=== PATIENT | male | born 1935 | race Caucasian/White ===

== ENCOUNTER 2017-06-13 12:09 | Inpatient (IN) | payer OTHER, SELFPAY ==
[2017-06-13] VITALS (10 sets, daily range): BP systolic 106–111; BP diastolic 50–66; PULSE 56–107; RESP 14–22; TEMP 36.8–37.1; O2SAT 91–95; BMI 22.0; BMI 21.6
--- NOTE | 2017-06-13 13:27 | EKG12_ITS ---
Test Reason : AFIB Blood Pressure : / mmHG Vent. Rate : 108 BPM Atrial Rate : 110 BPM P-R Int : 000 ms QRS Dur : 108 ms QT Int : 350 ms P-R-T Axes : 000 -03 012 degrees QTc Int : 469 ms Atrial fibrillation with premature ventricular or aberrantly conducted complexes Nonspecific ST and T wave abnormality Abnormal ECG Confirmed by TRISTAN SANDOVAL, KATHIA ([id number]), news editor ANAHY CHRISTIE ([id number]) on 06/18/2017 3:24:20 PM Referred By: CLEVELAND/PAUL Confirmed By:KATHIA HUDSNO MD
--- NOTE | 2017-06-13 13:27 | RAD_ITS ---
STUDY: X-RAY CHEST REASON FOR EXAM: Male, 81 years old. Intermittent nausea and dizziness. Sternal discomfort. TECHNIQUE: Single AP portable view of the chest. COMPARISON: Comparison is made with prior study dated March 31, 2015. FINDINGS: EKG electrodes are seen. Hyperinflation. Scattered calcified granulomas. Increased markings with areas of confluence in the left lower lobe suggestive of left lower lobe infiltrate. There is no demonstrated pleural abnormality. Sternal cerclage wires and vascular clips are present from a prior sternotomy and coronary artery bypass graft procedure (CABG). Normal mediastinum and junior. Normal visualized pulmonary arteries. There is atherosclerotic calcification of the aortic arch with tortuosity. There are diffuse degenerative changes of the visualized thoracic spine. Normal visualized ribs, clavicles, and shoulders. There is no demonstrated abnormality of the visualized soft tissue structures of the upper abdomen. RAD/Chest 1 View (Portable) IMPRESSION: Left lower lobe infiltrate. Hyperinflation. Electronically Signed: Mehul Calderon MD at 13:51 EST Tel [phone], Service support ,
[2017-06-13 13:57] LABS: Absolute Lymphocyte Count 1.47 X10^3/ul (0.83-4.51); Absolute Neutrophil Count 16.9 X10^3/uL (2.0-7.7); Basophil# 0.02 X10^3/uL; Basophil% 0.1 % (0-1); Eosinophil# 0.02 X10^3/uL; Eosinophils% 0.1 % (0-5); Hematocrit 42.3 % (40-54); Hemoglobin 14.4 g/dl (13.0-16.5); Lymphocyte # 1.47 X10^3/ul (4.0); Lymphocyte % 7.6 % (19-41); Mean Corpuscular Hgb 33.9 pg (27.0-32.0); Mean Corpuscular Volume 99.5 fL (80-94); Mean Platelet Vol. 12.1 fl (6.2-12.0); Monocyte# 0.96 X10^3/uL; Monocyte% 4.9 % (0-10); Neutrophil # 16.94 X10^3/uL (2.7-7.7); POSITIVE COUNT NO; POSITIVE DIFFERENTIAL NO; POSITIVE MORPHOLOGY NO; Platelet Count 167 K/mm3 (150-450); RBC Distribution Width CV 14.3 % (11.6-14.6); RBC Distribution Width SD 51.8 fl (35.1-43.9); Red Blood Count 4.25 M/mm3 (4.6-6.2); White Blood Count 19.5 K/mm3 (4.4-11.0)
[2017-06-13 14:03] LABS: International Normalized Ratio 1.4; Prothrombin Time (Protime)PT. 16.2 SECONDS (11.7-14.9)
[2017-06-13 14:04] LABS: Partial Thromboplast Time 31.7 Seconds (24.1-36.2)
[2017-06-13] MEDS: Metoprolol Tartrate 5 MG/5 ML Vial IV (14:06)
[2017-06-13 14:17] LABS: ALB/GLOB Ratio 0.8 RATIO (0.9-2.4); AST(SGOT) 16 U/L (15-37); Alanine Aminotransfer ALT/SGPT 25 U/L (12-78); Alkaline Phosphatase 83 U/L (45-117); Anion Gap 7 (5-15); BUN 22 mg/dL (7-18); BUN/Creat Ratio 17.7 RATIO (10-20); Calcium,Total 8.4 mg/dL (8.5-10.1); Chloride 100 mmol/L (98-107); Creatinine, Serum 1.24 mg/dL (0.70-1.30); EST Glomerular Filtration Rate 60 mL/min (>60); Est Glom Filt Rate - Afr Amer 72 mL/min (>60); Estimated Creatinine Clearance 47.55 ml/min; Globulin 3.7 g/dL (2.2-4.2); Glucose 122 mg/dL (70-110); Magnesium 2.3 mg/dL (1.8-2.4); Potassium 4.6 mmol/L (3.5-5.1); Protein, Total 6.7 g/dL (6.4-8.2); Sodium Level 134 mmol/L (136-145)
[2017-06-13 14:26] LABS: Lactic Acid 1.6 mmol/L (0.4-2.0)
--- NOTE | 2017-06-13 15:27 | ED.VISSUMM ---
- ER Visit Summary Date of Service: 06/13/17 Chief Complaint: Atrial fibrillation History of Present Illness: The patient is a 81 M who states that for the past 6 weeks she has had a cough. He states he did a round of antibiotics towards the beginning of May but it did not help him. Today he went to the urgent care where he had a chest x-ray that was concerning for pneumonia and an EKG that showed atrial fibrillation with A. fib with RVR. 11 years ago the patient had a four-vessel CABG at [facility]. He does states that he does not currently follow with any varitype operator. He does not recall a remote time since the open heart surgery where he was fishing in [facility] [place] and went to the hospital was told that he had A. fib. When he followed up he did not have A. fib. He states that he does not know if he is in A. fib now or not as he does not feel any different. He states that really he only wants to be evaluated for his cough. Physical Examination: Afebrile patient's heart rate noted to be 120-140 range. Normotensive. Gen: Well-nourished well-developed Head: Normocephalic atraumatic Eyes: Perrl EOMI ENT: TMs clear no rhinorrhea moist mucous membranes Neck: Supple no lymphadenopathy no JVD nontender CVS: Irregularly irregular tachycardic rhythm no murmurs normal S1-S2 Respiratory: No distress clear to auscultation bilaterally chest nontender Abdomen: Soft nontender nondistended normal bowel sounds no masses Back: Nontender Extremity: Nontender no edema Skin: Normal color no rash Neuro: alert orientated ?3 CN II-XII intact normal strength sensation reflexes gait cerebellar Psych: Normal affect normal mood Test Results: X-ray shows a lingular infiltrate. White count is 19,000. TSH magnesium potassium normal. Troponin normal. Lactic acid normal. Emergency Department Course and Treatment: Cultures were obtained. The patient received Rocephin and azithromycin. Patient also received a dose of metoprolol which helped to improve his rate. The patient also received a dose of aspirin and Lovenox. He is still in A. fib. Our plan is admission to the hospital. Impression: 1. Pneumonia 2. Atrial fibrillation with rapid ventricular response 3. Sepsis This note was generated with NeuroPaceation software. It may contain incorrect words, spelling, and punctuation that were not noted in review of the chart prior to signing ED Disposition - Plan for ED Patient: Chief Complaint: Chest Other Referrals: Moise Babcock [Primary Care Provider] -
--- NOTE | 2017-06-13 15:37 | PCM.HP.STD ---
Problem List (1) Atrial fibrillation Status: Acute (2) Sepsis Status: Acute (3) Community acquired pneumonia Status: Acute (4) Hyperlipidemia Status: Chronic (5) Status post coronary artery bypass graft Status: Chronic (6) Coronary artery disease Status: Chronic History of Present Illness Date of Admission: 06/13/17 Chief Complaint: Cough. The patient is a 81 year old M past medical history as mentioned above presented to the emergency room because of 5 weeks history of cough. His illness started around 5 weeks ago with cough, mostly dry cough, with occasional sputum production, white to yellow in color, small amount, persistent cough without improvement and reported associated mild shortness of breath with activity. He denied any aggravating or relieving factors. He denied fever or chills. Denied sore throat, nasal or sinus congestion. Using cough medicine at home without improvement. Denied chest pain, palpitation, dizziness or lightheadedness. Denies syncope or presyncope. He had a history of CAD status post CABG long time ago and he has been only taking simvastatin at home. He has a history of hyperlipidemia and he has been on statins only. He is not seeing any jeep driver. In the emergency room, he was afebrile, found to be in A. fib with RVR, heart rate was around 110, blood pressure stable and pulse ox was 91% on room air. He was given 1 dose of IV metoprolol and his heart rate came down to 80s-90s. Routine blood work is remarkable for leukocytosis, blood sugar of 122. Troponin was negative. Lactic acid was normal. EKG revealed A. fib with RVR, no acute ischemic changes. His pro time was 16.2 and INR was 1.4. Chest x-ray revealed left lingula infiltrate. He is being admitted for left lower lobe community-acquired pneumonia with sepsis as well as newly diagnosed A. fib with RVR. Past Medical History Past Medical History (Chronic Problems): Chronic Problems Hyperlipidemia (Chronic) Status post coronary artery bypass graft (Chronic) Coronary artery disease (Chronic) Allergies No Known Allergies Allergy (Verified 06/13/17 12:11) Home Medications: Ambulatory Orders Medication Instructions Recorded Multivitamin [Multiple Vitamins] 1 each PO DAILY 06/13/17 Simvastatin [Zocor] 40 mg PO QHS 06/13/17 Surgical History: coronary bypass surgery Psychiatric History: No pertinent psych hx Lives: Spouse/ Significant Other Smoking Status: Former smoker Alcohol: None Drugs: None - *Family History Maternal History Items: No pertinent history Paternal History Items: No pertinent history Review of Systems Constitutional: Denies: Anorexia, Chills, Fever, Weakness Eyes: Denies: Blurred vision, Double vision, Drainage, Redness HEENT: Denies: Difficulty Hearing, Ear Pain, Eye Pain, Nasal Congestion, Sore Throat Cardiovascular: Denies: Chest Pain, Chest Pressure, Edema, Light Headedness, Orthopnea, Paroxysmal Noc. Dyspnea, Syncope Respiratory: Reports: Cough, Shortness of Breath. Denies: Hemoptysis, Pleuritic Pain, Wheezing Gastrointestinal: Denies: Abdominal Pain, Constipation, Diarrhea, Nausea, Vomiting Genitourinary: Denies: Dysuria, Frequency, Hematuria Musculoskeletal: Denies: Arm Pain, Back Pain, Foot Pain Skin: Denies: Dryness, Rash Neurological: Denies: Balance problems, Double vision, Change in Speech, Slurred speech, Confusion, Headaches, Incoordination, Numbness Psychiatric: Denies: Anxiety, Depression Endocrine: Denies: Change in Body Habitus, Polydipsia VTE Information - Inpt Only VTE Present on Admission: No VTE Mechan Device Prophylaxis: None VTE Pharm Prophylaxis ordered?: No Patient Problems: Active and Suspected Problems Atrial fibrillation (Acute) Sepsis (Acute) Community acquired pneumonia (Acute) - Physical Exam General: Alert, Oriented x3, Cooperative, No apparent distress HEENT: Atraumatic, PERRLA, EOMI Oral: Moist Mucosa, No Gingival or Mucosal Lesions/ Ulcerations Neck: Supple, No JVD, Negative Carotid Bruits, Trachea Midline, Thyroid Normal Size and Texture Lungs: No wheeze, Diminished, Rales, Rhonchi, - - Decreased breath sounds bilateral, bilateral rhonchi, coarse crackles at the left base. Cardiovascular: Normal S1, Normal S2, No murmurs, PMI Normal, Irregular Rate Abdomen: Bowel Sounds Present, Soft, Non Tender, Non-Distended, No Hepato-splenomegaly Extremities: No clubbing, No cyanosis, No edema Skin: No rashes, No breakdown Lymphatic: No Cervical, Supraclavicular, or Inguinal Adenopathy Neurological: Cranial nerves II-XII grossly intact, Motor Exam 5/5 strength throughout Psych/Mental Status: Normal Affect, Appropriate, Alert and oriented to time, place, person, mood and affect Vital Signs Temp Pulse Resp BP Pulse Ox 98.6 F 107 H 14 111/65 92 06/13/17 12:10 06/13/17 14:10 06/13/17 12:10 06/13/17 12:10 06/13/17 14:10 Oxygen Flow Rate 2 Oxygen Delivery Method Nasal Cannula Weight: 153 lb 7.068 oz Body Mass Index (BMI) 22.0 Laboratory Tests Past 24 Hrs 06/13/17 06/13/17 06/13/17 13:44 13:44 13:44 WBC 19.5 H RBC 4.25 L Hgb 14.4 Hct 42.3 MCV 99.5 H MCH 33.9 H MCHC 34.0 RDW 14.3 RDW Differential 51.8 H Plt Count 167 MPV 12.1 H Immature Gran % (Auto) 0.300 Neut % (Auto) 87.0 H Lymph % (Auto) 7.6 L Rutherford % (Auto) 4.9 Eos % (Auto) 0.1 Baso % (Auto) 0.1 Absolute Neuts (auto) 16.9 H Absolute Lymphs (auto) 1.47 Total Counted Not Reportable PT 16.2 H INR 1.4 APTT 31.7 Sodium 134 L Potassium 4.6 Chloride 100 Carbon Dioxide 27.0 Anion Gap 7 BUN 22 H Creatinine 1.24 Estim Creat Clear Calc 47.55 Est GFR (MDRD) Af Amer 72 Est GFR (MDRD) Non-Af 60 BUN/Creatinine Ratio 17.7 Glucose 122 H Lactic Acid Calcium 8.4 L Magnesium 2.3 Total Bilirubin 1.50 H AST 16 ALT 25 Alkaline Phosphatase 83 Troponin I < 0.02 Total Protein 6.7 Albumin 3.0 L Globulin 3.7 Albumin/Globulin Ratio 0.8 L TSH 3.10 06/13/17 13:44 WBC RBC Hgb Hct MCV MCH MCHC RDW RDW Differential Plt Count MPV Immature Gran % (Auto) Neut % (Auto) Lymph % (Auto) Rutherford % (Auto) Eos % (Auto) Baso % (Auto) Absolute Neuts (auto) Absolute Lymphs (auto) Total Counted PT INR APTT Sodium Potassium Chloride Carbon Dioxide Anion Gap BUN Creatinine Estim Creat Clear Calc Est GFR (MDRD) Af Amer Est GFR (MDRD) Non-Af BUN/Creatinine Ratio Glucose Lactic Acid 1.6 Calcium Magnesium Total Bilirubin AST ALT Alkaline Phosphatase Troponin I Total Protein Albumin Globulin Albumin/Globulin Ratio TSH Clinical Impression(s) from Imaging Studies Chest X-Ray 06/13/17 13:27 IMPRESSION: Left lower lobe infiltrate. Hyperinflation. Electronically Signed: Mehul Calderon MD at 13:51 EST Tel [phone], Service support , Assessment/Plan Active and Suspected Problems Atrial fibrillation (Acute) Sepsis (Acute) Community acquired pneumonia (Acute) This is a 81 years old presented to the emergency room because of fall for history of dry/intermittently productive cough and he was found to have infiltrate on the left lingula consistent with community-acquired pneumonia, also found to have newly diagnosed atrial fibrillation. #1 left lower lobe community-acquired pneumonia/sepsis: X-ray reviewed, revealed left lingular infiltrate. Initially, heart rate has been more than 100, has leukocytosis consistent with sepsis. Lactic acid is normal. Plan: Admit to PCU, cardiac monitoring, blood culture, urine culture, sputum culture, IV Rocephin and Zithromax, pneumococcal and Legionella antigen, nasal swab for influenza a and B, DuoNeb every 6 hours, incentive spirometer, PT OT evaluation and treatment. #2 newly diagnosed atrial fibrillation with RVR: Initially, he was in A. fib with RVR, rate has been around 110. Received 1 dose of IV metoprolol, rate came down to 80s-90s, blood pressure stable. EKG revealed A. fib, no acute ischemic changes. Troponin is negative. His CHA2 DS2-VASc core S3, he is at moderate to high risk for stroke, he is a candidate for anticoagulation. Plan: Cardiac monitoring, serial cardiac enzymes, repeat EKG tomorrow morning, 2D echocardiogram, check TSH and serum magnesium, start oral Coreg for rate control, therapeutic Lovenox twice daily for anticoagulation, cardiology consult. #3 CAD status post CABG: Patient denies any chest pain or shortness of breath. EKG reviewed, no acute ST elevation. Patient only takes simvastatin at home. He is not on beta-blockers or PASHA inhibitors. He does not see a jeep driver. Plan as above, start Coreg, baby aspirin, fasting lipid profile, 2D echocardiogram. #4 hyperlipidemia: Continue statins, fasting lipid profile. #5 DVT prophylaxis: He will be on therapeutic Lovenox twice daily for anticoagulation. This note was generated with Flexiroam dictation software. It may contain incorrect words, spelling, and punctuation that were not noted in checking the note before signing. Code Visit Inpatient E&M: 78048 Init Hosp L3
--- NOTE | 2017-06-13 15:48 | HP.PCM_ITS ---
Problem List (1) Atrial fibrillation Status: Acute (2) Sepsis Status: Acute (3) Community acquired pneumonia Status: Acute (4) Hyperlipidemia Status: Chronic (5) Status post coronary artery bypass graft Status: Chronic (6) Coronary artery disease Status: Chronic History of Present Illness Date of Admission: 06/13/17 Chief Complaint: Cough. The patient is a 81 year old M past medical history as mentioned above presented to the emergency room because of 5 weeks history of cough. His illness started around 5 weeks ago with cough, mostly dry cough, with occasional sputum production, white to yellow in color, small amount, persistent cough without improvement and reported associated mild shortness of breath with activity. He denied any aggravating or relieving factors. He denied fever or chills. Denied sore throat, nasal or sinus congestion. Using cough medicine at home without improvement. Denied chest pain, palpitation, dizziness or lightheadedness. Denies syncope or presyncope. He had a history of CAD status post CABG long time ago and he has been only taking simvastatin at home. He has a history of hyperlipidemia and he has been on statins only. He is not seeing any bread packer. In the emergency room, he was afebrile, found to be in A. fib with RVR, heart rate was around 110, blood pressure stable and pulse ox was 91% on room air. He was given 1 dose of IV metoprolol and his heart rate came down to 80s-90s. Routine blood work is remarkable for leukocytosis, blood sugar of 122. Troponin was negative. Lactic acid was normal. EKG revealed A. fib with RVR, no acute ischemic changes. His pro time was 16.2 and INR was 1.4. Chest x-ray revealed left lingula infiltrate. He is being admitted for left lower lobe community-acquired pneumonia with sepsis as well as newly diagnosed A. fib with RVR. Past Medical History Past Medical History (Chronic Problems): Chronic Problems Hyperlipidemia (Chronic) Status post coronary artery bypass graft (Chronic) Coronary artery disease (Chronic) Allergies No Known Allergies Allergy (Verified 06/13/17 12:11) Home Medications: Ambulatory Orders Medication Instructions Recorded Multivitamin [Multiple Vitamins] 1 each PO DAILY 06/13/17 Simvastatin [Zocor] 40 mg PO QHS 06/13/17 Surgical History: coronary bypass surgery Psychiatric History: No pertinent psych hx Lives: Spouse/ Significant Other Smoking Status: Former smoker Alcohol: None Drugs: None - *Family History Maternal History Items: No pertinent history Paternal History Items: No pertinent history Review of Systems Constitutional: Denies: Anorexia, Chills, Fever, Weakness Eyes: Denies: Blurred vision, Double vision, Drainage, Redness HEENT: Denies: Difficulty Hearing, Ear Pain, Eye Pain, Nasal Congestion, Sore Throat Cardiovascular: Denies: Chest Pain, Chest Pressure, Edema, Light Headedness, Orthopnea, Paroxysmal Noc. Dyspnea, Syncope Respiratory: Reports: Cough, Shortness of Breath. Denies: Hemoptysis, Pleuritic Pain, Wheezing Gastrointestinal: Denies: Abdominal Pain, Constipation, Diarrhea, Nausea, Vomiting Genitourinary: Denies: Dysuria, Frequency, Hematuria Musculoskeletal: Denies: Arm Pain, Back Pain, Foot Pain Skin: Denies: Dryness, Rash Neurological: Denies: Balance problems, Double vision, Change in Speech, Slurred speech, Confusion, Headaches, Incoordination, Numbness Psychiatric: Denies: Anxiety, Depression Endocrine: Denies: Change in Body Habitus, Polydipsia VTE Information - Inpt Only VTE Present on Admission: No VTE Mechan Device Prophylaxis: None VTE Pharm Prophylaxis ordered?: No Patient Problems: Active and Suspected Problems Atrial fibrillation (Acute) Sepsis (Acute) Community acquired pneumonia (Acute) - Physical Exam General: Alert, Oriented x3, Cooperative, No apparent distress HEENT: Atraumatic, PERRLA, EOMI Oral: Moist Mucosa, No Gingival or Mucosal Lesions/ Ulcerations Neck: Supple, No JVD, Negative Carotid Bruits, Trachea Midline, Thyroid Normal Size and Texture Lungs: No wheeze, Diminished, Rales, Rhonchi, - - Decreased breath sounds bilateral, bilateral rhonchi, coarse crackles at the left base. Cardiovascular: Normal S1, Normal S2, No murmurs, PMI Normal, Irregular Rate Abdomen: Bowel Sounds Present, Soft, Non Tender, Non-Distended, No Hepato- splenomegaly Extremities: No clubbing, No cyanosis, No edema Skin: No rashes, No breakdown Lymphatic: No Cervical, Supraclavicular, or Inguinal Adenopathy Neurological: Cranial nerves II-XII grossly intact, Motor Exam 5/5 strength throughout Psych/Mental Status: Normal Affect, Appropriate, Alert and oriented to time, place, person, mood and affect Vital Signs Temp Pulse Resp BP Pulse Ox 98.6 F 107 H 14 111/65 92 06/13/17 12:10 06/13/17 14:10 06/13/17 12:10 06/13/17 12:10 06/13/17 14:10 Oxygen Flow Rate 2 Oxygen Delivery Method Nasal Cannula Weight: 153 lb 7.068 oz Body Mass Index (BMI) 22.0 Laboratory Tests Past 24 Hrs 06/13/17 06/13/17 06/13/17 13:44 13:44 13:44 WBC 19.5 H RBC 4.25 L Hgb 14.4 Hct 42.3 MCV 99.5 H MCH 33.9 H MCHC 34.0 RDW 14.3 RDW Differential 51.8 H Plt Count 167 MPV 12.1 H Immature Gran % (Auto) 0.300 Neut % (Auto) 87.0 H Lymph % (Auto) 7.6 L [place] % (Auto) 4.9 Eos % (Auto) 0.1 Baso % (Auto) 0.1 Absolute Neuts (auto) 16.9 H Absolute Lymphs (auto) 1.47 Total Counted Not Reportable PT 16.2 H INR 1.4 APTT 31.7 Sodium 134 L Potassium 4.6 Chloride 100 Carbon Dioxide 27.0 Anion Gap 7 BUN 22 H Creatinine 1.24 Estim Creat Clear Calc 47.55 Est GFR (MDRD) Af Amer 72 Est GFR (MDRD) Non-Af 60 BUN/Creatinine Ratio 17.7 Glucose 122 H Lactic Acid Calcium 8.4 L Magnesium 2.3 Total Bilirubin 1.50 H AST 16 ALT 25 Alkaline Phosphatase 83 Troponin I < 0.02 Total Protein 6.7 Albumin 3.0 L Globulin 3.7 Albumin/Globulin Ratio 0.8 L TSH 3.10 06/13/17 13:44 WBC RBC Hgb Hct MCV MCH MCHC RDW RDW Differential Plt Count MPV Immature Gran % (Auto) Neut % (Auto) Lymph % (Auto) [place]wey % (Auto) Eos % (Auto) Baso % (Auto) Absolute Neuts (auto) Absolute Lymphs (auto) Total Counted PT INR APTT Sodium Potassium Chloride Carbon Dioxide Anion Gap BUN Creatinine Estim Creat Clear Calc Est GFR (MDRD) Af Amer Est GFR (MDRD) Non-Af BUN/Creatinine Ratio Glucose Lactic Acid 1.6 Calcium Magnesium Total Bilirubin AST ALT Alkaline Phosphatase Troponin I Total Protein Albumin Globulin Albumin/Globulin Ratio TSH Clinical Impression(s) from Imaging Studies Chest X-Ray 06/13/17 13:27 IMPRESSION: Left lower lobe infiltrate. Hyperinflation. Electronically Signed: Mehul Calderon MD at 13:51 EST Tel [phone], Service support , Assessment/Plan Active and Suspected Problems Atrial fibrillation (Acute) Sepsis (Acute) Community acquired pneumonia (Acute) This is a 81 years old presented to the emergency room because of fall for history of dry/intermittently productive cough and he was found to have infiltrate on the left lingula consistent with community-acquired pneumonia, also found to have newly diagnosed atrial fibrillation. #1 left lower lobe community-acquired pneumonia/sepsis: X-ray reviewed, revealed left lingular infiltrate. Initially, heart rate has been more than 100 , has leukocytosis consistent with sepsis. Lactic acid is normal. Plan: Admit to PCU, cardiac monitoring, blood culture, urine culture, sputum culture, IV Rocephin and Zithromax, pneumococcal and Legionella antigen, nasal swab for influenza a and B, DuoNeb every 6 hours, incentive spirometer, PT OT evaluation and treatment. #2 newly diagnosed atrial fibrillation with RVR: Initially, he was in A. fib with RVR, rate has been around 110. Received 1 dose of IV metoprolol, rate came down to 80s-90s, blood pressure stable. EKG revealed A. fib, no acute ischemic changes. Troponin is negative. His CHA2 DS2-VASc core S3, he is at moderate to high risk for stroke, he is a candidate for anticoagulation. Plan: Cardiac monitoring, serial cardiac enzymes, repeat EKG tomorrow morning, 2D echocardiogram, check TSH and serum magnesium, start oral Coreg for rate control , therapeutic Lovenox twice daily for anticoagulation, cardiology consult. #3 CAD status post CABG: Patient denies any chest pain or shortness of breath. EKG reviewed, no acute ST elevation. Patient only takes simvastatin at home. He is not on beta-blockers or PASHA inhibitors. He does not see a bread packer. Plan as above, start Coreg, baby aspirin, fasting lipid profile, 2D echocardiogram. #4 hyperlipidemia: Continue statins, fasting lipid profile. #5 DVT prophylaxis: He will be on therapeutic Lovenox twice daily for anticoagulation. This note was generated with [employer] dictation software. It may contain incorrect words, spelling, and punctuation that were not noted in checking the note before signing. Code Visit Inpatient E&M: 22684 Init Hosp L3
--- NOTE | 2017-06-13 15:56 | ED.DCSUM_ITS ---
- ER Visit Summary Date of Service: 06/13/17 Chief Complaint: Atrial fibrillation History of Present Illness: The patient is a 81 M who states that for the past 6 weeks she has had a cough. He states he did a round of antibiotics towards the beginning of May but it did not help him. Today he went to the urgent care where he had a chest x-ray that was concerning for pneumonia and an EKG that showed atrial fibrillation with A. fib with RVR. 11 years ago the patient had a four-vessel CABG at [facility]. He does states that he does not currently follow with any saturation diver. He does not recall a remote time since the open heart surgery where he was fishing in [facility] [place] and went to the hospital was told that he had A. fib. When he followed up he did not have A. fib. He states that he does not know if he is in A. fib now or not as he does not feel any different. He states that really he only wants to be evaluated for his cough. Physical Examination: Afebrile patient's heart rate noted to be 120-140 range. Normotensive. Gen: Well-nourished well-developed Head: Normocephalic atraumatic Eyes: Perrl EOMI ENT: TMs clear no rhinorrhea moist mucous membranes Neck: Supple no lymphadenopathy no JVD nontender CVS: Irregularly irregular tachycardic rhythm no murmurs normal S1-S2 Respiratory: No distress clear to auscultation bilaterally chest nontender Abdomen: Soft nontender nondistended normal bowel sounds no masses Back: Nontender Extremity: Nontender no edema Skin: Normal color no rash Neuro: alert orientated ?3 CN II-XII intact normal strength sensation reflexes gait cerebellar Psych: Normal affect normal mood Test Results: X-ray shows a lingular infiltrate. White count is 19,000. TSH magnesium potassium normal. Troponin normal. Lactic acid normal. Emergency Department Course and Treatment: Cultures were obtained. The patient received Rocephin and azithromycin. Patient also received a dose of metoprolol which helped to improve his rate. The patient also received a dose of aspirin and Lovenox. He is still in A. fib. Our plan is admission to the hospital. Impression: 1. Pneumonia 2. Atrial fibrillation with rapid ventricular response 3. Sepsis This note was generated with [email or web address] software. It may contain incorrect words, spelling, and punctuation that were not noted in review of the chart prior to signing ED Disposition - Plan for ED Patient: Chief Complaint: Chest Other Referrals: Moise Babcock [Primary Care Provider] -
[2017-06-13] MEDS: Aspirin 81 MG TAB.CHEW 324 MG PO (16:09)
[2017-06-13] MEDS: Enoxaparin 100 MG/ML Syringe 70 MG SC (16:10)
--- NOTE | 2017-06-13 16:50 | ECHOD_ITS ---
Reason For Study: Afib, Aflutter Procedure This was a 2D Doppler, Color Flow transthoracic echocardiogram. Exam performed portable in patient room. Left Ventricle Normal LV size. Moderate global left ventricular systolic dysfunction. Mild segmental systolic dysfunction (see wall motion). The estimated ejection fraction is 40 %. Posterior-Basal: Akinetic. Mid-Posterior: Akinetic. There is mild global hypokinesis of the left ventricle. Right Ventricle Normal RV size. Normal systolic function. Atria Normal left atrium. Normal right atrium. Patent foramen ovale. Mitral Valve There is mild mitral annular calcification. Mild (1+) eccentric mitral valve insufficiency. Tricuspid Valve Normal tricuspid valve. Mild (1+) tricuspid valve insufficiency. Pulmonary artery systolic pressure is 33 mmHg. Aortic Valve Trisinus/trileaflet aortic valve. Mild focal aortic valve calcification. Pulmonic Valve Normal pulmonic valve. Great Vessels Normal aortic root. The pulmonary artery is normal size. Normal inferior vena cava. Pericardium/Pleural No pericardial effusion. Medication Performed a rapid injection of agitated mix of 9 cc saline and 1cc air to assess for atrial septal defect. MMode/2D Measurements & Calculations LVIDd: 5.4 cm IVSd: 0.98 cm Ao root diam: 3.4 cm LVIDs: 4.5 cm LVPWd: 0.54 cm LA dimension: 3.0 cm RVDd: 3.6 cm FS: 16.8 % LAV(MOD-bp): 40.2 ml LA A4 area: 14.0 cm2 RA A4 area: 16.8 cm2 LAV(MOD-bp) Indexed: 21.8 ml/m2 LAV(MOD-sp2): 46.9 ml LAV(MOD-sp4): 29.4 ml Doppler Measurements & Calculations MV E max abdoulaye: 72.9 cm/sec Lat Peak E' Abdoulaye: 10.7 cm/sec Med Peak E' Abdoulaye: 8.5 cm/sec MV A max abdoulaye: 41.9 cm/sec E/E' lat: 6.8 E/E' med: 8.6 MV E/A: 1.7 Ao V2 max: 130.4 cm/sec LV V1 max: 80.4 cm/sec PA V2 max: 70.3 cm/sec Ao max P.9 mmHg LV V1 max P.6 mmHg Ao V2 mean: 96.1 cm/sec Ao mean P.1 mmHg Ao V2 VTI: 21.3 cm TR max abdoulaye: 265.8 cm/sec TR max P.3 mmHg Interpretation Summary Normal LV size. Mild segmental systolic dysfunction (see wall motion). The estimated ejection fraction is 40 %. There is mild mitral annular calcification. Mild (1+) eccentric mitral valve insufficiency. Patent foramen ovale. Ordering Physician: Ernesto Lopez Referring Physician: Moise Babcock Performed By: Shonda Donohue RDCS, RVT
--- NOTE | 2017-06-13 17:08 | PCM.CONS.C ---
Reason for Consult Date of Consultation: 06/13/17 Reason for Consultation: Cough History of Present Illness: The patient is a 81 year old M past medical history for four-vessel coronary bypass surgery over 10 years ago presented to the emergency room because of 5 weeks history of cough. His illness started around 5 weeks ago with cough, mostly dry cough, with occasional sputum production, white to yellow in color, small amount, persistent cough without improvement and reported associated mild shortness of breath with activity. He denied any aggravating or relieving factors. He denied fever or chills. Denied sore throat, nasal or sinus congestion. Using cough medicine at home without improvement. Denied chest pain, palpitation, dizziness or lightheadedness. Denies syncope or presyncope. He is not seeing any plisse machine operator. In the emergency room, he was afebrile, found to be in A. fib with RVR, heart rate was around 110, blood pressure stable and pulse ox was 91% on room air. He was given 1 dose of IV metoprolol and his heart rate came down to 80s-90s. Routine blood work is remarkable for leukocytosis, blood sugar of 122. Troponin was negative. Lactic acid was normal. EKG revealed A. fib with RVR, no acute ischemic changes. His pro time was 16.2 and INR was 1.4. Chest x-ray revealed left lingula infiltrate. He is being admitted for left lower lobe community-acquired pneumonia with sepsis as well as newly diagnosed A. fib with RVR. He says that he is feeling better now but he still has a cough and he wants this worked up quickly so he can go for his family gathering on Saturday. ] Past Medical History Allergies/Adverse Reactions: Allergies No Known Allergies Allergy (Verified 06/13/17 12:11) Home Medications: Ambulatory Orders Medication Instructions Recorded Multivitamin [Multiple Vitamins] 1 each PO DAILY 06/13/17 Simvastatin [Zocor] 40 mg PO QHS 06/13/17 Past Medical History (Chronic Problems): Chronic Problems Hyperlipidemia (Chronic) Status post coronary artery bypass graft (Chronic) Coronary artery disease (Chronic) Surgical History: coronary bypass surgery Psychiatric History: No pertinent psych hx - *Family History Maternal History Items: No pertinent history Paternal History Items: No pertinent history Lives: Spouse/ Significant Other Smoking Status: Former smoker Alcohol: None Drugs: None Review of Systems - Review of Systems General: Denies: Fever, Night Sweats, Fatigue Cardiovascular: Reports: Orthopnea. Denies: Chest Discomfort, Shortness of Breath, PND, Peripheral Edema, Palpitations, Lightheadedness, Dizziness, Near Syncope, Syncope Respiratory: Reports: Cough, Non Productive Cough, Shortness of Breath. Denies: Sputum Production, Hemoptysis Gastrointestinal: Denies: Hematemesis, Hematochezia, Melena Genitourinary: Denies: Dysuria, Hematuria Skin: Denies: Rash Subjectve: Pleasant gentleman in no apparent distress sitting on the side of his bed. Objective: Vital Signs Temp Pulse Resp BP Pulse Ox 98.2 F 93 19 H 108/66 92 06/13/17 16:32 06/13/17 16:32 06/13/17 16:32 06/13/17 16:32 06/13/17 16:32 Oxygen Delivery Method Room Air Weight: 150 lb 9.211 oz Body Mass Index (BMI) 21.6 General: Awake, Alert, Oriented x 3 HEENT: PERRL, EOMI, Sclera Non Icteric Neck: Supple, Good ROM, No Lymph Node Enlargement Lungs: Diminished Lucian Bases Cardiovascular: Regular Rhythm, Normal S1, Normal S2, No Murmurs, No Rubs, No Gallops Vascular: No Carotid Bruits, Normal Femoral Pulses, Normal Radial Pulses, Normal Dorsalis Pedal Pulse, Normal Posterior Tibial Pulses Abdomen: Bowel Sounds Present, Soft, Non Tender, No HSM, No Organomegaly Extremities: No Cyanosis, No Clubbing, No edema Skin: No Rashes Lymphatic: No Lymph Node Enlargement Neurological: No Focal Motor or Sensory Deficit Rhythm: EKG: Atrial fibrillation with a ventricular response rate of 108 bpm with no acute changes Assessment/Plan 1. Atrial fibrillation She presents with atrial fibrillation the duration of which is unknown. This is associated with a chronic cough. I suspect that he is in mild congestive heart failure secondary to the above. It appears that the chest x-ray was consistent with a possible pneumonia but it may be helpful to obtain a natruretic peptide level as well as an echocardiogram. Depending on the results of this further recommendations will be made. In the meantime he can be started on a calcium channel doe or beta-doe for rate control. The duration of his atrial fibrillation is not clear to me at this time and anticoagulation would probably be warranted. 2. Coronary artery disease Status post coronary bypass surgery remotely. He has not had any cardiac follow-up. I suspect that with his bypass grafts over 10 years old he probably has some level of graft attrition. This can be evaluated further as an outpatient. Should nonetheless be started on aspirin and continued with his statin. 3. Probable mild congestive heart failure We will obtain an echocardiogram to assess his left ventricular function as well as a natriuretic peptide level. I will suggest a dose of intravenous Lasix tonight to see how he reacts to the above. The above has been discussed with the patient and his daughter. Thank you for allowing me to participate in his care.
[2017-06-13] MEDS: Furosemide 40 MG/4 ML Vial IV (17:38)
[2017-06-13] MEDS: 0.9% NaCl Peripheral Flush Adult/Peds IV (17:39)
[2017-06-13 18:36] LABS: BNP,B-Type NATRIURETIC PEPTIDE 243.5 pg/mL (0-100)
[2017-06-13] MEDS: Ipratropium/Albuterol Sulfate 3 ML AMPUL.NEB INHALATION (18:39)
[2017-06-13 19:04] LABS: Color, Urine Yellow (Yellow); Glucose, Dipstick Normal (Normal); Ketone-Dipstick Negative (Negative); Leukocyte Esterase-Dipstick Negative /ul (Negative); Nitrite-Dipstick Negative (Negative); Occult Blood-Urine Negative /ul (Negative); Protein-Dipstick Negative (Negative); Urine Bilirubin Dipstick Negative (Negative); Urine Clarity Sl. Cloudy (Clear); Urine Urobilinogen Normal (Normal)
[2017-06-13] MEDS: Carvedilol 6.25 MG Tablet PO (21:27)
[2017-06-13] MEDS: Atorvastatin Calcium 20 MG Tablet PO (21:27)
[2017-06-13] MEDS: guaiFENesin 600 MG Tablet 1200 MG PO (21:27)
[2017-06-14] VITALS (13 sets, daily range): BP systolic 91–108; BP diastolic 49–66; PULSE 64–110; RESP 16–20; TEMP 36.5–37.2; O2SAT 92–95
[2017-06-14] MEDS: Ipratropium/Albuterol Sulfate 3 ML AMPUL.NEB INHALATION ×3 (01:01→18:48)
[2017-06-14 04:22] LABS: Absolute Lymphocyte Count 1.47 X10^3/ul (0.83-4.51); Absolute Neutrophil Count 11.2 X10^3/uL (2.0-7.7); Basophil# 0.03 X10^3/uL; Basophil% 0.2 % (0-1); Eosinophil# 0.09 X10^3/uL; Eosinophils% 0.6 % (0-5); Hematocrit 40.9 % (40-54); Hemoglobin 14.2 g/dl (13.0-16.5); Lymphocyte # 1.47 X10^3/ul (4.0); Lymphocyte % 10.6 % (19-41); Mean Corp Hgb Conc 34.7 g/gl (32-36); Mean Corpuscular Hgb 33.7 pg (27.0-32.0); Mean Corpuscular Volume 97.1 fL (80-94); Mean Platelet Vol. 12.5 fl (6.2-12.0); Monocyte# 1.08 X10^3/uL; Monocyte% 7.8 % (0-10); Neutrophil % 80.7 % (47-70); Platelet Count 155 K/mm3 (150-450); RBC Distribution Width CV 14.4 % (11.6-14.6); RBC Distribution Width SD 49.8 fl (35.1-43.9); Red Blood Count 4.21 M/mm3 (4.6-6.2); White Blood Count 13.9 K/mm3 (4.4-11.0)
[2017-06-14 04:28] LABS: International Normalized Ratio 1.3; Prothrombin Time (Protime)PT. 15.9 SECONDS (11.7-14.9)
[2017-06-14 04:33] LABS: POSITIVE COUNT NO; POSITIVE DIFFERENTIAL NO; POSITIVE MORPHOLOGY NO
[2017-06-14 04:52] LABS: Anion Gap 6 (5-15); BUN 19 mg/dL (7-18); BUN/Creat Ratio 19.3 RATIO (10-20); Chloride 102 mmol/L (98-107); Cholesterol 152 mg/dL (200); Creatinine, Serum 0.98 mg/dL (0.70-1.30); EST Glomerular Filtration Rate 78 mL/min (>60); Est Glom Filt Rate - Afr Amer 94 mL/min (>60); Estimated Creatinine Clearance 59.05 ml/min; Glucose 95 mg/dL (70-110); High Density Lipoprotein 46 mg/dL; Sodium Level 134 mmol/L (136-145); Triglycerides 52 mg/dL; Very Low Density Lipoprotein 10 mg/dL (5-40)
[2017-06-14] MEDS: Enoxaparin 80 MG/0.8 ML Syringe 70 MG SC ×2 (05:26→17:22)
--- NOTE | 2017-06-14 05:55 | EKG12_ITS ---
Test Reason : AM EKG Blood Pressure : / mmHG Vent. Rate : 093 BPM Atrial Rate : 375 BPM P-R Int : 000 ms QRS Dur : 108 ms QT Int : 382 ms P-R-T Axes : 000 -14 -25 degrees QTc Int : 474 ms Atrial fibrillation with premature ventricular or aberrantly conducted complexes Nonspecific ST and T wave abnormality , probably digitalis effect Confirmed by TRISTAN SANDOVAL, KATHIA ([id number]), newspaper photo editor ANAHY CHRISTIE ([id number]) on 06/26/2017 4:29:44 PM Referred By: FÉLIX Confirmed By:KATHIA HUDSON MD
[2017-06-14] MEDS: Ceftriaxone 1 GM/50 ML BAG IV (09:08)
[2017-06-14] MEDS: Carvedilol 6.25 MG Tablet PO (09:44)
[2017-06-14] MEDS: Aspirin 81 MG TAB.CHEW PO (09:44)
[2017-06-14] MEDS: guaiFENesin 600 MG Tablet 1200 MG PO ×2 (09:44→22:34)
--- NOTE | 2017-06-14 15:38 | CASEMGMT ---
Face to Face with patient for initial transition planning/care coordination assessment. VIVIENNE WALL introduced self and role at [facility], pt voices understanding and consents to assessment at this time. Pt sitting up in chair in no distress at this time. Pt A/Ox4 at this time and answers all questions appropriately at this time. Care providers, pharmacy, and demographics verified. See attached link. Pt voices no further concerns/needs at this time. Advised pt to ask for CM if any further questions/concerns/needs arise, voices understanding. PLAN: [place] VIVIENNE WALL
--- NOTE | 2017-06-14 19:31 | PCM.PROGNOTE ---
Patient Problems: Active and Suspected Problems Atrial fibrillation (Acute) Sepsis (Acute) Community acquired pneumonia (Acute) Subjective: Patient is a 81-year-old male with a past medical history of urinary artery disease, CABG and hyperlipidemia who presented to the emergency room at [facility] complaining of a cough that he had for 5 weeks. He described the cough as mostly dry with occasional white to yellow sputum. Complained of mild shortness of breath with activity. Had no fever or chills and denied sore throat and nasal congestion. In the emergency room an EKG showed atrial fibrillation with rapid ventricular response at approximately 110 bpm. He denied any prior history of atrial fibrillation and was not on anticoagulation. He is 91% saturated on room air and the blood pressure was within normal limits. He was treated with 1 dose of IV metoprolol with good control of his heart rate. Lab work was remarkable for white blood cell count of 19.5 with a left shift. Hemoglobin and platelets were within normal limits. Sodium was low at 134 and the BUN was 22 with a creatinine of 1.24. Random blood sugar was 122 and the lactic acid was normal at 1.6. Total bilirubin was elevated at 1.5 but the remainder of the liver profile was within normal limits. A BNP was 243. Chest x-ray showed hyperinflation with possible infiltrate versus atelectasis left base. He was admitted to the progressive care unit with a diagnosis of atrial fibrillation and possible community-acquired pneumonia. He was started on IV Rocephin and azithromycin. He was started on Coreg for rate control. Cardiology was consulted. He has been afebrile since admission. Blood pressures have ranged from 91 over 66-111/65. Lab today shows a white blood cell count of 13.9, down from 19.5 at admission. He has a persistent left shift. BUN has come down to 19 and his creatinine is now 0.98, down from 1.24 to admission. Serial cardiac enzymes were negative. Lipid panel shows an LDL of 96 with an HDL of 46 and triglycerides of 52. TSH was normal at 3.1. Echocardiogram today showed an ejection fraction of 40% with mild segmental systolic dysfunction. There was a patent foramen ovale and no significant valvular heart disease. Both atria were of normal size. There was +1 tricuspid insufficiency and the pulmonary artery systolic pressure was estimated at 33. The duration of the atrial fibrillation could not be determined from the patient's history. Drove for a recommended anticoagulation and control of his heart rate with either a beta-doe or a calcium channel doe. He recommended burning and aspirin daily and continuing his statin. The goal of LDL is less than 70 and so the dose will need to be increased. He can be followed up as an outpatient. Since his bypass surgery was greater than 10 years ago it is likely that he has some graft attrition. Heart rate today has ranged from 90-110 on the vital signs but review of the telemetry shows HR's as high as 144 today. There are PVC's with a rare couplet. - Physical Exam General: Alert, Oriented x3, Cooperative, No apparent distress, Well developed HEENT: Atraumatic, PERRLA, EOMI, Normocephalic Oral: Moist Mucosa Neck: No Nodes, Trachea Midline Lungs: No wheeze, No rales, Rhonchi - in the L base...this cleared with a cough. Cardiovascular: Normal S1, Normal S2, No murmurs, Irregular Rate, No rub noted, No Gallop Abdomen: Bowel Sounds Present, Soft, Non Tender, Non-Distended Extremities: No edema Skin: No rashes, No breakdown Musculoskeletal: No Muscle Wasting Neurological: Cranial nerves II-XII grossly intact, Neuro grossly intact Psych/Mental Status: Normal Affect, Appropriate Vital Signs Temp Pulse Resp BP Pulse Ox 99.0 F 64 16 91/66 94 06/14/17 15:20 06/14/17 15:20 06/14/17 15:20 06/14/17 15:20 06/14/17 15:20 Oxygen Delivery Method Room Air Weight: 150 lb 9.211 oz Body Mass Index (BMI) 21.6 Intake and Output for Last 24 Hours 06/12/17 06/13/17 06/14/17 23:59 23:59 23:59 Intake Total 396 / 396 907 / 907 Balance 396 / 396 907 / 907 Microbiology Past 72 Hours 06/13/17 18:42 Influenza Types A,B Direct FA (SHIRLEY) - Final Mucosa - Nose 06/13/17 18:57 Streptococcus pneumoniae Antigen (M - Final Urine, Clean Catch 06/13/17 18:57 Legionella Antigen - Final Urine, Clean Catch Laboratory Tests Past 24 Hrs 06/13/17 06/14/17 06/14/17 22:26 03:55 03:55 WBC 13.9 H RBC 4.21 L Hgb 14.2 Hct 40.9 MCV 97.1 H MCH 33.7 H MCHC 34.7 RDW 14.4 RDW Differential 49.8 H Plt Count 155 MPV 12.5 H Immature Gran % (Auto) 0.100 Neut % (Auto) 80.7 H Lymph % (Auto) 10.6 L [place] % (Auto) 7.8 Eos % (Auto) 0.6 Baso % (Auto) 0.2 Absolute Neuts (auto) 11.2 H Absolute Lymphs (auto) 1.47 Total Counted Not Reportable PT 15.9 H INR 1.3 Sodium Potassium Chloride Carbon Dioxide Anion Gap BUN Creatinine Estim Creat Clear Calc Est GFR (MDRD) Af Amer Est GFR (MDRD) Non-Af BUN/Creatinine Ratio Glucose Calcium Troponin I < 0.02 Triglycerides Cholesterol LDL Cholesterol VLDL Cholesterol HDL Cholesterol 06/14/17 03:55 WBC RBC Hgb Hct MCV MCH MCHC RDW RDW Differential Plt Count MPV Immature Gran % (Auto) Neut % (Auto) Lymph % (Auto) [place] % (Auto) Eos % (Auto) Baso % (Auto) Absolute Neuts (auto) Absolute Lymphs (auto) Total Counted PT INR Sodium 134 L Potassium 4.0 Chloride 102 Carbon Dioxide 26.0 Anion Gap 6 BUN 19 H Creatinine 0.98 Estim Creat Clear Calc 59.05 Est GFR (MDRD) Af Amer 94 Est GFR (MDRD) Non-Af 78 BUN/Creatinine Ratio 19.3 Glucose 95 Calcium 8.0 L Troponin I < 0.02 Triglycerides 52 Cholesterol 152 LDL Cholesterol 96 VLDL Cholesterol 10 HDL Cholesterol 46 Assessment/Plan Active and Suspected Problems Atrial fibrillation (Acute) Sepsis (Acute) Community acquired pneumonia (Acute) Impressions 1. AF with RVR - can not determine the duration 2. non-productive cough X 5 weeks in a pt who was a smoker for a long time and has hyperinflation. This may be due to AF with some transient failure due to uncontrolled rates BUT, the left hemidiaphragm is elevated and there is ? infiltrate in the left base....with no fever and a basically non-productive cough. there seems to be a loss of volume in the left base and I am concerned there may be a mass in the left LL. 3. CAD 4. hx of CABG > 10 years ago. Does not have a debrander. will need some evaluation for CAD going forward.....Stress vs Cath 5. CM with a 40% EF - due to CAD? or does he have a tachycardia induced CM? 6. HLD not adequately controlled....LDL is 96...will increase the statin 7. hyperinflation and diminished BS's - possible COPD.....has never had PFT's 8. patent foramen ovale. At high risk for CVA due to patent foramen ovale and AF. He is on Lovenox 1 mg/kg subcu every 12 hours. Aspirin 81 mg daily has been added to his drug regimen. CT chest in the a.m. I do not feel that he has pneumonia and suspect there is something different going on at the left base......he may have a post-obstructive pneumonia Start Lopressor 25 mg p.o. twice daily....... BP is on the low side and he did have some lightheadedness today. Will check orthostatic blood pressures in the a.m. may benefit from addition of Dig to his drug regimen since the blood pressure is on the low side and I do not feel he is going to tolerate a lot of beta-doe or a 2 drug regimen with a calcium channel doe and a beta-doe. Recheck a BMP in the AM and a CBC with diff. Code Visit Inpatient E&M: 56839 Subs Hosp L3
--- NOTE | 2017-06-14 19:51 | PN_ITS ---
Patient Problems: Active and Suspected Problems Atrial fibrillation (Acute) Sepsis (Acute) Community acquired pneumonia (Acute) Subjective: Patient is a 81-year-old male with a past medical history of urinary artery disease, CABG and hyperlipidemia who presented to the emergency room at [facility] complaining of a cough that he had for 5 weeks. He described the cough as mostly dry with occasional white to yellow sputum. Complained of mild shortness of breath with activity. Had no fever or chills and denied sore throat and nasal congestion. In the emergency room an EKG showed atrial fibrillation with rapid ventricular response at approximately 110 bpm. He denied any prior history of atrial fibrillation and was not on anticoagulation. He is 91% saturated on room air and the blood pressure was within normal limits. He was treated with 1 dose of IV metoprolol with good control of his heart rate. Lab work was remarkable for white blood cell count of 19.5 with a left shift. Hemoglobin and platelets were within normal limits. Sodium was low at 134 and the BUN was 22 with a creatinine of 1.24. Random blood sugar was 122 and the lactic acid was normal at 1.6. Total bilirubin was elevated at 1.5 but the remainder of the liver profile was within normal limits. A BNP was 243. Chest x-ray showed hyperinflation with possible infiltrate versus atelectasis left base. He was admitted to the progressive care unit with a diagnosis of atrial fibrillation and possible community- acquired pneumonia. He was started on IV Rocephin and azithromycin. He was started on Coreg for rate control. Cardiology was consulted. He has been afebrile since admission. Blood pressures have ranged from 91 over 66-111/65. Lab today shows a white blood cell count of 13.9, down from 19.5 at admission. He has a persistent left shift. BUN has come down to 19 and his creatinine is now 0.98, down from 1.24 to admission. Serial cardiac enzymes were negative. Lipid panel shows an LDL of 96 with an HDL of 46 and triglycerides of 52. TSH was normal at 3.1. Echocardiogram today showed an ejection fraction of 40% with mild segmental systolic dysfunction. There was a patent foramen ovale and no significant valvular heart disease. Both atria were of normal size. There was +1 tricuspid insufficiency and the pulmonary artery systolic pressure was estimated at 33. The duration of the atrial fibrillation could not be determined from the patient 's history. Drove for a recommended anticoagulation and control of his heart rate with either a beta-doe or a calcium channel doe. He recommended burning and aspirin daily and continuing his statin. The goal of LDL is less than 70 and so the dose will need to be increased. He can be followed up as an outpatient. Since his bypass surgery was greater than 10 years ago it is likely that he has some graft attrition. Heart rate today has ranged from 90-110 on the vital signs but review of the telemetry shows HR's as high as 144 today. There are PVC's with a rare couplet. - Physical Exam General: Alert, Oriented x3, Cooperative, No apparent distress, Well developed HEENT: Atraumatic, PERRLA, EOMI, Normocephalic Oral: Moist Mucosa Neck: No Nodes, Trachea Midline Lungs: No wheeze, No rales, Rhonchi - in the L base...this cleared with a cough. Cardiovascular: Normal S1, Normal S2, No murmurs, Irregular Rate, No rub noted, No Gallop Abdomen: Bowel Sounds Present, Soft, Non Tender, Non-Distended Extremities: No edema Skin: No rashes, No breakdown Musculoskeletal: No Muscle Wasting Neurological: Cranial nerves II-XII grossly intact, Neuro grossly intact Psych/Mental Status: Normal Affect, Appropriate Vital Signs Temp Pulse Resp BP Pulse Ox 99.0 F 64 16 91/66 94 06/14/17 15:20 06/14/17 15:20 06/14/17 15:20 06/14/17 15:20 06/14/17 15:20 Oxygen Delivery Method Room Air Weight: 150 lb 9.211 oz Body Mass Index (BMI) 21.6 Intake and Output for Last 24 Hours 06/12/17 06/13/17 06/14/17 23:59 23:59 23:59 Intake Total 396 / 396 907 / 907 Balance 396 / 396 907 / 907 Microbiology Past 72 Hours 06/13/17 18:42 Influenza Types A,B Direct FA (SHIRLEY) - Final Mucosa - Nose 06/13/17 18:57 Streptococcus pneumoniae Antigen (M - Final Urine, Clean Catch 06/13/17 18:57 Legionella Antigen - Final Urine, Clean Catch Laboratory Tests Past 24 Hrs 06/13/17 06/14/17 06/14/17 22:26 03:55 03:55 WBC 13.9 H RBC 4.21 L Hgb 14.2 Hct 40.9 MCV 97.1 H MCH 33.7 H MCHC 34.7 RDW 14.4 RDW Differential 49.8 H Plt Count 155 MPV 12.5 H Immature Gran % (Auto) 0.100 Neut % (Auto) 80.7 H Lymph % (Auto) 10.6 L [place] % (Auto) 7.8 Eos % (Auto) 0.6 Baso % (Auto) 0.2 Absolute Neuts (auto) 11.2 H Absolute Lymphs (auto) 1.47 Total Counted Not Reportable PT 15.9 H INR 1.3 Sodium Potassium Chloride Carbon Dioxide Anion Gap BUN Creatinine Estim Creat Clear Calc Est GFR (MDRD) Af Amer Est GFR (MDRD) Non-Af BUN/Creatinine Ratio Glucose Calcium Troponin I < 0.02 Triglycerides Cholesterol LDL Cholesterol VLDL Cholesterol HDL Cholesterol 06/14/17 03:55 WBC RBC Hgb Hct MCV MCH MCHC RDW RDW Differential Plt Count MPV Immature Gran % (Auto) Neut % (Auto) Lymph % (Auto) [place] % (Auto) Eos % (Auto) Baso % (Auto) Absolute Neuts (auto) Absolute Lymphs (auto) Total Counted PT INR Sodium 134 L Potassium 4.0 Chloride 102 Carbon Dioxide 26.0 Anion Gap 6 BUN 19 H Creatinine 0.98 Estim Creat Clear Calc 59.05 Est GFR (MDRD) Af Amer 94 Est GFR (MDRD) Non-Af 78 BUN/Creatinine Ratio 19.3 Glucose 95 Calcium 8.0 L Troponin I < 0.02 Triglycerides 52 Cholesterol 152 LDL Cholesterol 96 VLDL Cholesterol 10 HDL Cholesterol 46 Assessment/Plan Active and Suspected Problems Atrial fibrillation (Acute) Sepsis (Acute) Community acquired pneumonia (Acute) Impressions 1. AF with RVR - can not determine the duration 2. non-productive cough X 5 weeks in a pt who was a smoker for a long time and has hyperinflation. This may be due to AF with some transient failure due to uncontrolled rates BUT, the left hemidiaphragm is elevated and there is ? infiltrate in the left base....with no fever and a basically non-productive cough. there seems to be a loss of volume in the left base and I am concerned there may be a mass in the left LL. 3. CAD 4. hx of CABG > 10 years ago. 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 will need some evaluation for CAD going forward.....Stress vs Cath 5. CM with a 40% EF - due to CAD? or does he have a tachycardia induced CM? 6. HLD not adequately controlled....LDL is 96...will increase the statin 7. hyperinflation and diminished BS's - possible COPD.....has never had PFT's 8. patent foramen ovale. At high risk for CVA due to patent foramen ovale and AF. He is on Lovenox 1 mg/ kg subcu every 12 hours. Aspirin 81 mg daily has been added to his drug regimen. CT chest in the a.m. I do not feel that he has pneumonia and suspect there is something different going on at the left base......he may have a post- obstructive pneumonia Start Lopressor 25 mg p.o. twice daily....... BP is on the low side and he did have some lightheadedness today. Will check orthostatic blood pressures in the a.m. may benefit from addition of Dig to his drug regimen since the blood pressure is on the low side and I do not feel he is going to tolerate a lot of beta-doe or a 2 drug regimen with a calcium channel doe and a beta- doe. Recheck a BMP in the AM and a CBC with diff. Code Visit Inpatient E&M: 57309 Subs Hosp L3
[2017-06-14] MEDS: Digoxin 250 MCG/ML Ampul IV (22:34)
[2017-06-14] MEDS: Atorvastatin Calcium 40 MG Tablet PO (22:34)
[2017-06-14] MEDS: Metoprolol Tartrate 25 MG Tablet PO (22:34)
[2017-06-15] VITALS (22 sets, daily range): BP systolic 86–120; BP diastolic 58–69; PULSE 61–102; RESP 16–19; TEMP 36.5–36.9; O2SAT 88–92
[2017-06-15] MEDS: Ipratropium/Albuterol Sulfate 3 ML AMPUL.NEB INHALATION ×2 (01:24→07:07)
[2017-06-15] MEDS: Enoxaparin 80 MG/0.8 ML Syringe 70 MG SC ×2 (04:52→18:19)
--- NOTE | 2017-06-15 05:03 | NURSING ---
Per md orders, hr before ambulation was 85 after ambulating to bathroom and back to bed was 95. Pts o2 sat was only 88% on ra after ambulation, pt placed on 2l nc.
--- NOTE | 2017-06-15 05:55 | RAD_ITS ---
STUDY: X-RAY CHEST REASON FOR EXAM: Male, 81 years old. Cough TECHNIQUE: PA and lateral views of the chest. COMPARISON: June 13, 2017 chest x-ray FINDINGS: There is a patchy focus of opacity in the record and left lower lobes. There is streaky right middle lobe density.. There is trace blunting of the right costophrenic angle. This is seen on the lateral view. Sternal cerclage wires are present from a prior sternotomy. Normal mediastinum and junior. Normal visualized pulmonary arteries. There is atherosclerotic calcification of the aortic arch with tortuosity. There are diffuse degenerative changes of the visualized thoracic spine. Normal visualized ribs, clavicles, and shoulders. There is no demonstrated abnormality of the visualized soft tissue structures of the upper abdomen. RAD/Chest PA and Lateral IMPRESSION: Focal opacities lower lobes consider pneumonia cannot exclude trace fluid. Right middle lobe atelectasis and/or fibrotic change. Electronically Signed: Cristina Navarrete MD at 10:31 EST Tel , Service support ,
--- NOTE | 2017-06-15 05:55 | CT_ITS ---
STUDY: CT CHEST WITH CONTRAST REASON FOR EXAM: Male, 81 years old. Cough. Elevated left hemidiaphragm. RADIATION DOSAGE (If Supplied By Facility): CTDIvol = ( 15.97 ) mGy, DLP = ( 321.51 ) mGycm TECHNIQUE: Transaxial imaging was performed following intravenous administration of 100 ml of Isovue 300 contrast material. Multiplanar coronal and sagittal images were reformatted. Individualized dose optimization techniques were used for this CT. COMPARISON: Chest x-ray: 06/15/2017. FINDINGS: There is hyperinflation of the lungs consistent with chronic obstructive lung disease (COPD). Consolidative infiltrates are seen posteriorly in both lower lobes, left side more than the right. Platelike fibrotic atelectatic changes are seen in the right middle lobe, along the lung fissure. Chronic interstitial thickening is seen bilaterally more at the perihilar regions. Calcified lung nodules/granulomas are seen in the right lower lobe. A small bilateral pleural effusion is present. Sternal cerclage wires and vascular clips are present from a prior sternotomy and coronary artery bypass graft procedure (CABG). There is a mild cardiomegaly. Multiple large calcified subcarinal mediastinal and bilateral hilar lymph nodes are seen from old granulomatous process. Noncalcified right hilar lymphadenopathy is also noted. Left hilar lymph hyperplasia. Normal enhanced pulmonary arteries. There is atherosclerotic calcification of the aortic arch with tortuosity and elongation of the aortic arch and descending thoracic aorta. There is demineralization of the thoracic spine. Mid thoracic vertebral wedging. Mid thoracic moderate degenerative disc spondylosis. Multilevel degenerative lower thoracic endplate spondylosis. Increased thoracic kyphosis. Elevated left hemidiaphragm with superior extension of the stomach and spleen into the left-side chest cavity. Hypertrophy of adenoid glands. Fatty infiltration of the liver. CT/Chest WITH Contrast IMPRESSION: 1. Pulmonary emphysema. Increased pulmonary interstitial markings bilaterally. Platelike fibrotic atelectasis of the right midlung. 2. Consolidative infiltrates are seen in both lower lobes posteriorly, left side more than the right, with small parapneumonic pleural effusions. 3. Nonspecific probably reactive right hilar lymphadenopathy. Consider follow-up with short-term CT exam in 3-6 months. 4. Calcified lung nodules, and calcified mediastinal/hilar lymphadenopathy is consistent with old granulomatous disease. 5. Osteopenia. Mid thoracic vertebral wedging. Moderate degenerative spondylosis. Electronically Signed: Lindsey Nguyen MD at 10:14 EST Tel , Service support ,
[2017-06-15 07:02] LABS: Absolute Lymphocyte Count 1.65 X10^3/ul (0.83-4.51); Absolute Neutrophil Count 6.4 X10^3/uL (2.0-7.7); Basophil# 0.03 X10^3/uL; Basophil% 0.3 % (0-1); Eosinophil# 0.14 X10^3/uL; Eosinophils% 1.5 % (0-5); Hematocrit 40.5 % (40-54); Hemoglobin 13.9 g/dl (13.0-16.5); Lymphocyte # 1.65 X10^3/ul (4.0); Lymphocyte % 17.9 % (19-41); Mean Corp Hgb Conc 34.3 g/gl (32-36); Mean Corpuscular Hgb 33.5 pg (27.0-32.0); Mean Corpuscular Volume 97.6 fL (80-94); Mean Platelet Vol. 12.7 fl (6.2-12.0); Monocyte# 0.97 X10^3/uL; Monocyte% 10.5 % (0-10); Neutrophil # 6.41 X10^3/uL (2.7-7.7); Neutrophil % 69.7 % (47-70); Platelet Count 166 K/mm3 (150-450); RBC Distribution Width CV 14.2 % (11.6-14.6); RBC Distribution Width SD 49.1 fl (35.1-43.9); Red Blood Count 4.15 M/mm3 (4.6-6.2); White Blood Count 9.2 K/mm3 (4.4-11.0)
[2017-06-15 07:05] LABS: POSITIVE COUNT NO; POSITIVE DIFFERENTIAL NO; POSITIVE MORPHOLOGY NO
[2017-06-15 07:21] LABS: Anion Gap 7 (5-15); BUN 19 mg/dL (7-18); BUN/Creat Ratio 21.3 RATIO (10-20); Chloride 103 mmol/L (98-107); Creatinine, Serum 0.89 mg/dL (0.70-1.30); EST Glomerular Filtration Rate 87 mL/min (>60); Est Glom Filt Rate - Afr Amer 106 mL/min (>60); Estimated Creatinine Clearance 65.02 ml/min; Glucose 82 mg/dL (70-110); Magnesium 2.2 mg/dL (1.8-2.4); Potassium 4.2 mmol/L (3.5-5.1); Sodium Level 136 mmol/L (136-145)
--- NOTE | 2017-06-15 08:58 | PCM.PN.CARD ---
Subjectve: Patient was seen and evaluated and appears to be doing well. He still has a cough. By his shortness of breath is improved. Objective: Vital Signs Temp Pulse Resp BP Pulse Ox 97.7 F L 102 H 19 H 95/59 L 91 06/15/17 04:20 06/15/17 07:07 06/15/17 07:07 06/15/17 04:42 06/15/17 07:07 Oxygen Flow Rate 2 Oxygen Delivery Method Nasal Cannula Weight: 150 lb 9.211 oz Body Mass Index (BMI) 21.6 Orthostatic Vital Signs Start: 06/15/17 04:42 Freq: q24h Status: Active Protocol: Activity Type Activity Date Activity User E-Sign Co-Sign Detail Recorded Client Recorded Date Recorded By Document 06/15/17 04:42 [facility] [id number] 06/15/17 04:48 [facility] 06/15/17 04:42 Orthostatic Vitals Standing -Blood Pressure (90/60-120/80 mm Hg) 86/61 L -Extremity Use Right Arm -Pulse Rate (60-100 beats/min) 95 Sitting -Blood Pressure (90/60-120/80 mm Hg) 102/59 L -Extremity Use Right Arm -Pulse Rate (60-100 beats/min) 92 Lying -Blood Pressure (90/60-120/80 mm Hg) 95/59 L -Extremity Use Right Arm -Pulse Rate (60-100 beats/min) 85 Intake and Output for Last 24 Hours 06/13/17 06/14/17 06/15/17 23:59 23:59 23:59 Intake Total 396 / 396 1147 / 1147 120 / 120 Balance 396 / 396 1147 / 1147 120 / 120 General: Awake, Alert, Oriented x 3 HEENT: PERRL, EOMI, Sclera Non Icteric Neck: Supple, Good ROM, No Lymph Node Enlargement Lungs: Clear to auscultation Cardiovascular: Irregular Rhythm, Normal S1, Normal S2, No Murmurs, No Rubs, No Gallops Vascular: No Carotid Bruits, Normal Femoral Pulses, Normal Radial Pulses, Normal Dorsalis Pedal Pulse, Normal Posterior Tibial Pulses Abdomen: Bowel Sounds Present, Soft, Non Tender, No HSM, No Organomegaly Extremities: No Cyanosis, No Clubbing, No edema Neurological: No Focal Motor or Sensory Deficit 06/15/17 06:26: WBC 9.2, RBC 4.15 L, Hgb 13.9, Hct 40.5, MCV 97.6 H, MCH 33.5 H, MCHC 34.3, RDW 14.2, RDW Differential 49.1 H, Plt Count 166, MPV 12.7 H, Immature Gran % (Auto) 0.100, Neut % (Auto) 69.7, Lymph % (Auto) 17.9 L, [place] % (Auto) 10.5 H, Eos % (Auto) 1.5, Baso % (Auto) 0.3, Absolute Neuts (auto) 6.4, Total Counted Not Reportable 06/15/17 06:26: Sodium 136, Potassium 4.2, Chloride 103, Carbon Dioxide 26.0, Anion Gap 7, BUN 19 H, Creatinine 0.89, Est GFR (MDRD) Af Amer 106, Est GFR (MDRD) Non-Af 87, BUN/Creatinine Ratio 21.3 H, Glucose 82, Calcium 8.0 L, Magnesium 2.2 Rhythm: Atrial fibrillation with a controlled ventricular response rate EKG: ECHO: Global reduction in left ventricular ejection fraction estimated at 40% Assessment/Plan 1. Atrial fibrillation He presents with atrial fibrillation the duration of which is unknown. This is associated with a chronic cough. I suspect that he is in mild congestive heart failure secondary to the above. It appears that the chest x-ray was consistent with a possible pneumonia but it is natruretic peptide was noted to be elevated consistent with mild congestive heart failure. At this time I would recommend rate control with the beta-doe and anticoagulation with Lovenox until things are further clarified following the CT scan of his chest. 2. Coronary artery disease Status post coronary bypass surgery remotely. He has not had any cardiac follow-up. I suspect that with his bypass grafts over 10 years old he probably has some level of graft attrition. This can be evaluated further as an outpatient. Should nonetheless be started on aspirin and continued with his statin. 3. 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 He has been started on a beta-doe and he may need low-dose Lasix after the situation with the CAT scan is further clarified. The above has been discussed with the patient . Thank you for allowing me to participate in his care.
[2017-06-15] MEDS: Aspirin 81 MG TAB.CHEW PO (09:00)
--- NOTE | 2017-06-15 09:02 | PN.CARD_ITS ---
Subjectve: Patient was seen and evaluated and appears to be doing well. He still has a cough. By his shortness of breath is improved. Objective: Vital Signs Temp Pulse Resp BP Pulse Ox 97.7 F L 102 H 19 H 95/59 L 91 06/15/17 04:20 06/15/17 07:07 06/15/17 07:07 06/15/17 04:42 06/15/17 07:07 Oxygen Flow Rate 2 Oxygen Delivery Method Nasal Cannula Weight: 150 lb 9.211 oz Body Mass Index (BMI) 21.6 Orthostatic Vital Signs Start: 06/15/17 04:42 Freq: q24h Status: Active Protocol: Activity Type Activity Date Activity User E-Sign Co-Sign Detail Recorded Client Recorded Date Recorded By Document 06/15/17 04:42 [facility] [id number] 06/15/17 04:48 [facility] 06/15/17 04:42 Orthostatic Vitals Standing -Blood Pressure (90/60-120/80 mm Hg) 86/61 L -Extremity Use Right Arm -Pulse Rate (60-100 beats/min) 95 Sitting -Blood Pressure (90/60-120/80 mm Hg) 102/59 L -Extremity Use Right Arm -Pulse Rate (60-100 beats/min) 92 Lying -Blood Pressure (90/60-120/80 mm Hg) 95/59 L -Extremity Use Right Arm -Pulse Rate (60-100 beats/min) 85 Intake and Output for Last 24 Hours 06/13/17 06/14/17 06/15/17 23:59 23:59 23:59 Intake Total 396 / 396 1147 / 1147 120 / 120 Balance 396 / 396 1147 / 1147 120 / 120 General: Awake, Alert, Oriented x 3 HEENT: PERRL, EOMI, Sclera Non Icteric Neck: Supple, Good ROM, No Lymph Node Enlargement Lungs: Clear to auscultation Cardiovascular: Irregular Rhythm, Normal S1, Normal S2, No Murmurs, No Rubs, No Gallops Vascular: No Carotid Bruits, Normal Femoral Pulses, Normal Radial Pulses, Normal Dorsalis Pedal Pulse, Normal Posterior Tibial Pulses Abdomen: Bowel Sounds Present, Soft, Non Tender, No HSM, No Organomegaly Extremities: No Cyanosis, No Clubbing, No edema Neurological: No Focal Motor or Sensory Deficit 06/15/17 06:26: WBC 9.2, RBC 4.15 L, Hgb 13.9, Hct 40.5, MCV 97.6 H, MCH 33.5 H , MCHC 34.3, RDW 14.2, RDW Differential 49.1 H, Plt Count 166, MPV 12.7 H, Immature Gran % (Auto) 0.100, Neut % (Auto) 69.7, Lymph % (Auto) 17.9 L, [place] % (Auto) 10.5 H, Eos % (Auto) 1.5, Baso % (Auto) 0.3, Absolute Neuts (auto) 6.4, Total Counted Not Reportable 06/15/17 06:26: Sodium 136, Potassium 4.2, Chloride 103, Carbon Dioxide 26.0, Anion Gap 7, BUN 19 H, Creatinine 0.89, Est GFR (MDRD) Af Amer 106, Est GFR ( MDRD) Non-Af 87, BUN/Creatinine Ratio 21.3 H, Glucose 82, Calcium 8.0 L, Magnesium 2.2 Rhythm: Atrial fibrillation with a controlled ventricular response rate EKG: ECHO: Global reduction in left ventricular ejection fraction estimated at 40% Assessment/Plan 1. Atrial fibrillation He presents with atrial fibrillation the duration of which is unknown. This is associated with a chronic cough. I suspect that he is in mild congestive heart failure secondary to the above. It appears that the chest x-ray was consistent with a possible pneumonia but it is natruretic peptide was noted to be elevated consistent with mild congestive heart failure. At this time I would recommend rate control with the beta-doe and anticoagulation with Lovenox until things are further clarified following the CT scan of his chest. 2. Coronary artery disease Status post coronary bypass surgery remotely. He has not had any cardiac follow -up. I suspect that with his bypass grafts over 10 years old he probably has some level of graft attrition. This can be evaluated further as an outpatient. Should nonetheless be started on aspirin and continued with his statin. 3. 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 He has been started on a beta-doe and he may need low-dose Lasix after the situation with the CAT scan is further clarified. The above has been discussed with the patient . Thank you for allowing me to participate in his care.
[2017-06-15] MEDS: guaiFENesin 600 MG Tablet 1200 MG PO ×2 (09:11→21:52)
[2017-06-15] MEDS: Metoprolol Tartrate 25 MG Tablet PO ×2 (09:12→21:53)
[2017-06-15] MEDS: Digoxin 125 MCG Tablet PO (09:13)
[2017-06-15] MEDS: Ceftriaxone 1 GM/50 ML BAG IV (09:17)
--- NOTE | 2017-06-15 09:36 | PN_ITS ---
Patient Problems: Active and Suspected Problems Atrial fibrillation (Acute) Sepsis (Acute) Community acquired pneumonia (Acute) Subjective: All events of the past 24 hours of been reviewed. She is admitted for atrial fibrillation with rapid ventricular response. He was given a dose of IV digoxin last night, 0.25 mg, and started on p.o. digoxin 0.125 mg p.o. daily. HR overnight was controlled. BP is stable. There was a slight drop in the BP today when standing. He was 88% on RA today at rest. White blood cell count today is 9.2 with an unremarkable differential. Hemoglobin is stable at 13.9 and platelets are within normal limits. Potassium is 4.2. BUN is 19 with a creatinine of 0.89. Mag is 2.2 today. He continues to have a cough....mostly non-productive Denies any CP Discussed the CT with pulmonary........will treat for CAP and have him follow up with Dr. Okeefe for COPD/abnormal CT chest - Physical Exam General: Alert, Oriented x3, Cooperative, No apparent distress HEENT: Atraumatic, PERRLA, EOMI Oral: Dry Mucosa Neck: Supple, No JVD, Trachea Midline Lungs: No rales, Diminished, Wheezes - rare wheeze Cardiovascular: Normal S1, Normal S2, Irregular Rate, No rub noted, No Gallop, - - had an 11 beat run of a wide complex tachycardia last night. Abdomen: Bowel Sounds Present, Soft, Non Tender, Non-Distended Extremities: No cyanosis, No edema Skin: No rashes, No breakdown Neurological: Cranial nerves II-XII grossly intact, Neuro grossly intact Psych/Mental Status: Normal Affect, Appropriate Vital Signs Temp Pulse Resp BP Pulse Ox 98.5 F 94 16 107/58 L 92 06/15/17 09:10 06/15/17 09:10 06/15/17 09:10 06/15/17 09:10 06/15/17 09:10 Oxygen Flow Rate 2 Oxygen Delivery Method Room Air Weight: 150 lb 9.211 oz Body Mass Index (BMI) 21.6 Orthostatic Vital Signs Start: 06/15/17 04:42 Freq: q24h Status: Active Protocol: Activity Type Activity Date Activity User E-Sign Co-Sign Detail Recorded Client Recorded Date Recorded By Document 06/15/17 04:42 [facility] [id number] 06/15/17 04:48 ULYSSES 06/15/17 04:42 Orthostatic Vitals Standing -Blood Pressure (90/60-120/80 mm Hg) 86/61 L -Extremity Use Right Arm -Pulse Rate (60-100 beats/min) 95 Sitting -Blood Pressure (90/60-120/80 mm Hg) 102/59 L -Extremity Use Right Arm -Pulse Rate (60-100 beats/min) 92 Lying -Blood Pressure (90/60-120/80 mm Hg) 95/59 L -Extremity Use Right Arm -Pulse Rate (60-100 beats/min) 85 Intake and Output for Last 24 Hours 06/13/17 06/14/17 06/15/17 23:59 23:59 23:59 Intake Total 396 / 396 1147 / 1147 120 / 120 Balance 396 / 396 1147 / 1147 120 / 120 Microbiology Past 72 Hours 06/13/17 18:57 Urine Culture - Final Urine, Clean Catch Culture exhibits no growth. 06/13/17 18:42 Influenza Types A,B Direct FA (SHIRLEY) - Final Mucosa - Nose 06/13/17 18:57 Streptococcus pneumoniae Antigen (M - Final Urine, Clean Catch 06/13/17 18:57 Legionella Antigen - Final Urine, Clean Catch Laboratory Tests Past 24 Hrs 06/15/17 06/15/17 06:26 06:26 WBC 9.2 RBC 4.15 L Hgb 13.9 Hct 40.5 MCV 97.6 H MCH 33.5 H MCHC 34.3 RDW 14.2 RDW Differential 49.1 H Plt Count 166 MPV 12.7 H Immature Gran % (Auto) 0.100 Neut % (Auto) 69.7 Lymph % (Auto) 17.9 L [place] % (Auto) 10.5 H Eos % (Auto) 1.5 Baso % (Auto) 0.3 Absolute Neuts (auto) 6.4 Absolute Lymphs (auto) 1.65 Total Counted Not Reportable Sodium 136 Potassium 4.2 Chloride 103 Carbon Dioxide 26.0 Anion Gap 7 BUN 19 H Creatinine 0.89 Estim Creat Clear Calc 65.02 Est GFR (MDRD) Af Amer 106 Est GFR (MDRD) Non-Af 87 BUN/Creatinine Ratio 21.3 H Glucose 82 Calcium 8.0 L Magnesium 2.2 Assessment/Plan Active and Suspected Problems Atrial fibrillation (Acute) Sepsis (Acute) Community acquired pneumonia (Acute) Impressions 1. AF with RVR - can not determine the duration of this....on Lovenox 2. non-productive cough X 5 weeks in a pt who was a smoker for a long time and has hyperinflation. This may be due to AF with some transient failure due to uncontrolled rates BUT, the left hemidiaphragm is elevated and there is infiltrate in the left base....with no fever and a basically non-productive cough. There seems to be a loss of volume in the left base and I am concerned there may be a mass in the left LL. CT shows PNA in the left base with consolidation. WBC has improved with antibiotics 3. CAD 4. hx of CABG > 10 years ago. Does not have a buffing wheel raker. will need some evaluation for CAD going forward.....Stress vs Cath 5. CM with a 40% EF - due to CAD? or does he have a tachycardia induced CM? 6. HLD not adequately controlled....LDL is 96...will increase the statin 7. hyperinflation and diminished BS's - possible COPD.....has never had PFT's 8. patent foramen ovale. 9. Wide-complex tachycardia 10. suspected COPD 11. LLL PNA - community acquired Will discuss the tachycardia with Dr. Howell.......may be AF with aberrancy....it is somewhat irregular Continue the metoprolol.......BP decreased with standing but he is asymptomatic Continue the Rocephin Ambulatory pulse ox and HR on RA Will likely transition to Eliquis if OK with Dr. Howell Possible DC later today if the HR is controlled Code Visit Inpatient E&M: [id number] Subs Hosp L2
--- NOTE | 2017-06-15 11:00 | CASEMGMT ---
Introduced self and role of CM to patient. Cost of Eliquis verified with pharmacy. Informed patient of cost. Patient states understanding and plans to fill prescription. Patient states understanding that if he should desire to change to a different medication, in the future, that he will need to speak with his crust sorter. No further questions/needs at this time. - Matt MARTINSN, RN CM
[2017-06-15] MEDS: Furosemide 20 MG/2 ML VIAL IV (11:15)
[2017-06-15] MEDS: Benzonatate 100 MG Capsule PO (15:45)
[2017-06-15] MEDS: Atorvastatin Calcium 40 MG Tablet PO (21:53)
[2017-06-16] VITALS (8 sets, daily range): BP systolic 111–132; BP diastolic 62–71; PULSE 52–82; RESP 16–18; TEMP 36.8; O2SAT 81–96
[2017-06-16] MEDS: Aspirin 81 MG TAB.CHEW PO (08:55)
--- NOTE | 2017-06-16 09:38 | PN.CARD_ITS ---
Subjectve: Patient seen and evaluated and appears to be better back in sinus rhythm Objective: Vital Signs Temp Pulse Resp BP Pulse Ox 98.2 F 52 L 16 111/62 93 06/16/17 02:10 06/16/17 03:35 06/16/17 02:10 06/16/17 02:10 06/16/17 08:59 Oxygen Flow Rate [AMBULATING 3 on Room Air] Oxygen Flow Rate [At REST on 0 Room Air] Oxygen Flow Rate 2 Oxygen Delivery Method Room Air Weight: 150 lb 9.211 oz Body Mass Index (BMI) 21.6 Orthostatic Vital Signs Start: 06/15/17 04:42 Freq: 0600 Status: Active Protocol: Activity Type Activity Date Activity User E-Sign Co-Sign Detail Recorded Client Recorded Date Recorded By Document 06/15/17 04:42 [facility] [id number] 06/15/17 04:48 [facility] 06/15/17 04:42 Orthostatic Vitals Standing -Blood Pressure (90/60-120/80) 86/61 L -Extremity Use Right Arm -Pulse Rate (60-100) 95 Sitting -Blood Pressure (90/60-120/80) 102/59 L -Extremity Use Right Arm -Pulse Rate (60-100) 92 Lying -Blood Pressure (90/60-120/80) 95/59 L -Extremity Use Right Arm -Pulse Rate (60-100) 85 Intake and Output for Last 24 Hours 06/14/17 06/15/17 06/16/17 23:59 23:59 23:59 Intake Total 1147 / 1147 1130 / 1130 Output Total 450 / 450 Balance 1147 / 1147 680 / 680 General: Awake, Alert, Oriented x 3 HEENT: PERRL, EOMI, Sclera Non Icteric Neck: Supple, Good ROM, No Lymph Node Enlargement Lungs: Diminished Lucian Bases Cardiovascular: Regular Rhythm Vascular: No Carotid Bruits, Normal Femoral Pulses, Normal Radial Pulses, Normal Dorsalis Pedal Pulse, Normal Posterior Tibial Pulses Abdomen: Bowel Sounds Present, Soft, Non Tender, No HSM, No Organomegaly Extremities: No Cyanosis, No Clubbing, No edema Neurological: No Focal Motor or Sensory Deficit Rhythm:NSR Assessment/Plan 1. Atrial fibrillation He presented with atrial fibrillation the duration of which was unknown. He is back in sinus rhythm now This is associated with a chronic cough. I suspect that he is in mild congestive heart failure secondary to the above. It appears that the chest x-ray was consistent with a possible pneumonia but it is natruretic peptide was noted to be elevated consistent with mild congestive heart failure. At this time I would recommend rate control with the beta- doe and anticoagulation with Eliquis for 1 month. 2. Coronary artery disease Status post coronary bypass surgery remotely. He has not had any cardiac follow -up. I suspect that with his bypass grafts over 10 years old he probably has some level of graft attrition. This can be evaluated further as an outpatient. Should nonetheless be started on aspirin and continued with his statin. 3. 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 He has been started on a beta-doe and he may need low-dose Lasix The above has been discussed with the patient ad hospitalist . Thank you for allowing me to participate in his care.
--- NOTE | 2017-06-16 10:14 | RAD_ITS ---
STUDY: X-RAY CHEST REASON FOR EXAM: Male, 81 years old. Hypoxia shortness of breath TECHNIQUE: PA and lateral views of the chest. COMPARISON: June 15, 2017 chest x-ray FINDINGS: The lungs are hyperinflated the hemidiaphragms are flattened in appearance. There is fibrotic change in the left lung base. Sternal cerclage wires are present from a prior sternotomy. There is fairly located broken cerclage wires similar to prior study. Normal mediastinum and junior. Normal visualized pulmonary arteries. Normal visualized aortic arch and descending thoracic aorta. There are diffuse degenerative changes of the visualized thoracic spine. Normal visualized ribs, clavicles, and shoulders. There is no demonstrated abnormality of the visualized soft tissue structures of the upper abdomen. RAD/Chest PA and Lateral IMPRESSION: Chronic obstructive pulmonary disease and emphysema. Status post CABG. Electronically Signed: Cristina Navarrete MD at 12:30 EST Tel , Service support ,
[2017-06-16 10:44] LABS: Anion Gap 8 (5-15); BUN 23 mg/dL (7-18); BUN/Creat Ratio 25.6 RATIO (10-20); Calcium,Total 8.4 mg/dL (8.5-10.1); Chloride 102 mmol/L (98-107); EST Glomerular Filtration Rate 87 mL/min (>60); Est Glom Filt Rate - Afr Amer 105 mL/min (>60); Estimated Creatinine Clearance 64.29 ml/min; Glucose 75 mg/dL (70-110); Magnesium 2.1 mg/dL (1.8-2.4); Potassium 4.3 mmol/L (3.5-5.1); Sodium Level 137 mmol/L (136-145)
[2017-06-16] MEDS: guaiFENesin 600 MG Tablet 1200 MG PO (10:53)
[2017-06-16] MEDS: APIXABAN 5 MG TABLET PO (10:54)
[2017-06-16] MEDS: Metoprolol Tartrate 25 MG Tablet PO (10:55)
[2017-06-16] MEDS: Ceftriaxone 1 GM/50 ML BAG IV (10:55)
[2017-06-16] MEDS: Ipratropium/Albuterol Sulfate 3 ML AMPUL.NEB INHALATION (11:04)
--- NOTE | 2017-06-16 11:16 | PCM.DC ---
- Discharge Diagnoses Current Active Problems: Current Active and Chronic Problems Atrial fibrillation (Acute) Sepsis (Acute) Community acquired pneumonia (Acute) Hyperlipidemia (Chronic) Status post coronary artery bypass graft (Chronic) Coronary artery disease (Chronic) You will use the following diet at home:: Cardiac - low salt, low fat Your food should be the consistency of: Regular Your liquids should be the consistency of: Regular/Thin Discharge Activity: - - You must wear the oxygen for ANY activity, including walking. Call your doctor if you observe: Fever of 101 or Higher, Shortness of breath, Dizziness, Fainting spells, Swelling in the ankles, Chest pain, - - Severe diarrhea, rash, sores in your mouth or painful swallowing Instructions: What Is Atrial Flutter/Atrial Fibrillation?, What is COPD?, Pulmonary Function Tests, Caring for Your Inhaler, Using Oxygen Safely Additional Instructions: I recommend that you get a pulse oximeter at [facility]. This is a device that you put on your finger to measure the oxygen in the blood. They are inexpensive and you can use this to keep tarack of the oxygen saturation. It needs to be 90% or greater. If it is less than 88 you need to put the oxygen on OR increase the liters per minute. Always wear the oxygen when exerting yourself and also wear it at night at 2 liters per minute. Wear it whenever the pulse ox is <88%. You heart converted back to a normal regular rhythm. I suspect the low oxygen is what triggered the atrial fibrillation. You may not need oxygen once the pneumonia has resolved but your chest Xray showed pretty severe COPD and you may need oxygen for the rest of your life. You will need to follow up with Dr. Okeefe , who is a lung specialist, in 2 weeks and they will arrange pulmonary function tests to better evaluate what your lung function is and determine how we can make it better. The cough can last for 3-4 weeks after the pneumonia has been treated. We are sending you home with 6 more days of antibiotic. The antibiotic is called Cefdinir and you will take it twice a day. I think the reason that the cough worsens at night when you are laying down is you have post nasal drip. I gave you a prescription for a nasal spray called Atrovent to dry up your nose and decrease the post nasal drainage. You will use 2 sprays in each nostril twice a day. You will need to take a blood thinner for the next 4 weeks to prevent strokes related to the atrial fibrillation. The blood thinner is Eliquis and you will take it every 12 hours. I have given you a coupon to get the next month free. Dr. Howell, the career resource technician, will decide at your next appt whether you need to continue with the Eliquis. He is also going to talk to you about a stress stest or a cardiac catheterization. Pending Tests on Discharge: none Allergies/Adverse Reactions: Allergies No Known Allergies Allergy (Verified 06/13/17 12:11) Medications to take at Discharge Multivitamin [Multiple Vitamins] 1 each PO DAILY 06/13/17 Simvastatin [Zocor] 40 mg PO QHS 06/13/17 Apixaban [Eliquis] 5 mg PO BID #60 tab 06/15/17 Apixaban [Eliquis] 5 mg PO BID #60 tab 06/16/17 Aspirin [Aspirin, Baby] 81 mg PO DAILY@0800 tab.chew 06/16/17 Budesonide/Formoterol Fumarate [Symbicort 160-4.5 Mcg Inhaler] 10.2 gm IH BID #1 hfa.aer.ad 06/16/17 Cefdinir [Omnicef [equiv]] 300 mg PO Q12H #12 cap 06/16/17 Guaifenesin [Mucinex] 1,200 mg PO BID #20 tab 06/16/17 Ipratropium [place] 0.06% [ATROVENT NASAL SPRAY (g)] 2 spray NASAL BID #1 unit 06/16/17 Metoprolol Tartrate [Lopressor (beta doe)] 25 mg PO BID #60 tab 06/16/17 Oxygen, Home [Home Oxygen] 2 - 4 lpm NASAL CONT #1 unit 06/16/17 The following prescriptions were given: Cefdinir [Omnicef [equiv]] 300 mg PO Q12H #12 cap Oxygen, Home [Home Oxygen] 2 - 4 lpm NASAL CONT #1 unit Apixaban [Eliquis] 5 mg PO BID #60 tab Apixaban [Eliquis] 5 mg PO BID #60 tab Budesonide/Formoterol Fumarate [Symbicort 160-4.5 Mcg Inhaler] 10.2 gm IH BID #1 hfa.aer.ad Guaifenesin [Mucinex] 1,200 mg PO BID #20 tab Ipratropium [place] 0.06% [ATROVENT NASAL SPRAY (g)] 2 spray NASAL BID #1 unit Metoprolol Tartrate [Lopressor (beta doe)] 25 mg PO BID #60 tab Primary Care Physician: Moise Babcock [Primary Care Provider] - Please follow up with your Primary Care Physician in: 5-7 days Please Follow Up With: Margarito Okeefe DO - lung doctor When: 2 weeks Please Follow Up With: Reymundo Howell MD - heart doctor When: within 2 -3 weeks Proposed Discharge Date: 06/16/17
--- NOTE | 2017-06-16 11:45 | DCINST_ITS ---
- Discharge Diagnoses Current Active Problems: Current Active and Chronic Problems Atrial fibrillation (Acute) Sepsis (Acute) Community acquired pneumonia (Acute) Hyperlipidemia (Chronic) Status post coronary artery bypass graft (Chronic) Coronary artery disease (Chronic) You will use the following diet at home:: Cardiac - low salt, low fat Your food should be the consistency of: Regular Your liquids should be the consistency of: Regular/Thin Discharge Activity: - - You must wear the oxygen for ANY activity, including walking. Call your doctor if you observe: Fever of 101 or Higher, Shortness of breath, Dizziness, Fainting spells, Swelling in the ankles, Chest pain, - - Severe diarrhea, rash, sores in your mouth or painful swallowing Instructions: What Is Atrial Flutter/Atrial Fibrillation?, What is COPD?, Pulmonary Function Tests, Caring for Your Inhaler, Using Oxygen Safely Additional Instructions: I recommend that you get a pulse oximeter at [facility]. This is a device that you put on your finger to measure the oxygen in the blood. They are inexpensive and you can use this to keep tarack of the oxygen saturation. It needs to be 90% or greater. If it is less than 88 you need to put the oxygen on OR increase the liters per minute. Always wear the oxygen when exerting yourself and also wear it at night at 2 liters per minute. Wear it whenever the pulse ox is <88%. You heart converted back to a normal regular rhythm. I suspect the low oxygen is what triggered the atrial fibrillation. You may not need oxygen once the pneumonia has resolved but your chest Xray showed pretty severe COPD and you may need oxygen for the rest of your life. You will need to follow up with Dr. Okeefe , who is a lung specialist, in 2 weeks and they will arrange pulmonary function tests to better evaluate what your lung function is and determine how we can make it better. The cough can last for 3-4 weeks after the pneumonia has been treated. We are sending you home with 6 more days of antibiotic. The antibiotic is called Cefdinir and you will take it twice a day. I think the reason that the cough worsens at night when you are laying down is you have post nasal drip. I gave you a prescription for a nasal spray called Atrovent to dry up your nose and decrease the post nasal drainage. You will use 2 sprays in each nostril twice a day. You will need to take a blood thinner for the next 4 weeks to prevent strokes related to the atrial fibrillation. The blood thinner is Eliquis and you will take it every 12 hours. I have given you a coupon to get the next month free. Dr. Howell, the electrical and radio mock up mechanic, will decide at your next appt whether you need to continue with the Eliquis. He is also going to talk to you about a stress stest or a cardiac catheterization. Pending Tests on Discharge: none Allergies/Adverse Reactions: Allergies No Known Allergies Allergy (Verified 06/13/17 12:11) Medications to take at Discharge Multivitamin [Multiple Vitamins] 1 each PO DAILY 06/13/17 Simvastatin [Zocor] 40 mg PO QHS 06/13/17 Apixaban [Eliquis] 5 mg PO BID #60 tab 06/15/17 Apixaban [Eliquis] 5 mg PO BID #60 tab 06/16/17 Aspirin [Aspirin, Baby] 81 mg PO DAILY@0800 tab.chew 06/16/17 Budesonide/Formoterol Fumarate [Symbicort 160-4.5 Mcg Inhaler] 10.2 gm IH BID # 1 hfa.aer.ad 06/16/17 Cefdinir [Omnicef [equiv]] 300 mg PO Q12H #12 cap 06/16/17 Guaifenesin [Mucinex] 1,200 mg PO BID #20 tab 06/16/17 Ipratropium [place] 0.06% [ATROVENT NASAL SPRAY (g)] 2 spray NASAL BID #1 unit 06/16/17 Metoprolol Tartrate [Lopressor (beta doe)] 25 mg PO BID #60 tab 06/16/17 Oxygen, Home [Home Oxygen] 2 - 4 lpm NASAL CONT #1 unit 06/16/17 The following prescriptions were given: Cefdinir [Omnicef [equiv]] 300 mg PO Q12H #12 cap Oxygen, Home [Home Oxygen] 2 - 4 lpm NASAL CONT #1 unit Apixaban [Eliquis] 5 mg PO BID #60 tab Apixaban [Eliquis] 5 mg PO BID #60 tab Budesonide/Formoterol Fumarate [Symbicort 160-4.5 Mcg Inhaler] 10.2 gm IH BID # 1 hfa.aer.ad Guaifenesin [Mucinex] 1,200 mg PO BID #20 tab Ipratropium [place] 0.06% [ATROVENT NASAL SPRAY (g)] 2 spray NASAL BID #1 unit Metoprolol Tartrate [Lopressor (beta doe)] 25 mg PO BID #60 tab Primary Care Physician: Moise Babcock [Primary Care Provider] - Please follow up with your Primary Care Physician in: 5-7 days Please Follow Up With: Margarito Okeefe DO - lung doctor When: 2 weeks Please Follow Up With: Reymundo Howell MD - heart doctor When: within 2 -3 weeks Proposed Discharge Date: 06/16/17
--- NOTE | 2017-06-16 11:53 | PCM.DC.SUM ---
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 - suspect tachycardia induced acute respiratory insufficiency with hypoxemia suspected severe COPD - Secondary Discharge Diagnosis Chronic Problems Hyperlipidemia (Chronic) Status post coronary artery bypass graft (Chronic) Coronary artery disease (Chronic) Patent foramen ovale Hospital Course and Treatment Imaging Results: 06/16/17 10:14 Chest PA and Lateral [RAD] Urgent Reymundo Delacruz - [facility] Operations: None Procedures: 2-D Echocardiogram - Size left ventricle, normal size atria, mild segmental systolic dysfunction, EF 40%, +1 MR, patent foramen ovale Summary of Care Provided: Patient is a 81-year-old male with a past medical history of coronary artery disease, CABG and hyperlipidemia who presented to the emergency room at [facility] complaining of a cough that he had for 5 weeks. He described the cough as mostly dry with occasional white to yellow sputum. The cough gets worse when he lies down and he has post nasal drainage. He Complained of mild shortness of breath with activity. He Had no fever or chills and denied sore throat and nasal congestion. In the emergency room an EKG showed atrial fibrillation with rapid ventricular response at approximately 110 bpm. He denied any prior history of atrial fibrillation and was not on anticoagulation. He was 91% saturated on room air and the blood pressure was within normal limits. He was treated with 1 dose of IV metoprolol with good control of his heart rate. Lab work was remarkable for white blood cell count of 19.5 with a left shift. Hemoglobin and platelets were within normal limits. Sodium was low at 134 and the BUN was 22 with a creatinine of 1.24. Random blood sugar was 122 and the lactic acid was normal at 1.6. Total bilirubin was elevated at 1.5 but the remainder of the liver profile was within normal limits. A BNP was 243. Chest x-ray showed hyperinflation with possible infiltrate in the left base. He was admitted to the progressive care unit with a diagnosis of new onset atrial fibrillation with RVR and community-acquired pneumonia. He was started on IV Rocephin and azithromycin. He was started on Coreg for rate control. Cardiology was consulted. A CT scan of the chest showed hyperinflation with bibasilar infiltrates, left greater than right. Respiratory panel was negative. Urine for Legionella and streptococcal antigens was negative. His cough was mostly dry the first few days but then it became productive on the last day and the sputum was sent but he had been on antibiotics for 4 days prior to that. He has been afebrile for the duration of his hospital stay. White blood cell count on 06/15 was 9.2 with an unremarkable differential. Blood cultures had no growth. Troponins were negative. Lipid panel showed an LDL of 96 with an HDL of 46. His blood pressure was low on Coreg and he was transitioned to Lopressor 25 mg p.o. twice daily and digoxin 0.125 mg daily. As his lung function improved he converted to normal sinus rhythm. Digoxin was discontinued. He was initially treated with Lovenox 1 mg/kg subcu every 12 hours and transitioned to Eliquis 5 mg twice daily on 06/16. He had an echocardiogram done in the hospital that showed a 40% ejection fraction with mild segmental wall motion abnormalities. There was 1+ MR and he had a patent foramen ovale. On 06/16 and ambulatory pulse ox was done and he was 81% on room air and 93% on a 3 L nasal cannula. Auscultation of his lungs revealed better air exchange although it is still diminished. There was no wheezing and there were minimal coarse crackles in the left base. He was discharged home with a prescription for Ceftin ear 300 mg twice daily ?6 days to complete 10 days of treatment. He was given a prescription for a Symbicort inhaler and an incentive spirometer and Acapella to take home with him. He was given a coupon to get 1 free month of Eliquis 5 mg twice daily. He is going to follow-up with Dr. Howell in the office in the next 2-3 weeks and will likely need some type of evaluation for coronary disease, either a stress test or cardiac catheterization. He will also follow-up with Dr. Margarito Okeefe in the office in 2 weeks to arrange outpatient pulmonary function tests. He will need a repeat CT scan of the chest in 3-6 months to verify clearing of the infiltrates in this 81-year-old male who was a previous smoker and has severe COPD. Home O2 was arranged for him and he will wear 3 L/min when exerting himself and 2 L at bedtime. I suggested he purchase a pulse oximeter at [facility] to monitor his oxygen saturation and if it is less than 88% he either needs to put the oxygen on or increase the liters per minute. This note was generated with [employer] dictation software. It may contain incorrect words, spelling, and punctuation that were not noted in checking the note before signing. Discharge Activity: - - You must wear the oxygen for ANY activity, including walking. Call your doctor if you observe: Fever of 101 or Higher, Shortness of breath, Dizziness, Fainting spells, Swelling in the ankles, Chest pain, - - Severe diarrhea, rash, sores in your mouth or painful swallowing Home Medications: Medications to take at Discharge Multivitamin [Multiple Vitamins] 1 each PO DAILY 06/13/17 Simvastatin [Zocor] 40 mg PO QHS 06/13/17 Apixaban [Eliquis] 5 mg PO BID #60 tab 06/15/17 Apixaban [Eliquis] 5 mg PO BID #60 tab 06/16/17 Aspirin [Aspirin, Baby] 81 mg PO DAILY@0800 tab.chew 06/16/17 Budesonide/Formoterol Fumarate [Symbicort 160-4.5 Mcg Inhaler] 10.2 gm IH BID #1 hfa.aer.ad 06/16/17 Cefdinir [Omnicef [equiv]] 300 mg PO Q12H #12 cap 06/16/17 Guaifenesin [Mucinex] 1,200 mg PO BID #20 tab 06/16/17 Ipratropium [place] 0.06% [ATROVENT NASAL SPRAY (g)] 2 spray NASAL BID #1 unit 06/16/17 Metoprolol Tartrate [Lopressor (beta doe)] 25 mg PO BID #60 tab 06/16/17 Oxygen, Home [Home Oxygen] 2 - 4 lpm NASAL CONT #1 unit 06/16/17 Following Prescrptions Were Given to Patient: Cefdinir [Omnicef [equiv]] 300 mg PO Q12H #12 cap Oxygen, Home [Home Oxygen] 2 - 4 lpm NASAL CONT #1 unit Apixaban [Eliquis] 5 mg PO BID #60 tab Apixaban [Eliquis] 5 mg PO BID #60 tab Budesonide/Formoterol Fumarate [Symbicort 160-4.5 Mcg Inhaler] 10.2 gm IH BID #1 hfa.aer.ad Guaifenesin [Mucinex] 1,200 mg PO BID #20 tab Ipratropium [place] 0.06% [ATROVENT NASAL SPRAY (g)] 2 spray NASAL BID #1 unit Metoprolol Tartrate [Lopressor (beta doe)] 25 mg PO BID #60 tab Primary Care Physician: Moise Babocck [Primary Care Provider] - Please follow up with your Primary Care Physician in: 5-7 days Please Follow Up With: Margarito Okeefe DO - lung doctor When: 2 weeks Please Follow Up With: Reymundo Howell MD - heart doctor When: within 2 -3 weeks Patient Instructions: What Is Atrial Flutter/Atrial Fibrillation?, What is COPD?, Pulmonary Function Tests, Caring for Your Inhaler, Using Oxygen Safely Disposition: Home Minutes spent on discharge:: 43 Patient Condition:: Stable Meaningful Use Info Meaningful Use Diagnoses (Choose all that apply): None applicable Code Visit Inpatient E&M: 13588 Disch Hosp
--- NOTE | 2017-06-16 12:13 | DS.PCM_ITS ---
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 - suspect tachycardia induced acute respiratory insufficiency with hypoxemia suspected severe COPD - Secondary Discharge Diagnosis Chronic Problems Hyperlipidemia (Chronic) Status post coronary artery bypass graft (Chronic) Coronary artery disease (Chronic) Patent foramen ovale Hospital Course and Treatment Imaging Results: 06/16/17 10:14 Chest PA and Lateral [RAD] Urgent Reymundo Delacruz - [facility] Operations: None Procedures: 2-D Echocardiogram - Size left ventricle, normal size atria, mild segmental systolic dysfunction, EF 40%, +1 MR, patent foramen ovale Summary of Care Provided: Patient is a 81-year-old male with a past medical history of coronary artery disease, CABG and hyperlipidemia who presented to the emergency room at [facility] complaining of a cough that he had for 5 weeks. He described the cough as mostly dry with occasional white to yellow sputum. The cough gets worse when he lies down and he has post nasal drainage. He Complained of mild shortness of breath with activity. He Had no fever or chills and denied sore throat and nasal congestion. In the emergency room an EKG showed atrial fibrillation with rapid ventricular response at approximately 110 bpm. He denied any prior history of atrial fibrillation and was not on anticoagulation. He was 91% saturated on room air and the blood pressure was within normal limits. He was treated with 1 dose of IV metoprolol with good control of his heart rate. Lab work was remarkable for white blood cell count of 19.5 with a left shift. Hemoglobin and platelets were within normal limits. Sodium was low at 134 and the BUN was 22 with a creatinine of 1.24. Random blood sugar was 122 and the lactic acid was normal at 1.6. Total bilirubin was elevated at 1.5 but the remainder of the liver profile was within normal limits. A BNP was 243. Chest x-ray showed hyperinflation with possible infiltrate in the left base. He was admitted to the progressive care unit with a diagnosis of new onset atrial fibrillation with RVR and community- acquired pneumonia. He was started on IV Rocephin and azithromycin. He was started on Coreg for rate control. Cardiology was consulted. A CT scan of the chest showed hyperinflation with bibasilar infiltrates, left greater than right. Respiratory panel was negative. Urine for Legionella and streptococcal antigens was negative. His cough was mostly dry the first few days but then it became productive on the last day and the sputum was sent but he had been on antibiotics for 4 days prior to that. He has been afebrile for the duration of his hospital stay. White blood cell count on 06/15 was 9.2 with an unremarkable differential. Blood cultures had no growth. Troponins were negative. Lipid panel showed an LDL of 96 with an HDL of 46. His blood pressure was low on Coreg and he was transitioned to Lopressor 25 mg p.o. twice daily and digoxin 0.125 mg daily. As his lung function improved he converted to normal sinus rhythm. Digoxin was discontinued. He was initially treated with Lovenox 1 mg/kg subcu every 12 hours and transitioned to Eliquis 5 mg twice daily on 06/16. He had an echocardiogram done in the hospital that showed a 40% ejection fraction with mild segmental wall motion abnormalities. There was 1+ MR and he had a patent foramen ovale. On 06/16 and ambulatory pulse ox was done and he was 81% on room air and 93 % on a 3 L nasal cannula. Auscultation of his lungs revealed better air exchange although it is still diminished. There was no wheezing and there were minimal coarse crackles in the left base. He was discharged home with a prescription for Ceftin ear 300 mg twice daily ?6 days to complete 10 days of treatment. He was given a prescription for a Symbicort inhaler and an incentive spirometer and Acapella to take home with him. He was given a coupon to get 1 free month of Eliquis 5 mg twice daily. He is going to follow-up with Dr. Howell in the office in the next 2-3 weeks and will likely need some type of evaluation for coronary disease, either a stress test or cardiac catheterization. He will also follow-up with Dr. Margarito Okeefe in the office in 2 weeks to arrange outpatient pulmonary function tests. He will need a repeat CT scan of the chest in 3-6 months to verify clearing of the infiltrates in this 81-year-old male who was a previous smoker and has severe COPD. Home O2 was arranged for him and he will wear 3 L/min when exerting himself and 2 L at bedtime. I suggested he purchase a pulse oximeter at [facility] to monitor his oxygen saturation and if it is less than 88% he either needs to put the oxygen on or increase the liters per minute. This note was generated with [employer] dictation software. It may contain incorrect words, spelling, and punctuation that were not noted in checking the note before signing. Discharge Activity: - - You must wear the oxygen for ANY activity, including walking. Call your doctor if you observe: Fever of 101 or Higher, Shortness of breath, Dizziness, Fainting spells, Swelling in the ankles, Chest pain, - - Severe diarrhea, rash, sores in your mouth or painful swallowing Home Medications: Medications to take at Discharge Multivitamin [Multiple Vitamins] 1 each PO DAILY 06/13/17 Simvastatin [Zocor] 40 mg PO QHS 06/13/17 Apixaban [Eliquis] 5 mg PO BID #60 tab 06/15/17 Apixaban [Eliquis] 5 mg PO BID #60 tab 06/16/17 Aspirin [Aspirin, Baby] 81 mg PO DAILY@0800 tab.chew 06/16/17 Budesonide/Formoterol Fumarate [Symbicort 160-4.5 Mcg Inhaler] 10.2 gm IH BID # 1 hfa.aer.ad 06/16/17 Cefdinir [Omnicef [equiv]] 300 mg PO Q12H #12 cap 06/16/17 Guaifenesin [Mucinex] 1,200 mg PO BID #20 tab 06/16/17 Ipratropium [place] 0.06% [ATROVENT NASAL SPRAY (g)] 2 spray NASAL BID #1 unit 06/16/17 Metoprolol Tartrate [Lopressor (beta doe)] 25 mg PO BID #60 tab 06/16/17 Oxygen, Home [Home Oxygen] 2 - 4 lpm NASAL CONT #1 unit 06/16/17 Following Prescrptions Were Given to Patient: Cefdinir [Omnicef [equiv]] 300 mg PO Q12H #12 cap Oxygen, Home [Home Oxygen] 2 - 4 lpm NASAL CONT #1 unit Apixaban [Eliquis] 5 mg PO BID #60 tab Apixaban [Eliquis] 5 mg PO BID #60 tab Budesonide/Formoterol Fumarate [Symbicort 160-4.5 Mcg Inhaler] 10.2 gm IH BID # 1 hfa.aer.ad Guaifenesin [Mucinex] 1,200 mg PO BID #20 tab Ipratropium [place] 0.06% [ATROVENT NASAL SPRAY (g)] 2 spray NASAL BID #1 unit Metoprolol Tartrate [Lopressor (beta doe)] 25 mg PO BID #60 tab Primary Care Physician: Moise Babcock [Primary Care Provider] - Please follow up with your Primary Care Physician in: 5-7 days Please Follow Up With: Margarito Okeefe DO - lung doctor When: 2 weeks Please Follow Up With: Reymundo Howell MD - heart doctor When: within 2 -3 weeks Patient Instructions: What Is Atrial Flutter/Atrial Fibrillation?, What is COPD ?, Pulmonary Function Tests, Caring for Your Inhaler, Using Oxygen Safely Disposition: Home Minutes spent on discharge:: 43 Patient Condition:: Stable Meaningful Use Info Meaningful Use Diagnoses (Choose all that apply): None applicable Code Visit Inpatient E&M: 71674 Disch Hosp
== END 2017-06-16 14:15 | disposition home or self-care (01) | DRG 871 ==
LOC: ED 13:56 → PCU 16:02
PROVIDERS: Internal Medicine Cardiovascular Disease; Admitting Provider Hospitalist; Emergency Provider Emergency Medicine; Family Provider Nurse Practitioner Family; PCP Nurse Practitioner Family; Visit Provider Internal Medicine
DX: A41.9 Sepsis, unspecified organism (principal); J18.9 Pneumonia, unspecified organism; R06.89 Other abnormalities of breathing; I48.91 Unspecified atrial fibrillation; J44.9 Chronic obstructive pulmonary disease, unspecified; I42.9 Cardiomyopathy, unspecified; Q21.1 Atrial septal defect; R65.20 Severe sepsis without septic shock; I25.10 Atherosclerotic heart disease of native coronary artery without angina pectoris; E78.5 Hyperlipidemia, unspecified; R09.02 Hypoxemia; Z87.891 Personal history of nicotine dependence; Z95.1 Presence of aortocoronary bypass graft
CPT/HCPCS: 36415; 71010; 71020; 71260; 80048; 80053; 80061; 81002; 83605; 83735; 83880; 84443; 84484; 85025; 85610; 85730; 87040; 87070; 87086; 87205; 87449; 87804; 93005; 93306; 94640; 94667; 97116; 97161; 97165; 97802; 99285; J7050; Q9967; 90686; A4216; J0696; J1940

== ENCOUNTER → 2017-09-05 09:32 | Outpatient (CLI) | payer SELFPAY, OTHER ==
--- NOTE | 2017-09-05 09:37 | RAD_ITS ---
STUDY: X-RAY CHEST REASON FOR EXAM: Male, 82 years old. COPD. TECHNIQUE: PA and lateral views of the chest. COMPARISON: Comparison is made with prior study dated June 16, 2017. FINDINGS: Hyperinflation. Scattered calcified granulomas. Decreased bronchovascular markings suggestive of emphysematous changes. This is unchanged. There is no demonstrated pleural abnormality. Sternal cerclage wires and vascular clips are present from a prior sternotomy and coronary artery bypass graft procedure (CABG). Normal mediastinum and junior. Normal visualized pulmonary arteries. There is atherosclerotic calcification of the aortic arch with tortuosity. There are diffuse degenerative changes of the visualized thoracic spine. Normal visualized ribs, clavicles, and shoulders. There is no demonstrated abnormality of the visualized soft tissue structures of the upper abdomen. RAD/Chest PA and Lateral IMPRESSION: Hyperinflation. No acute abnormality is seen. Electronically Signed: Mehul Calderon MD at 12:28 EDT Tel [phone], Service support ,
== END ==
PROVIDERS: Family Provider Nurse Practitioner Family; PCP Nurse Practitioner Family; Visit Provider Internal Medicine Pulmonary Disease
DX: J44.9 Chronic obstructive pulmonary disease, unspecified (principal)
CPT/HCPCS: 71046

== ENCOUNTER 2018-05-06 09:04 | Inpatient (IN) | payer OTHER, SELFPAY ==
[2018-05-06] VITALS (13 sets, daily range): BP systolic 124–150; BP diastolic 73–81; PULSE 98–142; RESP 16–20; TEMP 36.8–37.6; O2SAT 92–95; BMI 24.3; BMI 24.8
--- NOTE | 2018-05-06 09:19 | EKG12_ITS ---
Test Reason : Blood Pressure : / mmHG Vent. Rate : 111 BPM Atrial Rate : 060 BPM P-R Int : 000 ms QRS Dur : 110 ms QT Int : 338 ms P-R-T Axes : 000 -01 -28 degrees QTc Int : 459 ms Atrial fibrillation with rapid ventricular response ST depression, consider subendocardial injury Nonspecific T wave abnormality Abnormal ECG Confirmed by TRISTAN SANDOVAL, KATHIA ([id number]), newspaper copy editor ANAHY CHRISTIE ([id number]) on 05/09/2018 2:40:18 PM Referred By: ENRRIQUE Confirmed By:KATHIA HUDSON MD
--- NOTE | 2018-05-06 09:19 | RAD_ITS ---
STUDY: X-RAY CHEST REASON FOR EXAM: Male, 82 years old. Pneumonia. Short of breath. TECHNIQUE: Frontal and lateral views of the chest. COMPARISON: 09/05/2017. FINDINGS: Marked hyperexpansion and fibrotic changes. More focal increased density in the lower right lung, new since previous exam and most consistent with right lower lobe infiltrate. Possible trace right pleural effusion. Sternal cerclage wires and vascular clips are present from a prior sternotomy and coronary artery bypass graft procedure (CABG). Normal mediastinum and junior. Normal visualized pulmonary arteries. Normal visualized aortic arch and descending thoracic aorta. There are diffuse degenerative changes of the visualized thoracic spine. Mild dextroconvex scoliosis. Normal visualized ribs, clavicles, and shoulders. There is no demonstrated abnormality of the visualized soft tissue structures of the upper abdomen. RAD/Chest PA and Lateral IMPRESSION: Severe COPD. Probable new infiltrate in the right lower lobe. Electronically Signed: Philip Archuleta MD at 10:57 EST , Service support ,
--- NOTE | 2018-05-06 09:21 | ED.VISSUMM ---
- ER Visit Summary Date of Service: 05/06/18 Chief Complaint: Cough History of Present Illness: The patient is a 82 M who sees Raudel Drew and Dr. Howell. He reports he has a cough began 1 week ago. Is productive of very little sputum. He does report that he has severe shortness of breath. He states that he has not been wheezing. He denies fever or chills. Reports he has sore throat is 5-10 severity. He also complains of generalized weakness. Patient denies any chest pain, abdominal pain, nausea, vomiting, diarrhea, dysuria, frequency, or other complaints. Physical Examination: Vitals: 99.6, 120/73, 108, 16, 92% on room air which is not hypoxic. General: Well-nourished and well-developed. Head: Normocephalic atraumatic. Neck: Supple, no lymphadenopathy. No JVD. Nontender. Cardiovascular: Tachycardic irregular rhythm with a 2 out of 6 systolic murmur. Respiratory: No respiratory distress. Mild wheezing bilaterally with good air movement. Abdominal: Soft, nontender, nondistended, normal bowel sounds. No guarding, rebound, or peritoneal signs. Back: Nontender. Extremities: Nontender, no edema. Skin: Normal color, no rash. Neurologic: Alert and oriented ?3. Cranial nerves II through XII are intact. Normal strength and sensation. Psych: Normal affect. Test Results: Chest x-ray shows an infiltrate on the right. EKG is A. fib [address] depression in leads I/aVL and V4 to V6. This is a change from February of this year. However, at that time he was in sinus rhythm at a rate of 75. Troponin is negative. Chem-7 is more for calcium 8.4 and glucose 161. CBC is marked for hematocrit 39.8, segmented neutrophils 79, lymphocytes 14. Lactic acid is 1.8. Emergency Department Course and Treatment: Patient was given albuterol and Atrovent aerosols. He had an IV placed and given Solu-Medrol IV. He is resting comfortably. Chest x-ray returned he is given Levaquin IV. Treatment Plan: Patient will be discussed with the hospitalist and admitted for further evaluation and treatment. Disposition: Admitted in improved condition. Impression: 1. Pneumonia, community acquired. 2. Atrial fibrillation with RVR. 3. Coagulopathy on Eliquis. This note was generated with [employer] dictation software. It may contain incorrect words, spelling, and punctuation that were not noted in review of the chart prior to signing ED Disposition - Plan for ED Patient: Chief Complaint: Cough
[2018-05-06] MEDS: MethylPREDNISolone 125 MG/2 ML Vial IV (09:37)
[2018-05-06] MEDS: 0.9% Normal Saline 1,000 ML 999 ML IV (09:37)
[2018-05-06] MEDS: Ipratropium/Albuterol Sulfate 3 ML AMPUL.NEB INHALATION ×2 (09:40→19:40)
[2018-05-06 09:53] LABS: Absolute Lymphocyte Count 1.48 X10^3/ul (0.83-4.51); Absolute Neutrophil Count 8.3 X10^3/uL (2.0-7.7); Basophil# 0.02 X10^3/uL; Basophil% 0.2 % (0-1); Eosinophil# 0.07 X10^3/uL; Eosinophils% 0.7 % (0-5); Hematocrit 39.8 % (40-54); Hemoglobin 13.1 g/dl (13.0-16.5); Lymphocyte # 1.48 X10^3/ul (4.0); Mean Corp Hgb Conc 32.9 g/gl (32-36); Mean Corpuscular Hgb 33.5 pg (27.0-32.0); Mean Corpuscular Volume 101.8 fL (80-94); Mean Platelet Vol. 11.8 fl (6.2-12.0); Monocyte# 0.64 X10^3/uL; Monocyte% 6.1 % (0-10); Neutrophil # 8.34 X10^3/uL (2.7-7.7); Neutrophil % 78.9 % (47-70); Platelet Count 212 K/mm3 (150-450); RBC Distribution Width CV 13.8 % (11.6-14.6); RBC Distribution Width SD 51.3 fl (35.1-43.9); Red Blood Count 3.91 M/mm3 (4.6-6.2); White Blood Count 10.6 K/mm3 (4.4-11.0)
[2018-05-06 10:00] LABS: POSITIVE COUNT NO; POSITIVE DIFFERENTIAL NO; POSITIVE MORPHOLOGY NO
[2018-05-06 10:05] LABS: Anion Gap 7 (5-15); BUN 16 mg/dL (7-18); BUN/Creat Ratio 16.3 RATIO (10-20); Calcium,Total 8.4 mg/dL (8.5-10.1); Chloride 103 mmol/L (98-107); Creatinine, Serum 0.98 mg/dL (0.70-1.30); EST Glomerular Filtration Rate 78 mL/min (>60); Est Glom Filt Rate - Afr Amer 94 mL/min (>60); Estimated Creatinine Clearance 62.07 ml/min; Glucose 161 mg/dL (74-106); Potassium 3.9 mmol/L (3.5-5.1); Sodium Level 136 mmol/L (136-145)
[2018-05-06 10:14] LABS: Lactic Acid 1.8 mmol/L (0.4-2.0)
--- NOTE | 2018-05-06 10:42 | NURSING ---
DR HEARD FOR DR OSUNA
--- NOTE | 2018-05-06 10:44 | NURSING ---
PCU PNEUMONIA ASHELFAH
--- NOTE | 2018-05-06 10:55 | NURSING ---
DR HEARD IN ROOM
--- NOTE | 2018-05-06 11:08 | PCM.HP.STD ---
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 The patient is a 82 year old M with past medical history as mentioned above presented to the emergency room because of cough and shortness of breath. His illness started around 1 week ago after he returned from a trip to [place] with productive cough with minimal sputum, associated with exertional shortness of breath as well as generalized weakness and fatigue. His cough started around 1 week ago and initially, it was mild and has been progressively worsening over the course of the last week. He complained of exertional shortness of breath, gets short of breath upon moderate to minimal activity, aggravated by walking and relieved by rest, associated with cough and malaise. He mentioned that his temperature at home was 99.6 Fahrenheit maximum. He denied chest pain, palpitation, dizziness or lightheadedness. In the emergency room, he was afebrile, heart rate has been around 110 and he has been in A. fib with RVR, blood pressure stable, pulse ox is 92% on room air. Routine blood work was unremarkable. His troponin is negative. His EKG revealed A. fib with RVR, heart rate was 111 without evidence of acute ischemic changes. Chest x-ray revealed probable tear of the right base infiltrate. He is being admitted for community-acquired pneumonia and A. fib with RVR. Past Medical History Past Medical History (Chronic Problems): Chronic Problems (Last Updated 05/06/18 @ 11:08 by Ernesto Lopez MD) Cardiomyopathy (Chronic) Atherosclerosis of coronary artery of [place] heart without angina pectoris (Chronic) H/O coronary artery bypass surgery (Chronic ~04/2006) CABG x 4 at [place] Patent foramen ovale (Chronic) Hyperlipidemia (Chronic) Medical History: Medical History (Last Updated 05/06/18 @ 11:08 by Ernesto Lopez MD) Cardiomyopathy (Chronic) I42.9 Atherosclerosis of coronary artery of [place] heart without angina pectoris (Chronic) I25.10 Patent foramen ovale (Chronic) Q21.1 Hyperlipidemia (Chronic) E78.5 COPD (chronic obstructive pulmonary disease) J44.9 Allergies No Known Allergies Allergy (Verified 05/06/18 09:04) Home Medications: Ambulatory Orders Medication Instructions Recorded Apixaban [Eliquis] 5 mg PO BID #60 tab 06/16/17 Oxygen, Home [Home Oxygen] 2 - 4 lpm NASAL CONT #1 unit 06/16/17 albuterol sulfate HFA 90 2 puff INHALATION Q6H 07/31/17 mcg/actuation aerosol inhaler capsicum (cayenne) 447 mg capsule 447 mg PO DAILY 07/31/17 garlic 1,500 mg capsule 1,500 mg PO QPC 07/31/17 mometasone-formoterol HFA 200 2 puff INHALATION Q12H 07/31/17 mcg-5 mcg/actuation aerosol inhaler multivitamin tablet 1 tab PO QDAY 07/31/17 omega-3 fatty acids 1,000 mg 1,000 mg PO QDAY 07/31/17 capsule furosemide 40 mg tablet 40 mg PO QDAY #30 tab 12/09/17 simvastatin 20 mg tablet 40 mg PO QPM tab 12/09/17 metoprolol succinate ER 25 mg 25 mg PO BID #120 tab 03/14/18 tablet,extended release 24 hr Surgical History: Surgical History (Last Reviewed 03/14/18 @ 09:47 by Reymundo Howell MD) H/O coronary artery bypass surgery (Chronic) Onset Date: ~04/2006 Z95.1 CABG x 4 at [place] Surgical History: coronary bypass surgery Psychiatric History: No pertinent psych hx Lives: Spouse/ Significant Other Smoking Status: Former smoker Alcohol: None Drugs: None - *Family History Maternal Family History: Family History (Last Reviewed 03/14/18 @ 09:47 by Reymundo Howell MD) Brother CAD (coronary artery disease) Sister CAD (coronary artery disease) Father CAD (coronary artery disease) Paternal Family History: Family History (Last Reviewed 03/14/18 @ 09:47 by Reymundo Howell MD) Brother CAD (coronary artery disease) Sister CAD (coronary artery disease) Father CAD (coronary artery disease) Review of Systems Constitutional: Reports: Malaise, Weakness. Denies: Anorexia, Chills, Fever Eyes: Denies: Blurred vision, Double vision, Drainage, Redness HEENT: Denies: Difficulty Hearing, Dysphasia, Ear Pain, Nasal Congestion, Sore Throat Cardiovascular: Denies: Chest Pain, Chest Pressure, Chest Tightness, Heaviness, Light Headedness, Palpitations, Paroxysmal Noc. Dyspnea, Syncope Respiratory: Reports: Cough, Shortness of breath upon exertion, Sputum production, Wheezing. Denies: Pleuritic Pain Gastrointestinal: Denies: Abdominal Pain, Constipation, Diarrhea, Nausea, Vomiting Genitourinary: Denies: Dysuria, Frequency, Hematuria Musculoskeletal: Denies: Arm Pain, Back Pain, Foot Pain Skin: Denies: Dryness, Rash Neurological: Denies: Balance problems, Double vision, Change in Speech, Slurred speech, Confusion, Incoordination, Numbness, Tingling Psychiatric: Denies: Anxiety, Depression Endocrine: Denies: Change in Body Habitus, Polydipsia VTE Information - Inpt Only VTE Present on Admission: No VTE Mechan Device Prophylaxis: None VTE Pharm Prophylaxis ordered?: No - Physical Exam General: Alert, Oriented x3, Cooperative, No apparent distress HEENT: PERRLA, EOMI, Normocephalic Oral: Moist Mucosa, No Gingival or Mucosal Lesions/ Ulcerations Neck: Supple, No JVD, Negative Carotid Bruits, Trachea Midline, Thyroid Normal Size and Texture Lungs: No rhonchi, Diminished, Rales, Wheezes, - - Decreased breath sounds bilateral, faint crackles in the right base, occasional wheezes. Cardiovascular: Normal S1, Normal S2, No murmurs, PMI Normal, Irregular Rate, Tachycardic Abdomen: Bowel Sounds Present, Soft, Non Tender, Non-Distended, No Hepato-splenomegaly Extremities: No clubbing, No cyanosis, No edema Skin: No rashes, No breakdown Lymphatic: No Cervical, Supraclavicular, or Inguinal Adenopathy Neurological: Cranial nerves II-XII grossly intact, Motor Exam 5/5 strength throughout Psych/Mental Status: Normal Affect, Appropriate, Alert and oriented to time, place, person, mood and affect Vital Signs Temp Pulse Resp BP Pulse Ox 99.6 F H 98 20 H 128/73 H 92 05/06/18 09:05 05/06/18 09:40 05/06/18 09:40 05/06/18 09:05 05/06/18 09:05 Oxygen Delivery Method Room Air Weight: 170 lb Body Mass Index (BMI) 24.3 Microbiology Past 72 Hours 05/06/18 09:40 Influenza Types A,B Direct FA (SHIRLEY) - Final Mucosa - Nose Laboratory Tests Past 24 Hrs 05/06/18 05/06/18 05/06/18 09:45 09:45 09:45 WBC 10.6 RBC 3.91 L Hgb 13.1 Hct 39.8 L MCV 101.8 H MCH 33.5 H MCHC 32.9 RDW 13.8 RDW Differential 51.3 H Plt Count 212 MPV 11.8 Immature Gran % (Auto) 0.100 Neut % (Auto) 78.9 H Lymph % (Auto) 14.0 L [place] % (Auto) 6.1 Eos % (Auto) 0.7 Baso % (Auto) 0.2 Absolute Neuts (auto) 8.3 H Absolute Lymphs (auto) 1.48 Total Counted Not Reportable Sodium 136 Potassium 3.9 Chloride 103 Carbon Dioxide 26.0 Anion Gap 7 BUN 16 Creatinine 0.98 Estim Creat Clear Calc 62.07 Est GFR (MDRD) Af Amer 94 Est GFR (MDRD) Non-Af 78 BUN/Creatinine Ratio 16.3 Glucose 161 H Lactic Acid 1.8 Calcium 8.4 L Troponin I < 0.015 Clinical Impression(s) from Imaging Studies Chest X-Ray 05/06/18 09:19 IMPRESSION: Severe COPD. Probable new infiltrate in the right lower lobe. Electronically Signed: Philip Archuleta MD at 10:57 EST , Service support , Assessment/Plan All Active Problems (Last Updated 05/06/18 @ 11:08 by Ernesto Lopez MD) Atrial fibrillation with rapid ventricular response (Acute) Community acquired pneumonia (Resolved) Sepsis (Resolved) This is an 82 years old male patient presented to the medicine because of 1 week history of productive cough with minimal sputum and exertional shortness of breath and he was found to have probable early infiltrate on the right lung base consistent with community-acquired pneumonia as well as found to have A. fib with RVR. #1 right lower lobe community-acquired pneumonia: Chest x-ray reviewed. He has no leukocytosis, lactic acid is normal. No evidence of sepsis or severe sepsis. At this time, vital signs are stable except A. fib with RVR. Plan: Admit to PCU, cardiac monitoring, start IV Levaquin for pneumonia, sputum culture, urine culture, urinalysis, pneumococcal and Legionella antigen, bronchodilators, Robitussin twice daily, Tylenol as needed, Zofran as needed, chest physiotherapy, incentive spirometer, repeat CBC and BMP tomorrow morning, PT OT evaluation and treatment. #2 A. fib with RVR: Heart rate has been around 110. Patient received DuoNeb. EKG revealed no acute ischemic changes. Troponin is negative. He does have history of chronic atrial fibrillation, has been on metoprolol and Eliquis. Plan: Continue metoprolol p.o. for rate control, continue Eliquis frantic ablation, start IV metoprolol as needed for heart rate more than 100. #3 CAD status post CABG: Denies chest pain, troponins negative. EKG without acute ischemic changes. Plan: Continue Eliquis, metoprolol and statins. #4 cardiomyopathy/chronic systolic CHF: Clinically stable, compensated. No evidence of acute CHF. Plan to continue Lasix and metoprolol. #5 hypertension: Blood pressure stable, continue Lasix and metoprolol. #6 hyperlipidemia: Continue statins. #7 COPD: Stable, pulse ox is maintained on room air. Plan for DuoNeb every 6 hours, albuterol as needed, incentive spirometer and chest physiotherapy. #8 DVT prophylaxis: Continue Eliquis. This note was generated with [employer] dictation software. It may contain incorrect words, spelling, and punctuation that were not noted in checking the note before signing. Code Visit Inpatient E&M: 14004 Init Hosp L3
--- NOTE | 2018-05-06 11:12 | HP.PCM_ITS ---
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 The patient is a 82 year old M with past medical history as mentioned above presented to the emergency room because of cough and shortness of breath. His illness started around 1 week ago after he returned from a trip to [place] with productive cough with minimal sputum, associated with exertional shortness of breath as well as generalized weakness and fatigue. His cough started around 1 week ago and initially, it was mild and has been progressively worsening over the course of the last week. He complained of exertional shortness of breath, gets short of breath upon moderate to minimal activity, aggravated by walking and relieved by rest, associated with cough and malaise. He mentioned that his temperature at home was 99.6 Fahrenheit maximum. He denied chest pain, palpitation, dizziness or lightheadedness. In the emergency room, he was afebrile, heart rate has been around 110 and he has been in A. fib with RVR, blood pressure stable, pulse ox is 92% on room air. Routine blood work was unremarkable. His troponin is negative. His EKG revealed A. fib with RVR, heart rate was 111 without evidence of acute ischemic changes. Chest x-ray revealed probable tear of the right base infiltrate. He is being admitted for community-acquired pneumonia and A. fib with RVR. Past Medical History Past Medical History (Chronic Problems): Chronic Problems (Last Updated 05/06/18 @ 11:08 by Ernesto Lopez MD) Cardiomyopathy (Chronic) Atherosclerosis of coronary artery of [place] heart without angina pectoris (Chronic) H/O coronary artery bypass surgery (Chronic ~04/2006) CABG x 4 at [place] Patent foramen ovale (Chronic) Hyperlipidemia (Chronic) Medical History: Medical History (Last Updated 05/06/18 @ 11:08 by Ernesto Lopez MD) Cardiomyopathy (Chronic) I42.9 Atherosclerosis of coronary artery of [place] heart without angina pectoris (Chronic) I25.10 Patent foramen ovale (Chronic) Q21.1 Hyperlipidemia (Chronic) E78.5 COPD (chronic obstructive pulmonary disease) J44.9 Allergies No Known Allergies Allergy (Verified 05/06/18 09:04) Home Medications: Ambulatory Orders Medication Instructions Recorded Apixaban [Eliquis] 5 mg PO BID #60 tab 06/16/17 Oxygen, Home [Home Oxygen] 2 - 4 lpm NASAL CONT #1 unit 06/16/17 albuterol sulfate HFA 90 2 puff INHALATION Q6H 07/31/17 mcg/actuation aerosol inhaler capsicum (cayenne) 447 mg capsule 447 mg PO DAILY 07/31/17 garlic 1,500 mg capsule 1,500 mg PO QPC 07/31/17 mometasone-formoterol HFA 200 2 puff INHALATION Q12H 07/31/17 mcg-5 mcg/actuation aerosol inhaler multivitamin tablet 1 tab PO QDAY 07/31/17 omega-3 fatty acids 1,000 mg 1,000 mg PO QDAY 07/31/17 capsule furosemide 40 mg tablet 40 mg PO QDAY #30 tab 12/09/17 simvastatin 20 mg tablet 40 mg PO QPM tab 12/09/17 metoprolol succinate ER 25 mg 25 mg PO BID #120 tab 03/14/18 tablet,extended release 24 hr Surgical History: Surgical History (Last Reviewed 03/14/18 @ 09:47 by Reymundo Howell MD) H/O coronary artery bypass surgery (Chronic) Onset Date: ~04/2006 Z95.1 CABG x 4 at [place] Surgical History: coronary bypass surgery Psychiatric History: No pertinent psych hx Lives: Spouse/ Significant Other Smoking Status: Former smoker Alcohol: None Drugs: None - *Family History Maternal Family History: Family History (Last Reviewed 03/14/18 @ 09:47 by Reymundo Howell MD) Brother CAD (coronary artery disease) Sister CAD (coronary artery disease) Father CAD (coronary artery disease) Paternal Family History: Family History (Last Reviewed 03/14/18 @ 09:47 by Reymundo Howell MD) Brother CAD (coronary artery disease) Sister CAD (coronary artery disease) Father CAD (coronary artery disease) Review of Systems Constitutional: Reports: Malaise, Weakness. Denies: Anorexia, Chills, Fever Eyes: Denies: Blurred vision, Double vision, Drainage, Redness HEENT: Denies: Difficulty Hearing, Dysphasia, Ear Pain, Nasal Congestion, Sore Throat Cardiovascular: Denies: Chest Pain, Chest Pressure, Chest Tightness, Heaviness, Light Headedness, Palpitations, Paroxysmal Noc. Dyspnea, Syncope Respiratory: Reports: Cough, Shortness of breath upon exertion, Sputum production, Wheezing. Denies: Pleuritic Pain Gastrointestinal: Denies: Abdominal Pain, Constipation, Diarrhea, Nausea, Vomiting Genitourinary: Denies: Dysuria, Frequency, Hematuria Musculoskeletal: Denies: Arm Pain, Back Pain, Foot Pain Skin: Denies: Dryness, Rash Neurological: Denies: Balance problems, Double vision, Change in Speech, Slurred speech, Confusion, Incoordination, Numbness, Tingling Psychiatric: Denies: Anxiety, Depression Endocrine: Denies: Change in Body Habitus, Polydipsia VTE Information - Inpt Only VTE Present on Admission: No VTE Mechan Device Prophylaxis: None VTE Pharm Prophylaxis ordered?: No - Physical Exam General: Alert, Oriented x3, Cooperative, No apparent distress HEENT: PERRLA, EOMI, Normocephalic Oral: Moist Mucosa, No Gingival or Mucosal Lesions/ Ulcerations Neck: Supple, No JVD, Negative Carotid Bruits, Trachea Midline, Thyroid Normal Size and Texture Lungs: No rhonchi, Diminished, Rales, Wheezes, - - Decreased breath sounds bilateral, faint crackles in the right base, occasional wheezes. Cardiovascular: Normal S1, Normal S2, No murmurs, PMI Normal, Irregular Rate, Tachycardic Abdomen: Bowel Sounds Present, Soft, Non Tender, Non-Distended, No Hepato- splenomegaly Extremities: No clubbing, No cyanosis, No edema Skin: No rashes, No breakdown Lymphatic: No Cervical, Supraclavicular, or Inguinal Adenopathy Neurological: Cranial nerves II-XII grossly intact, Motor Exam 5/5 strength throughout Psych/Mental Status: Normal Affect, Appropriate, Alert and oriented to time, place, person, mood and affect Vital Signs Temp Pulse Resp BP Pulse Ox 99.6 F H 98 20 H 128/73 H 92 05/06/18 09:05 05/06/18 09:40 05/06/18 09:40 05/06/18 09:05 05/06/18 09:05 Oxygen Delivery Method Room Air Weight: 170 lb Body Mass Index (BMI) 24.3 Microbiology Past 72 Hours 05/06/18 09:40 Influenza Types A,B Direct FA ([facility]) - Final Mucosa - Nose Laboratory Tests Past 24 Hrs 05/06/18 05/06/18 05/06/18 09:45 09:45 09:45 WBC 10.6 RBC 3.91 L Hgb 13.1 Hct 39.8 L MCV 101.8 H MCH 33.5 H MCHC 32.9 RDW 13.8 RDW Differential 51.3 H Plt Count 212 MPV 11.8 Immature Gran % (Auto) 0.100 Neut % (Auto) 78.9 H Lymph % (Auto) 14.0 L [place] % (Auto) 6.1 Eos % (Auto) 0.7 Baso % (Auto) 0.2 Absolute Neuts (auto) 8.3 H Absolute Lymphs (auto) 1.48 Total Counted Not Reportable Sodium 136 Potassium 3.9 Chloride 103 Carbon Dioxide 26.0 Anion Gap 7 BUN 16 Creatinine 0.98 Estim Creat Clear Calc 62.07 Est GFR (MDRD) Af Amer 94 Est GFR (MDRD) Non-Af 78 BUN/Creatinine Ratio 16.3 Glucose 161 H Lactic Acid 1.8 Calcium 8.4 L Troponin I < 0.015 Clinical Impression(s) from Imaging Studies Chest X-Ray 05/06/18 09:19 IMPRESSION: Severe COPD. Probable new infiltrate in the right lower lobe. Electronically Signed: Philip Archuleta MD at 10:57 EST , Service support , Assessment/Plan All Active Problems (Last Updated 05/06/18 @ 11:08 by Ernesto Lopez MD) Atrial fibrillation with rapid ventricular response (Acute) Community acquired pneumonia (Resolved) Sepsis (Resolved) This is an 82 years old male patient presented to the medicine because of 1 week history of productive cough with minimal sputum and exertional shortness of breath and he was found to have probable early infiltrate on the right lung base consistent with community-acquired pneumonia as well as found to have A. fib with RVR. #1 right lower lobe community-acquired pneumonia: Chest x-ray reviewed. He has no leukocytosis, lactic acid is normal. No evidence of sepsis or severe sepsis. At this time, vital signs are stable except A. fib with RVR. Plan: Admit to PCU, cardiac monitoring, start IV Levaquin for pneumonia, sputum culture, urine culture, urinalysis, pneumococcal and Legionella antigen, bronchodilators, Robitussin twice daily, Tylenol as needed, Zofran as needed, chest physiotherapy, incentive spirometer, repeat CBC and BMP tomorrow morning, PT OT evaluation and treatment. #2 A. fib with RVR: Heart rate has been around 110. Patient received DuoNeb. EKG revealed no acute ischemic changes. Troponin is negative. He does have history of chronic atrial fibrillation, has been on metoprolol and Eliquis. Plan: Continue metoprolol p.o. for rate control, continue Eliquis frantic ab lation, start IV metoprolol as needed for heart rate more than 100. #3 CAD status post CABG: Denies chest pain, troponins negative. EKG without acute ischemic changes. Plan: Continue Eliquis, metoprolol and statins. #4 cardiomyopathy/chronic systolic CHF: Clinically stable, compensated. No evidence of acute CHF. Plan to continue Lasix and metoprolol. #5 hypertension: Blood pressure stable, continue Lasix and metoprolol. #6 hyperlipidemia: Continue statins. #7 COPD: Stable, pulse ox is maintained on room air. Plan for DuoNeb every 6 hours, albuterol as needed, incentive spirometer and chest physiotherapy. #8 DVT prophylaxis: Continue Eliquis. This note was generated with [email or web address] dictation software. It may contain incorrect words, spelling, and punctuation that were not noted in checking the note before signing. Code Visit Inpatient E&M: 09047 Init Hosp L3
[2018-05-06] MEDS: levoFLOXacin IV 750 MG/150 ML BAG 100 MG IV (12:10)
[2018-05-06] MEDS: Metoprolol Tartrate 5 MG/5 ML Vial IV (12:10)
[2018-05-06 12:21] LABS: Bacteria 0 SEEN /hpf (None Seen); Mucous, Urine 0 SEEN /hpf (<or=2+); Red Blood Cells-Urine 0 SEEN /hpf (0-5); Squamous Epithelial Cells - UA 0 SEEN /hpf (0-5)
[2018-05-06 12:25] LABS: Color, Urine Yellow (Yellow); Glucose, Dipstick Normal (Normal); Ketone-Dipstick Negative (Negative); Leukocyte Esterase-Dipstick Negative /ul (Negative); Nitrite-Dipstick Negative (Negative); Occult Blood-Urine 10 /ul (Negative); Protein-Dipstick 15 mg/dl (Negative); Urine Bilirubin Dipstick Negative (Negative); Urine Clarity Clear (Clear); Urine Urobilinogen Normal (Normal); Urine pH 6.5 (5.0 - 8.0)
[2018-05-06 12:35] LABS: White Blood Cells 0-5 SEEN /hpf (0-5)
--- NOTE | 2018-05-06 15:57 | CHAPLAIN ---
Type of Pastoral Visit _x__ Initial Visit ___ Follow-up Visit ___ On-call Visit ___ General Patient Visit ___ Spiritual Assessment ___ Family Conference ___ Bereavement ___ Rapid Response ___ Code Blue ___ Other (describe below) Pastoral Care Referral From _x__ Patient ___ Family ___ Nurse ___ Physician ___ Medical Art Therapist ___ Master Carpenter ___ Other (describe below) Sacrament/Intervention _x__ Active listening ___ Anointing ___ Mormonism ___ Bereavement ___ Communion ___ Vandana exploration ___ ___ Life review _x__ Prayer ___ Reconciliation ___ Sacrament of Sick ___ Supportive presence ___ Wedding ___ Other (describe below) Pastoral Comments
[2018-05-06] MEDS: Metoprolol(XL)Succ 25 MG Tablet PO (22:27)
[2018-05-06] MEDS: APIXABAN 5 MG TABLET PO (22:27)
[2018-05-06] MEDS: guaiFENesin 1,200 MG Tablet 1200 MG PO (22:27)
[2018-05-06] MEDS: Atorvastatin Calcium 20 MG Tablet PO (22:27)
[2018-05-07] VITALS (19 sets, daily range): BP systolic 108–137; BP diastolic 51–72; PULSE 89–120; RESP 12–18; TEMP 36.6–37.2; O2SAT 90–96
[2018-05-07 05:59] LABS: Absolute Lymphocyte Count 0.74 X10^3/ul (0.83-4.51); Absolute Neutrophil Count 10.3 X10^3/uL (2.0-7.7); Basophil# 0.01 X10^3/uL; Basophil% 0.1 % (0-1); Hematocrit 36.6 % (40-54); Lymphocyte # 0.74 X10^3/ul (4.0); Lymphocyte % 6.3 % (19-41); Mean Corp Hgb Conc 32.8 g/gl (32-36); Mean Corpuscular Hgb 33.1 pg (27.0-32.0); Mean Corpuscular Volume 101.1 fL (80-94); Mean Platelet Vol. 11.9 fl (6.2-12.0); Monocyte# 0.63 X10^3/uL; Monocyte% 5.4 % (0-10); Neutrophil # 10.32 X10^3/uL (2.7-7.7); Platelet Count 213 K/mm3 (150-450); RBC Distribution Width CV 13.6 % (11.6-14.6); RBC Distribution Width SD 50.5 fl (35.1-43.9); Red Blood Count 3.62 M/mm3 (4.6-6.2); White Blood Count 11.7 K/mm3 (4.4-11.0)
[2018-05-07 06:04] LABS: Anion Gap 8 (5-15); BUN 18 mg/dL (7-18); BUN/Creat Ratio 19.7 RATIO (10-20); Calcium,Total 8.3 mg/dL (8.5-10.1); Chloride 104 mmol/L (98-107); Creatinine, Serum 0.92 mg/dL (0.70-1.30); EST Glomerular Filtration Rate 85 mL/min (>60); Est Glom Filt Rate - Afr Amer 102 mL/min (>60); Estimated Creatinine Clearance 66.12 ml/min; Glucose 134 mg/dL (74-106); Potassium 4.8 mmol/L (3.5-5.1); Sodium Level 138 mmol/L (136-145)
[2018-05-07 06:07] LABS: POSITIVE COUNT NO; POSITIVE DIFFERENTIAL NO; POSITIVE MORPHOLOGY NO
[2018-05-07] MEDS: Ipratropium/Albuterol Sulfate 3 ML AMPUL.NEB INHALATION ×3 (06:52→19:29)
--- NOTE | 2018-05-07 07:45 | PCM.PROGNOTE ---
Subjective: Chief complaint: Follow-up after admission for community-acquired pneumonia and A. fib with RVR. Patient seen and examined. No acute events overnight. He is still complaining of cough with minimal sputum, minimal improvement. Denied chest pain or shortness of breath. He has been afebrile overnight, other vital signs are stable. - Physical Exam General: Alert, Oriented x3, Cooperative, No apparent distress HEENT: Atraumatic, PERRLA, EOMI, Normocephalic Oral: Moist Mucosa, No Gingival or Mucosal Lesions/ Ulcerations Neck: Supple, No JVD, Negative Carotid Bruits, Trachea Midline, Thyroid Normal Size and Texture Lungs: No wheeze, No rales, Diminished, Rhonchi, - - Decreased breath sounds bilateral, scattered rhonchi. Cardiovascular: Normal S1, Normal S2, No murmurs, PMI Normal, Irregular Rate Abdomen: Bowel Sounds Present, Soft, Non Tender, Non-Distended, No Hepato-splenomegaly Extremities: No clubbing, No cyanosis, No edema Skin: No rashes, No breakdown Lymphatic: No Cervical, Supraclavicular, or Inguinal Adenopathy Neurological: Cranial nerves II-XII grossly intact, Neuro grossly intact Psych/Mental Status: Normal Affect, Appropriate, Alert and oriented to time, place, person, mood and affect Vital Signs Temp Pulse Resp BP Pulse Ox 97.8 F 93 18 108/62 95 05/07/18 04:25 05/07/18 06:59 05/07/18 06:52 05/07/18 04:25 05/07/18 06:52 Oxygen Flow Rate (L/min) 2 Oxygen Delivery Method Nasal Cannula Weight: 172 lb 15.983 oz Body Mass Index (BMI) 24.8 Intake and Output for Last 24 Hours 05/05/18 05/06/18 05/07/18 23:59 23:59 23:59 Intake Total 960 / 960 120 / 120 Balance 960 / 960 120 / 120 Microbiology Past 72 Hours 05/06/18 12:00 Legionella Antigen - Final Urine, Clean Catch 05/06/18 12:00 Streptococcus pneumoniae Antigen (M - Final Urine, Clean Catch 05/06/18 09:40 Influenza Types A,B Direct FA (SHIRLEY) - Final Mucosa - Nose Laboratory Tests Past 24 Hrs 05/06/18 05/06/18 05/06/18 09:45 09:45 09:45 WBC 10.6 RBC 3.91 L Hgb 13.1 Hct 39.8 L MCV 101.8 H MCH 33.5 H MCHC 32.9 RDW 13.8 RDW Differential 51.3 H Plt Count 212 MPV 11.8 Immature Gran % (Auto) 0.100 Neut % (Auto) 78.9 H Lymph % (Auto) 14.0 L [place] % (Auto) 6.1 Eos % (Auto) 0.7 Baso % (Auto) 0.2 Absolute Neuts (auto) 8.3 H Absolute Lymphs (auto) 1.48 Total Counted Not Reportable Sodium 136 Potassium 3.9 Chloride 103 Carbon Dioxide 26.0 Anion Gap 7 BUN 16 Creatinine 0.98 Estim Creat Clear Calc 62.07 Est GFR (MDRD) Af Amer 94 Est GFR (MDRD) Non-Af 78 BUN/Creatinine Ratio 16.3 Glucose 161 H Lactic Acid 1.8 Calcium 8.4 L Troponin I < 0.015 Urine Color Urine Clarity Urine pH Ur Specific [place] Urine Protein Urine Glucose (UA) Urine Ketones Urine Occult Blood Urine Nitrite Urine Bilirubin Urine Urobilinogen Ur Leukocyte Esterase Urine RBC Urine WBC Ur Squamous Epith Cells Urine Bacteria Urine Mucus 05/06/18 05/07/18 05/07/18 12:00 05:20 05:20 WBC 11.7 H RBC 3.62 L Hgb 12.0 L Hct 36.6 L MCV 101.1 H MCH 33.1 H MCHC 32.8 RDW 13.6 RDW Differential 50.5 H Plt Count 213 MPV 11.9 Immature Gran % (Auto) 0.200 Neut % (Auto) 88.0 H Lymph % (Auto) 6.3 L [place] % (Auto) 5.4 Eos % (Auto) 0.0 Baso % (Auto) 0.1 Absolute Neuts (auto) 10.3 H Absolute Lymphs (auto) 0.74 L Total Counted Not Reportable Sodium 138 Potassium 4.8 Chloride 104 Carbon Dioxide 26.0 Anion Gap 8 BUN 18 Creatinine 0.92 Estim Creat Clear Calc 66.12 Est GFR (MDRD) Af Amer 102 Est GFR (MDRD) Non-Af 85 BUN/Creatinine Ratio 19.7 Glucose 134 H Lactic Acid Calcium 8.3 L Troponin I Urine Color Yellow Urine Clarity Clear Urine pH 6.5 Ur Specific [place] 1.010 Urine Protein 15 H Urine Glucose (UA) Normal Urine Ketones Negative Urine Occult Blood 10 H Urine Nitrite Negative Urine Bilirubin Negative Urine Urobilinogen Normal Ur Leukocyte Esterase Negative Urine RBC 0 SEEN Urine WBC 0-5 SEEN Ur Squamous Epith Cells 0 SEEN Urine Bacteria 0 SEEN Urine Mucus 0 SEEN Medical Necessity - Tobacco Use Smoking Status: Former smoker Assessment/Plan All Active Problems (Last Updated 05/06/18 @ 11:08 by Ernesto Lopez MD) Atrial fibrillation with rapid ventricular response (Acute) Community acquired pneumonia (Resolved) Sepsis (Resolved) This is an 82 years old male patient presented to the medicine because of 1 week history of productive cough with minimal sputum and exertional shortness of breath and he was found to have probable early infiltrate on the right lung base consistent with community-acquired pneumonia as well as found to have A. fib with RVR. #1 right lower lobe community-acquired pneumonia: He is on IV Levaquin. Still symptomatic with persistent cough and minimal sputum. He has been afebrile overnight, other vital signs are stable, pulse ox is maintained on room air. Pneumococcal and Legionella antigen were negative. Nasal swab for influenza a and B were negative. Plan: Continue same treatment, start Robitussin-AC as needed for cough. #2 A. fib with RVR: Heart rate under better control, down to 80s. He is on metoprolol for rate control and on Eliquis for anticoagulation. Troponin is negative. Plan to continue same treatment. #3 CAD status post CABG: Stable, no acute issues. Continue Eliquis, metoprolol and statins. #4 cardiomyopathy/chronic systolic CHF: Clinically stable, compensated. No evidence of acute CHF. continue Lasix and metoprolol. #5 hypertension: Blood pressure stable, continue Lasix and metoprolol. #6 hyperlipidemia: Continue statins. #7 COPD: Stable, pulse ox is maintained on room air. Continue DuoNeb every 6 hours, albuterol as needed, incentive spirometer and chest physiotherapy. #8 DVT prophylaxis: Continue Eliquis. This note was generated with [employer] software. It may contain incorrect words, spelling, and punctuation that were not noted in checking the note before signing. Code Visit Inpatient E&M: 01242 Subs Hosp L2
[2018-05-07] MEDS: Furosemide 40 MG Tablet PO (09:05)
[2018-05-07] MEDS: APIXABAN 5 MG TABLET PO ×2 (09:05→21:22)
[2018-05-07] MEDS: Metoprolol(XL)Succ 25 MG Tablet PO ×2 (09:05→21:22)
[2018-05-07] MEDS: guaiFENesin 1,200 MG Tablet 1200 MG PO ×2 (09:06→21:21)
[2018-05-07 09:31] LABS: Magnesium 2.1 mg/dL (1.6-2.6)
[2018-05-07] MEDS: levoFLOXacin IV 750 MG/150 ML BAG 100 MG IV (10:06)
--- NOTE | 2018-05-07 11:27 | CASEMGMT ---
VIVIENNE WALL assessment: Face to Face with patient for initial transition planning/care coordination assessment. VIVIENNE WALL introduced self and role at [facility], pt voices understanding and consents to assessment at this time. Pt is lying on right side in bed on room air in no distress at this time. Pt is A/O x4 at this time and answers all questions appropriately at this time. Care providers, pharmacy, and demographics verified at this time. PCP: Sadiq Specialists: Pt states no specialists. Preferred [facility]acy: [facility] Insurance: HALKAR Prescription Benefit: None Living Will/HPOA: Pt states has LW/HPOA and that his is most likely HPOA. They are not on file at [facility] at this time. LNOK: Whitney Wong, Living Arrangements: Pt states lives with on main level of 2 story home and states no concerns at home at this time. Pt states no concerns with ADL's. Transportation: Pt states no transportation concerns at this time. DME/HHC: Pt states is on home oxygen 2 liters at bedtime through [employer]. Pt states no further DME or need for anything at this time. Pt states no hx of HHC or SNF in the past. Pt states no concerns with going at time of discharge. Pt states does not smoke or drink ETOH. Pt states no further concerns/needs at this time. CM to follow for any further discharge planning/needs. Advised pt to ask for CM if any further questions/concerns/needs arise, voices understanding. Plan: [place] VIVIENNE WALL
[2018-05-07] MEDS: 0.9% NaCl Peripheral Flush Adult/Peds IV (18:19)
[2018-05-07] MEDS: Metoprolol Tartrate 5 MG/5 ML Vial IV (18:19)
[2018-05-07] MEDS: Atorvastatin Calcium 20 MG Tablet PO (21:22)
[2018-05-07] MEDS: guaiFENesin/Codeine 5 ML UDC 10 ML PO (21:24)
[2018-05-08] VITALS (19 sets, daily range): BP systolic 122–154; BP diastolic 63–88; PULSE 85–130; RESP 14–20; TEMP 36.6–37.2; O2SAT 93–98
[2018-05-08 06:29] LABS: Absolute Lymphocyte Count 2.23 X10^3/ul (0.83-4.51); Absolute Neutrophil Count 8.6 X10^3/uL (2.0-7.7); Basophil# 0.03 X10^3/uL; Basophil% 0.2 % (0-1); Eosinophil# 0.07 X10^3/uL; Eosinophils% 0.6 % (0-5); Hematocrit 35.7 % (40-54); Hemoglobin 11.9 g/dl (13.0-16.5); Lymphocyte # 2.23 X10^3/ul (4.0); Lymphocyte % 18.6 % (19-41); Mean Corp Hgb Conc 33.3 g/gl (32-36); Mean Corpuscular Hgb 33.6 pg (27.0-32.0); Mean Corpuscular Volume 100.8 fL (80-94); Mean Platelet Vol. 11.7 fl (6.2-12.0); Monocyte# 1.04 X10^3/uL; Monocyte% 8.7 % (0-10); Neutrophil # 8.62 X10^3/uL (2.7-7.7); Neutrophil % 71.7 % (47-70); Platelet Count 231 K/mm3 (150-450); RBC Distribution Width CV 13.6 % (11.6-14.6); Red Blood Count 3.54 M/mm3 (4.6-6.2)
[2018-05-08 06:30] LABS: Differential Indicated SCAN CRITERIA MET; POSITIVE COUNT NO; POSITIVE DIFFERENTIAL NO; POSITIVE MORPHOLOGY YES
[2018-05-08] MEDS: Ipratropium/Albuterol Sulfate 3 ML AMPUL.NEB INHALATION ×3 (07:08→18:53)
--- NOTE | 2018-05-08 07:25 | RAD_ITS ---
STUDY: X-RAY CHEST REASON FOR EXAM: Male, 82 years old. Shortness of breath/dyspnea. TECHNIQUE: Single AP portable view of the chest. COMPARISON: Comparison is made with prior study dated May 06, 2018. FINDINGS: EKG electrodes are seen. There now is evidence of massive congestion and mild CHF with bibasilar atelectasis superimposed on chronic scarring. There is blunting of both cost phrenic angles. Sternal cerclage wires and vascular clips are present from a prior sternotomy and coronary artery bypass graft procedure (CABG). Normal mediastinum and junior. Normal visualized pulmonary arteries. There is atherosclerotic calcification of the aortic arch with tortuosity. There are diffuse degenerative changes of the visualized thoracic spine. Normal visualized ribs, clavicles, and shoulders. There is no demonstrated abnormality of the visualized soft tissue structures of the upper abdomen. RAD/Chest 1 View (Portable) IMPRESSION: Mild degree of CHF with bibasilar atelectasis superimposed on chronic basilar scarring. Electronically Signed: Mehul Calderon MD at 11:31 EST Tel [phone], Service support ,
--- NOTE | 2018-05-08 07:50 | PCM.PROGNOTE ---
Subjective: Chief complaint: Follow-up after admission for community-acquired pneumonia and A. fib with RVR. Patient seen and examined. No acute events overnight. This morning, he reported some improvement of his cough, having less cough and was able to sleep last night. Denies shortness of breath. Denied fever or chills. Denied chest pain. His vital signs are stable. - Physical Exam General: Alert, Oriented x3, Cooperative, No apparent distress HEENT: Atraumatic, PERRLA, EOMI, Normocephalic Oral: Moist Mucosa, No Gingival or Mucosal Lesions/ Ulcerations Neck: Supple, No JVD, Negative Carotid Bruits, Trachea Midline, Thyroid Normal Size and Texture Lungs: No rales, Diminished, Rhonchi, Wheezes, - - Decreased breath sounds bilateral, faint and bilateral expiratory wheezes, rhonchi. Cardiovascular: Normal S1, Normal S2, No murmurs, PMI Normal, Irregular Rate Abdomen: Bowel Sounds Present, Soft, Non Tender, Non-Distended, No Hepato-splenomegaly Extremities: No clubbing, No cyanosis, No edema Skin: No rashes, No breakdown Lymphatic: No Cervical, Supraclavicular, or Inguinal Adenopathy Neurological: Cranial nerves II-XII grossly intact, Neuro grossly intact Psych/Mental Status: Normal Affect, Appropriate, Alert and oriented to time, place, person, mood and affect Vital Signs Temp Pulse Resp BP Pulse Ox 99.0 F 107 H 16 122/69 H 98 05/08/18 03:15 05/08/18 07:05 05/08/18 03:15 05/08/18 03:15 05/08/18 03:15 Oxygen Flow Rate (L/min) 2 Oxygen Delivery Method Nasal Cannula Weight: 172 lb 15.983 oz Body Mass Index (BMI) 24.8 Intake and Output for Last 24 Hours 05/06/18 05/07/18 05/08/18 23:59 23:59 23:59 Intake Total 960 / 960 1031 / 1031 Balance 960 / 960 1031 / 1031 Microbiology Past 72 Hours 05/06/18 12:00 Legionella Antigen - Final Urine, Clean Catch 05/06/18 12:00 Streptococcus pneumoniae Antigen (M - Final Urine, Clean Catch 05/06/18 09:40 Influenza Types A,B Direct FA (SHIRLEY) - Final Mucosa - Nose Laboratory Tests Past 24 Hrs 05/07/18 05/08/18 05:20 05:50 WBC 12.0 H RBC 3.54 L Hgb 11.9 L Hct 35.7 L MCV 100.8 H MCH 33.6 H MCHC 33.3 RDW 13.6 RDW Differential 49.0 H Plt Count 231 MPV 11.7 Immature Gran % (Auto) 0.200 Neut % (Auto) 71.7 H Lymph % (Auto) 18.6 L [place] % (Auto) 8.7 Eos % (Auto) 0.6 Baso % (Auto) 0.2 Absolute Neuts (auto) 8.6 H Absolute Lymphs (auto) 2.23 Total Counted Not Reportable Magnesium 2.1 Medical Necessity - Tobacco Use Smoking Status: Former smoker Assessment/Plan All Active Problems (Last Updated 05/06/18 @ 11:08 by Ernesto Lopez MD) Atrial fibrillation with rapid ventricular response (Acute) Community acquired pneumonia (Resolved) Sepsis (Resolved) This is an 82 years old male patient presented to the medicine because of 1 week history of productive cough with minimal sputum and exertional shortness of breath and he was found to have probable early infiltrate on the right lung base consistent with community-acquired pneumonia as well as found to have A. fib with RVR. #1 right lower lobe community-acquired pneumonia: Remained on IV Levaquin. Cough started to improve. He has been afebrile, white blood cell count is trending up. He has been afebrile overnight, other vital signs are stable, pulse ox is maintained on room air. Repeat chest x-ray reviewed, official report is pending. He uses oxygen as needed at home mainly at night at 2 L. Pneumococcal and Legionella antigen were negative. Nasal swab for influenza a and B were negative. Plan: Continue same treatment, anticipate discharge home tomorrow. #2 A. fib with RVR: Heart rate under better control, rate has been around 80-100. He is on metoprolol for rate control and on Eliquis for anticoagulation. Troponin is negative. Plan to continue same treatment. #3 CAD status post CABG: Stable, no acute issues. Continue Eliquis, metoprolol and statins. #4 cardiomyopathy/chronic systolic CHF: Clinically stable, compensated. No evidence of acute CHF. continue Lasix and metoprolol. #5 hypertension: Blood pressure stable, continue Lasix and metoprolol. #6 hyperlipidemia: Continue statins. #7 COPD: Stable, pulse ox is maintained on room air. Continue DuoNeb every 6 hours, albuterol as needed, incentive spirometer and chest physiotherapy. #8 DVT prophylaxis: Continue Eliquis. This note was generated with [employer] dictation software. It may contain incorrect words, spelling, and punctuation that were not noted in checking the note before signing. Code Visit Inpatient E&M: 75871 Subs Hosp L2
[2018-05-08] MEDS: APIXABAN 5 MG TABLET PO ×2 (09:52→21:19)
[2018-05-08] MEDS: Metoprolol(XL)Succ 25 MG Tablet PO ×2 (09:52→21:19)
[2018-05-08] MEDS: Furosemide 40 MG Tablet PO (09:52)
[2018-05-08] MEDS: guaiFENesin 1,200 MG Tablet 1200 MG PO ×2 (09:52→21:19)
[2018-05-08] MEDS: levoFLOXacin IV 750 MG/150 ML BAG 100 MG IV (09:56)
[2018-05-08] MEDS: 0.9% NaCl Peripheral Flush Adult/Peds IV ×4 (09:57→20:13)
[2018-05-08] MEDS: Metoprolol Tartrate 5 MG/5 ML Vial IV ×2 (13:35→20:09)
[2018-05-08] MEDS: Atorvastatin Calcium 20 MG Tablet PO (21:19)
[2018-05-09 03:00] VITALS: PULSE 90
[2018-05-09 03:15] VITALS: BP 122/65; PULSE 87; RESP 18; TEMP 36.6; O2SAT 97
[2018-05-09 06:38] LABS: Absolute Lymphocyte Count 2.04 X10^3/ul (0.83-4.51); Absolute Neutrophil Count 6.8 X10^3/uL (2.0-7.7); Basophil# 0.02 X10^3/uL; Basophil% 0.2 % (0-1); Differential Indicated SCAN CRITERIA MET; Eosinophil# 0.23 X10^3/uL; Eosinophils% 2.3 % (0-5); Hematocrit 37.3 % (40-54); Hemoglobin 12.6 g/dl (13.0-16.5); Lymphocyte # 2.04 X10^3/ul (4.0); Mean Corp Hgb Conc 33.8 g/gl (32-36); Mean Corpuscular Hgb 33.9 pg (27.0-32.0); Mean Corpuscular Volume 100.3 fL (80-94); Mean Platelet Vol. 11.3 fl (6.2-12.0); Monocyte# 1.07 X10^3/uL; Monocyte% 10.5 % (0-10); Neutrophil # 6.81 X10^3/uL (2.7-7.7); Neutrophil % 66.9 % (47-70); POSITIVE COUNT NO; POSITIVE DIFFERENTIAL NO; POSITIVE MORPHOLOGY YES; Platelet Count 241 K/mm3 (150-450); RBC Distribution Width CV 13.5 % (11.6-14.6); RBC Distribution Width SD 48.3 fl (35.1-43.9); Red Blood Count 3.72 M/mm3 (4.6-6.2); White Blood Count 10.2 K/mm3 (4.4-11.0)
[2018-05-09 07:09] VITALS: PULSE 101
[2018-05-09 07:39] VITALS: O2SAT 96
--- NOTE | 2018-05-09 07:49 | DCINST_ITS ---
You will use the following diet at home:: Cardiac Your food should be the consistency of: Regular Discharge Activity: Return to Normal Activity Weight Bearing Status: Weight bearing as tolerated Call your doctor if you observe: Fever of 101 or Higher, Shortness of breath, Dizziness, Fainting spells, Chest pain, Increased palpitations (irregular heartbeat), Uncontrolled pain Instructions: Discharge Instructions for Pneumonia Allergies/Adverse Reactions: Allergies No Known Allergies Allergy (Verified 05/06/18 09:04) Medications to take at Discharge Apixaban [Eliquis] 5 mg PO BID #60 tab 06/16/17 Oxygen, Home [Home Oxygen] 2 - 4 lpm NASAL CONT #1 unit 06/16/17 garlic 1,500 mg capsule 1,500 mg PO DAILY@1200 07/31/17 multivitamin tablet 1 tab PO QDAY 07/31/17 omega-3 fatty acids 1,000 mg capsule 1,000 mg PO QDAY 07/31/17 simvastatin 20 mg tablet 40 mg PO QHS tab 12/09/17 metoprolol succinate ER 25 mg tablet,extended release 24 hr 25 mg PO BID #120 tab 03/14/18 Levofloxacin [Levaquin] 750 mg PO DAILY #7 tablet 05/09/18 The following prescriptions were given: Levofloxacin [Levaquin] 750 mg PO DAILY #7 tablet Primary Care Physician: Care Physician,No Primary [NON-STAFF] - Please follow up with your Primary Care Physician in: 1 week. Test Results: Test results from this visit will be discussed in further detail at your follow- up appointment, if applicable.
[2018-05-09 08:26] VITALS: BP 142/85; PULSE 105; RESP 18; TEMP 36.7; O2SAT 96
--- NOTE | 2018-05-09 08:36 | NURSING ---
pt walked in hallway at this time. Spo2 after walking hallways 93% on RA
[2018-05-09 08:39] VITALS: BP 142/85; PULSE 105
[2018-05-09] MEDS: APIXABAN 5 MG TABLET PO (08:39)
[2018-05-09] MEDS: Metoprolol(XL)Succ 25 MG Tablet PO (08:39)
[2018-05-09] MEDS: Furosemide 40 MG Tablet PO (08:40)
[2018-05-09] MEDS: guaiFENesin 1,200 MG Tablet 1200 MG PO (08:40)
--- NOTE | 2018-05-09 10:18 | PCM.DC.SUM ---
Discharge Date and Diagnosis Date of Admission: 05/06/18 Date of Discharge: 05/09/18 - Primary Discharge Diagnosis #1 right lower lobe community-acquired pneumonia. #2 A. fib with RVR. - Secondary Discharge Diagnosis Chronic Problems (Last Updated 05/06/18 @ 11:08 by Ernesto Lopez MD) Cardiomyopathy (Chronic) Atherosclerosis of coronary artery of [place] heart without angina pectoris (Chronic) H/O coronary artery bypass surgery (Chronic ~04/2006) CABG x 4 at [place] Patent foramen ovale (Chronic) Hyperlipidemia (Chronic) Hospital Course and Treatment Imaging Results: Clinical Impression(s) from Imaging Studies Chest X-Ray 05/06/18 09:19 IMPRESSION: Severe COPD. Probable new infiltrate in the right lower lobe. Electronically Signed: Philip Archuleta MD at 10:57 EST , Service support , Chest X-Ray 05/08/18 07:25 IMPRESSION: Mild degree of CHF with bibasilar atelectasis superimposed on chronic basilar scarring. Electronically Signed: Mehul Calderon MD at 11:31 EST Tel [phone], Service support , Operations: None Procedures: EKG Summary of Care Provided: Patient seen and examined on the day of discharge and appeared to be stable to be discharged home. Reported that his cough is significantly better, denies shortness of breath. He has been afebrile. His vital signs are stable. The patient is a 82 year old M presented to the emergency room because of 1 week history of productive cough with minimal sputum associated with exertional shortness of breath and he was found to have probable infiltrate on the right lung base consistent with community-acquired pneumonia. On admission, there was no evidence of sepsis or severe sepsis. He had no leukocytosis upon admission and his lactic acid was normal. On the second day, his white blood cell count started to go up. He was treated with IV Levaquin for pneumonia and responded to treatment very well. His pneumococcal and Legionella antigen were negative. Nasal swab for influenza a and B were negative as well. Upon admission, patient was in A. fib with RVR in context of history of chronic atrial fibrillation. It is attributed to acute infection. His EKG revealed A. fib with RVR without evidence of acute ischemic changes. His troponin was negative. He was treated with his home doses of metoprolol as well as IV metoprolol as needed and his heart rate stabilized. With IV antibiotic therapy, patient symptoms improved and his white blood cell count returned back to normal, he remained afebrile for more than 48 hours. Patient discharged home in a stable medical condition, discharged on Levaquin for 7 days of treatment to complete total of 10 days of treatment, continued on his chronic home medications including Eliquis and metoprolol without any changes, recommended to follow up with PCP in 1 week. - Physical Exam General: Alert, Oriented x3, Cooperative, No apparent distress HEENT: Atraumatic, PERRLA, EOMI, Normocephalic Oral: Moist Mucosa, No Gingival or Mucosal Lesions/ Ulcerations Neck: Supple, No JVD, Negative Carotid Bruits, Trachea Midline, Thyroid Normal Size and Texture Lungs: No wheeze, No rales, Rhonchi, - - Rhonchi at the bases, more on the right base. Cardiovascular: Normal S1, Normal S2, No murmurs, PMI Normal, Irregular Rate Abdomen: Bowel Sounds Present, Soft, Non Tender, Non-Distended, No Hepato-splenomegaly Extremities: No clubbing, No cyanosis, No edema Skin: No rashes, No breakdown Lymphatic: No Cervical, Supraclavicular, or Inguinal Adenopathy Neurological: Cranial nerves II-XII grossly intact, Neuro grossly intact Psych/Mental Status: Normal Affect, Appropriate, Alert and oriented to time, place, person, mood and affect Vital Signs Temp Pulse Resp BP Pulse Ox 98.1 F 105 H 18 142/85 H 96 05/09/18 08:26 05/09/18 08:39 05/09/18 08:26 05/09/18 08:39 05/09/18 08:26 Oxygen Flow Rate (L/min) 2 Oxygen Delivery Method Room Air Weight: 172 lb 15.983 oz Body Mass Index (BMI) 24.8 Intake and Output for Last 24 Hours 05/07/18 05/08/18 05/09/18 23:59 23:59 23:59 Intake Total 1031 / 1031 652 / 652 Balance 1031 / 1031 652 / 652 Microbiology Past 72 Hours 05/06/18 12:00 Legionella Antigen - Final Urine, Clean Catch 05/06/18 12:00 Streptococcus pneumoniae Antigen (M - Final Urine, Clean Catch 05/06/18 09:40 Influenza Types A,B Direct FA (SHIRLEY) - Final Mucosa - Nose Laboratory Tests Past 24 Hrs 05/09/18 06:13 WBC 10.2 RBC 3.72 L Hgb 12.6 L Hct 37.3 L MCV 100.3 H MCH 33.9 H MCHC 33.8 RDW 13.5 RDW Differential 48.3 H Plt Count 241 MPV 11.3 Immature Gran % (Auto) 0.100 Neut % (Auto) 66.9 Lymph % (Auto) 20.0 [place] % (Auto) 10.5 H Eos % (Auto) 2.3 Baso % (Auto) 0.2 Absolute Neuts (auto) 6.8 Absolute Lymphs (auto) 2.04 Total Counted Not Reportable Discharge Activity: Return to Normal Activity Weight Bearing Status: Weight bearing as tolerated Call your doctor if you observe: Fever of 101 or Higher, Shortness of breath, Dizziness, Fainting spells, Chest pain, Increased palpitations (irregular heartbeat), Uncontrolled pain Home Medications: Medications to take at Discharge Apixaban [Eliquis] 5 mg PO BID #60 tab 06/16/17 Oxygen, Home [Home Oxygen] 2 - 4 lpm NASAL CONT #1 unit 06/16/17 garlic 1,500 mg capsule 1,500 mg PO DAILY@1200 07/31/17 multivitamin tablet 1 tab PO QDAY 07/31/17 omega-3 fatty acids 1,000 mg capsule 1,000 mg PO QDAY 07/31/17 simvastatin 20 mg tablet 40 mg PO QHS tab 12/09/17 metoprolol succinate ER 25 mg tablet,extended release 24 hr 25 mg PO BID #120 tab 03/14/18 Levofloxacin [Levaquin] 750 mg PO DAILY #7 tablet 05/09/18 Following Prescrptions Were Given to Patient: Levofloxacin [Levaquin] 750 mg PO DAILY #7 tablet Primary Care Physician: Care Physician,No Primary [NON-STAFF] - Please follow up with your Primary Care Physician in: 1 week. Please Follow Up With: PCP 1 Week Patient Instructions: Discharge Instructions for Pneumonia Disposition: Home Minutes spent on discharge:: 27 Patient Condition:: Stable Medical Necessity - Tobacco Use Smoking Status: Former smoker Meaningful Use Info Meaningful Use Diagnoses (Choose all that apply): None applicable Code Visit Inpatient E&M: 21250 Disch Hosp
--- NOTE | 2018-05-09 10:22 | DS.PCM_ITS ---
Discharge Date and Diagnosis Date of Admission: 05/06/18 Date of Discharge: 05/09/18 - Primary Discharge Diagnosis #1 right lower lobe community-acquired pneumonia. #2 A. fib with RVR. 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 Probable new infiltrate in the right lower lobe. Electronically Signed: Philip Archuleta MD at 10:57 EST , Service support , Chest X-Ray 05/08/18 07:25 IMPRESSION: Mild degree of CHF with bibasilar atelectasis superimposed on chronic basilar scarring. Electronically Signed: Mehul Calderon MD at 11:31 EST Tel [phone], Service support , Operations: None Procedures: EKG Summary of Care Provided: Patient seen and examined on the day of discharge and appeared to be stable to be discharged home. Reported that his cough is significantly better, denies shortness of breath. He has been afebrile. His vital signs are stable. The patient is a 82 year old M presented to the emergency room because of 1 week history of productive cough with minimal sputum associated with exertional shortness of breath and he was found to have probable infiltrate on the right lung base consistent with community-acquired pneumonia. On admission, there was no evidence of sepsis or severe sepsis. He had no leukocytosis upon admission and his lactic acid was normal. On the second day, his white blood cell count started to go up. He was treated with IV Levaquin for pneumonia and responded to treatment very well. His pneumococcal and Legionella antigen were negative. Nasal swab for influenza a and B were negative as well. Upon admission, patient was in A. fib with RVR in context of history of chronic atrial fibrillation. It is attributed to acute infection. His EKG revealed A. fib with RVR without evidence of acute ischemic changes. His troponin was negative. He was treated with his home doses of metoprolol as well as IV metoprolol as needed and his heart rate stabilized. With IV antibiotic therapy, patient symptoms improved and his white blood cell count returned back to normal, he remained afebrile for more than 48 hours. Patient discharged home in a stable medical condition, discharged on Levaquin for 7 days of treatment to complete total of 10 days of treatment, continued on his chronic home medications including Eliquis and metoprolol without any changes, recommended to follow up with PCP in 1 week. - Physical Exam General: Alert, Oriented x3, Cooperative, No apparent distress HEENT: Atraumatic, PERRLA, EOMI, Normocephalic Oral: Moist Mucosa, No Gingival or Mucosal Lesions/ Ulcerations Neck: Supple, No JVD, Negative Carotid Bruits, Trachea Midline, Thyroid Normal Size and Texture Lungs: No wheeze, No rales, Rhonchi, - - Rhonchi at the bases, more on the right base. Cardiovascular: Normal S1, Normal S2, No murmurs, PMI Normal, Irregular Rate Abdomen: Bowel Sounds Present, Soft, Non Tender, Non-Distended, No Hepato- splenomegaly Extremities: No clubbing, No cyanosis, No edema Skin: No rashes, No breakdown Lymphatic: No Cervical, Supraclavicular, or Inguinal Adenopathy Neurological: Cranial nerves II-XII grossly intact, Neuro grossly intact Psych/Mental Status: Normal Affect, Appropriate, Alert and oriented to time, place, person, mood and affect Vital Signs Temp Pulse Resp BP Pulse Ox 98.1 F 105 H 18 142/85 H 96 05/09/18 08:26 05/09/18 08:39 05/09/18 08:26 05/09/18 08:39 05/09/18 08:26 Oxygen Flow Rate (L/min) 2 Oxygen Delivery Method Room Air Weight: 172 lb 15.983 oz Body Mass Index (BMI) 24.8 Intake and Output for Last 24 Hours 05/07/18 05/08/18 05/09/18 23:59 23:59 23:59 Intake Total 1031 / 1031 652 / 652 Balance 1031 / 1031 652 / 652 Microbiology Past 72 Hours 05/06/18 12:00 Legionella Antigen - Final Urine, Clean Catch 05/06/18 12:00 Streptococcus pneumoniae Antigen (M - Final Urine, Clean Catch 05/06/18 09:40 Influenza Types A,B Direct FA (SHIRLEY) - Final Mucosa - Nose Laboratory Tests Past 24 Hrs 05/09/18 06:13 WBC 10.2 RBC 3.72 L Hgb 12.6 L Hct 37.3 L MCV 100.3 H MCH 33.9 H MCHC 33.8 RDW 13.5 RDW Differential 48.3 H Plt Count 241 MPV 11.3 Immature Gran % (Auto) 0.100 Neut % (Auto) 66.9 Lymph % (Auto) 20.0 [place] % (Auto) 10.5 H Eos % (Auto) 2.3 Baso % (Auto) 0.2 Absolute Neuts (auto) 6.8 Absolute Lymphs (auto) 2.04 Total Counted Not Reportable Discharge Activity: Return to Normal Activity Weight Bearing Status: Weight bearing as tolerated Call your doctor if you observe: Fever of 101 or Higher, Shortness of breath, Dizziness, Fainting spells, Chest pain, Increased palpitations (irregular heartbeat), Uncontrolled pain Home Medications: Medications to take at Discharge Apixaban [Eliquis] 5 mg PO BID #60 tab 06/16/17 Oxygen, Home [Home Oxygen] 2 - 4 lpm NASAL CONT #1 unit 06/16/17 garlic 1,500 mg capsule 1,500 mg PO DAILY@1200 07/31/17 multivitamin tablet 1 tab PO QDAY 07/31/17 omega-3 fatty acids 1,000 mg capsule 1,000 mg PO QDAY 07/31/17 simvastatin 20 mg tablet 40 mg PO QHS tab 12/09/17 metoprolol succinate ER 25 mg tablet,extended release 24 hr 25 mg PO BID #120 tab 03/14/18 Levofloxacin [Levaquin] 750 mg PO DAILY #7 tablet 05/09/18 Following Prescrptions Were Given to Patient: Levofloxacin [Levaquin] 750 mg PO DAILY #7 tablet Primary Care Physician: Care Physician,No Primary [NON-STAFF] - Please follow up with your Primary Care Physician in: 1 week. Please Follow Up With: PCP 1 Week Patient Instructions: Discharge Instructions for Pneumonia Disposition: Home Minutes spent on discharge:: 27 Patient Condition:: Stable Medical Necessity - Tobacco Use Smoking Status: Former smoker Meaningful Use Info Meaningful Use Diagnoses (Choose all that apply): None applicable Code Visit Inpatient E&M: 95623 Disch Hosp
--- NOTE | 2018-05-12 15:25 | CASEMGMT ---
VIVIENNE WALL Discharge Follow-up phone call LACE: 11 STRATA: 3 Discharge Date: 05-09-18. Adm Dx: CAP, A-fib/RVR Attempted discharge follow-up phone call X'S 2. No answer. Message left for Mr Wong to return call to OIL WELL DRILLERRebecca PALAFOX CM, if he has any questions or concerns about discharge instructions or medications. Her phone number was provided. Kolby CLEANING RN CM
== END 2018-05-09 10:10 | disposition home or self-care (01) | DRG 194 ==
LOC: ED 09:56 → PCU 10:52
PROVIDERS: Admitting Provider Hospitalist; Emergency Provider Emergency Medicine; Family Provider Nurse Practitioner Family; PCP Nurse Practitioner Family; Visit Provider Hospitalist
DX: J18.9 Pneumonia, unspecified organism (principal); I50.22 Chronic systolic (congestive) heart failure; I42.9 Cardiomyopathy, unspecified; Q21.1 Atrial septal defect; I25.10 Atherosclerotic heart disease of native coronary artery without angina pectoris; E78.5 Hyperlipidemia, unspecified; I48.2 Chronic atrial fibrillation; I11.0 Hypertensive heart disease with heart failure; Z95.1 Presence of aortocoronary bypass graft; Z87.891 Personal history of nicotine dependence; Z79.01 Long term (current) use of anticoagulants
CPT/HCPCS: 36415; 71045; 71046; 80048; 81001; 83605; 83735; 84484; 85025; 87449; 87804; 93005; 94640; 94667; 94668; 97802; 99283; J7030; J7040; A4216

== ENCOUNTER 2018-07-21 10:17 | Inpatient (IN) | payer OTHER, SELFPAY ==
[2018-07-16 08:49] VITALS: BMI 25.2
[2018-07-21] VITALS (28 sets, daily range): BP systolic 74–149; BP diastolic 46–92; PULSE 86–153; RESP 16–32; TEMP 37.1–39.4; O2SAT 86–96; BMI 24.8; BMI 24.3; BMI 34.3
--- NOTE | 2018-07-21 10:42 | EKG12_ITS ---
Test Reason : SOB/TACHY Blood Pressure : / mmHG Vent. Rate : 122 BPM Atrial Rate : 159 BPM P-R Int : 000 ms QRS Dur : 110 ms QT Int : 286 ms P-R-T Axes : 000 033 028 degrees QTc Int : 407 ms Atrial fibrillation with rapid ventricular response with premature ventricular or aberrantly conducte d complexes Nonspecific ST abnormality Abnormal ECG Confirmed by JASON SANDOVAL, DARIANA ([id number]), publication editor ANAHY CHRISTIE ([id number]) on 07/24/2018 8:11:33 AM Referred By: ALLY Confirmed By:DARIANA GOMEZ MD
--- NOTE | 2018-07-21 10:43 | ED.VISSUMM ---
- ER Visit Summary Date of Service: 07/21/18 Chief Complaint: Cough, shortness of breath and recurrent A. fib History of Present Illness: The patient is a 83 M history of quadruple bypass in 2005 and known A. fib for which she is on Eliquis. Patient states he has had a productive cough with sputum for the last 3 days. Fever as high as 101. No chills. He denies any nausea, vomiting or diarrhea. He does use oxygen at home at night. States he was more short of breath yesterday. Denies any chest pain. Denies any leg swelling or calf pain. He also states that he has known A. fib and that his heart rate began going intermittently fast the last several days. Physical Examination: Older male no acute distress. Vital signs are stable except for his heart rate about 133 when I am in the room. Obvious A. fib RVR on the monitor. Pulse ox is 91% on oxygen. Without O2 is in the 70s. He is obviously hypoxic without oxygen. HEENT exam unremarkable. Neck nontender no JVD. No lymphadenopathy. Lungs dry cough. But no rales, rhonchi or wheezing. Heart irregularly irregular rate about 30 no murmur. Abdomen is soft and nontender. Normal bowel sounds no peritoneal signs. Moving all 4 extremities. Calves are nontender without edema or cords. Neurologically is awake alert with no focal deficits. Test Results: CBC shows a white count of 7. Hemoglobin 13. No bands. Chemistries unremarkable normal creatinine and gap. INR 1.3. Troponin normal. Chest x-ray shows a lower aspect of right upper lobe pneumonia. EKG is A. fib with a rate of 122 with PVCs. Unchanged from prior EKG. Emergency Department Course and Treatment: Elderly male with known history of A. fib currently in A. fib RVR. Also with a cough. Treatment Plan: Patient was treated with both IV Rocephin and IV Zithromax for his pneumonia. He responded well to Cardizem IV as heart rates currently in the 80s on repeat exam at 11:25. I have already spoken to the hospitalist about admission. Disposition: Admission Impression: Acute on chronic A. fib with RVR Anticoagulated on Eliquis Cough with hypoxia secondary to a right upper lobe pneumonia History of prior quadruple bypass This note was generated with Kiv[employer]ation software. It may contain incorrect words, spelling, and punctuation that were not noted in review of the chart prior to signing ED Disposition - Plan for ED Patient: Chief Complaint: Cough Referrals: Moise Babcock, COTTON MACHINE OPERATOR-C [Primary Care Provider] -
[2018-07-21] MEDS: dilTIAZem 25 MG/5 ML Vial IV BOLUS (11:00)
--- NOTE | 2018-07-21 11:05 | RAD_ITS ---
STUDY: X-RAY CHEST REASON FOR EXAM: Male, 83 years old. Cough. TECHNIQUE: AP and lateral views of the chest. COMPARISON: May 08, 2018 FINDINGS: Patient has had a sternotomy. Cardiac monitoring leads are present. The lungs are hyperexpanded. There is heterogeneous right upper lobe airspace consolidation probably representing pneumonia. The left lung appears to be clear. Mild interstitial thickening is visible in both lungs. There is no demonstrated pleural abnormality. There is mild cardiac enlargement. Normal mediastinum and junior. There is prominence of the pulmonary hilar arteries without peripheral pulmonary vascular congestion, suggesting pulmonary hypertension. There is atherosclerotic calcification of the aortic arch with tortuosity. There is demineralization of the osseous structures. Normal visualized ribs, clavicles, and shoulders. There is no demonstrated abnormality of the visualized soft tissue structures of the upper abdomen. RAD/Chest PA and Lateral IMPRESSION: Heterogeneous right upper lobe airspace consolidation likely representing pneumonia. Suggest follow-up evaluation after treatment to exclude underlying neoplasia. Electronically Signed: Lenka Sandhu MD at 11:30 EST , Service support ,
[2018-07-21 11:09] LABS: Absolute Neutrophil Count 6.4 X10^3/uL (2.0-7.7); Basophil# 0.02 X10^3/uL; Basophil% 0.3 % (0-1); Eosinophil# 0.01 X10^3/uL; Eosinophils% 0.1 % (0-5); Hematocrit 40.9 % (40-54); Hemoglobin 13.5 g/dl (13.0-16.5); International Normalized Ratio 1.3; Lymphocyte % 6.6 % (19-41); Mean Corpuscular Hgb 32.9 pg (27.0-32.0); Mean Corpuscular Volume 99.8 fL (80-94); Mean Platelet Vol. 12.1 fl (6.2-12.0); Monocyte# 0.62 X10^3/uL; Monocyte% 8.2 % (0-10); Neutrophil # 6.41 X10^3/uL (2.7-7.7); Neutrophil % 84.7 % (47-70); Platelet Count 173 K/mm3 (150-450); Prothrombin Time (Protime)PT. 16.4 SECONDS (11.7-14.9); RBC Distribution Width CV 14.9 % (11.6-14.6); RBC Distribution Width SD 54.1 fl (35.1-43.9); White Blood Count 7.6 K/mm3 (4.4-11.0)
[2018-07-21 11:10] LABS: Differential Indicated SCAN CRITERIA MET; POSITIVE COUNT NO; POSITIVE DIFFERENTIAL YES; POSITIVE MORPHOLOGY NO
[2018-07-21 11:24] LABS: Anion Gap 9 (5-15); BUN 15 mg/dL (7-18); BUN/Creat Ratio 13.2 RATIO (10-20); Calcium,Total 8.5 mg/dL (8.5-10.1); Chloride 102 mmol/L (98-107); Creatinine, Serum 1.14 mg/dL (0.70-1.30); EST Glomerular Filtration Rate 66 mL/min (>60); Est Glom Filt Rate - Afr Amer 79 mL/min (>60); Estimated Creatinine Clearance 52.47 ml/min; Glucose 125 mg/dL (74-106); Potassium 3.7 mmol/L (3.5-5.1); Sodium Level 136 mmol/L (136-145)
--- NOTE | 2018-07-21 11:42 | PCM.HP.STD ---
Problem List (1) CAP (community acquired pneumonia) Status: Acute (2) Paroxysmal atrial fibrillation Status: Chronic (3) Cardiomyopathy Status: Chronic Qualifiers: Cardiomyopathy type: ischemic Qualified Code(s): I25.5 - Ischemic cardiomyopathy (4) Atherosclerosis of coronary artery of [place] heart without angina pectoris Status: Chronic Qualifiers: Coronary Disease-Associated Artery/Lesion type: [place] artery Qualified Code(s): I25.10 - Atherosclerotic heart disease of [place] coronary artery without angina pectoris (5) H/O coronary artery bypass surgery Status: Chronic Comment: CABG x 4 at [place] (6) Patent foramen ovale Status: Chronic (7) Atrial fibrillation with rapid ventricular response Status: Acute (8) Hyperlipidemia Status: Chronic Qualifiers: History of Present Illness Date of Admission: 07/21/18 Chief Complaint: Shortness of breath The patient is a 83 year old M who comorbidities including CAD status post CABG, paroxysmal atrial fibrillation who presents with shortness of breath. Patient symptoms started 4 days prior to coming in. His shortness of breath was worsening with minimal activity. In addition patient did experience progressive productive cough in addition to fever and chills. He also did variance palpitations. He finally presented to the emergency department. Chest x-ray obtained in the ED demonstrated right upper lobe airspace consolidation consistent with pneumonia. 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/2006) CABG x 4 at [place] Patent foramen ovale (Chronic) Hyperlipidemia (Chronic) Medical History: Medical History (Last Reviewed 07/21/18 @ 12:41 by Kota Gotti MD) Cardiomyopathy (Chronic) I42.9 Atherosclerosis of coronary artery of [place] heart without angina pectoris (Chronic) I25.10 Patent foramen ovale (Chronic) Q21.1 Hyperlipidemia (Chronic) E78.5 COPD (chronic obstructive pulmonary disease) J44.9 Allergies No Known Allergies Allergy (Verified 07/21/18 10:40) Home Medications: Ambulatory Orders Medication Instructions Recorded Apixaban [Eliquis] 5 mg PO BID #60 tab 06/16/17 Oxygen, Home [Home Oxygen] 2 - 4 lpm NASAL CONT #1 unit 06/16/17 garlic 1,500 mg capsule 1,500 mg PO DAILY@1200 07/31/17 multivitamin tablet 1 tab PO QDAY 07/31/17 omega-3 fatty acids 1,000 mg 1,000 mg PO QDAY 07/31/17 capsule simvastatin 20 mg tablet 40 mg PO QHS tab 12/09/17 metoprolol succinate ER 25 mg 25 mg PO BID #180 tab 07/16/18 tablet,extended release 24 hr Surgical History: Surgical History (Last Reviewed 07/21/18 @ 12:41 by Kota Gotti MD) H/O coronary artery bypass surgery (Chronic) Onset Date: ~04/2006 Z95.1 CABG x 4 at [place] Surgical History: coronary bypass surgery Psychiatric History: No pertinent psych hx Smoking Status: Former smoker - *Family History Maternal Family History: Family History (Last Reviewed 07/21/18 @ 12:41 by Kota Gotti MD) Brother CAD (coronary artery disease) Sister CAD (coronary artery disease) Father CAD (coronary artery disease) History Items: No pertinent history Paternal Family History: Family History (Last Reviewed 07/21/18 @ 12:41 by Kota Gotti MD) Brother CAD (coronary artery disease) Sister CAD (coronary artery disease) Father CAD (coronary artery disease) History Items: No pertinent history Review of Systems Constitutional: Reports: Anorexia, Chills, Malaise, Weakness HEENT: Denies: Head Aches, Sinus Congestion, Sinus Drainage Cardiovascular: Reports: Palpitations Respiratory: Reports: Cough, Shortness of Breath Gastrointestinal: Denies: Abdominal Pain, Hematemesis, Hematochezia, Nausea, Melena, Vomiting Genitourinary: Denies: Dysuria, Frequency, Hematuria, Urgency Musculoskeletal: Denies: Joint Pain, Joint Tenderness Skin: Denies: Rash Neurological: Denies: Focal weakness, Numbness, Tingling Psychiatric: Denies: Homicidal Ideations, Suicidal Ideations Hematologic/ Lymphatic: Denies: Easy Bruising, Easy Bleeding VTE Information - Inpt Only VTE Present on Admission: No VTE Mechan Device Prophylaxis: Knee High ZAIDA Hose VTE Pharm Prophylaxis ordered?: Yes Patient Problems: Active and Suspected Problems (Last Reviewed 07/21/18 @ 12:41 by Kota Gotti MD) CAP (community acquired pneumonia) (Acute) Objective: GENERAL: Appears ill looking HEENT: Atraumatic; moist oral mucosa EYES; Anicteric, Normal Conjunctiva NECK; supple, normal thyroid, no distended JVD. RESPIRATORY: Diminished to auscultation bilaterally, CARDIOVASCULAR: Irregularly irregular tachycardic GI: soft, non-tender, normoactive bowel sounds, : No Renal angle tenderness; EXTREMITIES: No edema, no clubbing, no cyanosis. MUSCULOSKELETAL: No Joint Tenderness; NEURO: Awake; no lateralizing signs. SKIN: No Rash PSYCH; Normal affect - Physical Exam Vital Signs Temp Pulse Resp BP Pulse Ox 99.1 F 140 H 17 134/92 H 96 07/21/18 10:37 07/21/18 10:56 07/21/18 10:56 07/21/18 10:56 07/21/18 10:56 Oxygen Flow Rate (L/min) 2 Oxygen Delivery Method Nasal Cannula Weight: 78.471 kg Body Mass Index (BMI) 24.8 Laboratory Tests Past 24 Hrs 07/21/18 07/21/18 07/21/18 10:45 10:45 10:45 WBC 7.6 RBC 4.10 L Hgb 13.5 Hct 40.9 MCV 99.8 H MCH 32.9 H MCHC 33.0 RDW 14.9 H RDW Differential 54.1 H Plt Count 173 MPV 12.1 H Immature Gran % (Auto) 0.100 Neut % (Auto) 84.7 H Lymph % (Auto) 6.6 L [place] % (Auto) 8.2 Eos % (Auto) 0.1 Baso % (Auto) 0.3 Absolute Neuts (auto) 6.4 Absolute Lymphs (auto) 0.50 L Total Counted Not Reportable PT 16.4 H INR 1.3 Sodium 136 Potassium 3.7 Chloride 102 Carbon Dioxide 25.0 Anion Gap 9 BUN 15 Creatinine 1.14 Estim Creat Clear Calc 52.47 Est GFR (MDRD) Af Amer 79 Est GFR (MDRD) Non-Af 66 BUN/Creatinine Ratio 13.2 Glucose 125 H Calcium 8.5 Troponin I 0.020 Assessment/Plan All Active Problems (Last Reviewed 07/21/18 @ 12:41 by Kota Gotti MD) CAP (community acquired pneumonia) (Acute) Atrial fibrillation with rapid ventricular response (Acute) Community acquired pneumonia (Resolved) Sepsis (Resolved) Patient is an 83-year-old gentleman with multiple comorbidities presented with progressive shortness of breath imaging studies obtained demonstrated right upper lobe infiltrate consistent with pneumonia. He was also found to be in A. fib with RVR admitted to monitored bed for subsequent management. 1. Community-acquired pneumonia. Chest x-ray on admission demonstrated right upper lobe consolidation consistent with pneumonia. Patient has been admitted to a monitored bed managed with broad-spectrum antibiotic therapy with Rocephin and Zithromax after cultures have been obtained. Patient was also placed on supplemental oxygen titrated to keep oxygen saturation greater than 90 CT of the chest with contrast was ordered to rule out underlying neoplasia given the findings on CXR 2. Paroxysmal A. fib with RVR on admission. Patient is on metoprolol for rate control as well as Eliquis. Plan is to initiate Cardizem to be titrated to keep heart rate less than 100 if patient rates remains persistent above 120 2. CAD with previous CABG patient denied any chest pain on admission 4. Hypertension-blood pressure controlled, home medications continued with dose adjustment as needed 5. Dyslipidemia-patient is on statin therapy, continued at home dose 6. Chronic systolic heart failure stable 7. Ischemic cardiomyopathy 8. COPD not in exacerbation 9. DVT prophylaxis patient on Eliquis Advance planning; did discuss with the patient and family regarding her advanced directives as well as CODE STATUS. Did explain the various modalities involved ( FULL CODE, DNR CCA, DNR CCA with no intubation, and DNR CC ) patient elected to remain full code . Order was placed. Time spent on discussion 17 minutes. Clinical Impression(s) from Imaging Studies Chest X-Ray 07/21/18 11:05 IMPRESSION: Heterogeneous right upper lobe airspace consolidation likely representing pneumonia. Suggest follow-up evaluation after treatment to exclude underlying neoplasia. Electronically Signed: Lenka Sandhu MD at 11:30 EST , Service support , Code Visit Inpatient E&M: 32620 Init Hosp L3 Procedures: 60167 Advncd Care Plan 30 Min
[2018-07-21] MEDS: Ceftriaxone 1 GM/50 ML BAG IV (11:48)
[2018-07-21] MEDS: Albuterol 2.5 MG/3 ML VIAL.NEB. INHALATION (12:14)
[2018-07-21] MEDS: Ipratropium/Albuterol Sulfate 3 ML AMPUL.NEB INHALATION ×3 (12:14→18:50)
--- NOTE | 2018-07-21 12:39 | ECHOD_ITS ---
Reason For Study: AFIB/FLUTTER Procedure This was a 2D Doppler, Color Flow transthoracic echocardiogram. The study was technically difficult. PT scanned sitting upright, unwilling to lie in left lateral decubitus position for optimal imaging. Exam performed portable in patient room. Left Ventricle Normal LV size. Sigmoid septum. Left ventricular systolic function is lower limits of normal. The estimated ejection fraction is 50 %. Unable to assess diastolic dysfunction due to arrhythmia. No regional wall motion abnormalities noted. Right Ventricle Normal RV size. Normal systolic function. Atria Normal left atrium. Normal right atrium. Mitral Valve There is mild to moderate mitral annular calcification. Mild (1+) eccentric mitral valve insufficiency. Tricuspid Valve Normal tricuspid valve. Mild (1+) tricuspid valve insufficiency. Pulmonary artery systolic pressure is 30 mmHg. Aortic Valve Trisinus/trileaflet aortic valve. Mild diffuse aortic valve thickening. Pulmonic Valve The pulmonic valve is not well visualized. Great Vessels Normal aortic root. The pulmonary artery is normal size. Normal inferior vena cava. Pericardium/Pleural No pericardial effusion. MMode/2D Measurements & Calculations LVIDd: 5.0 cm IVSd: 1.3 cm Ao root diam: 3.5 cm LVIDs: 3.5 cm LVPWd: 1.0 cm RVDd: 3.6 cm FS: 29.5 % LAV(MOD-bp): 49.5 ml LA A4 area: 18.0 cm2 LA dimension(2D): 3.8 cm LAV(MOD-bp) Indexed: 25.5 ml/m2 LAV(MOD-sp2): 50.9 ml LAV(MOD-sp4): 48.6 ml RA A4 area: 18.9 cm2 Doppler Measurements & Calculations Ao V2 max: 150.7 cm/sec LV V1 max: 81.0 cm/sec MR max riya: 462.0 cm/sec Ao max P.1 mmHg LV V1 max P.6 mmHg MR max P.4 mmHg PA V2 max: 98.2 cm/sec TR max riya: 258.6 cm/sec TR max P.7 mmHg Interpretation Summary Normal LV size. Left ventricular systolic function is lower limits of normal. The estimated ejection fraction is 50 %. Mild (1+) tricuspid valve insufficiency. Unable to assess diastolic dysfunction due to arrhythmia. Ordering Physician: Kota Gotti Referring Physician: Moise Babcock Performed By: Emma Jose, MARTHA, RVT
--- NOTE | 2018-07-21 12:47 | CT_ITS ---
STUDY: CT CHEST WITH CONTRAST REASON FOR EXAM: Male, 83 years old. Pneumonia RADIATION DOSAGE (If Supplied By Facility): CTDIvol = ( 19.85 ) mGy, DLP = ( 524.31 ) mGycm TECHNIQUE: Transaxial imaging was performed following intravenous administration of 100 ml of Isovue 300 contrast material. Individualized dose optimization techniques were used for this CT. COMPARISON: Chest x-ray same day, CT 06/15/2017 FINDINGS: Median sternotomy wires. Extensive right upper lobe pneumonia. Mild left lower lobe pneumonia. Chronic interstitial lung changes. Calcified granuloma in the right lung base. There is no demonstrated pleural abnormality. Normal heart and pericardium. Precarinal adenopathy with short axis measurement of 13 mm. Multiple calcified hilar and mediastinal lymph nodes. Normal enhanced pulmonary arteries. Normal aorta arch and descending thoracic aorta. Normal osseous structures. Anterior abdominal wall hernia containing a portion of the transverse colon. Renal cysts. Fatty liver. 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 CT/Chest WITH Contrast IMPRESSION: Extensive right upper lobe pneumonia. Mild left lower lobe pneumonia. Anterior abdominal wall hernia containing a portion of the transverse colon. 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 Electronically Signed: Boris Pederson MD at 14:07 EST Tel , Service support ,
[2018-07-21 12:54] LABS: Magnesium 2.1 mg/dL (1.6-2.6)
[2018-07-21] MEDS: 0.9% Normal Saline 1,000 ML 100 ML IV ×2 (13:00→23:36)
[2018-07-21] MEDS: Acetaminophen 325 MG Tablet 650 MG PO ×2 (13:20→20:18)
[2018-07-21 18:33] LABS: Color, Urine Yellow (Yellow); Glucose, Dipstick Normal (Normal); Ketone-Dipstick Negative (Negative); Leukocyte Esterase-Dipstick 25 /ul (Negative); Nitrite-Dipstick Negative (Negative); Occult Blood-Urine 10 /ul (Negative); Protein-Dipstick 30 mg/dl (Negative); Urine Bilirubin Dipstick Negative (Negative); Urine Clarity Clear (Clear); Urine Urobilinogen 1 mg/dl (Normal); Urine pH 6.5 (5.0 - 8.0)
[2018-07-21] MEDS: guaiFENesin 1,200 MG Tablet 1200 MG PO (21:59)
[2018-07-21] MEDS: APIXABAN 5 MG TABLET PO (21:59)
[2018-07-21] MEDS: Atorvastatin Calcium 20 MG Tablet PO (21:59)
[2018-07-21] MEDS: Famotidine 20 MG Tablet PO (21:59)
[2018-07-22] VITALS (37 sets, daily range): BP systolic 104–189; BP diastolic 55–114; PULSE 87–149; RESP 16–30; TEMP 36.7–38.8; O2SAT 90–96
--- NOTE | 2018-07-22 04:45 | NURSING ---
all charting reviewed and agreed with by this RN, Joshua.
[2018-07-22] MEDS: dilTIAZem 25 MG/5 ML Vial IV BOLUS (05:23)
[2018-07-22] MEDS: 0.9% NaCl Peripheral Flush Adult/Peds IV (05:23)
[2018-07-22 06:18] LABS: Hematocrit 36.8 % (40-54); Hemoglobin 12.4 g/dl (13.0-16.5); Mean Corp Hgb Conc 33.7 g/gl (32-36); Mean Corpuscular Hgb 33.6 pg (27.0-32.0); Mean Corpuscular Volume 99.7 fL (80-94); Mean Platelet Vol. 12.9 fl (6.2-12.0); Platelet Count 151 K/mm3 (150-450); RBC Distribution Width CV 15.1 % (11.6-14.6); RBC Distribution Width SD 53.6 fl (35.1-43.9); Red Blood Count 3.69 M/mm3 (4.6-6.2); Scan Indicated on CBC? Y/N NO; White Blood Count 8.7 K/mm3 (4.4-11.0)
[2018-07-22 06:34] LABS: Anion Gap 7 (5-15); BUN 12 mg/dL (7-18); BUN/Creat Ratio 12.8 RATIO (10-20); Calcium,Total 8.1 mg/dL (8.5-10.1); Chloride 103 mmol/L (98-107); Creatinine, Serum 0.93 mg/dL (0.70-1.30); EST Glomerular Filtration Rate 83 mL/min (>60); Est Glom Filt Rate - Afr Amer 100 mL/min (>60); Estimated Creatinine Clearance 64.32 ml/min; Glucose 105 mg/dL (74-106); Magnesium 2.1 mg/dL (1.6-2.6); Potassium 4.2 mmol/L (3.5-5.1); Sodium Level 135 mmol/L (136-145)
[2018-07-22] MEDS: Acetaminophen 325 MG Tablet 650 MG PO ×2 (06:58→16:06)
[2018-07-22] MEDS: Ipratropium/Albuterol Sulfate 3 ML AMPUL.NEB INHALATION ×2 (07:23→13:19)
[2018-07-22] MEDS: Multivitamins,Therapeutic Tablet 1 TABLET PO (07:44)
[2018-07-22] MEDS: APIXABAN 5 MG TABLET PO ×2 (09:21→21:51)
[2018-07-22] MEDS: Metoprolol(XL)Succ 25 MG Tablet PO ×2 (09:21→21:51)
[2018-07-22] MEDS: guaiFENesin 1,200 MG Tablet 1200 MG PO ×2 (09:22→21:51)
[2018-07-22] MEDS: Omega-3 Acid Ethyl Esters 1 GM Capsule PO (09:22)
[2018-07-22] MEDS: Ceftriaxone 1 GM/50 ML BAG IV (09:22)
[2018-07-22] MEDS: 0.9% Normal Saline 1,000 ML 100 ML IV ×2 (09:31→21:50)
[2018-07-22] MEDS: Famotidine 20 MG Tablet PO ×2 (09:33→21:51)
--- NOTE | 2018-07-22 10:21 | PN_ITS ---
Patient Problems: Active and Suspected Problems (Last Reviewed 07/21/18 @ 12:41 by Kota Gotti MD) CAP (community acquired pneumonia) (Acute) Subjective: Patient is an 83-year-old gentleman admitted with pneumonia admitted to a monitored bed where patient has since been managed. Patient seen still remains significantly weak ;breathing still remains labored Objective: GENERAL: Appears ill looking HEENT: Atraumatic; moist oral mucosa EYES; Anicteric, Normal Conjunctiva NECK; supple, normal thyroid, no distended JVD. RESPIRATORY: Diminished to auscultation bilaterally, CARDIOVASCULAR: Irregularly irregular tachycardic GI: soft, non-tender, normoactive bowel sounds, : No Renal angle tenderness; EXTREMITIES: No edema, no clubbing, no cyanosis. MUSCULOSKELETAL: No Joint Tenderness; NEURO: Awake; no lateralizing signs. SKIN: No Rash PSYCH; Normal affect Vitals/I&O's: Vital Signs Temp Pulse Resp BP Pulse Ox 98.1 F 97 16 104/72 94 07/22/18 09:15 07/22/18 09:21 07/22/18 09:15 07/22/18 09:21 07/22/18 09:15 Oxygen Flow Rate (L/min) 5 Oxygen Delivery Method Nasal Cannula Weight: 76.9 kg Body Mass Index (BMI) 24.3 Intake and Output for Last 24 Hours 07/20/18 07/21/18 07/22/18 23:59 23:59 23:59 Intake Total 1515.8 / 1515.8 805 / 805 Output Total 0 / 0 Balance 1515.8 / 1515.8 805 / 805 Microbiology Past 72 Hours 07/21/18 17:24 Urine, Clean Catch Legionella Antigen - Final 07/21/18 17:24 Urine, Clean Catch Streptococcus pneumoniae Antigen (M - Final 07/21/18 14:30 Mucosa - Nose Influenza Types A,B Direct FA (SHIRLEY) - Final Laboratory Results 07/21/18 10:45: WBC 7.6, RBC 4.10 L, Hgb 13.5, Hct 40.9, MCV 99.8 H, MCH 32.9 H, MCHC 33.0, RDW 14.9 H, RDW Differential 54.1 H, Plt Count 173, MPV 12.1 H, Immature Gran % (Auto) 0.100, Neut % (Auto) 84.7 H, Lymph % (Auto) 6.6 L, [place] % (Auto) 8.2, Eos % (Auto) 0.1, Baso % (Auto) 0.3, Absolute Neuts (auto) 6.4, Absolute Lymphs (auto) 0.50 L, Total Counted Not Reportable 07/21/18 10:45: PT 16.4 H, INR 1.3 07/21/18 10:45: Sodium 136, Potassium 3.7, Chloride 102, Carbon Dioxide 25.0, Anion Gap 9, BUN 15, Creatinine 1.14, Estim Creat Clear Calc 52.47, Est GFR (MDRD) Af Amer 79, Est GFR (MDRD) Non-Af 66, BUN/Creatinine Ratio 13.2, Glucose 125 H, Calcium 8.5, Troponin I 0.020 07/21/18 10:45: Magnesium 2.1 07/21/18 13:50: Troponin I 0.033 07/21/18 15:58: Troponin I 0.026 07/21/18 17:24: Urine Color Yellow, Urine Clarity Clear, Urine pH 6.5, Ur Specific [place] 1.010, Urine Protein 30 H, Urine Glucose (UA) Normal, Urine Ketones Negative, Urine Occult Blood 10 H, Urine Nitrite Negative, Urine Bilirubin Negative, Urine Urobilinogen 1 H, Ur Leukocyte Esterase 25 H 07/22/18 05:20: Sodium 135 L, Potassium 4.2, Chloride 103, Carbon Dioxide 25.0, Anion Gap 7, BUN 12, Creatinine 0.93, Estim Creat Clear Calc 64.32, Est GFR (MDRD) Af Amer 100, Est GFR (MDRD) Non-Af 83, BUN/Creatinine Ratio 12.8, Glucose 105, Calcium 8.1 L, Magnesium 2.1 07/22/18 05:20: WBC 8.7, RBC 3.69 L, Hgb 12.4 L, Hct 36.8 L, MCV 99.7 H, MCH 33.6 H, MCHC 33.7, RDW 15.1 H, RDW Differential 53.6 H, Plt Count 151, MPV 12.9 H Current Medications Acetaminophen (Tylenol) 650 mg PO Q6H PRN PRN PRN Reason: Mild Pain (scale 0-3)/T>100.7 Last Admin: 07/22/18 06:58 Dose: 650 mg Albuterol Sulfate (Ventolin Aerosols) 2.5 mg INHALATION Q2H PRN PRN PRN Reason: SHORTNESS OF BREATH Albuterol/Ipratropium (Duoneb) 3 ml INHALATION Q6H.RT [facility] Last Admin: 07/22/18 07:23 Dose: 3 ml Apixaban (Eliquis) 5 mg PO BID [facility] Last Admin: 07/22/18 09:21 Dose: 5 mg Atorvastatin Calcium (Lipitor) 20 mg PO QHS [facility] Last Admin: 07/21/18 21:59 Dose: 20 mg Famotidine (Pepcid) 20 mg PO BID [facility] Last Admin: 07/22/18 09:33 Dose: 20 mg Guaifenesin (Mucinex) 1,200 mg PO BID [facility] Last Admin: 07/22/18 09:22 Dose: 1,200 mg Sodium Chloride () 1,000 mls @ 100 mls/hr IV .Q10H [facility] Last Admin: 07/22/18 09:31 Dose: 100 mls/hr Ceftriaxone Sodium (Rocephin) 1 gm in 50 mls @ 100 mls/hr IV Q24 [facility] Last Admin: 07/22/18 09:22 Dose: 100 mls/hr Azithromycin 500 mg/ Dextrose 255 mls @ 250 mls/hr IV Q24 [facility] Stop: 07/24/18 11:02 Magnesium Hydroxide (Milk Of Magnesia) 30 ml PO DAILY PRN PRN Reason: Constipation Metoprolol Succinate (Toprol Xl (Beta Jerry)) 25 mg PO BID [facility] Last Admin: 07/22/18 09:21 Dose: 25 mg Morphine Sulfate () 2 - 4 mg IV Q3H PRN PRN PRN Reason: Severe Pain (pain scale 6-10) Morphine Sulfate () 2 - 4 mg IV Q3H PRN PRN PRN Reason: Severe Pain (pain scale 6-10) Multivitamins (Multivitamin) 1 tablet PO DAILY@0800 [facility] Last Admin: 07/22/18 07:44 Dose: 1 tablet Aikbq-1-[id number] Ethyl Esters (Lovaza) 1 gm PO DAILY [facility] Last Admin: 07/22/18 09:22 Dose: 1 gm Oxycodone HCl (Oxyir) 5 mg PO Q4H PRN PRN PRN Reason: Moderate Pain (pain scale 4-5) Psyllium Hydrophilic Mucilloid (Metamucil) 1 packet PO DAILY PRN PRN PRN Reason: CONSTIPATION Sodium Chloride () 5 - 15 ml IV UD PRN PRN Reason: SALINE FLUSH Last Admin: 07/22/18 05:23 Dose: 10 ml Medical Necessity - Tobacco Use Smoking Status: Former smoker Assessment/Plan All Active Problems (Last Reviewed 07/21/18 @ 12:41 by Kota Gotti MD) CAP (community acquired pneumonia) (Acute) Atrial fibrillation with rapid ventricular response (Acute) Community acquired pneumonia (Resolved) Sepsis (Resolved) Patient is an 83-year-old gentleman with multiple comorbidities presented with progressive shortness of breath imaging studies obtained demonstrated right upper lobe infiltrate consistent with pneumonia. He was also found to be in A. fib with RVR admitted to monitored bed for subsequent management. 1. Community-acquired pneumonia. Chest x-ray on admission demonstrated right upper lobe consolidation consistent with pneumonia. Patient has been admitted to a monitored bed managed with broad-spectrum antibiotic therapy with Rocephin and Zithromax after cultures have been obtained. Patient was also placed on supplemental oxygen titrated to keep oxygen saturation greater than 90 CT of the chest with contrast was ordered to rule out underlying neoplasia given the findings on CXR CT obtained demonstratedExtensive right upper lobe pneumonia. Mild left lower lobe pneumonia. 2. Paroxysmal A. fib with RVR on admission. Patient is on metoprolol for rate control as well as Eliquis. P 2. CAD with previous CABG patient denied any chest pain on admission 4. Hypertension-blood pressure controlled, home medications continued with dose adjustment as needed 5. Dyslipidemia-patient is on statin therapy, continued at home dose 6. Chronic systolic heart failure stable 7. Ischemic cardiomyopathy 8. COPD not in exacerbation 9. DVT prophylaxis patient on Eliquis Clinical Impression(s) from Imaging Studies Chest X-Ray 07/21/18 11:05 IMPRESSION: Heterogeneous right upper lobe airspace consolidation likely representing pneumonia. Suggest follow-up evaluation after treatment to exclude underlying neoplasia. Electronically Signed: Lenka Sanhdu MD at 11:30 EST , Service support , Chest CT 07/21/18 12:47 IMPRESSION: Extensive right upper lobe pneumonia. Mild left lower lobe pneumonia. Anterior abdominal wall hernia containing a portion of the transverse colon. 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 Electronically Signed: Boris Pederson MD at 14:07 EST Tel , Service support , Code Visit Inpatient E&M: 49103 Subs Hosp L3
--- NOTE | 2018-07-22 11:00 | CASEMGMT ---
RN MAE NON DESTRUCTIVE TESTER CM to room to meet with patient for initial transition planning/care coordination assessment. VIVIENNE WALL introduced self and role at [facility]. Pt voices understanding and consents to assessment at this time. Pt resting in bed in no distress at this time. Pt is A/O at this time and answers all questions appropriately. Care providers, pharmacy, and demographics verified at this time. PCP: Moise Babcock Specialists: Lynda, [employer] Supervisor. sees a tax accountant but does not remember his name. Preferred Pharmacy: [facility] Insurance: [employer] Living Will/HPOA: Pt states he has a will, but does not think he has a LW or HCPOA . Declines info at this time. Living Arrangements: Lives @ home with his in a 2-story home. First floor set up. is independent. Transportation: Pt hires drives and states no transportation concerns at this time. DME: has the following DME: O2 @ 2 L/M @ HS thru [employer] and has a nebulizer. States there are rails/grab bars and hand held shower in the home that his uses that is available for him if he would need. She also uses a shower chair that would be available for him if needed. Pt states no need for further DME at this time. HHC/SNF: States has never been to a SNF or used HHC. Declines wanting HHC. PT eval pending. Pt wishes to return home and states has no concerns with going home at time of discharge. CM to follow for any discharge planning/needs. Pt voices no further concerns/needs at this time. Advised pt to ask for CM if any further questions/concerns/needs arise. Voices understanding. PLAN: Home with spousal support and discharge plans in place. Kolby CLEANING RN, CM
--- NOTE | 2018-07-22 15:56 | NURSING ---
Pt was up to side of bed to urinate. Became very SOB and weak. Back to bed. HR in 140-150's, Resp 29, Temp 101.8. Family at bedside and Dr. Gotti notifed, pt to be restarted on Cardizem gtt. RN at bedside. Pt sitting up in high fowlers position, support given. Will continue to monitor.
--- NOTE | 2018-07-22 16:09 | NURSING ---
Pt started on Cardizem gtt 5ml/hr. Tylenol 650mg po given for temp 101.8. Family at bedside.
[2018-07-22] MEDS: Atorvastatin Calcium 20 MG Tablet PO (21:51)
--- NOTE | 2018-07-22 23:51 | NURSING ---
Per charge nurse request, the RN checked on pt d/t complaints of shortness of breath. Pt sitting on side of bed, states he can't lie down. Beronica from respiratory was called by this RN to request breathing treatment. Primary RN notified of same.
[2018-07-23] VITALS (41 sets, daily range): BP systolic 118–178; BP diastolic 65–134; PULSE 65–132; RESP 15–26; TEMP 37–38.8; O2SAT 89–98
[2018-07-23] MEDS: Ipratropium/Albuterol Sulfate 3 ML AMPUL.NEB INHALATION ×4 (00:35→19:00)
[2018-07-23] MEDS: Acetaminophen 325 MG Tablet 650 MG PO (02:24)
[2018-07-23] MEDS: 0.9% Normal Saline 1,000 ML 100 ML IV ×2 (06:17→17:50)
[2018-07-23 06:30] LABS: Anion Gap 10 (5-15); BUN 13 mg/dL (7-18); Chloride 103 mmol/L (98-107); Creatinine, Serum 0.87 mg/dL (0.70-1.30); EST Glomerular Filtration Rate 90 mL/min (>60); Est Glom Filt Rate - Afr Amer 109 mL/min (>60); Estimated Creatinine Clearance 68.76 ml/min; Glucose 100 mg/dL (74-106); Potassium 4.4 mmol/L (3.5-5.1); Sodium Level 137 mmol/L (136-145)
[2018-07-23 06:34] LABS: Hematocrit 35.7 % (40-54); Hemoglobin 12.1 g/dl (13.0-16.5); Mean Corp Hgb Conc 33.9 g/gl (32-36); Mean Corpuscular Volume 100.3 fL (80-94); Platelet Count 149 K/mm3 (150-450); RBC Distribution Width CV 15.1 % (11.6-14.6); RBC Distribution Width SD 53.4 fl (35.1-43.9); Red Blood Count 3.56 M/mm3 (4.6-6.2); White Blood Count 5.8 K/mm3 (4.4-11.0)
[2018-07-23 06:47] LABS: Scan Indicated on CBC? Y/N NO
--- NOTE | 2018-07-23 09:01 | PCM.PN.HOSP ---
Patient Problems: Active and Suspected Problems (Last Reviewed 07/21/18 @ 12:41 by Kota Gotti MD) CAP (community acquired pneumonia) (Acute) Subjective: Patient seen still remains significantly dyspneic at rest. Patient was started on Cardizem drip during the night in view of persistent A. fib with RVR. Objective: GENERAL: Appears ill looking HEENT: Atraumatic; moist oral mucosa EYES; Anicteric, Normal Conjunctiva NECK; supple, normal thyroid, no distended JVD. RESPIRATORY: Diminished to auscultation bilaterally, CARDIOVASCULAR: Irregularly irregular tachycardic GI: soft, non-tender, normoactive bowel sounds, : No Renal angle tenderness; EXTREMITIES: No edema, no clubbing, no cyanosis. MUSCULOSKELETAL: No Joint Tenderness; NEURO: Awake; no lateralizing signs. SKIN: No Rash PSYCH; Normal affect Vitals/I&O's: Vital Signs Temp Pulse Resp BP Pulse Ox 99.1 F 85 22 H 131/88 H 92 07/23/18 06:10 07/23/18 08:00 07/23/18 08:00 07/23/18 08:00 07/23/18 08:00 Oxygen Flow Rate (L/min) 5 Oxygen Delivery Method Nasal Cannula Weight: 76.9 kg Body Mass Index (BMI) 24.3 Intake and Output for Last 24 Hours 07/21/18 07/22/18 07/23/18 23:59 23:59 23:59 Intake Total 1515.8 / 1515.8 3816 / 3816 659.7 / 659.7 Output Total 0 / 0 650 / 650 Balance 1515.8 / 1515.8 3166 / 3166 659.7 / 659.7 Microbiology Past 72 Hours 07/22/18 18:35 Sputum, Expectorated/Coughed Gram Stain - Preliminary 07/21/18 14:30 Mucosa - Nose Respiratory Panel (PCR) - Final Human [place] 07/21/18 17:24 Urine, Clean Catch Legionella Antigen - Final 07/21/18 17:24 Urine, Clean Catch Streptococcus pneumoniae Antigen (M - Final 07/21/18 14:30 Mucosa - Nose Influenza Types A,B Direct FA (SHIRLEY) - Final Laboratory Results 07/23/18 05:15: WBC 5.8, RBC 3.56 L, Hgb 12.1 L, Hct 35.7 L, MCV 100.3 H, MCH 34.0 H, MCHC 33.9, RDW 15.1 H, RDW Differential 53.4 H, Plt Count 149 L, MPV 13.0 H 07/23/18 05:15: Sodium 137, Potassium 4.4, Chloride 103, Carbon Dioxide 24.0, Anion Gap 10, BUN 13, Creatinine 0.87, Estim Creat Clear Calc 68.76, Est GFR (MDRD) Af Amer 109, Est GFR (MDRD) Non-Af 90, BUN/Creatinine Ratio 15.0, Glucose 100, Calcium 8.0 L Current Medications Acetaminophen (Tylenol) 650 mg PO Q6H PRN PRN PRN Reason: Mild Pain (scale 0-3)/T>100.7 Last Admin: 07/23/18 02:24 Dose: 650 mg Albuterol Sulfate (Ventolin Aerosols) 2.5 mg INHALATION Q2H PRN PRN PRN Reason: SHORTNESS OF BREATH Albuterol/Ipratropium (Duoneb) 3 ml INHALATION Q6H.RT [facility] Last Admin: 07/23/18 06:54 Dose: 3 ml Apixaban (Eliquis) 5 mg PO BID [facility] Last Admin: 07/22/18 21:51 Dose: 5 mg Atorvastatin Calcium (Lipitor) 20 mg PO QHS [facility] Last Admin: 07/22/18 21:51 Dose: 20 mg Famotidine (Pepcid) 20 mg PO BID [facility] Last Admin: 07/22/18 21:51 Dose: 20 mg Guaifenesin (Mucinex) 1,200 mg PO BID [facility] Last Admin: 07/22/18 21:51 Dose: 1,200 mg Sodium Chloride () 1,000 mls @ 100 mls/hr IV .Q10H [facility] Last Admin: 07/23/18 06:17 Dose: 100 mls/hr Ceftriaxone Sodium (Rocephin) 1 gm in 50 mls @ 100 mls/hr IV Q24 [facility] Last Admin: 07/22/18 09:22 Dose: 100 mls/hr Azithromycin 500 mg/ Dextrose 255 mls @ 250 mls/hr IV Q24 [facility] Stop: 07/24/18 11:02 Last Admin: 07/22/18 10:26 Dose: 250 mls/hr Diltiazem HCl 125 mg/ Dextrose 125 mls @ 5 mls/hr IV .Q25H [facility]; Protocol Last Admin: 07/23/18 06:21 Dose: 5 mls/hr Magnesium Hydroxide (Milk Of Magnesia) 30 ml PO DAILY PRN PRN Reason: Constipation Metoprolol Succinate (Toprol Xl (Beta Jerry)) 25 mg PO BID [facility] Last Admin: 07/22/18 21:51 Dose: 25 mg Morphine Sulfate () 2 - 4 mg IV Q3H PRN PRN PRN Reason: Severe Pain (pain scale 6-10) Morphine Sulfate () 2 - 4 mg IV Q3H PRN PRN PRN Reason: Severe Pain (pain scale 6-10) Multivitamins (Multivitamin) 1 tablet PO DAILY@0800 [facility] Last Admin: 07/22/18 07:44 Dose: 1 tablet Hdxjb-8-Eyet Ethyl Esters (Lovaza) 1 gm PO DAILY [facility] Last Admin: 07/22/18 09:22 Dose: 1 gm Oxycodone HCl (Oxyir) 5 mg PO Q4H PRN PRN PRN Reason: Moderate Pain (pain scale 4-5) Psyllium Hydrophilic Mucilloid (Metamucil) 1 packet PO DAILY PRN PRN PRN Reason: CONSTIPATION Sodium Chloride () 5 - 15 ml IV UD PRN PRN Reason: SALINE FLUSH Last Admin: 07/22/18 05:23 Dose: 10 ml Medical Necessity - Tobacco Use Smoking Status: Former smoker Assessment/Plan All Active Problems (Last Reviewed 07/21/18 @ 12:41 by Kota Gotti MD) CAP (community acquired pneumonia) (Acute) Atrial fibrillation with rapid ventricular response (Acute) Community acquired pneumonia (Resolved) Sepsis (Resolved) Patient is an 83-year-old gentleman with multiple comorbidities presented with progressive shortness of breath imaging studies obtained demonstrated right upper lobe infiltrate consistent with pneumonia. He was also found to be in A. fib with RVR admitted to monitored bed for subsequent management. 1. Community-acquired pneumonia. Chest x-ray on admission demonstrated right upper lobe consolidation consistent with pneumonia. Patient has been admitted to a monitored bed managed with broad-spectrum antibiotic therapy with Rocephin and Zithromax after cultures have been obtained. Patient was also placed on supplemental oxygen titrated to keep oxygen saturation greater than 90 CT of the chest with contrast was ordered to rule out underlying neoplasia given the findings on CXR CT obtained demonstrated Extensive right upper lobe pneumonia. Mild left lower lobe pneumonia. Breathing still remains significantly labored at rest 2. Paroxysmal A. fib with RVR on admission. Patient is on metoprolol for rate control as well as Eliquis. Started on Cardizem drip on 07/22/2018 in view of A. fib with RVR 2. CAD with previous CABG patient denied any chest pain on admission 4. Hypertension-blood pressure controlled, home medications continued with dose adjustment as needed 5. Dyslipidemia-patient is on statin therapy, continued at home dose 6. Chronic systolic heart failure stable 7. Ischemic cardiomyopathy 8. COPD not in exacerbation 9. DVT prophylaxis patient on Eliquis Code Visit Inpatient E&M: 39858 Subs Hosp L3
[2018-07-23] MEDS: Famotidine 20 MG Tablet PO ×2 (09:39→22:46)
[2018-07-23] MEDS: Ceftriaxone 1 GM/50 ML BAG IV (09:39)
[2018-07-23] MEDS: Metoprolol(XL)Succ 25 MG Tablet PO ×2 (09:39→22:46)
[2018-07-23] MEDS: Multivitamins,Therapeutic Tablet 1 TABLET PO (09:39)
[2018-07-23] MEDS: APIXABAN 5 MG TABLET PO ×2 (09:40→22:46)
[2018-07-23] MEDS: Omega-3 Acid Ethyl Esters 1 GM Capsule PO (09:40)
[2018-07-23] MEDS: guaiFENesin 1,200 MG Tablet 1200 MG PO ×2 (09:40→22:46)
[2018-07-23] MEDS: Psyllium 1 PACKET PO (10:18)
[2018-07-23] MEDS: dilTIAZem 30 MG Tablet PO ×2 (16:24→22:52)
[2018-07-23] MEDS: Atorvastatin Calcium 20 MG Tablet PO (22:46)
[2018-07-24] VITALS (19 sets, daily range): BP systolic 123–162; BP diastolic 61–93; PULSE 72–110; RESP 19–20; TEMP 36.6–37.3; O2SAT 91–95
[2018-07-24] MEDS: Ipratropium/Albuterol Sulfate 3 ML AMPUL.NEB INHALATION ×4 (01:30→18:58)
[2018-07-24] MEDS: 0.9% Normal Saline 1,000 ML 100 ML IV ×2 (04:53→18:10)
[2018-07-24] MEDS: dilTIAZem 30 MG Tablet PO ×4 (04:53→23:15)
[2018-07-24 06:50] LABS: Anion Gap 10 (5-15); BUN 12 mg/dL (7-18); BUN/Creat Ratio 15.9 RATIO (10-20); Chloride 103 mmol/L (98-107); Creatinine, Serum 0.76 mg/dL (0.70-1.30); EST Glomerular Filtration Rate 105 mL/min (>60); Est Glom Filt Rate - Afr Amer 127 mL/min (>60); Estimated Creatinine Clearance 59.82 ml/min; Glucose 96 mg/dL (74-106); Potassium 3.9 mmol/L (3.5-5.1); Sodium Level 136 mmol/L (136-145)
[2018-07-24] MEDS: Multivitamins,Therapeutic Tablet 1 TABLET PO (08:44)
--- NOTE | 2018-07-24 09:01 | PCM.PN.HOSP ---
Patient Problems: Active and Suspected Problems (Last Reviewed 07/21/18 @ 12:41 by Kota Gotti MD) CAP (community acquired pneumonia) (Acute) Subjective: Patient seen complains of feeling extremely tired. His shortness of breath still persist. Discussed with patient about possibility of going to longterm facility for rehab prior to going home. An order was placed for PT OT assessment and social sciences chair consult to assist with disposition Objective: GENERAL: Appears ill looking HEENT: Atraumatic; moist oral mucosa EYES; Anicteric, Normal Conjunctiva NECK; supple, normal thyroid, no distended JVD. RESPIRATORY: Diminished to auscultation bilaterally, CARDIOVASCULAR: Irregularly irregular tachycardic GI: soft, non-tender, normoactive bowel sounds, : No Renal angle tenderness; EXTREMITIES: No edema, no clubbing, no cyanosis. MUSCULOSKELETAL: No Joint Tenderness; NEURO: Awake; no lateralizing signs. SKIN: No Rash PSYCH; Normal affect Vitals/I&O's: Vital Signs Temp Pulse Resp BP Pulse Ox 99.1 F 105 H 20 H 153/79 H 94 07/24/18 08:47 07/24/18 08:47 07/24/18 08:47 07/24/18 08:47 07/24/18 08:47 Oxygen Flow Rate (L/min) 5 Oxygen Delivery Method Nasal Cannula Weight: 76.9 kg Body Mass Index (BMI) 24.3 Intake and Output for Last 24 Hours 07/22/18 07/23/18 07/24/18 23:59 23:59 23:59 Intake Total 3816 / 3816 2442.7 / 2442.7 1187 / 1187 Output Total 650 / 650 300 / 300 450 / 450 Balance 3166 / 3166 2142.7 / 2142.7 737 / 737 Microbiology Past 72 Hours 07/21/18 10:45 Blood Culture (Wb) - Anticubital Left Blood Culture - Preliminary No growth in 48 hours. 07/21/18 11:40 Blood Culture (Wb) - Anticubital Left Blood Culture - Preliminary No growth in 48 hours. 07/22/18 18:35 Sputum, Expectorated/Coughed Gram Stain - Final 07/21/18 14:30 Mucosa - Nose Respiratory Panel (PCR) - Final Human [place] 07/21/18 17:24 Urine, Clean Catch Legionella Antigen - Final 07/21/18 17:24 Urine, Clean Catch Streptococcus pneumoniae Antigen (M - Final 07/21/18 14:30 Mucosa - Nose Influenza Types A,B Direct FA (SHIRLEY) - Final Laboratory Results 07/24/18 05:30: Sodium 136, Potassium 3.9, Chloride 103, Carbon Dioxide 23.0, Anion Gap 10, BUN 12, Creatinine 0.76, Estim Creat Clear Calc 59.82, Est GFR (MDRD) Af Amer 127, Est GFR (MDRD) Non-Af 105, BUN/Creatinine Ratio 15.9, Glucose 96, Calcium 8.0 L Current Medications Acetaminophen (Tylenol) 650 mg PO Q6H PRN PRN PRN Reason: Mild Pain (scale 0-3)/T>100.7 Last Admin: 07/23/18 02:24 Dose: 650 mg Albuterol Sulfate (Ventolin Aerosols) 2.5 mg INHALATION Q2H PRN PRN PRN Reason: SHORTNESS OF BREATH Albuterol/Ipratropium (Duoneb) 3 ml INHALATION Q6H.RT [facility] Last Admin: 07/24/18 06:44 Dose: 3 ml Apixaban (Eliquis) 5 mg PO BID [facility] Last Admin: 07/23/18 22:46 Dose: 5 mg Atorvastatin Calcium (Lipitor) 20 mg PO QHS [facility] Last Admin: 07/23/18 22:46 Dose: 20 mg Diltiazem HCl (Cardizem) 30 mg PO Q6 [facility] Last Admin: 07/24/18 04:53 Dose: 30 mg Famotidine (Pepcid) 20 mg PO BID [facility] Last Admin: 07/23/18 22:46 Dose: 20 mg Guaifenesin (Mucinex) 1,200 mg PO BID [facility] Last Admin: 07/23/18 22:46 Dose: 1,200 mg Sodium Chloride () 1,000 mls @ 100 mls/hr IV .Q10H [facility] Last Admin: 07/24/18 04:53 Dose: 100 mls/hr Ceftriaxone Sodium (Rocephin) 1 gm in 50 mls @ 100 mls/hr IV Q24 [facility] Last Admin: 07/23/18 09:39 Dose: 100 mls/hr Azithromycin 500 mg/ Dextrose 255 mls @ 250 mls/hr IV Q24 [facility] Stop: 07/24/18 11:02 Last Admin: 07/23/18 09:39 Dose: 250 mls/hr Magnesium Hydroxide (Milk Of Magnesia) 30 ml PO DAILY PRN PRN Reason: Constipation Metoprolol Succinate (Toprol Xl (Beta Jerry)) 25 mg PO BID [facility] Last Admin: 07/23/18 22:46 Dose: 25 mg Morphine Sulfate () 2 - 4 mg IV Q3H PRN PRN PRN Reason: Severe Pain (pain scale 6-10) Morphine Sulfate () 2 - 4 mg IV Q3H PRN PRN PRN Reason: Severe Pain (pain scale 6-10) Multivitamins (Multivitamin) 1 tablet PO DAILY@0800 [facility] Last Admin: 07/24/18 08:44 Dose: 1 tablet Vrqar-4-Utup Ethyl Esters (Lovaza) 1 gm PO DAILY [facility] Last Admin: 07/23/18 09:40 Dose: 1 gm Oxycodone HCl (Oxyir) 5 mg PO Q4H PRN PRN PRN Reason: Moderate Pain (pain scale 4-5) Psyllium Hydrophilic Mucilloid (Metamucil) 1 packet PO DAILY PRN PRN PRN Reason: CONSTIPATION Last Admin: 07/23/18 10:18 Dose: 1 packet Sodium Chloride () 5 - 15 ml IV UD PRN PRN Reason: SALINE FLUSH Last Admin: 07/22/18 05:23 Dose: 10 ml Medical Necessity - Tobacco Use Smoking Status: Former smoker Assessment/Plan All Active Problems (Last Reviewed 07/21/18 @ 12:41 by Kota Gotti MD) CAP (community acquired pneumonia) (Acute) Atrial fibrillation with rapid ventricular response (Acute) Community acquired pneumonia (Resolved) Sepsis (Resolved) Patient is an 83-year-old gentleman with multiple comorbidities presented with progressive shortness of breath imaging studies obtained demonstrated right upper lobe infiltrate consistent with pneumonia. He was also found to be in A. fib with RVR admitted to monitored bed for subsequent management. 1. Community-acquired pneumonia. Chest x-ray on admission demonstrated right upper lobe consolidation consistent with pneumonia. Patient has been admitted to a monitored bed managed with broad-spectrum antibiotic therapy with Rocephin and Zithromax after cultures have been obtained. Patient was also placed on supplemental oxygen titrated to keep oxygen saturation greater than 90 CT of the chest with contrast was ordered to rule out underlying neoplasia given the findings on CXR CT obtained demonstrated Extensive right upper lobe pneumonia. Mild left lower lobe pneumonia. Breathing still remains significantly labored at rest 2. Paroxysmal A. fib with RVR on admission. Patient is on metoprolol for rate control as well as Eliquis. Started on Cardizem drip on 07/22/2018 in view of A. fib with RVR Cardizem switched to p.o. Cardizem 30 mg p.o. every 6 hours 2. CAD with previous CABG patient denied any chest pain on admission 4. Hypertension-blood pressure controlled, home medications continued with dose adjustment as needed 5. Dyslipidemia-patient is on statin therapy, continued at home dose 6. Chronic systolic heart failure stable 7. Ischemic cardiomyopathy 8. COPD not in exacerbation 9. DVT prophylaxis patient on Eliquis 10. Physical deconditioning requested for PT OT eval and social sciences chair to assist with disposition Code Visit Inpatient E&M: 38963 Subs Hosp L2
[2018-07-24] MEDS: Famotidine 20 MG Tablet PO ×2 (09:04→21:28)
[2018-07-24] MEDS: Omega-3 Acid Ethyl Esters 1 GM Capsule PO (09:04)
[2018-07-24] MEDS: APIXABAN 5 MG TABLET PO ×2 (09:04→21:28)
[2018-07-24] MEDS: Metoprolol(XL)Succ 25 MG Tablet PO ×2 (09:04→21:28)
[2018-07-24] MEDS: guaiFENesin 1,200 MG Tablet 1200 MG PO ×2 (09:15→21:28)
--- NOTE | 2018-07-24 10:26 | CASEMGMT ---
Addendum entered by Shadia Gilmore 07/24/18 13:45: SW spoke with patient and his . They both agreed to [facility]. SW called and left a message with Li with a referral. YAMILA also faxed referral. Shadia SAGASTUME Original Note: Physician spoke with patient and he agreed with SNF. SW spoke with patient and he said he wanted to talk with his . SW told him SW will check back. Shadia SAGASTUME
[2018-07-24] MEDS: Ceftriaxone 1 GM/50 ML BAG IV (11:17)
--- NOTE | 2018-07-24 14:31 | CASEMGMT ---
SW received a call from [facility] and they can accept patient. Shadia BARRIOS MSW
[2018-07-24] MEDS: Atorvastatin Calcium 20 MG Tablet PO (21:28)
[2018-07-25] VITALS (9 sets, daily range): BP systolic 118–120; BP diastolic 60–67; PULSE 95–110; RESP 20–24; TEMP 36.8–36.9; O2SAT 94–98
[2018-07-25] MEDS: Ipratropium/Albuterol Sulfate 3 ML AMPUL.NEB INHALATION ×2 (00:34→06:00)
[2018-07-25] MEDS: 0.9% Normal Saline 1,000 ML 100 ML IV (05:11)
[2018-07-25] MEDS: dilTIAZem 30 MG Tablet PO (05:11)
[2018-07-25] MEDS: Omega-3 Acid Ethyl Esters 1 GM Capsule PO (08:09)
[2018-07-25] MEDS: Famotidine 20 MG Tablet PO (08:09)
[2018-07-25] MEDS: Multivitamins,Therapeutic Tablet 1 TABLET PO (08:09)
[2018-07-25] MEDS: guaiFENesin 1,200 MG Tablet 1200 MG PO (08:09)
[2018-07-25] MEDS: Metoprolol(XL)Succ 25 MG Tablet PO (08:09)
[2018-07-25] MEDS: APIXABAN 5 MG TABLET PO (08:10)
--- NOTE | 2018-07-25 09:34 | PCM.TXEXTCAR ---
- Diet 07/21/18 12:40 Diet: Regular Diet Food consistency:: Regular Liquid Consistency:: Regular/Thin - Problem/Diagnosis (1) CAP (community acquired pneumonia) Status: Acute Current Visit: Yes (2) Paroxysmal atrial fibrillation Status: Chronic Current Visit: No (3) Cardiomyopathy Status: Chronic Current Visit: No (4) Atherosclerosis of coronary artery of [place] heart without angina pectoris Status: Chronic Current Visit: No (5) H/O coronary artery bypass surgery Status: Chronic Comment: CABG x 4 at [place] Current Visit: No (6) Patent foramen ovale Status: Chronic Current Visit: No (7) Atrial fibrillation with rapid ventricular response Status: Acute Current Visit: No (8) Hyperlipidemia Status: Chronic Current Visit: No - Allergies/Procedures Done in Hospital Allergies/Adverse Reactions: Allergies No Known Allergies Allergy (Verified 07/21/18 10:40) - Type of Care/Length of Stay Estimated LOS: Convalescent Care Less Than 30 days Type of Care Needed: Skilled Rehab Potential: Good Prognosis: Good - Additional Orders/Day of Discharge Day of Discharge: 07/25/18 - Dietary and Speech Recommendations Dietitian Recommendations/Changes: Suggest diet change to Cardiac as PO improves at meals. Current weight as able. - Follow Up Care Primary Care Physician: Moise Babcock NP-C [Primary Care Provider] - Please follow up with your Primary Care Physician in: in 1-2 weeks
--- NOTE | 2018-07-25 09:36 | PCM.DC.SUM ---
Discharge Date and Diagnosis - Problem List Patient Problems: Active and Suspected Problems (Last Reviewed 07/21/18 @ 12:41 by Kota Gotti MD) CAP (community acquired pneumonia) (Acute) Date of Admission: 07/21/18 Date of Discharge: 07/25/18 - Primary Discharge Diagnosis Active and Suspected Problems (Last Reviewed 07/21/18 @ 12:41 by Kota Gotti MD) CAP (community acquired pneumonia) (Acute) - Secondary Discharge Diagnosis Chronic Problems (Last Reviewed 07/21/18 @ 12:41 by Kota Gotti MD) Paroxysmal atrial fibrillation (Chronic) Cardiomyopathy (Chronic) Atherosclerosis of coronary artery of [place] heart without angina pectoris (Chronic) H/O coronary artery bypass surgery (Chronic ~04/2006) CABG x 4 at [place] Patent foramen ovale (Chronic) Hyperlipidemia (Chronic) Hospital Course and Treatment Imaging Results: Clinical Impression(s) from Imaging Studies Chest X-Ray 07/21/18 11:05 IMPRESSION: Heterogeneous right upper lobe airspace consolidation likely representing pneumonia. Suggest follow-up evaluation after treatment to exclude underlying neoplasia. Electronically Signed: Lenka Sandhu MD at 11:30 EST , Service support , Chest CT 07/21/18 12:47 IMPRESSION: Extensive right upper lobe pneumonia. Mild left lower lobe pneumonia. Anterior abdominal wall hernia containing a portion of the transverse colon. 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 Electronically Signed: Boris Pederson MD at 14:07 EST Tel , Service support , Operations: None Summary of Care Provided: Patient is an 83-year-old gentleman with multiple comorbidities presented with progressive shortness of breath imaging studies obtained demonstrated right upper lobe infiltrate consistent with pneumonia. He was also found to be in A. fib with RVR admitted to monitored bed for subsequent management. 1. Community-acquired pneumonia. Chest x-ray on admission demonstrated right upper lobe consolidation consistent with pneumonia. Patient has been admitted to a monitored bed managed with broad-spectrum antibiotic therapy with Rocephin and Zithromax after cultures have been obtained. Patient was also placed on supplemental oxygen titrated to keep oxygen saturation greater than 90 CT of the chest with contrast was ordered to rule out underlying neoplasia given the findings on CXR CT obtained demonstrated Extensive right upper lobe pneumonia. Mild left lower lobe pneumonia. [facility] 2. Paroxysmal A. fib with RVR on admission. Patient is on metoprolol for rate control as well as Eliquis. Started on Cardizem drip on 07/22/2018 in view of A. fib with RVR Cardizem switched to p.o. Cardizem 30 mg p.o. every 6 hours; prescription for Cardizem 120 mg CD on discharge was rating 2. CAD with previous CABG patient denied any chest pain on admission 4. Hypertension-blood pressure controlled, home medications continued with dose adjustment as needed 5. Dyslipidemia-patient is on statin therapy, continued at home dose 6. Chronic systolic heart failure stable 7. Ischemic cardiomyopathy 8. COPD not in exacerbation 9. DVT prophylaxis patient on Eliquis 10. Physical deconditioning requested for PT OT eval and social organization professor to assist with disposition Patient Problems: Active and Suspected Problems (Last Reviewed 07/21/18 @ 12:41 by Kota Gotti MD) CAP (community acquired pneumonia) (Acute) Subjective: GENERAL: Appears ill looking HEENT: Atraumatic; moist oral mucosa EYES; Anicteric, Normal Conjunctiva NECK; supple, normal thyroid, no distended JVD. RESPIRATORY: Diminished to auscultation bilaterally, CARDIOVASCULAR: Irregularly irregular tachycardic GI: soft, non-tender, normoactive bowel sounds, : No Renal angle tenderness; EXTREMITIES: No edema, no clubbing, no cyanosis. MUSCULOSKELETAL: No Joint Tenderness; NEURO: Awake; no lateralizing signs. - Physical Exam Vital Signs Temp Pulse Resp BP Pulse Ox 98.2 F 110 H 20 H 118/60 98 07/25/18 08:01 07/25/18 08:09 07/25/18 08:01 07/25/18 08:07/25/18 08:03 Oxygen Flow Rate (L/min) 4 Oxygen Delivery Method Nasal Cannula Weight: 76.9 kg Body Mass Index (BMI) 24.3 Intake and Output for Last 24 Hours 07/23/18 07/24/18 07/25/18 23:59 23:59 23:59 Intake Total 2442.7 / 2442.7 2337 / 2337 1428 / 1428 Output Total 300 / 300 1250 / 1250 800 / 800 Balance 2142.7 / 2142.7 1087 / 1087 628 / 628 Microbiology Past 72 Hours 07/22/18 18:35 Gram Stain - Final Sputum, Expectorated/Coughed Respiratory Culture - Final Presumptive C albicans 07/21/18 10:45 Blood Culture - Preliminary Blood Culture (Wb) - Anticubital Left No growth in 48 hours. 07/21/18 11:40 Blood Culture - Preliminary Blood Culture (Wb) - Anticubital Left No growth in 48 hours. 07/21/18 14:30 Respiratory Panel (PCR) - Final Mucosa - Nose Human [place] Discharge Diet: No Restrictions Home Medications: Medications to take at Discharge Apixaban [Eliquis] 5 mg PO BID #60 tab 06/16/17 Oxygen, Home [Home Oxygen] 2 - 4 lpm NASAL CONT #1 unit 06/16/17 garlic 1,500 mg capsule 1,500 mg PO DAILY@1200 07/31/17 multivitamin tablet 1 tab PO QDAY 07/31/17 omega-3 fatty acids 1,000 mg capsule 1,000 mg PO QDAY 07/31/17 simvastatin 20 mg tablet 40 mg PO QHS tab 12/09/17 metoprolol succinate ER 25 mg tablet,extended release 24 hr 25 mg PO BID #180 tab 07/16/18 Acetaminophen [Tylenol Tablet] 650 mg PO Q6H PRN PRN tablet 07/25/18 Albuterol Aerosols [Ventolin Aerosols] 2.5 mg INHALATION Q2H PRN PRN vial.neb. 07/25/18 Cefdinir 300 mg PO BID #10 cap 07/25/18 Diltiazem HCl [Cardizem Cd] 120 mg PO DAILY #30 cap.er.24h 07/25/18 Famotidine [Pepcid] 20 mg PO BID tablet 07/25/18 Guaifenesin [Mucinex] 1,200 mg PO BID tablet 07/25/18 Ipratropium/Albuterol Sulfate [Duoneb] 3 ml INHALATION Q6H.RT ampul.neb 07/25/18 Magnesium Hydroxide [Milk Of Magnesia] 30 ml PO DAILY PRN udc 07/25/18 Psyllium [Metamucil] 1 packet PO DAILY PRN PRN packet 07/25/18 Following Prescrptions Were Given to Patient: Cefdinir 300 mg PO BID #10 cap Diltiazem HCl [Cardizem Cd] 120 mg PO DAILY #30 cap.er.24h Primary Care Physician: Moise Babcock, [employer]SET[employer]-C [Primary Care Provider] - Please follow up with your Primary Care Physician in: in 1-2 weeks Disposition: Snf facility Minutes spent on discharge:: 35 Patient Condition:: Stable Medical Necessity - Tobacco Use Smoking Status: Former smoker Tobacco Use: Cigarettes Meaningful Use Info Meaningful Use Diagnoses (Choose all that apply): None applicable Code Visit Inpatient E&M: 46580 Disch Hosp
--- NOTE | 2018-07-25 10:18 | CASEMGMT ---
Patient is ready for d/c to [facility]. YAMILA faxed orders to [facility]. Completed convalescent on HENS. YAMILA spoke with patient and he said his son will pick him up. He said he will need a portable O2 tank from [facility]. He said he has oxygen at home from [facility]. YAMILA called [facility] and spoke with Vandana. She said is patient's son wants to stop and berry picker a portable she will give him one. YAMILA let patient know this information. He can use the nasal canula and tubing from his stay here at [facility]. YAMILA called Merle at [facility] and let him know about d/c. He received orders and is aware patient's son will be bringing him. Plan: d/c to [facility] under intermediate level of care on a convalescent stay. Patient's son will transport via private vehicle and a portable tank was provided by [employer]. Shadia SAGASTUME
--- NOTE | 2018-07-25 11:07 | NURSING ---
report called to Jennifer at [facility]
== END 2018-07-25 11:41 | disposition intermediate care facility (04) | DRG 194 ==
LOC: ED 10:52 → PCU 11:51
PROVIDERS: Admitting Provider Internal Medicine; Emergency Provider Emergency Medicine; Family Provider Nurse Practitioner Family; PCP Nurse Practitioner Family; Visit Provider Internal Medicine
DX: J18.9 Pneumonia, unspecified organism (principal); I50.22 Chronic systolic (congestive) heart failure; J44.9 Chronic obstructive pulmonary disease, unspecified; I48.0 Paroxysmal atrial fibrillation; I25.5 Ischemic cardiomyopathy; I11.0 Hypertensive heart disease with heart failure; E78.5 Hyperlipidemia, unspecified; I25.10 Atherosclerotic heart disease of native coronary artery without angina pectoris; Z79.899 Other long term (current) drug therapy; Z95.1 Presence of aortocoronary bypass graft; Z87.891 Personal history of nicotine dependence; Z79.01 Long term (current) use of anticoagulants
CPT/HCPCS: 36415; 71046; 71260; 80048; 81002; 83735; 84484; 85025; 85027; 85610; 87040; 87070; 87205; 87449; 87633; 87804; 93005; 93306; 94640; 94667; 97162; 97530; 97802; 99283; J7030; Q9967; A4216

== ENCOUNTER 2018-10-04 10:27 | Emergency (ER) | payer OTHER, SELFPAY ==
[2018-07-21 12:58] VITALS: BMI 24.3
[2018-10-04 10:28] VITALS: BP 137/68; PULSE 90; RESP 17; TEMP 36.7; O2SAT 91; BMI 24.9
--- NOTE | 2018-10-04 10:48 | ED.VIS.GEN ---
History of Present Illness Chief Complaint: Shortness of Breath Informant: Patient Onset: Yesterday Timing: Intermittent Quality: Productive cough and dyspnea Location: Not applicable Current Severity: Mild Maximum Severity: Moderate Worsened by: Worse with exertion Relieved by: nothing Associated Symptoms: Denies fever or chills, on oxygen at night Narrative: Patient is an elderly male who is a former smoker, 1 pack/day x 50 years, who presents from urgent care because of concern for pneumonia. States he had a low pulse ox. He denies fever, chills night sweats. He denies rhinorrhea, congestion, postnasal drainage, earache or sore throat. He is uncertain of the color the sputum. He denies chest discomfort, orthopnea or PND. He denies leg pain, swelling discoloration. He denies GI or symptoms. - Past Medical History (1) CAP (community acquired pneumonia) Status: Acute (2) Atherosclerosis of coronary artery of [place] heart without angina pectoris Status: Chronic (3) Cardiomyopathy Status: Chronic (4) H/O coronary artery bypass surgery Status: Chronic Comment: CABG x 4 at [place] (5) Hyperlipidemia Status: Chronic (6) Paroxysmal atrial fibrillation Status: Chronic (7) Patent foramen ovale Status: Chronic Past Medical History - Allergies and Home Meds Allergies/Adverse Reactions: Allergies No Known Allergies Allergy (Verified 10/04/18 10:28) Primary Care Physician: Moise Babcock [employer]-C [Primary Care Provider] - Prior records reviewed: Yes Surgical History: coronary bypass surgery Lives: Spouse/ Significant Other Smoking Status: Former smoker Alcohol: None - Family History Maternal Family History: Family History (Last Reviewed 07/21/18 @ 12:41 by Kota Gotti MD) Brother CAD (coronary artery disease) Sister CAD (coronary artery disease) Father CAD (coronary artery disease) Family History: Reports: No pertinent history Paternal Family History: Family History (Last Reviewed 07/21/18 @ 12:41 by Kota Gotti MD) Brother CAD (coronary artery disease) Sister CAD (coronary artery disease) Father CAD (coronary artery disease) Family History: Reports: No pertinent history Review of Systems General: Denies: Chills, Fever, Malaise, Sweats Eyes: Denies: Visual changes - bilaterally, Diplopia ENT: Denies: Rhinorrhea, Sore throat Cardiovascular: Denies: Chest pain, Palpitations Respiratory: Reports: Dyspnea, Cough, Sputum, Dyspnea on exertion. Denies: Orthopnea, Paroxysmal nocturnal dyspnea, -, - Gastrointestinal: Denies: Abdominal pain, Nausea, Vomiting, Diarrhea, Melena, Hematochezia Genitourinary: Denies: Dysuria, Hematuria, Frequency Musculoskeletal: Denies: Back pain, Extremity Pain Skin: Denies: Rash, Wounds Neurological: Denies: Headache, Weakness, Numbness Hematologic: Denies: Easy bruising Allergy: Denies: Uticaria, Swelling of the mouth Physical Exam Vital Signs/Narrative: Vital Signs Temp Pulse Resp BP Pulse Ox 10/04/18 10:28 98.1 F 90 17 137/68 H 91 Inital Vital Signs reviewed: Yes General: Well nourished, Well developed, No Acute Distress Head: Normocephalic, Atraumatic Eyes: Perrl, EOMI ENT: Moist mucous membranes, No rhinorrhea Neck: Supple, Nontender, No lymphadenopathy, No JVD Cardiovascular: Regular rate, Regular rhythm, No murmurs Respiratory: No distress, Chest nontender, Rales - And egophony right lower lobe posteriorly., Decreased Air Movement. Negative for: CTA bilaterally Abdomen: Soft, Nontender, Nondistended, Normal bowel sounds Back: Nontender, Normal Inspection Extremities: Nontender, No edema, - - There is no asymmetry, swelling, discoloration, leg vein distention, palpable cords or tenderness along the distribution of the deep venous system. Skin: Normal color, No rash. Negative for: Cyanosis, Jaundice Neurological: Alert, Oriented x3, Cranial nerves II-XII grossly intact, Normal Strength, Normal Sensation Psychological: Normal affect, Normal Mood Diagnostic/Tx/Re-eval Chest X-Ray - ED: 2 View, Read by ED Physician, Normal, Heart, Mediastinum, Bony Structures, No Acute Disease, Chronic Changes, - - Chronic changes noted. Infiltrate present in June has resolved. There may be scarring right lower lobe. There is no infiltrate right lower lobe. Impressions Chest X-Ray 10/04/18 11:10 IMPRESSION: Minimal right lower lobe atelectasis and/or scarring. Status post sternotomy. Electronically Signed: Cristina Navarrete MD at 11:34 EDT Tel , Service support , 10/04/18 11:10 Chest PA and Lateral [RAD] Stat Laboratory Results 10/04/18 10/04/18 10/04/18 10:59 10:59 10:59 WBC 9.0 RBC 3.97 L Hgb 13.1 Hct 38.7 L MCV 97.5 H MCH 33.0 H MCHC 33.9 RDW 14.3 RDW Differential 49.0 H Plt Count 206 MPV 11.8 Immature Gran % (Auto) 0.200 Neut % (Auto) 73.4 H Lymph % (Auto) 14.6 L Stephens % (Auto) 10.3 H Eos % (Auto) 1.4 Baso % (Auto) 0.1 Absolute Neuts (auto) 6.6 Absolute Lymphs (auto) 1.32 Total Counted Not Reportable Differential Comment SCANNED Reactive Lymphocytes 1+ Sodium 135 L Potassium 4.3 Chloride 102 Carbon Dioxide 29.0 Anion Gap 4 L BUN 14 Creatinine 0.95 Estim Creat Clear Calc 62.97 Est GFR (MDRD) Af Amer 98 Est GFR (MDRD) Non-Af 81 BUN/Creatinine Ratio 14.7 Glucose 149 H Lactic Acid 1.6 Calcium 8.7 - Medical Decision Making Clinically patient has pneumonia right lower lobe. Will obtain appropriate blood work to assess for sepsis. Will obtain amatory pulse ox. If there is no significant mL your blood work patient can be discharged home since he has oxygen at home. Pulse ox decreased to 80% with ambulation. This is satisfactory for patient with lung problems. Also patient has oxygen at home. Plan p.o. antibiotics and discharged home ED Disposition - Plan for ED Patient: Disposition: Home or Assisted Living Diagnosis: Bronchitis with bronchospasm Instructions: ED Upper Resp Infec Abx Tx Prescriptions: Doxycycline 100 mg PO BID #14 cap Referrals: Moise Babcock, MARISOL-C [Primary Care Provider] - 3-5 Days if not improving Additional Instructions: Wear oxygen while active and or walking. Take antibiotics until gone
[2018-10-04 11:04] VITALS: O2SAT 93
--- NOTE | 2018-10-04 11:10 | RAD_ITS ---
STUDY: X-RAY CHEST REASON FOR EXAM: Male, 83 years old. Cough pneumonia TECHNIQUE: PA and lateral views of the chest. COMPARISON: July 21, 2018 chest x-ray FINDINGS: Infiltrate seen in the right upper lobe has resolved since prior study. There is trace linear density within the middle lobe suggesting trace atelectasis. There is no demonstrated pleural abnormality. Sternal cerclage wires are present from a prior sternotomy. Normal mediastinum and junior. Normal visualized pulmonary arteries. There is atherosclerotic calcification of the aortic arch with tortuosity. There are diffuse degenerative changes of the visualized thoracic spine. Normal visualized ribs, clavicles, and shoulders. There is no demonstrated abnormality of the visualized soft tissue structures of the upper abdomen. RAD/Chest PA and Lateral IMPRESSION: Minimal right lower lobe atelectasis and/or scarring. Status post sternotomy. Electronically Signed: Cristina Navarrete MD at 11:34 EDT Tel , Service support ,
[2018-10-04 11:20] LABS: Absolute Lymphocyte Count 1.32 X10^3/ul (0.83-4.51); Absolute Neutrophil Count 6.6 X10^3/uL (2.0-7.7); Anion Gap 4 (5-15); BUN 14 mg/dL (7-18); BUN/Creat Ratio 14.7 RATIO (10-20); Basophil# 0.01 X10^3/uL; Basophil% 0.1 % (0-1); Calcium,Total 8.7 mg/dL (8.5-10.1); Chloride 102 mmol/L (98-107); Creatinine, Serum 0.95 mg/dL (0.70-1.30); EST Glomerular Filtration Rate 81 mL/min (>60); Eosinophil# 0.13 X10^3/uL; Eosinophils% 1.4 % (0-5); Est Glom Filt Rate - Afr Amer 98 mL/min (>60); Estimated Creatinine Clearance 62.97 ml/min; Glucose 149 mg/dL (74-106); Hematocrit 38.7 % (40-54); Hemoglobin 13.1 g/dl (13.0-16.5); Lymphocyte # 1.32 X10^3/ul (4.0); Lymphocyte % 14.6 % (19-41); Mean Corp Hgb Conc 33.9 g/gl (32-36); Mean Corpuscular Volume 97.5 fL (80-94); Mean Platelet Vol. 11.8 fl (6.2-12.0); Monocyte# 0.93 X10^3/uL; Monocyte% 10.3 % (0-10); Neutrophil # 6.61 X10^3/uL (2.7-7.7); Neutrophil % 73.4 % (47-70); Platelet Count 206 K/mm3 (150-450); Potassium 4.3 mmol/L (3.5-5.1); RBC Distribution Width CV 14.3 % (11.6-14.6); Red Blood Count 3.97 M/mm3 (4.6-6.2); Sodium Level 135 mmol/L (136-145)
[2018-10-04 11:22] VITALS: O2SAT 95
[2018-10-04 11:23] LABS: Differential Indicated SCAN CRITERIA MET; POSITIVE COUNT NO; POSITIVE DIFFERENTIAL NO; POSITIVE MORPHOLOGY YES
[2018-10-04 11:32] LABS: Lactic Acid 1.6 mmol/L (0.4-2.0)
[2018-10-04 11:33] LABS: Differential Comment SCANNED; Reactive Lymphocyte 1+
[2018-10-04 12:00] VITALS: BP 140/70; PULSE 75; RESP 16; O2SAT 92
[2018-10-04] MEDS: Doxycycline 100 MG CAPSULE PO (13:27)
[2018-10-04 13:30] VITALS: BP 153/83; PULSE 78; RESP 16; O2SAT 92
== END 2018-10-04 13:30 | disposition home or self-care (01) ==
PROVIDERS: Emergency Provider Emergency Medicine; Family Provider Nurse Practitioner Family; PCP Nurse Practitioner Family
DX: J40 Bronchitis, not specified as acute or chronic (principal); I48.0 Paroxysmal atrial fibrillation; E78.5 Hyperlipidemia, unspecified; Q21.1 Atrial septal defect; Z95.1 Presence of aortocoronary bypass graft; Z87.891 Personal history of nicotine dependence; I25.10 Atherosclerotic heart disease of native coronary artery without angina pectoris; I42.9 Cardiomyopathy, unspecified
CPT/HCPCS: 71046; 80048; 83605; 85025; 99285; J7030; A4216

== ENCOUNTER 2018-11-04 12:49 | Emergency (ER) | payer OTHER, SELFPAY ==
[2018-11-04 12:49] VITALS: BP 124/72; PULSE 83; RESP 20; TEMP 36.6; O2SAT 92; BMI 24.3
[2018-11-04 13:06] VITALS: BP 125/73; PULSE 75; RESP 15; O2SAT 94
--- NOTE | 2018-11-04 14:05 | RAD_ITS ---
STUDY: X-RAY CHEST REASON FOR EXAM: Male, 83 years old. Cough and shortness of breath. TECHNIQUE: PA and lateral views of the chest. COMPARISON: Comparison is made with prior study dated October 04, 2018. FINDINGS: Hyperinflation. Scattered calcified granulomas. The lungs are clear and expanded. There is no demonstrated pleural abnormality. Sternal cerclage wires and vascular clips are present from a prior sternotomy and coronary artery bypass graft procedure (CABG). Normal mediastinum and junior. Normal visualized pulmonary arteries. There is atherosclerotic calcification of the aortic arch with tortuosity. There are diffuse degenerative changes of the visualized thoracic spine. Normal visualized ribs, clavicles, and shoulders. There is no demonstrated abnormality of the visualized soft tissue structures of the upper abdomen. RAD/Chest PA and Lateral IMPRESSION: Hyperinflation. No acute abnormality is seen. Electronically Signed: Mehul Calderon, at 14:21 EDT , Service support ,
[2018-11-04 15:11] VITALS: BP 150/94; PULSE 62; RESP 15; O2SAT 95
--- NOTE | 2018-11-04 16:04 | ED.VISSUMM ---
- ER Visit Summary Date of Service: 11/04/18 Chief Complaint: Cough History of Present Illness: The patient is a 83 M who presents with a cough that is been getting worse over the past 3 days. Patient states this feels like prior episodes of bronchitis. Patient states his last episode was 1 month ago and he was prescribed an antibiotic at that time. Patient denies any fevers or chills. Patient denies any sputum production. Patient admits to some shortness of breath with the cough. Patient denies any chest pain. Patient denies any nausea or vomiting. Patient states he has been able to continue working without difficulty. Physical Examination: Vital signs are stable. Patient is afebrile. Patient is in no acute distress. Oral mucosa is pink and moist. Neck is supple. Trachea is midline. There is no JVD noted. Heart was regular rate and rhythm. Lungs are clear and equal bilateral. Abdomen is soft. Bowel sounds are normal. There is no tenderness. There is no guarding noted. Skin is warm dry. Cranial nerves II through XII are intact. There are no focal motor or sensory deficits noted. The remaining physical exam is within normal limits. Test Results: PA and lateral chest x-ray was obtained. There is no acute cardiopulmonary process. This was interpreted by the radiologist and reviewed by myself. Emergency Department Course and Treatment: Patient was given a prescription for doxycycline. Patient was instructed to follow-up with his primary care for 5 to 7 days. Patient understood and was agreeable with the plan. All questions were answered. Disposition: Discharge home Impression: Acute bronchitis This note was generated with [employer] dictation software. It may contain incorrect words, spelling, and punctuation that were not noted in review of the chart prior to signing ED Disposition - Plan for ED Patient: Disposition: Home or Assisted Living Diagnosis: Acute bronchitis Instructions: ED Upper Resp Infec Abx Tx Prescriptions: Doxycycline 100 mg PO BID #20 cap Referrals: Moise Babcock, MARSIOL-C [Primary Care Provider] - 5-7 Days
[2018-11-04 16:21] VITALS: BP 146/95; PULSE 83; RESP 16
== END 2018-11-04 16:21 | disposition home or self-care (01) ==
PROVIDERS: Emergency Provider Emergency Medicine; Family Provider Nurse Practitioner Family; PCP Nurse Practitioner Family
DX: J20.9 Acute bronchitis, unspecified (principal); E78.00 Pure hypercholesterolemia, unspecified; I48.91 Unspecified atrial fibrillation; Z87.01 Personal history of pneumonia (recurrent); Z79.01 Long term (current) use of anticoagulants; Z79.899 Other long term (current) drug therapy
CPT/HCPCS: 71046; 99282

== ENCOUNTER → 2019-01-12 | Outpatient (CLI) | payer SELFPAY ==
[2018-12-19 14:40] VITALS: BMI 24.7
--- NOTE | 2019-01-12 11:37 | STRESSREP_ITS ---
Stress Test Report Pharmacologic myocardial perfusion stress test. 83-year-old man with a history of coronary artery bypass surgery previous atrial fibrillation. Medications: Eliquis, simvastatin, metoprolol. Resting EKG demonstrates normal sinus rhythm with a rate of 60 bpm normal intervals noted resting blood pressures 152/80 mmHg. 0.4 mg of regadenoson was infused per usual protocol followed by rapid intravenous saline flush injection continuous EKG monitoring was performed. The patient maintained sinus rhythm throughout the recording. The maximum heart rate attained was 95bpm to 68% of maximum predicted heart rate the maximum workload was 1 metabolic equivalent. At rest there were no ST or T wave changes noted suggest abnormal flow reserve at peak infusion nonspecific ST-T wave changes were noted not suggest any evidence of abnormal flow reserve. The resting blood pressure was 152/80 and remained flat throughout the recording. Myocardial perfusion protocol. 11.9 mCi of technetium 99m sestamibi was injected at rest. 0.4 mg of regadenoson was infused per usual protocol peak infusion 34.1 mCi of windows server support technician 99 assessment was injected stress images were obtained stress and rest images are reconstructed and compared in the short axis vertical and horizontal long axis. Gated images was obtained Perfusion SPECT analysis: Review of the stress images demonstrate normal uptake of tracer noted in all rest myocardium except for the basal inferior wall. This is present on the stress and rest images to a similar extent and likely suggests previous inferior infarct. There is mild hypokinesis noted of the basal inferior wall. No obvious ischemia is noted. Gated SPECT analysis: The gated ejection fraction was 49%. Conclusion: Pharmacologic myocardial perfusion stress test with no obvious ischemia noted. 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
== END | disposition home or self-care (01) ==
PROVIDERS: Family Provider Nurse Practitioner Family; PCP Nurse Practitioner Family; Referring Provider Internal Medicine Cardiovascular Disease; Visit Provider Internal Medicine Cardiovascular Disease
DX: Z95.1 Presence of aortocoronary bypass graft (principal)
CPT/HCPCS: 78452; 93017; A9500; A4216; J2785

== ENCOUNTER 2019-07-17 11:40 | Emergency (ER) | payer OTHER, SELFPAY ==
[2019-07-09 12:55] VITALS: BMI 24.7
[2019-07-17 11:41] VITALS: BP 143/88; PULSE 68; RESP 20; TEMP 36.9; O2SAT 96; BMI 24.3
--- NOTE | 2019-07-17 12:00 | RAD_ITS ---
STUDY: X-RAY CHEST REASON FOR EXAM: Male, 83 years old. COUGH x3-4 DAYS -- HX OF PNEUMONIA 2X IN LAST YEAR TECHNIQUE: PA and lateral views of the chest. COMPARISON: Comparison is made with prior study dated November 04, 2018. FINDINGS: Hyperinflation. Stable mild increased markings in the lower lungs suggestive of scarring. There is no demonstrated pleural abnormality. Sternal cerclage wires and vascular clips are present from a prior sternotomy and coronary artery bypass graft procedure (CABG). Normal mediastinum and junior. Normal visualized pulmonary arteries. Normal visualized aortic arch and descending thoracic aorta. There are diffuse degenerative changes of the visualized thoracic spine. Normal visualized ribs, clavicles, and shoulders. There is no demonstrated abnormality of the visualized soft tissue structures of the upper abdomen. RAD/Chest PA and Lateral IMPRESSION: Hyperinflation. No acute abnormality is seen. Electronically Signed: Mehul Calderon, at 12:19 EST , Service support ,
--- NOTE | 2019-07-17 12:27 | ED.DCSUM_ITS ---
History of Present Illness Chief Complaint: Cough Informant: Patient Onset: Days - 4 days Context: Gradual Onset Timing: Waxes and wanes Current Severity: Mild Maximum Severity: Mild Narrative: Patient presents with what he believes is either bronchitis or pneumonia. Patient reports developing a cough on Saturday. He is not bringing up any sputum. He had some slight wheezing last evening that seems to be improved currently. He has had some slight congestion and a runny nose. He denies sinus pressure or sore throat. He has not had fever or chills. Patient has had pneumonia twice in the last year. - Past Medical History (1) Atherosclerosis of coronary artery of [place] heart without angina pectoris Status: Chronic (2) Chronic combined systolic and diastolic CHF (congestive heart failure) Status: Chronic (3) H/O coronary artery bypass surgery Status: Chronic Comment: CABG x 4 at [place] 2005 (4) Hyperlipidemia Status: Chronic (5) Ischemic cardiomyopathy Status: Chronic (6) Old inferior wall myocardial infarction Status: Chronic (7) Paroxysmal atrial fibrillation Status: Chronic (8) Patent foramen ovale Status: Chronic Past Medical History - Allergies and Home Meds Allergies/Adverse Reactions: Allergies No Known Allergies Allergy (Verified 07/17/19 11:43) Primary Care Physician: Moise Babcock NP-C [Primary Care Provider] - Prior records reviewed: Yes Surgical History: coronary bypass surgery Smoking Status: Former smoker - Family History Maternal Family History: Family History (Last Reviewed 07/09/19 @ 13:45 by Reymundo Howell MD) Brother CAD (coronary artery disease) Sister CAD (coronary artery disease) Father CAD (coronary artery disease) Family History: Reports: No pertinent history Paternal Family History: Family History (Last Reviewed 07/09/19 @ 13:45 by Reymundo Howell MD) Brother CAD (coronary artery disease) Sister CAD (coronary artery disease) Father CAD (coronary artery disease) Family History: Reports: No pertinent history Review of Systems General: Denies: Chills, Fever Eyes: Denies: Visual changes - bilaterally ENT: Denies: Bilateral ear pain Cardiovascular: Denies: Chest pain Respiratory: Reports: Cough. Denies: Dyspnea, Sputum Gastrointestinal: Denies: Abdominal pain, Nausea, Vomiting, Diarrhea Genitourinary: Denies: Dysuria Musculoskeletal: Denies: Swelling, Extremity Pain Skin: Denies: Rash Neurological: Denies: Headache Hematologic: Denies: Easy bruising, Easy bleeding Allergy: Denies: Uticaria Physical Exam Vital Signs/Narrative: Vital Signs Temp Pulse Resp BP Pulse Ox 07/17/19 11:41 98.4 F 68 20 H 143/88 H 96 Inital Vital Signs reviewed: Yes General: Well nourished, Well developed Head: Normocephalic ENT: Moist mucous membranes Neck: Supple Cardiovascular: Regular rate, Regular rhythm Respiratory: No distress, CTA bilaterally Abdomen: Soft, Nontender Back: Nontender Extremities: Nontender Skin: Normal color Neurological: Alert, Oriented x3 Psychological: Normal affect Diagnostic/Tx/Re-eval Impressions Chest X-Ray 07/17/19 12:00 IMPRESSION: Hyperinflation. No acute abnormality is seen. Electronically Signed: Mehul Calderon, at 12:19 EST , Service support , 07/17/19 12:00 Chest PA and Lateral [RAD] Stat - Medical Decision Making Chest x-ray reveals chronic changes. No focal infiltrate. Patient has had repeated episodes of pneumonia. He will be covered with a course of doxycycline, first dose given here. ED Disposition - Plan for ED Patient: Disposition: Home or Assisted Living Diagnosis: Bronchitis Instructions: BRONCHITIS, Antiobiotic Treatment (Adult) Prescriptions: Doxycycline 100 mg PO BID #20 cap Transmission Status: Pending to [id number] Referrals: Moise Babcock, [employer]-C [Primary Care Provider] - 1 Week if not improving
[2019-07-17] MEDS: Doxycycline 100 MG CAPSULE PO (12:36)
== END 2019-07-17 12:42 | disposition home or self-care (01) ==
LOC: ED 12:41
PROVIDERS: Emergency Provider Emergency Medicine; PCP Nurse Practitioner Family
DX: J40 Bronchitis, not specified as acute or chronic (principal); I25.10 Atherosclerotic heart disease of native coronary artery without angina pectoris; I50.42 Chronic combined systolic (congestive) and diastolic (congestive) heart failure; E78.5 Hyperlipidemia, unspecified; I25.5 Ischemic cardiomyopathy; I25.2 Old myocardial infarction; I48.0 Paroxysmal atrial fibrillation; Q21.1 Atrial septal defect; Z87.01 Personal history of pneumonia (recurrent); Z95.1 Presence of aortocoronary bypass graft; Z79.01 Long term (current) use of anticoagulants; Z79.899 Other long term (current) drug therapy; Z87.891 Personal history of nicotine dependence
CPT/HCPCS: 71046; 99283

== ENCOUNTER 2020-04-08 10:50 | Inpatient (IN) | payer OTHER, SELFPAY ==
[2020-04-08] VITALS (16 sets, daily range): BP systolic 124–148; BP diastolic 71–117; PULSE 87–121; RESP 12–24; TEMP 36.6–38.8; O2SAT 88–99; BMI 26.3; BMI 25.2
--- NOTE | 2020-04-08 11:01 | EKG12_ITS ---
Test Reason : SOB Blood Pressure : / mmHG Vent. Rate : 119 BPM Atrial Rate : 150 BPM P-R Int : 000 ms QRS Dur : 110 ms QT Int : 352 ms P-R-T Axes : 000 043 065 degrees QTc Int : 495 ms Atrial fibrillation with premature ventricular or aberrantly conducted complexes Nonspecific ST abnormality Abnormal ECG Confirmed by DANIEL SANDOVAL, LESLEY ([id number]), news videotape editor ELA LORA ([id number]) on 04/22/2020 9:45:20 A M Referred By: AMARIS Confirmed By:ROMANA SANCHEZ MD
--- NOTE | 2020-04-08 11:04 | ED.VIS.GEN ---
History of Present Illness <LottieAce - Last Filed: 04/08/20 16:13> Informant: Patient Onset: Days Narrative: 84-year-old male with past medical history of hypertension, hyperlipidemia, CABG, atrial fibrillation presents with productive cough, shortness of breath, and fatigue x3 days. States he uses 3 L O2 at night but felt especially short of breath during the day and has been using his oxygen. Denies chest pain, fevers, chills, abdominal pain, diarrhea, or rash. No known sick contacts. <Jossie Nolasco - Last Filed: 04/08/20 17:05> Chief Complaint: Shortness of Breath Past Medical History - Family History Maternal Family History: Family History (Last Reviewed 07/09/19 @ 13:[address] Reymundo Howell MD) Brother CAD (coronary artery disease) Sister CAD (coronary artery disease) Father CAD (coronary artery disease) Paternal Family History: Family History (Last Reviewed 07/09/19 @ 13:[address] Reymundo Howell MD) Brother CAD (coronary artery disease) Sister CAD (coronary artery disease) Father CAD (coronary artery disease) <LottieAce - Last Filed: 04/08/20 16:13> Past Medical History: - - Hypertension, hyperlipidemia, CABG, atrial fibrillation Surgical History: coronary bypass surgery Smoking Status: Former smoker - Family History Maternal Family History: Family History (Last Reviewed 04/08/20 @ 16:[address] Ernesto Lopez MD) Brother CAD (coronary artery disease) Sister CAD (coronary artery disease) Father CAD (coronary artery disease) Family History: Reports: No pertinent history Paternal Family History: Family History (Last Reviewed 04/08/20 @ 16:[address] Ernesto Lopez MD) Brother CAD (coronary artery disease) Sister CAD (coronary artery disease) Father CAD (coronary artery disease) Family History: Reports: No pertinent history <Jossie Nolasco - Last Filed: 04/08/20 17:05> - Allergies and Home Meds Allergies/Adverse Reactions: Allergies No Known Allergies Allergy (Verified 07/17/19 11:43) Review of Systems General: Reports: Malaise. Denies: Chills, Fever, Sweats Eyes: Denies: Visual changes - left ENT: Denies: Bilateral ear pain, Rhinorrhea, Sore throat Cardiovascular: Denies: Chest pain, Palpitations Respiratory: Reports: Dyspnea, Cough, Sputum, Dyspnea on exertion. Denies: Orthopnea Gastrointestinal: Denies: Abdominal pain, Nausea, Vomiting, Diarrhea, Constipation, Melena, Hematochezia Musculoskeletal: Denies: Myalgias Skin: Denies: Rash Neurological: Reports: Weakness. Denies: Headache, Parasthesia, Numbness <Jossie Nolasco - Last Filed: 04/08/20 17:05> Physical Exam Vital Signs/Narrative: Vital Signs Temp Pulse Resp BP Pulse Ox 04/08/20 14:18 121 H 20 H 148/117 H 99 04/08/20 12:55 106 H 15 138/74 H 97 04/08/20 12:46 97.9 F 102 H 12 138/74 H 97 04/08/20 11:16 98.2 F 115 H 18 135/84 H 94 <Ace Tafoya - Last Filed: 04/08/20 16:13> Vital Signs/Narrative: Vital Signs Temp Pulse Resp BP Pulse Ox 04/08/20 10:53 98.2 F 117 H 24 H 129/86 H 94 Inital Vital Signs reviewed: Yes General: Well nourished, Well developed, No Acute Distress Head: Normocephalic, Atraumatic Eyes: EOMI ENT: Moist mucous membranes, No rhinorrhea Neck: Supple, Nontender Cardiovascular: Regular rhythm, No murmurs, Tachycardia Respiratory: No distress, CTA bilaterally, Chest nontender Abdomen: Soft, Nontender, Nondistended Back: Nontender, Normal Inspection Extremities: No edema Skin: Normal color, No rash Neurological: Alert, Oriented x3, Cranial nerves II-XII grossly intact, Normal Strength, Normal Sensation Psychological: Normal affect, Normal Mood <Jossie Nolasco - Last Filed: 04/08/20 17:05> Diagnostic/Tx/Re-eval - Medical Decision Making I supervised the PA and have performed my own pertinent history and physical. Results and treatment plan were discussed. HPI: Patient complains of cough and shortness of breath for the past 3 days. He denies any known exposure to coronavirus. Does state that he wears a mask when he goes out. PE: Vitals: Stable. Afebrile. General: Well-nourished and well-developed. Head: Normocephalic atraumatic. Neck: Supple, no lymphadenopathy. No JVD. Nontender. Cardiovascular: Tachycardic irregular rhythm with a 2 out of 6 systolic murmur. Respiratory: No respiratory distress. Clear to auscultation bilaterally. Tachypnea. Abdominal: Soft, nontender, nondistended, normal bowel sounds. No guarding, rebound, or peritoneal signs. Back: Nontender. Extremities: Nontender, no edema. Skin: Normal color, no rash. Neurologic: Alert and oriented ?3. Cranial nerves II through XII are intact. Normal strength and sensation. Psych: Normal affect. Emergency Department course: Chest x-ray shows no infiltrate. Cardiac work-up is negative. Patient was given metoprolol IV and p.o. However, his heart rate remained in the 1 teens. He was given Cardizem IV. COVID-19 is currently pending. Treatment Plan: Once COVID-19 returns the patient will be admitted for further evaluation and treatment for his A. fib RVR and dyspnea. This note was generated with [employer] dictation software. It may contain incorrect words, spelling, and punctuation that were not noted in review of the chart prior to signing. <Ace Tafoya - Last Filed: 04/08/20 16:13> - Medical Decision Making Patient presented with productive cough and shortness of breath x3 days. He appears well nontoxic. Vital signs show tachycardia 117, tachypnea of 24 breaths/minute, 92-94% on room air. Afebrile. He is sitting comfortably and in no respiratory distress. Lungs clear to auscultation and general medical exam unremarkable. His stay he states he was feeling more short of breath and was placed on 3 L O2 for comfort. EKG shows A. fib with RVR in 120s. He was treated with IV and p.o. Lopressor with rate staying in 110-120s. He was given Cardizem. Routine lab work only shows sodium of 131, otherwise normal. Lactate 1.5. Chest x-ray negative for infiltrate. COVID-19 is positive. He will be admitted for COVID-19 pneumonia and A. fib with RVR. <Jossie Nolasco - Last Filed: 04/08/20 17:05>
--- NOTE | 2020-04-08 11:25 | RAD_ITS ---
STUDY: X-RAY CHEST REASON FOR EXAM: Male, 84 years old. PRODUCTIVE COUGH -- SOB -- FATIGUE X3 DAYS TECHNIQUE: Single AP portable view of the chest. COMPARISON: Comparison is made with prior study dated 07/17/2019. FINDINGS: EKG electrodes are seen. Hyperinflation. Scattered calcified granulomas. There is no demonstrated pleural abnormality. Sternal cerclage wires and vascular clips are present from a prior sternotomy and coronary artery bypass graft procedure (CABG). Normal mediastinum and junior. There is prominence of the pulmonary hilar arteries without peripheral pulmonary vascular congestion, suggesting pulmonary hypertension. There is atherosclerotic calcification of the aortic arch with tortuosity. Normal visualized thoracic spine. Normal visualized ribs, clavicles, and shoulders. There is no demonstrated abnormality of the visualized soft tissue structures of the upper abdomen. RAD/Chest 1 View (Portable) IMPRESSION: Hyperinflation. The lungs are clear. Electronically Signed: Mehul Calderon, at 11:40 EDT , Service support ,
[2020-04-08 11:34] LABS: Absolute Lymphocyte Count 0.84 X10^3/uL (0.83-4.51); Absolute Neutrophil Count 5.9 X10^3/uL (2.0-7.7); Basophil# 0.02 X10^3/uL; Basophil% 0.3 % (0-1); Eosinophil# 0.01 X10^3/uL; Eosinophils% 0.1 % (0-5); Hematocrit 45.6 % (40-54); Hemoglobin 15.4 g/dL (13.0-16.5); Lymphocyte # 0.84 X10^3/ul (4.0); Lymphocyte % 11.4 % (19-41); Mean Corp Hgb Conc 33.8 g/dL (32-36); Mean Corpuscular Hgb 33.4 pg (27.0-32.0); Mean Corpuscular Volume 98.9 fL (80-94); Mean Platelet Vol. 14.1 fl (6.2-12.0); Monocyte# 0.61 X10^3/uL; Monocyte% 8.3 % (0-10); NRBC Flagged by Analyzer 0 % (0-5); Neutrophil # 5.88 X10^3/uL (2.7-7.7); Neutrophil % 79.5 % (47-70); POSITIVE COUNT YES; Platelet Count 118 K/mm3 (150-450); RBC Distribution Width CV 13.5 % (11.6-14.6); Red Blood Count 4.61 M/mm3 (4.6-6.2); White Blood Count 7.4 K/mm3 (4.4-11.0)
[2020-04-08 11:44] LABS: Differential Indicated SCAN CRITERIA MET
[2020-04-08 11:53] LABS: Lactic Acid 1.5 mmol/L (0.4-1.9)
[2020-04-08 12:03] LABS: Platelet Estimate MOD DEC (ADEQ); Platelet Morphology LARGE
[2020-04-08 12:11] LABS: ALB/GLOB Ratio 0.9 RATIO (0.9-2.4); AST(SGOT) 33 U/L (15-37); Alanine Aminotransfer ALT/SGPT 27 U/L (16-61); Albumin, Serum 3.4 g/dL (3.2-5.0); Alkaline Phosphatase 92 U/L (45-117); Anion Gap 3 (5-15); BUN 18 mg/dL (7-18); BUN/Creat Ratio 16.5 RATIO (10-20); Calcium,Total 8.4 mg/dL (8.5-10.1); Chloride 97 mmol/L (98-107); Creatinine, Serum 1.09 mg/dL (0.70-1.30); EST Glomerular Filtration Rate 69 mL/min (>60); Est Glom Filt Rate - Afr Amer 83 mL/min (>60); Estimated Creatinine Clearance 52.25 ml/min; Globulin 3.9 g/dL (2.2-4.2); Glucose 131 mg/dL (74-106); Potassium 4.2 mmol/L (3.5-5.1); Protein, Total 7.3 g/dL (6.4-8.2); Sodium Level 130 mmol/L (136-145)
[2020-04-08] MEDS: Metoprolol Tartrate 5 MG/5 ML Vial IV (12:45)
[2020-04-08] MEDS: Metoprolol(XL)Succ 25 MG Tablet PO (12:55)
[2020-04-08] MEDS: dilTIAZem 25 MG/5 ML Vial 20 MG IV BOLUS (16:06)
--- NOTE | 2020-04-08 16:52 | PCM.HP.STD ---
Problem List (1) Atherosclerosis of coronary artery of [place] heart without angina pectoris Status: Chronic Qualifiers: Coronary Disease-Associated Artery/Lesion type: [place] artery Qualified Code(s): I25.10 - Atherosclerotic heart disease of [place] coronary artery without angina pectoris (2) H/O coronary artery bypass surgery Status: Chronic Comment: CABG x 4 at [place] 2005 (3) Ischemic cardiomyopathy Status: Chronic (4) Chronic combined systolic and diastolic CHF (congestive heart failure) Status: Chronic (5) Paroxysmal atrial fibrillation Status: Chronic (6) Hyperlipidemia Status: Chronic Qualifiers: History of Present Illness Date of Admission: 04/08/20 Chief Complaint: Cough, shortness of breath. The patient is a 84 year old M with past medical history as mentioned above presented to the emergency room because of productive cough and shortness of breath. His illness started 3 days ago with shortness of breath, mainly on exertion, minimal to moderate exertion, associated with productive cough with scanty sputum as well as profound weakness and fatigue and without aggravating or relieving factors. He denied fever or chills. He denied chest pain, palpitation, dizziness or lightheadedness. He denied recent travel or sick contacts. In the emergency department, he was afebrile, was in A. fib with RVR, blood pressure was stable, pulse ox was 94% on room air and he required oxygen of up to 3 L. Normally, he was oxygen at home mainly at night 3 L at baseline. Routine blood work was remarkable for sodium of 131, otherwise normal. LFT was unremarkable. EKG revealed A. fib with RVR, no acute changes. Troponin is negative. Lactic acid was 1.5. Chest x-ray showed no acute infiltrate or consolidation. COVID-19 PCR came back positive. He is being admitted for COVID-19 pneumonia and A. fib with RVR. Past Medical History Past Medical History (Chronic Problems): Chronic Problems (Last Reviewed 07/09/19 @ 13:[address] Reymundo Howell MD) Atherosclerosis of coronary artery of [place] heart without angina pectoris (Chronic) Old inferior wall myocardial infarction (Chronic) H/O coronary artery bypass surgery (Chronic 04/2006) CABG x 4 at [place] 2005 Ischemic cardiomyopathy (Chronic) Chronic combined systolic and diastolic CHF (congestive heart failure) (Chronic) Paroxysmal atrial fibrillation (Chronic) Patent foramen ovale (Chronic) Hyperlipidemia (Chronic) Medical History: Medical History (Last Reviewed 07/09/19 @ 13:[address] Reymundo Howell MD) Atherosclerosis of coronary artery of [place] heart without angina pectoris (Chronic) I25.10 Old inferior wall myocardial infarction (Chronic) I25.2 Ischemic cardiomyopathy (Chronic) I25.5 Chronic combined systolic and diastolic CHF (congestive heart failure) (Chronic) I50.42 Paroxysmal atrial fibrillation (Chronic) I48.0 Patent foramen ovale (Chronic) Q21.1 Hyperlipidemia (Chronic) E78.5 COPD (chronic obstructive pulmonary disease) J44.9 Cardiomyopathy (Inactive) I42.9 Allergies No Known Allergies Allergy (Verified 07/17/19 11:43) Home Medications: Ambulatory Orders Medication Instructions Recorded garlic 1,500 mg capsule 1,500 mg PO DAILY@1200 07/31/17 Albuterol Aerosols [Ventolin 2.5 mg INHALATION Q2H PRN PRN 07/25/18 Aerosols] vial.neb. fluticasone furoate 100 1 inh INHALATION DAILY 12/15/18 mcg-vilanterol 25 mcg/dose inhalation powder apixaban 5 mg tablet 5 mg PO BID tab 07/09/19 metoprolol succinate 25 mg 25 mg PO DAILY #90 tab 08/11/19 tablet,extended release 24 hr [place] 450 mg PO DAILY 04/08/20 Simvastatin 40 mg PO QHS 04/08/20 Surgical History: Surgical History (Last Reviewed 04/08/20 @ 16:[address] Ernesto Lopez MD) H/O coronary artery bypass surgery (Chronic) Onset Date: 04/2006 Z95.1 CABG x 4 at [place] 2006 Ventral incisional hernia without obstruction or gangrene K43.2 Surgical History: coronary bypass surgery Psychiatric History: No pertinent psych hx Lives: Spouse/ Significant Other Smoking Status: Former smoker Alcohol: None Drugs: None - *Family History Maternal Family History: Family History (Last Reviewed 04/08/20 @ 16:[address] Ernesto Lopez MD) Brother CAD (coronary artery disease) Sister CAD (coronary artery disease) Father CAD (coronary artery disease) Paternal Family History: Family History (Last Reviewed 04/08/20 @ 16:[address] Ernesto Lopez MD) Brother CAD (coronary artery disease) Sister CAD (coronary artery disease) Father CAD (coronary artery disease) Review of Systems Constitutional: Reports: Anorexia, Weakness, Fatigue. Denies: Chills, Fever Eyes: Denies: Blurred vision, Double vision, Drainage, Redness HEENT: Denies: Difficulty Hearing, Ear Pain, Eye Pain, Nasal Congestion, Sore Throat Cardiovascular: Denies: Chest Pain, Chest Pressure, Chest Tightness, Heaviness, Light Headedness, Palpitations, Syncope Respiratory: Reports: Cough, Shortness of Breath, Shortness of breath upon exertion, Sputum production. Denies: Wheezing Gastrointestinal: Denies: Abdominal Pain, Constipation, Diarrhea, Nausea, Vomiting Genitourinary: Denies: Dysuria, Frequency, Hematuria Musculoskeletal: Denies: Arm Pain, Back Pain, Foot Pain Skin: Denies: Dryness, Rash Neurological: Denies: Balance problems, Blurred vision, Double vision, Change in Speech, Slurred speech, Confusion, Headaches, Incoordination Psychiatric: Denies: Anxiety, Depression Endocrine: Denies: Change in Body Habitus, Polydipsia, Polyuria VTE Information - Inpt Only VTE Present on Admission: No VTE Mechan Device Prophylaxis: None VTE Pharm Prophylaxis ordered?: No - Physical Exam Vitals/I&O's: Vital Signs Temp Pulse Resp BP Pulse Ox 97.9 F 99 22 H 143/99 H 98 04/08/20 12:46 04/08/20 16:07 04/08/20 16:07 04/08/20 16:07 04/08/20 16:07 Oxygen Flow Rate (L/min) 3 Oxygen Delivery Method Nasal Cannula Weight: 178 lb 2.136 oz Body Mass Index (BMI) 26.3 Intake and Output for Last 24 Hours 04/06/20 04/07/20 04/08/20 23:59 23:59 23:59 Intake Total 500 / 500 Balance 500 / 500 General: Alert, Oriented x3, Cooperative, - - Minimally short of breath. HEENT: Atraumatic, PERRLA, EOMI, Normocephalic Oral: Moist Mucosa, No Gingival or Mucosal Lesions/ Ulcerations Neck: Supple, No JVD, Negative Carotid Bruits, Trachea Midline, Thyroid Normal Size and Texture Lungs: No wheeze, No rales, Diminished, Rhonchi, Short of Breath, - - Decreased breath sounds bilateral, bilateral rhonchi. Cardiovascular: Normal S1, Normal S2, PMI Normal, Irregular Rate Abdomen: Bowel Sounds Present, Soft, Non Tender, Non-Distended, No Hepato-splenomegaly Extremities: No clubbing, No cyanosis, No edema Skin: No rashes, No breakdown Lymphatic: No Cervical, Supraclavicular, or Inguinal Adenopathy Neurological: Cranial nerves II-XII grossly intact, Motor Exam 5/5 strength throughout Psych/Mental Status: Normal Affect, Appropriate, Alert and oriented to time, place, person, mood and affect Microbiology Past 72 Hours 04/08/20 11:00 Mucosa - Nose Respiratory Panel (PCR) - Final Laboratory Results 04/08/20 11:08: WBC 7.4, RBC 4.61, Hgb 15.4, Hct 45.6, MCV 98.9 H, MCH 33.4 H, MCHC 33.8, RDW Std Deviation 49.0 H, RDW Coeff of Marjorie 13.5, Plt Count 118 L, MPV 14.1 H, Immature Gran % (Auto) 0.400, Neut % (Auto) 79.5 H, Lymph % (Auto) 11.4 L, [place] % (Auto) 8.3, Eos % (Auto) 0.1, Baso % (Auto) 0.3, Absolute Neuts (auto) 5.9, Absolute Lymphs (auto) 0.84, Nucleated RBC % 0, Platelet Estimate MOD DEC, Plt Morphology Comment LARGE 04/08/20 11:08: Sodium 130 L, Potassium 4.2, Chloride 97 L, Carbon Dioxide 30.0, Anion Gap 3 L, BUN 18, Creatinine 1.09, Estim Creat Clear Calc 52.25, Est GFR (MDRD) Af Amer 83, Est GFR (MDRD) Non-Af 69, BUN/Creatinine Ratio 16.5, Glucose 131 H, Calcium 8.4 L, Total Bilirubin 0.70, AST 33, ALT 27, Alkaline Phosphatase 92, Troponin I < 0.015, Total Protein 7.3, Albumin 3.4, Globulin 3.9, Albumin/Globulin Ratio 0.9 04/08/20 11:08: Lactic Acid 1.5 04/08/20 13:21: COVID-19 (GLENNY) Detected Clinical Impression(s) from Imaging Studies Chest X-Ray 04/08/20 11:25 IMPRESSION: Hyperinflation. The lungs are clear. Electronically Signed: Mehul Calderon, at 11:40 EDT , Service support , [facility] 04/08/20 11:00 Mucosa - Nose Respiratory Panel (PCR) - Final Assessment/Plan All Active Problems (Last Reviewed 07/09/19 @ 13:[address] Reymundo Howell MD) COVID-19 (Acute) Atrial fibrillation with RVR (Acute) This is an 84 years old male patient presented to the emergency room because of productive cough, shortness of breath and weakness, found to have COVID-19 pneumonia as well as A. fib with RVR and he is being admitted for treatment. #1 acute COVID-19: Chest x-ray reviewed. Lactic acid is normal. Currently, patient is on oxygen at 3 L. Heart rate slowed down, received 1 dose of IV Cardizem bolus and metoprolol bolus. EKG reviewed as above. Troponin is negative. Plan: Admit to [facility] COVID-19 unit, cardiac monitoring, start IV Decadron, check pro time and INR, LDH, CPK, D-dimer, BNP, CRP, oxygen by nasal cannula to keep O2 saturation more than 92%, infectious disease consult, continue Eliquis, PT OT evaluation and treatment. #2 A. fib with RVR: Heart rate was in the 120s, received IV Cardizem and IV metoprolol bolus. Heart rate is down to 90s. Blood pressure stable. Continue metoprolol for rate control, continue Eliquis for anticoagulation. #3 CAD status post CABG: EKG reviewed, no acute segment changes. Troponin is negative. Plan to continue statins and Eliquis as well as metoprolol. #4 chronic combined systolic and diastolic CHF: Clinically stable, compensated, continue metoprolol. #5 COPD/chronic respiratory failure: Patient uses oxygen mainly at night of up to 3 L, currently he is on 3 L. Plan for albuterol inhaler as needed, O2 by nasal cannula as above. #6 hyperlipidemia: Continue statins. #7 DVT prophylaxis: Continue Eliquis. CODE STATUS: Patient is not sure if he wants to be intubated and on mechanical ventilation. Requested to think about this issue and to discuss with his family as well. This note was generated with [employer] dictation software. It may contain incorrect words, spelling, and punctuation that were not noted in checking the note before signing. Inpatient E&M: 48640 Init Hosp L3
--- NOTE | 2020-04-08 17:47 | CON.PCM_ITS ---
Problem List (1) COVID-19 Status: Acute Reason for Consult: covid Consulted by: Dr. Lopez History of Present Illness: The patient is a 84 year old M with copd, afib, presented to ED today with 3 days fatigue, cough with some clear sputum, not feeling well, dyspnea. No sick contacts. has been sick with similar symptoms. No change in taste/smell, no sore throat, no aches, no headache, no n/v/d. On 3L O2 at night at home. In ED, given dexamethasone after covid (+). Full ROS performed and neg except as noted above. No chest pain. - Medical History Past Medical History (Chronic Problems): Chronic Problems (Last Reviewed 07/09/19 @ 13:[address] 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 fluticasone furoate 100 1 inh INHALATION DAILY 12/15/18 mcg-vilanterol 25 mcg/dose inhalation powder apixaban 5 mg tablet 5 mg PO BID tab 07/09/19 metoprolol succinate 25 mg 25 mg PO DAILY #90 tab 08/11/19 tablet,extended release 24 hr [place] 450 mg PO DAILY 04/08/20 Simvastatin 40 mg PO QHS 04/08/20 - Social History SMOKING STATUS:: Former smoker Vital Signs Temp Pulse Resp BP Pulse Ox 101.8 F H 93 24 H 130/74 H 94 04/08/20 18:05 04/08/20 18:05 04/08/20 19:23 04/08/20 18:05 04/08/20 19:28 Oxygen Flow Rate (L/min) 2 Oxygen Delivery Method Nasal Cannula Weight: 77.4 kg Body Mass Index (BMI) 25.2 Microbiology Past 72 Hours 04/08/20 11:00 Respiratory Panel (PCR) - Final Mucosa - Nose Laboratory Tests Past 24 Hrs 04/08/20 04/08/20 04/08/20 11:08 11:08 11:08 WBC 7.4 RBC 4.61 Hgb 15.4 Hct 45.6 MCV 98.9 H MCH 33.4 H MCHC 33.8 RDW Std Deviation 49.0 H RDW Coeff of Marjorie 13.5 Plt Count 118 L MPV 14.1 H Immature Gran % (Auto) 0.400 Neut % (Auto) 79.5 H Lymph % (Auto) 11.4 L Martin % (Auto) 8.3 Eos % (Auto) 0.1 Baso % (Auto) 0.3 Absolute Neuts (auto) 5.9 Absolute Lymphs (auto) 0.84 Nucleated RBC % 0 Platelet Estimate MOD DEC Plt Morphology Comment LARGE PT INR Fibrinogen D-Dimer Quant (PE/DVT) Sodium 130 L Potassium 4.2 Chloride 97 L Carbon Dioxide 30.0 Anion Gap 3 L BUN 18 Creatinine 1.09 Estim Creat Clear Calc 52.25 Est GFR (MDRD) Af Amer 83 Est GFR (MDRD) Non-Af 69 BUN/Creatinine Ratio 16.5 Glucose 131 H Lactic Acid 1.5 Calcium 8.4 L Total Bilirubin 0.70 AST 33 ALT 27 Alkaline Phosphatase 92 Lactate Dehydrogenase Total Creatine Kinase Troponin I < 0.015 C-React Prot Ext Range B-Natriuretic Peptide Total Protein 7.3 Albumin 3.4 Globulin 3.9 Albumin/Globulin Ratio 0.9 Procalcitonin COVID-19 (GLENNY) 04/08/20 04/08/20 04/08/20 13:21 18:32 18:32 WBC RBC Hgb Hct MCV MCH MCHC RDW Std Deviation RDW Coeff of Marjorie Plt Count MPV Immature Gran % (Auto) Neut % (Auto) Lymph % (Auto) Martin % (Auto) Eos % (Auto) Baso % (Auto) Absolute Neuts (auto) Absolute Lymphs (auto) Nucleated RBC % Platelet Estimate Plt Morphology Comment PT 14.3 INR 1.2 Fibrinogen 455 H D-Dimer Quant (PE/DVT) 1.29 H* Sodium Potassium Chloride Carbon Dioxide Anion Gap BUN Creatinine Estim Creat Clear Calc Est GFR (MDRD) Af Amer Est GFR (MDRD) Non-Af BUN/Creatinine Ratio Glucose Lactic Acid Calcium Total Bilirubin AST ALT Alkaline Phosphatase Lactate Dehydrogenase 200 Total Creatine Kinase 55 Troponin I C-React Prot Ext Range 37.20 H B-Natriuretic Peptide Total Protein Albumin Globulin Albumin/Globulin Ratio Procalcitonin COVID-19 (GLENNY) Detected 04/08/20 04/08/20 18:32 18:32 WBC RBC Hgb Hct MCV MCH MCHC RDW Std Deviation RDW Coeff of Marjorie Plt Count MPV Immature Gran % (Auto) Neut % (Auto) Lymph % (Auto) Martin % (Auto) Eos % (Auto) Baso % (Auto) Absolute Neuts (auto) Absolute Lymphs (auto) Nucleated RBC % Platelet Estimate Plt Morphology Comment PT INR Fibrinogen D-Dimer Quant (PE/DVT) Sodium Potassium Chloride Carbon Dioxide Anion Gap BUN Creatinine Estim Creat Clear Calc Est GFR (MDRD) Af Amer Est GFR (MDRD) Non-Af BUN/Creatinine Ratio Glucose Lactic Acid Calcium Total Bilirubin AST ALT Alkaline Phosphatase Lactate Dehydrogenase Total Creatine Kinase Troponin I C-React Prot Ext Range B-Natriuretic Peptide 849.7 H Total Protein Albumin Globulin Albumin/Globulin Ratio Procalcitonin 0.11 H COVID-19 (GLENNY) - Other Studies Radiology: [] reviewed Other Studies: [] Route of nutrition/ use of supplements: [] Nutritional Intake: [] IV Site: [] Fernández Catheter: [] - Physical Exam General: Alert, Oriented x3, Cooperative, - - ill appearing HEENT: Atraumatic, PERRLA, EOMI Neck: Supple, No Nodes Lungs: Diminished Cardiovascular: Irregular Rate, Tachycardic Abdomen: Soft, Non Tender, Non-Distended Extremities: No edema Skin: No rashes IV Site: Peripheral, without redness Musculoskeletal: No Tenderness to Palpation of Joints or Extremities Neurological: Cranial nerves II-XII grossly intact - Assessment/Plan Antibiotics: [] Assessment/Plan: [] covid 19 with acute hypoxic resp failure - sat down to 88% on RA. On 3L O2 at night at baseline. On dex, plan on 10 day course. Encouraged him to have his get tested. Reviewed EUA and risks/benefits of remdesivir and convalescent plasma. He consents to both, will start. He is being admitted to icu. Will follow daily cmp and cbc while on remdesivir. D-dimer high, on eliquis, CTA pending. Will follow, thank you, d/w Dr. Lopez.
[2020-04-08] MEDS: dexAMETHasone 4 MG/ML Vial 6 MG IV (17:51)
[2020-04-08 18:50] LABS: International Normalized Ratio 1.2; Prothrombin Time (Protime)PT. 14.3 SECONDS (11.7-14.9)
[2020-04-08 18:51] LABS: Fibrinogen 455 mg/dl (203-444)
[2020-04-08 18:56] LABS: D-Dimer Quantitative (DVT/PE) 1.29 FEU/ug/m (0.27-0.49)
--- NOTE | 2020-04-08 19:04 | CT_ITS ---
STUDY: CTA CHEST REASON FOR EXAM: Male, 84 years old. ELEVATED D DIMER,COUGH,SOB,FATIGUE,POSITIVE FOR COVID-19 -- HX:COPD,EMPHYSEMA,A-FIB,UT,CABG RADIATION DOSAGE (If Supplied By Facility): CTDIvol = ( 17.98 ) mGy, DLP = ( 367.04 ) mGycm TECHNIQUE: The examination was performed with the intravenous administration of IV 100mL [id number]. Post-processing of the angiographic images was performed, with multiplanar reformation and 3D reconstruction. Individualized dose optimization techniques were used for this CT. COMPARISON: None. FINDINGS: Normal enhancement of the main pulmonary artery and right and left pulmonary arteries. Normal enhancement of the bilateral peripheral pulmonary arteries. There is no demonstrated pulmonary embolism. Calcified thoracic aorta and visualized great vessels. There is no demonstrated aortic dissection. Normal heart and pericardium. Calcifications at the mediastinum and hilar regions. Mild mediastinal adenopathy. Normal visualized trachea and bronchi. The lungs are hyperaerated with emphysematous changes and interstitial prominence. Possible focal right lower lobe infiltrate medially. Small right pleural effusion. Normal pleura. Normal chest wall structures. Degenerative vertebral changes heterogeneous bony density. Underlying hematopoietic disorder cannot be excluded. A ventral hernia containing part of the colon is noted in the upper abdomen. Right renal cysts. Possible soft tissue exophytic nodule. Mild bilateral perinephric stranding. CT/CTA Chest W/WO Contrast IMPRESSION: No demonstrated pulmonary embolism or arterial dissection. Hyperaeration with emphysematous changes. Small right pleural effusion. Possible right basilar infiltrate medially. Mild mediastinal adenopathy. Mediastinal and hilar calcifications. Ventral hernia. Right renal cysts. Questionable exophytic nodule right renal nodule. Correlation with ultrasound is recommended. Electronically Signed: Antony Silva DO at 21:08 EDT Tel [phone], Service support ,
[2020-04-08 19:12] LABS: BNP,B-Type NATRIURETIC PEPTIDE 849.7 pg/mL (0-100)
[2020-04-08 19:16] LABS: CPK Total, Creatine Kinase 55 U/L (39-308); LDH 200 U/L (87-241)
[2020-04-08 19:21] LABS: Procalcitonin 0.11 ng/mL (0.00-0.09)
[2020-04-08] MEDS: APIXABAN 5 MG TABLET PO (21:05)
[2020-04-08] MEDS: Atorvastatin Calcium 20 MG Tablet PO (21:05)
--- NOTE | 2020-04-08 23:52 | NURSING ---
CT CHEST NOTED NEGATIVE FOR PE
[2020-04-09] VITALS (12 sets, daily range): BP systolic 111–140; BP diastolic 54–80; PULSE 81–96; RESP 14–28; TEMP 36.6–37.4; O2SAT 94–97
[2020-04-09 06:41] LABS: Absolute Lymphocyte Count 0.57 X10^3/uL (0.83-4.51); Absolute Neutrophil Count 4.7 X10^3/uL (2.0-7.7); Hematocrit 40.4 % (40-54); Hemoglobin 13.5 g/dL (13.0-16.5); Lymphocyte # 0.57 X10^3/ul (4.0); Mean Corp Hgb Conc 33.4 g/dL (32-36); Mean Corpuscular Hgb 33.2 pg (27.0-32.0); Mean Corpuscular Volume 99.3 fL (80-94); Mean Platelet Vol. 12.2 fl (6.2-12.0); Monocyte# 0.39 X10^3/uL; Monocyte% 6.9 % (0-10); NRBC Flagged by Analyzer 0 % (0-5); Neutrophil # 4.71 X10^3/uL (2.7-7.7); Neutrophil % 82.7 % (47-70); POSITIVE DIFFERENTIAL YES; Platelet Count 144 K/mm3 (150-450); RBC Distribution Width CV 13.6 % (11.6-14.6); Red Blood Count 4.07 M/mm3 (4.6-6.2); White Blood Count 5.7 K/mm3 (4.4-11.0)
[2020-04-09 07:04] LABS: Differential Indicated SCAN CRITERIA MET
[2020-04-09 07:05] LABS: Differential Comment SCANNED; Schistocytes RARE
[2020-04-09 07:14] LABS: ALB/GLOB Ratio 0.8 RATIO (0.9-2.4); AST(SGOT) 21 U/L (15-37); Alanine Aminotransfer ALT/SGPT 22 U/L (16-61); Albumin, Serum 2.8 g/dL (3.2-5.0); Alkaline Phosphatase 74 U/L (45-117); Anion Gap 4 (5-15); BUN 17 mg/dL (7-18); BUN/Creat Ratio 18.1 RATIO (10-20); Chloride 101 mmol/L (98-107); Creatinine, Serum 0.94 mg/dL (0.70-1.30); EST Glomerular Filtration Rate 82 mL/min (>60); Est Glom Filt Rate - Afr Amer 99 mL/min (>60); Estimated Creatinine Clearance 60.59 ml/min; Globulin 3.6 g/dL (2.2-4.2); Glucose 127 mg/dL (74-106); Potassium 4.3 mmol/L (3.5-5.1); Protein, Total 6.4 g/dL (6.4-8.2); Sodium Level 132 mmol/L (136-145)
[2020-04-09] MEDS: APIXABAN 5 MG TABLET PO ×2 (11:14→21:28)
[2020-04-09] MEDS: Metoprolol(XL)Succ 25 MG Tablet PO (11:15)
[2020-04-09] MEDS: dexAMETHasone 10 MG/ML Vial 6 MG IV (11:16)
--- NOTE | 2020-04-09 12:03 | US_ITS ---
STUDY: RENAL ULTRASOUND - COMPLETE REASON FOR EXAM: Male, 84 years old. F/U 04/08/20 CT- RIGHT EXOPHYTIC RENAL NODULE TECHNIQUE: Ultrasound evaluation of the kidneys was performed with real-time and static childers-scale imaging. COMPARISON: CT abdomen/pelvis 04/08/2020. FINDINGS: RIGHT KIDNEY: Normal location of the right kidney, which is normal in size. The right kidney measures 12.3 x 6.0 x 6.0 cm. There is a normal cortex of the right kidney. The renal cortex measures 1.5 cm. There are 3 cysts up to 3.9 cm. 2 of the cysts appear exophytic in location. There are no right renal calculi. There is no right hydronephrosis. DISTAL RIGHT URETER: There is non-visualization of the distal right ureter. There is a visualized right ureteral jet. LEFT KIDNEY: Normal location of the left kidney, which is normal in size. The left kidney measures 11.9 x 6.1 x 5.2 cm. There is a normal cortex of the left kidney. The renal cortex measures 1.8 cm. There is a 2.4 cm cyst. There are no left renal calculi. There is no left hydronephrosis. DISTAL LEFT URETER: There is non-visualization of the distal left ureter. There is a visualized left ureteral jet. BLADDER: The urinary bladder has a volume of 36 ml. There is a normal wall thickness of the distended urinary bladder. There is no demonstrated mass within the urinary bladder. There are no demonstrated bladder calculi. US/Kidney and Bladder IMPRESSION: Bilateral renal cysts. No solid nodule. Electronically Signed: Antony Silva DO at 23:57 EDT Tel [phone], Service support ,
--- NOTE | 2020-04-09 12:04 | PN_ITS ---
Patient Problems: Active and Suspected Problems (Last Reviewed 07/09/19 @ 13:[address] Reymundo Howell MD) COVID-19 (Acute) Subjective: Pt states that he is feeling better. Tells me he started with sx last Saturday. No known exposures. HR controlled and on 2 L. Wears 3 L at night at home. Vitals/I&O's: Vital Signs Temp Pulse Resp BP Pulse Ox 98.1 F 80 20 H 122/81 H 97 04/09/20 11:51 04/09/20 11:51 04/09/20 11:51 04/09/20 11:51 04/09/20 11:51 Oxygen Flow Rate (L/min) 2 Oxygen Delivery Method Nasal Cannula Weight: 77.4 kg Body Mass Index (BMI) 25.2 Intake and Output for Last 24 Hours 04/07/20 04/08/20 04/09/20 23:59 23:59 23:59 Intake Total 750 / 750 750 / 750 Output Total 600 / 600 Balance 750 / 750 150 / 150 General: Alert, Oriented x3, Cooperative, No apparent distress, Well developed, Well nourished HEENT: Atraumatic, Normocephalic Oral: Moist Mucosa, - - poor dentition Neck: Supple, Trachea Midline Lungs: No rhonchi, No wheeze, No rales, Diminished Cardiovascular: Regular rate, Normal S1, Normal S2, No murmurs, No Ectopic Activity, No rub noted, No Gallop, - - irreg rhythm Abdomen: Bowel Sounds Present, Soft, Non Tender, Non-Distended, No Hepato- splenomegaly, No hernias noted Extremities: No clubbing, No cyanosis, No edema, Capillary Refill Less than 3 Seconds, Peripheral Pulses Normal Neurological: Cranial nerves II-XII grossly intact, Neuro grossly intact Psych/Mental Status: Normal Affect, Appropriate Microbiology Past 72 Hours 04/08/20 11:00 Mucosa - Nose Respiratory Panel (PCR) - Final Laboratory Results 04/08/20 11:08: Sodium 130 L, Potassium 4.2, Chloride 97 L, Carbon Dioxide 30.0, Anion Gap 3 L, BUN 18, Creatinine 1.09, Estim Creat Clear Calc 52.25, Est GFR (MDRD) Af Amer 83, Est GFR (MDRD) Non-Af 69, BUN/Creatinine Ratio 16.5, Glucose 131 H, Calcium 8.4 L, Total Bilirubin 0.70, AST 33, ALT 27, Alkaline Phosphatase 92, Troponin I < 0.015, Total Protein 7.3, Albumin 3.4, Globulin 3.9, Albumin/Globulin Ratio 0.9 04/08/20 13:21: COVID-19 (GLENNY) Detected 04/08/20 18:32: PT 14.3, INR 1.2, Fibrinogen 455 H, D-Dimer Quant (PE/DVT) 1.29 H* 04/08/20 18:32: Lactate Dehydrogenase 200, Total Creatine Kinase 55, C-React Prot Ext Range 37.20 H 04/08/20 18:32: B-Natriuretic Peptide 849.7 H 04/08/20 18:32: Procalcitonin 0.11 H 04/08/20 20:35: Blood Type A POSITIVE 04/09/20 06:25: Sodium 132 L, Potassium 4.3, Chloride 101, Carbon Dioxide 27.0, Anion Gap 4 L, BUN 17, Creatinine 0.94, Estim Creat Clear Calc 60.59, Est GFR (MDRD) Af Amer 99, Est GFR (MDRD) Non-Af 82, BUN/Creatinine Ratio 18.1, Glucose 127 H, Calcium 8.0 L, Total Bilirubin 0.30, AST 21, ALT 22, Alkaline Phosphatase 74, Total Protein 6.4, Albumin 2.8 L, Globulin 3.6, Albumin/Globulin Ratio 0.8 L 04/09/20 06:25: WBC 5.7, RBC 4.07 L, Hgb 13.5, Hct 40.4, MCV 99.3 H, MCH 33.2 H, MCHC 33.4, RDW Std Deviation 50.0 H, RDW Coeff of Marjorie 13.6, Plt Count 144 L, MPV 12.2 H, Immature Gran % (Auto) 0.400, Neut % (Auto) 82.7 H, Lymph % (Auto) 10.0 L, [place] % (Auto) 6.9, Eos % (Auto) 0.0, Baso % (Auto) 0.0, Absolute Neuts (auto) 4.7, Absolute Lymphs (auto) 0.57 L, Nucleated RBC % 0, Differential Comment SCANNED, Schistocytes RARE Current Medications Acetaminophen (Acetaminophen 325 Mg Tablet) 650 mg PO Q6H PRN PRN PRN Reason: Pain Score 1-10/Temp > 100.7 F Albuterol Sulfate (Albuterol Ih 8.5 Gm (Proair) Inhaler (200 Puffs)) 2 puff INHALATION Q4H PRN PRN PRN Reason: Shortness of breath, wheezing Apixaban (Apixaban 5 Mg Tablet) 5 mg PO BID [facility] Last Admin: 04/09/20 11:14 Dose: 5 mg Documented by: Atorvastatin Calcium (Atorvastatin Calcium 20 Mg Tablet) 20 mg PO QHS [facility] Last Admin: 04/08/20 21:05 Dose: 20 mg Documented by: Dexamethasone Sodium Phosphate (Dexamethasone 10 Mg/Ml Vial) 6 mg IV DAILY [facility] Last Admin: 04/09/20 11:16 Dose: 6 mg Documented by: Sodium Chloride () 250 mls @ 15 mls/hr IV .[id number] PRN PRN Reason: Saline Flush Sodium Chloride () 250 mls @ 15 mls/hr IV .[id number] PRN PRN Reason: Additional IVPB Infusion Remdesivir (Investigational) (100 mg/ Sodium Chloride) 250 mls @ 125 mls/hr IV DAILY [facility]; Protocol Stop: 04/12/20 11:59 Last Admin: 04/09/20 11:15 Dose: 125 mls/hr Documented by: Metoprolol Succinate (Metoprolol(Xl)Succ 25 Mg Tablet) 25 mg PO DAILY [facility] Last Admin: 04/09/20 11:15 Dose: 25 mg Documented by: Ondansetron HCl (Ondansetron 4 Mg/2 Ml Vial) 4 mg IV Q8H PRN PRN PRN Reason: NAUSEA/VOMITING Senna/Docusate Sodium (Senna/Docusate Sodium 1 Tablet) 2 tablet PO BID PRN PRN PRN Reason: Constipation Sodium Chloride (0.9% Saline Lock 10 Ml Syringe) 10 - 40 ml IV UD PRN PRN Reason: SALINE FLUSH Zolpidem Tartrate (Zolpidem Tartrate 5 Mg Tablet) 5 mg PO QHS PRN PRN PRN Reason: INSOMNIA STROKE Vital Signs/Narrative: Vital Signs Temp Pulse Resp BP Pulse Ox 04/09/20 11:51 98.1 F 80 20 H 122/81 H 97 04/09/20 11:15 83 04/09/20 10:00 91 20 H 97 Medical Necessity - Tobacco Use Smoking Status: Unknown if ever smoked Assessment/Plan All Active Problems (Last Reviewed 07/09/19 @ 13:[address] Reymundo Howell MD) COVID-19 (Acute) Atrial fibrillation with RVR (Acute) Acute on Chronic Respiratory Failure 2/2 Acute COVID 19 -on Eliquis at baseline -CTA negative for PE -Decadron day 08/03 -Remdesivir day 07/29 -Convelascent plasma given -now on 2 L with SpO2 of 97% -wean as able -continue supportive care -prn inhaler Afib with RVR -pt has chronic afib -was given Cardizem and metoprolol in ED -now rate controlled -continue home BB -continue Eliquis Mild Hyponatremia -monitor -suspect related to COVID CAD s/p CABG/HTN/HPL -trop neg -continue home meds Compensated HFrEF -continue home meds Chronic Respiratory Failure 2/2 COPD -wears 3 L at baseline at home primarily at night only -? CEHN component -continue home inhalers DVT prophylaxis -fully anticoagulated Code Status -pt to talk to family and decide will make full code until decision is made Inpatient E&M: 96483 Subs Hosp L2
[2020-04-09] MEDS: Atorvastatin Calcium 20 MG Tablet PO (21:28)
[2020-04-10] VITALS (12 sets, daily range): BP systolic 111–144; BP diastolic 74–87; PULSE 77–170; RESP 18–20; TEMP 36.4–36.6; O2SAT 94–97
[2020-04-10 04:40] LABS: Hematocrit 43.9 % (40-54); Hemoglobin 14.8 g/dL (13.0-16.5); Mean Corp Hgb Conc 33.7 g/dL (32-36); Mean Corpuscular Hgb 33.3 pg (27.0-32.0); Mean Corpuscular Volume 98.7 fL (80-94); Mean Platelet Vol. 11.9 fl (6.2-12.0); Platelet Count 171 K/mm3 (150-450); RBC Distribution Width CV 13.5 % (11.6-14.6); RBC Distribution Width SD 48.8 fl (35.1-43.9); Red Blood Count 4.45 M/mm3 (4.6-6.2); White Blood Count 9.4 K/mm3 (4.4-11.0)
[2020-04-10 04:57] LABS: ALB/GLOB Ratio 0.8 RATIO (0.9-2.4); AST(SGOT) 25 U/L (15-37); Alanine Aminotransfer ALT/SGPT 25 U/L (16-61); Albumin, Serum 3.1 g/dL (3.2-5.0); Alkaline Phosphatase 82 U/L (45-117); Anion Gap 5 (5-15); BUN 23 mg/dL (7-18); BUN/Creat Ratio 21.3 RATIO (10-20); Calcium,Total 8.3 mg/dL (8.5-10.1); Chloride 100 mmol/L (98-107); Creatinine, Serum 1.08 mg/dL (0.70-1.30); EST Glomerular Filtration Rate 69 mL/min (>60); Est Glom Filt Rate - Afr Amer 84 mL/min (>60); Estimated Creatinine Clearance 52.73 ml/min; Globulin 4.1 g/dL (2.2-4.2); Glucose 124 mg/dL (74-106); Potassium 4.2 mmol/L (3.5-5.1); Protein, Total 7.2 g/dL (6.4-8.2); Sodium Level 132 mmol/L (136-145)
[2020-04-10] MEDS: APIXABAN 5 MG TABLET PO ×2 (09:15→22:07)
[2020-04-10] MEDS: Metoprolol(XL)Succ 25 MG Tablet PO (09:15)
[2020-04-10] MEDS: 0.9% Saline Lock 10 ML Syringe IV ×2 (09:15→10:02)
[2020-04-10] MEDS: dexAMETHasone 10 MG/ML Vial 6 MG IV (09:15)
[2020-04-10] MEDS: guaiFENesin 10 ML UDC (200MG/10ML) PO ×2 (10:02→17:52)
--- NOTE | 2020-04-10 10:46 | PN_ITS ---
Patient Problems: Active and Suspected Problems (Last Reviewed 07/09/19 @ 13:[address] Reymundo Howell MD) COVID-19 (Acute) Subjective: Pt states that he is feeling ok. Admits that he is markedly SOB with exertion. Only wears O2 at night at baseline. Vitals/I&O's: Vital Signs Temp Pulse Resp BP Pulse Ox 97.8 F 95 18 144/74 H 94 04/10/20 09:12 04/10/20 09:15 04/10/20 09:12 04/10/20 09:12 04/10/20 09:12 Oxygen Flow Rate (L/min) 2 Oxygen Delivery Method Nasal Cannula Weight: 77.4 kg Body Mass Index (BMI) 25.2 Intake and Output for Last 24 Hours 04/08/20 04/09/20 04/10/20 23:59 23:59 23:59 Intake Total 750 / 750 1300 / 1700 700 / 700 Output Total 1150 / 1150 300 / 300 Balance 750 / 750 150 / 550 400 / 400 General: Alert, Oriented x3, Cooperative, No apparent distress, Well developed, Well nourished HEENT: Atraumatic, Normocephalic Oral: Moist Mucosa Lungs: No rhonchi, No wheeze, No rales, Diminished Cardiovascular: Regular rate, Normal S1, Normal S2, No murmurs, No Ectopic Activity, No rub noted, No Gallop, - - irreg rhythm Abdomen: Bowel Sounds Present, Soft, Non Tender, Non-Distended, No hernias noted Extremities: No clubbing, No cyanosis, No edema, Capillary Refill Less than 3 Seconds, Peripheral Pulses Normal Skin: No rashes, No breakdown Neurological: Cranial nerves II-XII grossly intact, Neuro grossly intact, Muscle tone normal, Coordination normal Psych/Mental Status: Normal Affect, Appropriate, Alert and oriented to time, place, person, mood and affect Microbiology Past 72 Hours 04/08/20 11:08 Blood Culture (Wb) - Anticubital Left Blood Culture - Preliminary No growth in 48 hours. 04/08/20 11:13 Blood Culture (Wb) - Left Wrist Blood Culture - Preliminary No growth in 48 hours. 04/08/20 11:00 Mucosa - Nose Respiratory Panel (PCR) - Final Laboratory Results 04/10/20 04:32: WBC 9.4, RBC 4.45 L, Hgb 14.8, Hct 43.9, MCV 98.7 H, MCH 33.3 H, MCHC 33.7, RDW Std Deviation 48.8 H, RDW Coeff of Marjorie 13.5, Plt Count 171, MPV 11.9 04/10/20 04:32: Sodium 132 L, Potassium 4.2, Chloride 100, Carbon Dioxide 27.0, Anion Gap 5, BUN 23 H, Creatinine 1.08, Estim Creat Clear Calc 52.73, Est GFR (MDRD) Af Amer 84, Est GFR (MDRD) Non-Af 69, BUN/Creatinine Ratio 21.3 H, Glucose 124 H, Calcium 8.3 L, Total Bilirubin 0.40, AST 25, ALT 25, Alkaline Phosphatase 82, Total Protein 7.2, Albumin 3.1 L, Globulin 4.1, Albumin/Globulin Ratio 0.8 L Current Medications Acetaminophen (Acetaminophen 325 Mg Tablet) 650 mg PO Q6H PRN PRN PRN Reason: Pain Score 1-10/Temp > 100.7 F Albuterol Sulfate (Albuterol Ih 8.5 Gm (Proair) Inhaler (200 Puffs)) 2 puff INHALATION Q4H PRN PRN PRN Reason: Shortness of breath, wheezing Apixaban (Apixaban 5 Mg Tablet) 5 mg PO BID [facility] Last Admin: 04/10/20 09:15 Dose: 5 mg Documented by: Atorvastatin Calcium (Atorvastatin Calcium 20 Mg Tablet) 20 mg PO QHS [facility] Last Admin: 04/09/20 21:28 Dose: 20 mg Documented by: Dexamethasone Sodium Phosphate (Dexamethasone 10 Mg/Ml Vial) 6 mg IV DAILY [facility] Last Admin: 04/10/20 09:15 Dose: 6 mg Documented by: Guaifenesin (Guaifenesin 10 Ml Udc (200mg/10ml)) 10 ml PO Q6H PRN PRN PRN Reason: COUGH Last Admin: 04/10/20 10:02 Dose: 10 ml Documented by: Sodium Chloride () 250 mls @ 15 mls/hr IV .[id number] PRN PRN Reason: Saline Flush Sodium Chloride () 250 mls @ 15 mls/hr IV .[id number] PRN PRN Reason: Additional IVPB Infusion Remdesivir (Investigational) (100 mg/ Sodium Chloride) 250 mls @ 125 mls/hr IV DAILY [facility]; Protocol Stop: 04/12/20 11:59 Last Admin: 04/10/20 10:02 Dose: 125 mls/hr Documented by: Metoprolol Succinate (Metoprolol(Xl)Succ 25 Mg Tablet) 25 mg PO DAILY [facility] Last Admin: 04/10/20 09:15 Dose: 25 mg Documented by: Ondansetron HCl (Ondansetron 4 Mg/2 Ml Vial) 4 mg IV Q8H PRN PRN PRN Reason: NAUSEA/VOMITING Senna/Docusate Sodium (Senna/Docusate Sodium 1 Tablet) 2 tablet PO BID PRN PRN PRN Reason: Constipation Sodium Chloride (0.9% Saline Lock 10 Ml Syringe) 10 - 40 ml IV UD PRN PRN Reason: SALINE FLUSH Last Admin: 04/10/20 10:02 Dose: 10 ml Documented by: Zolpidem Tartrate (Zolpidem Tartrate 5 Mg Tablet) 5 mg PO QHS PRN PRN PRN Reason: INSOMNIA STROKE Vital Signs/Narrative: Vital Signs Temp Pulse Resp BP Pulse Ox 04/10/20 09:15 95 04/10/20 09:12 97.8 F 95 18 144/74 H 94 04/10/20 07:00 85 Medical Necessity - Tobacco Use Smoking Status: Unknown if ever smoked Assessment/Plan All Active Problems (Last Reviewed 07/09/19 @ 13:[address] Reymundo Howell MD) COVID-19 (Acute) Atrial fibrillation with RVR (Acute) Acute on Chronic Respiratory Failure 2/2 Acute COVID 19 -on Eliquis at baseline -CTA negative for PE -Decadron day 08/31 -Remdesivir day 08/26 -Convalescent plasma given -now on 2 L with SpO2 of 94% -wean as able as pt is not on day time O2 at home -pt admits that he gets markedly SOB with exertion -continue supportive care -prn inhaler Afib with RVR -pt has chronic afib -was given Cardizem and metoprolol in ED -rate remains controlled -continue home BB -continue Eliquis R Kidney Exophytic Nodule -B cysts but no solid nodule noted on US Mild Hyponatremia -monitor -suspect related to COVID -stable CAD s/p CABG/HTN/HPL -trop neg -continue home meds Compensated HFrEF -continue home meds Chronic Respiratory Failure 2/2 COPD -wears 3 L at baseline at home primarily at night only -? CHEN component -continue home inhalers DVT prophylaxis -fully anticoagulated Code Status -Full Dispo Likely D/C Early this week (?Saturday) Inpatient E&M: 74810 Subs Hosp L2
[2020-04-10] MEDS: Atorvastatin Calcium 20 MG Tablet PO (22:07)
[2020-04-11] VITALS (14 sets, daily range): BP systolic 120–139; BP diastolic 61–78; PULSE 75–108; RESP 16–20; TEMP 36.2–36.4; O2SAT 91–96
[2020-04-11] MEDS: guaiFENesin 10 ML UDC (200MG/10ML) PO ×2 (02:27→21:49)
[2020-04-11 06:27] LABS: Hematocrit 39.9 % (40-54); Hemoglobin 13.2 g/dL (13.0-16.5); Mean Corp Hgb Conc 33.1 g/dL (32-36); Mean Corpuscular Hgb 32.8 pg (27.0-32.0); Mean Platelet Vol. 12.8 fl (6.2-12.0); Platelet Count 170 K/mm3 (150-450); RBC Distribution Width CV 13.6 % (11.6-14.6); RBC Distribution Width SD 49.8 fl (35.1-43.9); Red Blood Count 4.03 M/mm3 (4.6-6.2); White Blood Count 11.6 K/mm3 (4.4-11.0)
[2020-04-11 07:01] LABS: ALB/GLOB Ratio 0.8 RATIO (0.9-2.4); AST(SGOT) 21 U/L (15-37); Alanine Aminotransfer ALT/SGPT 24 U/L (16-61); Albumin, Serum 2.6 g/dL (3.2-5.0); Alkaline Phosphatase 68 U/L (45-117); Anion Gap 5 (5-15); BUN 24 mg/dL (7-18); Calcium,Total 7.9 mg/dL (8.5-10.1); Chloride 100 mmol/L (98-107); Creatinine, Serum 0.92 mg/dL (0.70-1.30); EST Glomerular Filtration Rate 83 mL/min (>60); Est Glom Filt Rate - Afr Amer 101 mL/min (>60); Estimated Creatinine Clearance 61.91 ml/min; Globulin 3.1 g/dL (2.2-4.2); Glucose 97 mg/dL (74-106); Potassium 4.4 mmol/L (3.5-5.1); Protein, Total 5.7 g/dL (6.4-8.2); Sodium Level 133 mmol/L (136-145)
[2020-04-11] MEDS: dexAMETHasone 10 MG/ML Vial 6 MG IV (09:29)
[2020-04-11] MEDS: APIXABAN 5 MG TABLET PO ×2 (09:29→21:49)
[2020-04-11] MEDS: Metoprolol(XL)Succ 25 MG Tablet PO (09:40)
[2020-04-11] MEDS: 0.9% Saline Lock 10 ML Syringe IV ×2 (09:41→11:27)
--- NOTE | 2020-04-11 12:35 | PN_ITS ---
Patient Problems: Active and Suspected Problems (Last Reviewed 07/09/19 @ 13:[address] Reymundo Howell MD) COVID-19 (Acute) Subjective: Patient seen and examined. He still admits to some mild shortness of breath. He denies any chest pain or palpitations, dizziness, nausea vomiting or diarrhea. Review of systems otherwise negative. He is on 2 L of oxygen which is his baseline that he wears at home at night. He has otherwise remained hemodynamically stable. Vitals/I&O's: Vital Signs Temp Pulse Resp BP Pulse Ox 97.6 F L 97 18 120/61 94 04/11/20 08:30 04/11/20 09:40 04/11/20 08:30 04/11/20 08:30 04/11/20 08:30 Oxygen Flow Rate (L/min) 2 Oxygen Delivery Method Nasal Cannula Weight: 170 lb 10.205 oz Body Mass Index (BMI) 25.2 Intake and Output for Last 24 Hours 04/09/20 04/10/20 04/11/20 23:59 23:59 23:59 Intake Total 1300 / 1700 3350 / 3350 100.25 / 100.25 Output Total 1150 / 1150 300 / 300 Balance 150 / 550 3050 / 3050 100.25 / 100.25 General: Alert, Oriented x3, Cooperative, No apparent distress HEENT: Atraumatic, PERRLA, EOMI, Normocephalic Oral: Moist Mucosa Neck: Supple, No JVD, Negative Carotid Bruits Lungs: - - mildly diminished breath sounds bibasally, no wheezes or crackles. Cardiovascular: Regular rate, Regular Rhythm, Normal S1, Normal S2, No murmurs Abdomen: Bowel Sounds Present, Soft, Non Tender, Non-Distended, No Hepato- splenomegaly Extremities: No clubbing, No cyanosis, No edema, Capillary Refill Less than 3 Se conds Skin: No rashes, No breakdown Musculoskeletal: No Tenderness to Palpation of Joints or Extremities Lymphatic: No Cervical, Supraclavicular, or Inguinal Adenopathy Neurological: Cranial nerves II-XII grossly intact, Neuro grossly intact, Motor Exam 5/5 strength throughout Psych/Mental Status: Normal Affect, Appropriate, Alert and oriented to time, place, person, mood and affect Microbiology Past 72 Hours 04/08/20 11:08 Blood Culture (Wb) - Anticubital Left Blood Culture - Preliminary No growth in 48 hours. 04/08/20 11:13 Blood Culture (Wb) - Left Wrist Blood Culture - Preliminary No growth in 48 hours. 04/08/20 11:00 Mucosa - Nose Respiratory Panel (PCR) - Final Laboratory Results 04/11/20 05:58: WBC 11.6 H, RBC 4.03 L, Hgb 13.2, Hct 39.9 L, MCV 99.0 H, MCH 32.8 H, MCHC 33.1, RDW Std Deviation 49.8 H, RDW Coeff of Marjorie 13.6, Plt Count 170, MPV 12.8 H 04/11/20 05:58: Sodium 133 L, Potassium 4.4, Chloride 100, Carbon Dioxide 28.0, Anion Gap 5, BUN 24 H, Creatinine 0.92, Estim Creat Clear Calc 61.91, Est GFR (MDRD) Af Amer 101, Est GFR (MDRD) Non-Af 83, BUN/Creatinine Ratio 26.0 H, Glucose 97, Calcium 7.9 L, Total Bilirubin 0.40, AST 21, ALT 24, Alkaline Phosphatase 68, Total Protein 5.7 L, Albumin 2.6 L, Globulin 3.1, Albumin/Globulin Ratio 0.8 L Current Medications Acetaminophen (Acetaminophen 325 Mg Tablet) 650 mg PO Q6H PRN PRN PRN Reason: Pain Score 1-10/Temp > 100.7 F Albuterol Sulfate (Albuterol Ih 8.5 Gm (Proair) Inhaler (200 Puffs)) 2 puff INHALATION Q4H PRN PRN PRN Reason: Shortness of breath, wheezing Albuterol/Ipratropium (Ipratropium/Albuterol Sulfate 3 Ml Ampul.Neb) 3 ml INHALATION Q6H.RT [facility] Apixaban (Apixaban 5 Mg Tablet) 5 mg PO BID [facility] Last Admin: 04/11/20 09:29 Dose: 5 mg Documented by: Atorvastatin Calcium (Atorvastatin Calcium 20 Mg Tablet) 20 mg PO QHS [facility] Last Admin: 04/10/20 22:07 Dose: 20 mg Documented by: Dexamethasone Sodium Phosphate (Dexamethasone 10 Mg/Ml Vial) 6 mg IV DAILY [facility] Last Admin: 04/11/20 09:29 Dose: 6 mg Documented by: Guaifenesin (Guaifenesin 10 Ml Udc (200mg/10ml)) 10 ml PO Q6H PRN PRN PRN Reason: COUGH Last Admin: 04/11/20 02:27 Dose: 10 ml Documented by: Sodium Chloride () 250 mls @ 15 mls/hr IV .[id number] PRN PRN Reason: Saline Flush Last Infusion: 04/11/20 11:27 Dose: 0 mls/hr Documented by: Sodium Chloride () 250 mls @ 15 mls/hr IV .[id number] PRN PRN Reason: Additional IVPB Infusion Remdesivir (Investigational) (100 mg/ Sodium Chloride) 250 mls @ 125 mls/hr IV DAILY [facility]; Protocol Stop: 04/12/20 11:59 Last Admin: 04/11/20 10:30 Dose: 125 mls/hr Documented by: Metoprolol Succinate (Metoprolol(Xl)Succ 25 Mg Tablet) 25 mg PO DAILY [facility] Last Admin: 04/11/20 09:40 Dose: 25 mg Documented by: Ondansetron HCl (Ondansetron 4 Mg/2 Ml Vial) 4 mg IV Q8H PRN PRN PRN Reason: NAUSEA/VOMITING Senna/Docusate Sodium (Senna/Docusate Sodium 1 Tablet) 2 tablet PO BID PRN PRN PRN Reason: Constipation Sodium Chloride (0.9% Saline Lock 10 Ml Syringe) 10 - 40 ml IV UD PRN PRN Reason: SALINE FLUSH Last Admin: 04/11/20 11:27 Dose: 10 ml Documented by: Zolpidem Tartrate (Zolpidem Tartrate 5 Mg Tablet) 5 mg PO QHS PRN PRN PRN Reason: INSOMNIA STROKE Vital Signs/Narrative: Vital Signs Pulse 04/11/20 09:40 97 Medical Necessity - Tobacco Use Smoking Status: Unknown if ever smoked Assessment/Plan All Active Problems (Last Reviewed 07/09/19 @ 13:[address] 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 He however feels more short of breath than he looks. * CTA negative for PE. On Decadron day 4 out of 10 the remdesivir day 4 out of 5. Also received convalescent plasma. * Titrate oxygen to maintain saturation above 90%. * Breathing treatments with bronchodilators. * Pulmonology and ID on board. * #A. fib with RVR: Currently rate controlled. On metoprolol. Also on Eliquis. # Hyponatremia; ersolved # Bilateral kidney cysts: to follow up with urology on outpatient basis. # CAD s/p CABG: On metoprolol. #Hypertension: On metoprolol #Hyperlipidemia: On statin #DVT prophylaxis: On Eliquis Inpatient E&M: 78591 Subs Hosp L2
[2020-04-11] MEDS: Ipratropium/Albuterol Sulfate 3 ML AMPUL.NEB INHALATION ×2 (13:14→19:50)
--- NOTE | 2020-04-11 14:57 | PN.ID_ITS ---
Patient Problems: Active and Suspected Problems (Last Reviewed 07/09/19 @ 13:[address] Reymundo Howell MD) COVID-19 (Acute) Subjective: Feeling better, still some dyspnea and mild cough. No fever, no n/v/d. - Physical Exam Vitals/I&O's: Vital Signs Temp Pulse Resp BP Pulse Ox 97.6 F L 101 H 20 H 120/61 94 04/11/20 08:30 04/11/20 13:18 04/11/20 13:18 04/11/20 08:30 04/11/20 08:30 Oxygen Flow Rate (L/min) 2 Oxygen Delivery Method Nasal Cannula Weight: 77.4 kg Body Mass Index (BMI) 25.2 Intake and Output for Last 24 Hours 04/09/20 04/10/20 04/11/20 23:59 23:59 23:59 Intake Total 1300 / 1700 3350 / 3350 350.25 / 350.25 Output Total 1150 / 1150 300 / 300 Balance 150 / 550 3050 / 3050 350.25 / 350.25 General: Alert, Cooperative, No apparent distress Lungs: Diminished Cardiovascular: Regular rate, Regular Rhythm Abdomen: Soft, Non Tender, Non-Distended Skin: No rashes Microbiology Past 72 Hours 04/08/20 11:08 Blood Culture (Wb) - Anticubital Left Blood Culture - Preliminary No growth in 48 hours. 04/08/20 11:13 Blood Culture (Wb) - Left Wrist Blood Culture - Preliminary No growth in 48 hours. 04/08/20 11:00 Mucosa - Nose Respiratory Panel (PCR) - Final Laboratory Results 04/11/20 05:58: WBC 11.6 H, RBC 4.03 L, Hgb 13.2, Hct 39.9 L, MCV 99.0 H, MCH 32.8 H, MCHC 33.1, RDW Std Deviation 49.8 H, RDW Coeff of Marjorie 13.6, Plt Count 170, MPV 12.8 H 04/11/20 05:58: Sodium 133 L, Potassium 4.4, Chloride 100, Carbon Dioxide 28.0, Anion Gap 5, BUN 24 H, Creatinine 0.92, Estim Creat Clear Calc 61.91, Est GFR (MDRD) Af Amer 101, Est GFR (MDRD) Non-Af 83, BUN/Creatinine Ratio 26.0 H, Glucose 97, Calcium 7.9 L, Total Bilirubin 0.40, AST 21, ALT 24, Alkaline Phosphatase 68, Total Protein 5.7 L, Albumin 2.6 L, Globulin 3.1, Albumin/Globulin Ratio 0.8 L Current Medications Acetaminophen (Acetaminophen 325 Mg Tablet) 650 mg PO Q6H PRN PRN PRN Reason: Pain Score 1-10/Temp > 100.7 F Albuterol Sulfate (Albuterol Ih 8.5 Gm (Proair) Inhaler (200 Puffs)) 2 puff INHALATION Q4H PRN PRN PRN Reason: Shortness of breath, wheezing Albuterol/Ipratropium (Ipratropium/Albuterol Sulfate 3 Ml Ampul.Neb) 3 ml INHALATION Q6H.RT [facility] Last Admin: 04/11/20 13:14 Dose: 3 ml Documented by: Apixaban (Apixaban 5 Mg Tablet) 5 mg PO BID [facility] Last Admin: 04/11/20 09:29 Dose: 5 mg Documented by: Atorvastatin Calcium (Atorvastatin Calcium 20 Mg Tablet) 20 mg PO QHS [facility] Last Admin: 04/10/20 22:07 Dose: 20 mg Documented by: Dexamethasone Sodium Phosphate (Dexamethasone 10 Mg/Ml Vial) 6 mg IV DAILY [facility] Last Admin: 04/11/20 09:29 Dose: 6 mg Documented by: Guaifenesin (Guaifenesin 10 Ml Udc (200mg/10ml)) 10 ml PO Q6H PRN PRN PRN Reason: COUGH Last Admin: 04/11/20 02:27 Dose: 10 ml Documented by: Sodium Chloride () 250 mls @ 15 mls/hr IV .[id number] PRN PRN Reason: Saline Flush Last Infusion: 04/11/20 12:30 Dose: 15 mls/hr Documented by: Sodium Chloride () 250 mls @ 15 mls/hr IV .[id number] PRN PRN Reason: Additional IVPB Infusion Remdesivir (Investigational) (100 mg/ Sodium Chloride) 250 mls @ 125 mls/hr IV DAILY [facility]; Protocol Stop: 04/12/20 11:59 Last Infusion: 04/11/20 12:30 Dose: Infused Documented by: Metoprolol Succinate (Metoprolol(Xl)Succ 25 Mg Tablet) 25 mg PO DAILY [facility] Last Admin: 04/11/20 09:40 Dose: 25 mg Documented by: Ondansetron HCl (Ondansetron 4 Mg/2 Ml Vial) 4 mg IV Q8H PRN PRN PRN Reason: NAUSEA/VOMITING Senna/Docusate Sodium (Senna/Docusate Sodium 1 Tablet) 2 tablet PO BID PRN PRN PRN Reason: Constipation Sodium Chloride (0.9% Saline Lock 10 Ml Syringe) 10 - 40 ml IV UD PRN PRN Reason: SALINE FLUSH Last Admin: 04/11/20 11:27 Dose: 10 ml Documented by: Zolpidem Tartrate (Zolpidem Tartrate 5 Mg Tablet) 5 mg PO QHS PRN PRN PRN Reason: INSOMNIA Medical Necessity - Tobacco Use Smoking Status: Unknown if ever smoked Route of nutrition/ use of supplements: [] Nutritional Intake: [] IV Site: [] Fernández Catheter: [] - Assessment/Plan Antibiotics: [] Assessment/Plan: [] covid 19 with acute hypoxic resp failure - feeling better on dex, plasma, remdesivir. O2 improved. Ok for d/c home with O2 per primary team. Complete 10 total days steroids. Quarantine for 14 days total from start of symptoms. Will follow
--- NOTE | 2020-04-11 15:20 | CASEMGMT ---
RN CM called patient for initial transition planning/care coordination assessment. RN CM introduced self and role at [facility]. Patient is alert and oriented. Patient willing to participate in assessment and is able to answer all questions appropriately. Care providers, pharmacy, and demographics verified. Patient wishes to discharge home, denies need for home health at this time. Patient states he has no further needs or concerns at this time. CM to follow for discharge planning needs that may arise. PCP: Moise Babcock [facility] D[facility]IST Specialists: Lynda [facility] [employer] [facility]acy: [facility] Insurance: [employer] Prescription Benefit: none Living Will/HPOA: none LNOK: Living Arrangements: Patient lives with in a 2 story home with bed and bath on first floor. Patient is independent at home and has electricity. Transportation: driving service DME/HHC: Patient states he has home oxygen concentrator at 3lpm at , no portability. Will monitor for need for additional home oxygen requirements. Disposition Plan: Patient to discharge home with family support and follow-up plans in place. Brittney CLEANING, RN, CM
[2020-04-11] MEDS: Atorvastatin Calcium 20 MG Tablet PO (21:49)
[2020-04-12] VITALS (11 sets, daily range): BP systolic 100–113; BP diastolic 60–75; PULSE 83–105; RESP 16–20; TEMP 36.1–37.1; O2SAT 93–96
[2020-04-12] MEDS: Ipratropium/Albuterol Sulfate 3 ML AMPUL.NEB INHALATION ×2 (07:10→14:40)
[2020-04-12 07:31] LABS: Hematocrit 39.1 % (40-54); Mean Corp Hgb Conc 33.2 g/dL (32-36); Mean Corpuscular Hgb 32.8 pg (27.0-32.0); Mean Corpuscular Volume 98.7 fL (80-94); Mean Platelet Vol. 11.8 fl (6.2-12.0); Platelet Count 160 K/mm3 (150-450); RBC Distribution Width CV 13.4 % (11.6-14.6); Red Blood Count 3.96 M/mm3 (4.6-6.2); White Blood Count 10.6 K/mm3 (4.4-11.0)
[2020-04-12 07:55] LABS: ALB/GLOB Ratio 0.8 RATIO (0.9-2.4); AST(SGOT) 22 U/L (15-37); Alanine Aminotransfer ALT/SGPT 24 U/L (16-61); Albumin, Serum 2.4 g/dL (3.2-5.0); Alkaline Phosphatase 65 U/L (45-117); Anion Gap 4 (5-15); BUN 21 mg/dL (7-18); BUN/Creat Ratio 24.2 RATIO (10-20); Calcium,Total 7.9 mg/dL (8.5-10.1); Chloride 101 mmol/L (98-107); Creatinine, Serum 0.87 mg/dL (0.70-1.30); EST Glomerular Filtration Rate 89 mL/min (>60); Est Glom Filt Rate - Afr Amer 108 mL/min (>60); Estimated Creatinine Clearance 65.46 ml/min; Globulin 3.2 g/dL (2.2-4.2); Glucose 99 mg/dL (74-106); Protein, Total 5.6 g/dL (6.4-8.2); Sodium Level 134 mmol/L (136-145)
[2020-04-12] MEDS: 0.9% Saline Lock 10 ML Syringe IV (10:13)
[2020-04-12] MEDS: APIXABAN 5 MG TABLET PO ×2 (10:13→22:20)
[2020-04-12] MEDS: dexAMETHasone 10 MG/ML Vial 6 MG IV (10:13)
[2020-04-12] MEDS: Metoprolol(XL)Succ 25 MG Tablet PO ×2 (10:27→22:20)
--- NOTE | 2020-04-12 10:53 | PCM.PN.HOSP ---
Patient Problems: Active and Suspected Problems (Last Reviewed 07/09/19 @ 13:[address] Reymundo Howell MD) COVID-19 (Acute) Subjective: Patient seen and examined. He felt better and said his breathing was better and back to his baseline. However his heart rate has not been well controlled and was noted to be up to the 140s to 170s per telemetry. He however denied any palpitations, dizziness or lightheadedness. Review systems otherwise negative. He has otherwise remained hemodynamically stable. Vitals/I&O's: Vital Signs Temp Pulse Resp BP Pulse Ox 98.8 F 105 H 18 113/75 94 04/12/20 10:15 04/12/20 10:27 04/12/20 10:15 04/12/20 10:15 04/12/20 10:15 Oxygen Flow Rate (L/min) 2 Oxygen Delivery Method Nasal Cannula Weight: 170 lb 10.205 oz Body Mass Index (BMI) 25.2 Intake and Output for Last 24 Hours 04/10/20 04/11/20 04/12/20 23:59 23:59 23:59 Intake Total 3350 / 3350 396.25 / 396.25 Output Total 300 / 300 Balance 3050 / 3050 396.25 / 396.25 General: Alert, Oriented x3, Cooperative, No apparent distress HEENT: Atraumatic, PERRLA, EOMI, Normocephalic Oral: Moist Mucosa Neck: Supple, No JVD, Negative Carotid Bruits Lungs: - - mildly diminished breath sounds bibasally, no wheezes or crackles. Cardiovascular: afib, rate controlled at time of review. normal S1 and S2, no murmurs Abdomen: Bowel Sounds Present, Soft, Non Tender, Non-Distended, No Hepato-splenomegaly Extremities: No clubbing, No cyanosis, No edema, Capillary Refill Less than 3 Seconds Skin: No rashes, No breakdown Musculoskeletal: No Tenderness to Palpation of Joints or Extremities Lymphatic: No Cervical, Supraclavicular, or Inguinal Adenopathy Neurological: Cranial nerves II-XII grossly intact, Neuro grossly intact, Motor Exam 5/5 strength throughout Psych/Mental Status: Normal Affect, Appropriate, Alert and oriented to time, place, person, mood and affect Microbiology Past 72 Hours 04/08/20 11:08 Blood Culture (Wb) - Anticubital Left Blood Culture - Preliminary No growth in 48 hours. 04/08/20 11:13 Blood Culture (Wb) - Left Wrist Blood Culture - Preliminary No growth in 48 hours. Laboratory Results 04/12/20 06:40: WBC 10.6, RBC 3.96 L, Hgb 13.0, Hct 39.1 L, MCV 98.7 H, MCH 32.8 H, MCHC 33.2, RDW Std Deviation 49.0 H, RDW Coeff of Marjorie 13.4, Plt Count 160, MPV 11.8 04/12/20 06:40: Sodium 134 L, Potassium 4.0, Chloride 101, Carbon Dioxide 29.0, Anion Gap 4 L, BUN 21 H, Creatinine 0.87, Estim Creat Clear Calc 65.46, Est GFR (MDRD) Af Amer 108, Est GFR (MDRD) Non-Af 89, BUN/Creatinine Ratio 24.2 H, Glucose 99, Calcium 7.9 L, Total Bilirubin 0.40, AST 22, ALT 24, Alkaline Phosphatase 65, Total Protein 5.6 L, Albumin 2.4 L, Globulin 3.2, Albumin/Globulin Ratio 0.8 L Diagnostic Data Chest X-Ray 04/08/20 11:25 IMPRESSION: Hyperinflation. The lungs are clear. Electronically Signed: Mehul Calderon, at 11:40 EDT , Service support , Chest CTA 04/08/20 19:04 IMPRESSION: No demonstrated pulmonary embolism or arterial dissection. Hyperaeration with emphysematous changes. Small right pleural effusion. Possible right basilar infiltrate medially. Mild mediastinal adenopathy. Mediastinal and hilar calcifications. Ventral hernia. Right renal cysts. Questionable exophytic nodule right renal nodule. Correlation with ultrasound is recommended. Electronically Signed: Antony Silva DO at 21:08 EDT Tel [phone], Service support , Renal Ultrasound 04/09/20 12:03 IMPRESSION: Bilateral renal cysts. No solid nodule. Electronically Signed: Antony Silva DO at 23:57 EDT Tel [phone], Service support , Current Medications Acetaminophen (Acetaminophen 325 Mg Tablet) 650 mg PO Q6H PRN PRN PRN Reason: Pain Score 1-10/Temp > 100.7 F Albuterol Sulfate (Albuterol Ih 8.5 Gm (Proair) Inhaler (200 Puffs)) 2 puff INHALATION Q4H PRN PRN PRN Reason: Shortness of breath, wheezing Albuterol/Ipratropium (Ipratropium/Albuterol Sulfate 3 Ml Ampul.Neb) 3 ml INHALATION Q6H.RT [facility] Last Admin: 04/12/20 07:10 Dose: 3 ml Documented by: Apixaban (Apixaban 5 Mg Tablet) 5 mg PO BID [facility] Last Admin: 04/12/20 10:13 Dose: 5 mg Documented by: Atorvastatin Calcium (Atorvastatin Calcium 20 Mg Tablet) 20 mg PO QHS [facility] Last Admin: 04/11/20 21:49 Dose: 20 mg Documented by: Dexamethasone Sodium Phosphate (Dexamethasone 10 Mg/Ml Vial) 6 mg IV DAILY [facility] Last Admin: 04/12/20 10:13 Dose: 6 mg Documented by: Guaifenesin (Guaifenesin 10 Ml Udc (200mg/10ml)) 10 ml PO Q6H PRN PRN PRN Reason: COUGH Last Admin: 04/11/20 21:49 Dose: 10 ml Documented by: Sodium Chloride () 250 mls @ 15 mls/hr IV .[id number] PRN PRN Reason: Saline Flush Last Infusion: 04/11/20 15:34 Dose: 0 mls/hr Documented by: Sodium Chloride () 250 mls @ 15 mls/hr IV .[id number] PRN PRN Reason: Additional IVPB Infusion Remdesivir (Investigational) (100 mg/ Sodium Chloride) 250 mls @ 125 mls/hr IV DAILY [facility]; Protocol Stop: 04/12/20 11:59 Last Admin: 04/12/20 10:35 Dose: 125 mls/hr Documented by: Metoprolol Succinate (Metoprolol(Xl)Succ 25 Mg Tablet) 25 mg PO DAILY [facility] Last Admin: 04/12/20 10:27 Dose: 25 mg Documented by: Ondansetron HCl (Ondansetron 4 Mg/2 Ml Vial) 4 mg IV Q8H PRN PRN PRN Reason: NAUSEA/VOMITING Senna/Docusate Sodium (Senna/Docusate Sodium 1 Tablet) 2 tablet PO BID PRN PRN PRN Reason: Constipation Sodium Chloride (0.9% Saline Lock 10 Ml Syringe) 10 - 40 ml IV UD PRN PRN Reason: SALINE FLUSH Last Admin: 04/12/20 10:13 Dose: 10 ml Documented by: Zolpidem Tartrate (Zolpidem Tartrate 5 Mg Tablet) 5 mg PO QHS PRN PRN PRN Reason: INSOMNIA STROKE Vital Signs/Narrative: Vital Signs Temp Pulse Resp BP Pulse Ox 04/12/20 10:27 105 H 04/12/20 10:15 98.8 F 105 H 18 113/75 94 04/12/20 10:00 105 H 04/12/20 07:11 91 18 93 Medical Necessity - Tobacco Use Smoking Status: Unknown if ever smoked Assessment/Plan All Active Problems (Last Reviewed 07/09/19 @ 13:[address] Reymundo Howell MD) COVID-19 (Acute) Atrial fibrillation with RVR (Acute) # Acute on chronic hypoxic respiratory failure due to COVId 19 infection Back to his baseline shortness of breath. CTA negative for PE. On Decadron day 5 out of 10, remdesivir day 4 out of 5. Also received convalescent plasma. Titrate oxygen to maintain saturation above 90%. Breathing treatments with bronchodilators. Pulmonology and ID on board. #A. fib with RVR heart rate has been poorly controlled; has been going up into the 170s, per monitor on metoprolol cardiology consulted; await recs on eliquis # Bilateral kidney cysts: to follow up with urology on outpatient basis. # CAD s/p CABG: On metoprolol. #Hypertension: On metoprolol #Hyperlipidemia: On statin #DVT prophylaxis: On Eliquis Inpatient E&M: [id number] [facility] Hosp L3
[2020-04-12] MEDS: Digoxin 250 MCG Tablet PO (14:28)
--- NOTE | 2020-04-12 15:11 | PCM.PN.ID ---
Patient Problems: Active and Suspected Problems (Last Reviewed 07/09/19 @ 13:[address] Reymundo Howell MD) COVID-19 (Acute) Subjective: Feeling better today, no aches. Mild cough. No fever. - Physical Exam Vitals/I&O's: Vital Signs Temp Pulse Resp BP Pulse Ox 97.9 F 105 H 20 H 110/64 94 04/12/20 14:34 04/12/20 14:40 04/12/20 14:40 04/12/20 14:34 04/12/20 14:34 Oxygen Flow Rate (L/min) 2 Oxygen Delivery Method Nasal Cannula Weight: 77.4 kg Body Mass Index (BMI) 25.2 Intake and Output for Last 24 Hours 04/10/20 04/11/20 04/12/20 23:59 23:59 23:59 Intake Total 3350 / 3350 396.25 / 396.25 250 / 250 Output Total 300 / 300 Balance 3050 / 3050 396.25 / 396.25 250 / 250 General: Alert, Cooperative, No apparent distress Lungs: Clear to auscultation Cardiovascular: Regular rate, Regular Rhythm Abdomen: Soft, Non Tender, Non-Distended Skin: No rashes Microbiology Past 72 Hours 04/08/20 11:08 Blood Culture (Wb) - Anticubital Left Blood Culture - Preliminary No growth in 48 hours. 04/08/20 11:13 Blood Culture (Wb) - Left Wrist Blood Culture - Preliminary No growth in 48 hours. Laboratory Results 04/12/20 06:40: WBC 10.6, RBC 3.96 L, Hgb 13.0, Hct 39.1 L, MCV 98.7 H, MCH 32.8 H, MCHC 33.2, RDW Std Deviation 49.0 H, RDW Coeff of Marjorie 13.4, Plt Count 160, MPV 11.8 04/12/20 06:40: Sodium 134 L, Potassium 4.0, Chloride 101, Carbon Dioxide 29.0, Anion Gap 4 L, BUN 21 H, Creatinine 0.87, Estim Creat Clear Calc 65.46, Est GFR (MDRD) Af Amer 108, Est GFR (MDRD) Non-Af 89, BUN/Creatinine Ratio 24.2 H, Glucose 99, Calcium 7.9 L, Total Bilirubin 0.40, AST 22, ALT 24, Alkaline Phosphatase 65, Total Protein 5.6 L, Albumin 2.4 L, Globulin 3.2, Albumin/Globulin Ratio 0.8 L Current Medications Acetaminophen (Acetaminophen 325 Mg Tablet) 650 mg PO Q6H PRN PRN PRN Reason: Pain Score 1-10/Temp > 100.7 F Albuterol Sulfate (Albuterol Ih 8.5 Gm (Proair) Inhaler (200 Puffs)) 2 puff INHALATION Q4H PRN PRN PRN Reason: Shortness of breath, wheezing Albuterol/Ipratropium (Ipratropium/Albuterol Sulfate 3 Ml Ampul.Neb) 3 ml INHALATION Q6H.RT [facility] Last Admin: 04/12/20 14:40 Dose: 3 ml Documented by: Apixaban (Apixaban 5 Mg Tablet) 5 mg PO BID [facility] Last Admin: 04/12/20 10:13 Dose: 5 mg Documented by: Atorvastatin Calcium (Atorvastatin Calcium 20 Mg Tablet) 20 mg PO QHS [facility] Last Admin: 04/11/20 21:49 Dose: 20 mg Documented by: Dexamethasone Sodium Phosphate (Dexamethasone 10 Mg/Ml Vial) 6 mg IV DAILY [facility] Last Admin: 04/12/20 10:13 Dose: 6 mg Documented by: Digoxin (Digoxin 125 Mcg Tablet) 125 mcg PO DAILY [facility] Guaifenesin (Guaifenesin 10 Ml Udc (200mg/10ml)) 10 ml PO Q6H PRN PRN PRN Reason: COUGH Last Admin: 04/11/20 21:49 Dose: 10 ml Documented by: Sodium Chloride () 250 mls @ 15 mls/hr IV .[id number] PRN PRN Reason: Saline Flush Last Infusion: 04/12/20 12:35 Dose: 15 mls/hr Documented by: Sodium Chloride () 250 mls @ 15 mls/hr IV .[id number] PRN PRN Reason: Additional IVPB Infusion Metoprolol Succinate (Metoprolol(Xl)Succ 25 Mg Tablet) 25 mg PO BID [facility] Ondansetron HCl (Ondansetron 4 Mg/2 Ml Vial) 4 mg IV Q8H PRN PRN PRN Reason: NAUSEA/VOMITING Senna/Docusate Sodium (Senna/Docusate Sodium 1 Tablet) 2 tablet PO BID PRN PRN PRN Reason: Constipation Sodium Chloride (0.9% Saline Lock 10 Ml Syringe) 10 - 40 ml IV UD PRN PRN Reason: SALINE FLUSH Last Admin: 04/12/20 10:13 Dose: 10 ml Documented by: Zolpidem Tartrate (Zolpidem Tartrate 5 Mg Tablet) 5 mg PO QHS PRN PRN PRN Reason: INSOMNIA Medical Necessity - Tobacco Use Smoking Status: Unknown if ever smoked Route of nutrition/ use of supplements: [] Nutritional Intake: [] IV Site: [] Fernández Catheter: [] - Assessment/Plan Antibiotics: [] Assessment/Plan: [] covid 19 with acute hypoxic resp failure - feeling better on dex; received plasma, remdesivir. O2 improved. Ok for d/c home with O2 per primary team. Complete 10 total days steroids. Quarantine for 14 days total from start of symptoms. Will follow
--- NOTE | 2020-04-12 16:31 | CON.PCM_ITS ---
Reason for Consult Date of Consultation: 04/12/20 Reason for Consultation: afib with RVR History of Present Illness: The patient is a 84 year old M [] patient with COVID-19 Known cardiac history with CAD/prior M.I has A fib with RVR Cardiac care plan discussed will continue on rate control with metoprolol and disgoxin continue anticoagulation Past Medical History Allergies/Adverse Reactions: Allergies No Known Allergies Allergy (Verified 07/17/19 11:43) Home Medications: Ambulatory Orders Medication Instructions Recorded garlic 1,500 mg capsule 1,500 mg PO DAILY@1200 07/31/17 Albuterol Aerosols [Ventolin 2.5 mg INHALATION Q2H PRN PRN 07/25/18 Aerosols] vial.neb. fluticasone furoate 100 1 inh INHALATION DAILY 12/15/18 mcg-vilanterol 25 mcg/dose inhalation powder apixaban 5 mg tablet 5 mg PO BID tab 07/09/19 metoprolol succinate 25 mg 25 mg PO DAILY #90 tab 08/11/19 tablet,extended release 24 hr Cayenne 450 mg PO DAILY 04/08/20 Simvastatin 40 mg PO QHS 04/08/20 Past Medical History (Chronic Problems): Chronic Problems (Last Reviewed 07/09/19 @ 13:[address] 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 Ernesto Lopez MD) Brother CAD (coronary artery disease) Sister CAD (coronary artery disease) Father CAD (coronary artery disease) History Items: No pertinent history Paternal Family History: Family History (Last Reviewed 04/08/20 @ 16:[address] Ernesto Lopez MD) Brother CAD (coronary artery disease) Sister CAD (coronary artery disease) Father CAD (coronary artery disease) History Items: No pertinent history Lives: Spouse/ Significant Other Smoking Status: Unknown if ever smoked Alcohol: None Drugs: None Objective: Vital Signs Temp Pulse Resp BP Pulse Ox 97.9 F 105 H 20 H 110/64 94 04/12/20 14:34 04/12/20 14:40 04/12/20 14:40 04/12/20 14:34 04/12/20 14:34 Oxygen Flow Rate (L/min) 2 Oxygen Delivery Method Nasal Cannula Weight: 170 lb 10.205 oz Body Mass Index (BMI) 25.2 Intake and Output for Last 24 Hours 04/10/20 04/11/20 04/12/20 23:59 23:59 23:59 Intake Total 3350 / 3350 396.25 / 396.25 250 / 250 Output Total 300 / 300 Balance 3050 / 3050 396.25 / 396.25 250 / 250 General: Awake, Alert, Oriented x 3 HEENT: PERRL, EOMI, Sclera Non Icteric Neck: Supple, Good ROM, No Lymph Node Enlargement 04/12/20 06:40: WBC 10.6, RBC 3.96 L, Hgb 13.0, Hct 39.1 L, MCV 98.7 H, MCH 32.8 H, MCHC 33.2, Plt Count 160, MPV 11.8 04/12/20 06:40: Sodium 134 L, Potassium 4.0, Chloride 101, Carbon Dioxide 29.0, Anion Gap 4 L, BUN 21 H, Creatinine 0.87, Est GFR (MDRD) Af Amer 108, Est GFR (MDRD) Non-Af 89, BUN/Creatinine Ratio 24.2 H, Glucose 99, Calcium 7.9 L, Total Bilirubin 0.40 Rhythm: EKG: ECHO: Stress Test: Cardiac Cath: PCI: CT Surgery: Holter monitor: EPS: PPM: CXR: Chest CT Scan: Assessment/Plan Medical treatment for A fib with RVR with rate control using metoprolol and digoxin
[2020-04-12] MEDS: Atorvastatin Calcium 20 MG Tablet PO (22:20)
[2020-04-13] VITALS (7 sets, daily range): BP systolic 111–128; BP diastolic 70–73; PULSE 75–98; RESP 16; TEMP 35.8–36.8; O2SAT 90–97
[2020-04-13 06:45] LABS: Hematocrit 38.8 % (40-54); Hemoglobin 13.1 g/dL (13.0-16.5); Mean Corp Hgb Conc 33.8 g/dL (32-36); Mean Corpuscular Volume 97.7 fL (80-94); Mean Platelet Vol. 12.3 fl (6.2-12.0); Platelet Count 179 K/mm3 (150-450); RBC Distribution Width CV 13.3 % (11.6-14.6); RBC Distribution Width SD 48.4 fl (35.1-43.9); Red Blood Count 3.97 M/mm3 (4.6-6.2); White Blood Count 10.9 K/mm3 (4.4-11.0)
[2020-04-13 07:14] LABS: ALB/GLOB Ratio 0.8 RATIO (0.9-2.4); AST(SGOT) 18 U/L (15-37); Alanine Aminotransfer ALT/SGPT 23 U/L (16-61); Albumin, Serum 2.4 g/dL (3.2-5.0); Alkaline Phosphatase 64 U/L (45-117); Anion Gap 2 (5-15); BUN 18 mg/dL (7-18); BUN/Creat Ratio 21.8 RATIO (10-20); Chloride 101 mmol/L (98-107); Creatinine, Serum 0.83 mg/dL (0.70-1.30); EST Glomerular Filtration Rate 95 mL/min (>60); Est Glom Filt Rate - Afr Amer 115 mL/min (>60); Estimated Creatinine Clearance 68.62 ml/min; Globulin 3.1 g/dL (2.2-4.2); Glucose 105 mg/dL (74-106); Potassium 4.5 mmol/L (3.5-5.1); Protein, Total 5.5 g/dL (6.4-8.2); Sodium Level 132 mmol/L (136-145)
[2020-04-13] MEDS: dexAMETHasone 10 MG/ML Vial 6 MG IV (08:58)
[2020-04-13] MEDS: Metoprolol(XL)Succ 25 MG Tablet PO (08:58)
[2020-04-13] MEDS: Digoxin 125 MCG Tablet PO (08:58)
[2020-04-13] MEDS: 0.9% Saline Lock 10 ML Syringe IV (08:59)
[2020-04-13] MEDS: APIXABAN 5 MG TABLET PO (08:59)
--- NOTE | 2020-04-13 10:57 | DS.PCM_ITS ---
Discharge Date and Diagnosis - Problem List Patient Problems: Active and Suspected Problems (Last Reviewed 07/09/19 @ 13:[address] Reymundo Howell MD) COVID-19 (Acute) Date of Admission: 04/08/20 Date of Discharge: 04/13/20 - Primary Discharge Diagnosis Acute Problems: Active Problems (Last Reviewed 07/09/19 @ 13:[address] Reymundo Howell MD) COVID-19 (Acute) Afib with RVR - Secondary Discharge Diagnosis Chronic Problems: Chronic Problems (Last Reviewed 07/09/19 @ 13:[address] 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 The lungs are clear. Electronically Signed: Mehul Calderon, at 11:40 EDT , Service support , Chest CTA 04/08/20 19:04 IMPRESSION: No demonstrated pulmonary embolism or arterial dissection. Hyperaeration with emphysematous changes. Small right pleural effusion. Possible right basilar infiltrate medially. Mild mediastinal adenopathy. Mediastinal and hilar calcifications. Ventral hernia. Right renal cysts. Questionable exophytic nodule right renal nodule. Correlation with ultrasound is recommended. Electronically Signed: Antony Silva DO at 21:08 EDT Tel [phone], Service support , Renal Ultrasound 04/09/20 12:03 IMPRESSION: Bilateral renal cysts. No solid nodule. Electronically Signed: Antony Silva DO at 23:57 EDT Tel [phone], Service support , cardiology- Dr Balbuena Operations: None Procedures: None Summary of Care Provided: The patient is a 84 year old M with a past medical history as outlined who was admitted through the ED on 04/08/2020 with a complaint of cough and shortness of breath. Symptoms started about 3 days prior to admission. Shortness of breath was mainly exertional and associated with productive cough. He also had profound weakness and fatigue. He denied any travel or sick contacts. He was found to be in A. fib with RVR and was saturating at 94% on 3 L of oxygen which was at baseline. Labs were essentially unremarkable and EKG showed A. fib with RVR. Covid test was positive. He was admitted to be managed for acute Covid infection and A. fib with RVR. He was started on IV Decadron. He also received a dose of IV Cardizem bolus and metoprolol bolus and heart rate subsequently improved. He was continued on his oral metoprolol and continued his Eliquis. Shortness of breath gradually improved. Infectious he was also consulted. He also received 5 days of remdesivir and convalescent plasma. Cardiology was consulted on account of persistently elevated heart rate. Cardiology increased his metoprolol to metoprolol XL 25 mg twice daily and was started on digoxin 125 mg p.o. daily. He remained stable and heart rate improved. He was discharged home on 04/13/2020. He was counseled to continue isolating at home till April 22, 2020 to complete a total of 14 days of isolation since diagnosis of Covid. He is to follow-up with his primary care doctor in 1 to 2 weeks. Patient seen and examined prior to discharge. She had no complaints and felt well. Review of systems otherwise negative. Labs and vitals reviewed. Home medications were reviewed and reconciled. O/E: Vital Signs Temp Pulse Resp BP Pulse Ox 98.3 F 97 16 128/70 H 92 04/13/20 09:07 04/13/20 09:59 04/13/20 09:07 04/13/20 09:07 04/13/20 11:23 [] General: Alert, Oriented x3, Cooperative, No apparent distress HEENT: Atraumatic, PERRLA, EOMI, Normocephalic Oral: Moist Mucosa Neck: Supple, No JVD, Negative Carotid Bruits Lungs: - - mildly diminished breath sounds bibasally, no wheezes or crackles. on 3L of oxygen, which is his baseline. Cardiovascular: afib, rate controlled at time of review. normal S1 and S2, no murmurs Abdomen: Bowel Sounds Present, Soft, Non Tender, Non-Distended, No Hepato- splenomegaly Extremities: No clubbing, No cyanosis, No edema, Capillary Refill Less than 3 Seconds Skin: No rashes, No breakdown Musculoskeletal: No Tenderness to Palpation of Joints or Extremities Lymphatic: No Cervical, Supraclavicular, or Inguinal Adenopathy Neurological: Cranial nerves II-XII grossly intact, Neuro grossly intact, Motor Exam 5/5 strength throughout Psych/Mental Status: Normal Affect, Appropriate, Alert and oriented to time, place, person, mood and affect Plan is for discharge home today. Note, renal ultrasound showed bilateral renal cysts with some exophytic cyst on the right kidney. He is to follow-up with urology for review. Patient Problems: Active and Suspected Problems (Last Reviewed 07/09/19 @ 13:[address] Reymundo Howell MD) COVID-19 (Acute) - Physical Exam Vitals/I&O's: Vital Signs Temp Pulse Resp BP Pulse Ox 98.3 F 98 16 128/70 H 97 04/13/20 09:07 04/13/20 09:07 04/13/20 09:07 04/13/20 09:07 04/13/20 09:07 Oxygen Flow Rate (L/min) 3 Oxygen Delivery Method Nasal Cannula Weight: 170 lb 10.205 oz Body Mass Index (BMI) 25.2 Intake and Output for Last 24 Hours 04/11/20 04/12/20 04/13/20 23:59 23:59 23:59 Intake Total 396.25 / 396.25 346.25 / 346.25 0 / 0 Balance 396.25 / 396.25 346.25 / 346.25 0 / 0 Laboratory Results 04/13/20 06:02: WBC 10.9, RBC 3.97 L, Hgb 13.1, Hct 38.8 L, MCV 97.7 H, MCH 33.0 H, MCHC 33.8, RDW Std Deviation 48.4 H, RDW Coeff of Marjorie 13.3, Plt Count 179, MPV 12.3 H 04/13/20 06:02: Sodium 132 L, Potassium 4.5, Chloride 101, Carbon Dioxide 29.0, Anion Gap 2 L, BUN 18, Creatinine 0.83, Estim Creat Clear Calc 68.62, Est GFR (MDRD) Af Amer 115, Est GFR (MDRD) Non-Af 95, BUN/Creatinine Ratio 21.8 H, Glucose 105, Calcium 8.0 L, Total Bilirubin 0.50, AST 18, ALT 23, Alkaline Phosphatase 64, Total Protein 5.5 L, Albumin 2.4 L, Globulin 3.1, Albumin/Globulin Ratio 0.8 L Diagnostic Data Chest X-Ray 04/08/20 11:25 IMPRESSION: Hyperinflation. The lungs are clear. Electronically Signed: Mehul Calderon, at 11:40 EDT , Service support , Chest CTA 04/08/20 19:04 IMPRESSION: No demonstrated pulmonary embolism or arterial dissection. Hyperaeration with emphysematous changes. Small right pleural effusion. Possible right basilar infiltrate medially. Mild mediastinal adenopathy. Mediastinal and hilar calcifications. Ventral hernia. Right renal cysts. Questionable exophytic nodule right renal nodule. Correlation with ultrasound is recommended. Electronically Signed: Antony Silva DO at 21:08 EDT Tel [phone], Service support , Renal Ultrasound 04/09/20 12:03 IMPRESSION: Bilateral renal cysts. No solid nodule. Electronically Signed: Antony Silva DO at 23:57 EDT Tel [phone], Service support , Current Medications Acetaminophen (Acetaminophen 325 Mg Tablet) 650 mg PO Q6H PRN PRN PRN Reason: Pain Score 1-10/Temp > 100.7 F Albuterol Sulfate (Albuterol Ih 8.5 Gm (Proair) Inhaler (200 Puffs)) 2 puff INHALATION Q4H PRN PRN PRN Reason: Shortness of breath, wheezing Apixaban (Apixaban 5 Mg Tablet) 5 mg PO BID [facility] Last Admin: 04/13/20 08:59 Dose: 5 mg Documented by: Atorvastatin Calcium (Atorvastatin Calcium 20 Mg Tablet) 20 mg PO QHS [facility] Last Admin: 04/12/20 22:20 Dose: 20 mg Documented by: Dexamethasone Sodium Phosphate (Dexamethasone 10 Mg/Ml Vial) 6 mg IV DAILY [facility] Last Admin: 04/13/20 08:58 Dose: 6 mg Documented by: Digoxin (Digoxin 125 Mcg Tablet) 125 mcg PO DAILY [facility] Last Admin: 04/13/20 08:58 Dose: 125 mcg Documented by: Guaifenesin (Guaifenesin 10 Ml Udc (200mg/10ml)) 10 ml PO Q6H PRN PRN PRN Reason: COUGH Last Admin: 04/11/20 21:49 Dose: 10 ml Documented by: Sodium Chloride () 250 mls @ 15 mls/hr IV .[id number] PRN PRN Reason: Saline Flush Last Infusion: 04/13/20 10:45 Dose: Infused Documented by: Sodium Chloride () 250 mls @ 15 mls/hr IV .[id number] PRN PRN Reason: Additional IVPB Infusion Metoprolol Succinate (Metoprolol(Xl)Succ 25 Mg Tablet) 25 mg PO BID [facility] Last Admin: 04/13/20 08:58 Dose: 25 mg Documented by: Ondansetron HCl (Ondansetron 4 Mg/2 Ml Vial) 4 mg IV Q8H PRN PRN PRN Reason: NAUSEA/VOMITING Senna/Docusate Sodium (Senna/Docusate Sodium 1 Tablet) 2 tablet PO BID PRN PRN PRN Reason: Constipation Sodium Chloride (0.9% Saline Lock 10 Ml Syringe) 10 - 40 ml IV UD PRN PRN Reason: SALINE FLUSH Last Admin: 04/13/20 08:59 Dose: 10 ml Documented by: Zolpidem Tartrate (Zolpidem Tartrate 5 Mg Tablet) 5 mg PO QHS PRN PRN PRN Reason: INSOMNIA Discharge Diet: Low fat/ Low Cholesterol Discharge Activity: Return to Normal Activity Weight Bearing Status: Weight bearing as tolerated Call your doctor if you observe: Fever of 101 or Higher, Shortness of breath, Dizziness, Chest pain, Increased palpitations (irregular heartbeat) Home Medications: Medications to take at Discharge garlic 1,500 mg capsule 1,500 mg PO DAILY@1200 07/31/17 Albuterol Aerosols [Ventolin Aerosols] 2.5 mg INHALATION Q2H PRN PRN vial.neb. 07/25/18 fluticasone furoate 100 mcg-vilanterol 25 mcg/dose inhalation powder 1 inh INHALATION DAILY 12/15/18 apixaban 5 mg tablet 5 mg PO BID tab 07/09/19 Cayenne 450 mg PO DAILY 04/08/20 Simvastatin 40 mg PO QHS 04/08/20 Digoxin [Lanoxin] 125 mcg PO DAILY #30 tab 04/13/20 Metoprolol(XL)Succ [Toprol Xl (Beta Ejrry)] 25 mg PO BID #60 tab 04/13/20 predniSONE tablet 40 mg PO DAILY #10 tab 04/13/20 Following Prescriptions Were Given to Patient: Digoxin [Lanoxin] 125 mcg PO DAILY #30 tab Transmission Status: Received by [facility]12 predniSONE tablet 40 mg PO DAILY #10 tab Transmission Status: Received by [facility] 181 Metoprolol(XL)Succ [Toprol Xl (Beta Jerry)] 25 mg PO BID #60 tab Transmission Status: [facility] Primary Care Physician: Moise Babcock BODY SHOP TECHNICIAN, BODY SHOP TECHNICIAN-C [Primary Care Provider] - Please follow up with your Primary Care Physician in: 1-2 weeks Patient Instructions: Atrial Fibrillation Additional Instructions: stay self isolated till 04/22/2020 to complete 14 days of self isolation Disposition: Home Minutes spent on discharge:: 40 Patient Condition:: Stable Medical Necessity - Tobacco Use Smoking Status: Unknown if ever smoked Meaningful Use Info Meaningful Use Diagnoses (Choose all that apply): None applicable Inpatient E&M: 73654 Disch Hosp
--- NOTE | 2020-04-13 10:58 | DCINST_ITS ---
- Discharge Diagnoses Current Active Problems: Current Active and Chronic Problems (Last Reviewed 07/09/19 @ 13:[address] 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) CABG x 4 at [place] [address] Ischemic cardiomyopathy (Chronic) Chronic combined systolic and diastolic CHF (congestive heart failure) (Chronic) Paroxysmal atrial fibrillation (Chronic) Hyperlipidemia (Chronic) You will use the following diet at home:: Cardiac Your food should be the consistency of: Regular Your liquids should be the consistency of: Regular/Thin Discharge Activity: Return to Normal Activity Weight Bearing Status: Weight bearing as tolerated Call your doctor if you observe: Fever of 101 or Higher, Shortness of breath, Dizziness, Fainting spells, Increased palpitations (irregular heartbeat) Instructions: Atrial Fibrillation Additional Instructions: to keep isolated at home till April 22, 2020, for a total of 14 days since diagnosis of COVID Allergies/Adverse Reactions: Allergies No Known Allergies Allergy (Verified 07/17/19 11:43) Medications to take at Discharge garlic 1,500 mg capsule 1,500 mg PO DAILY@1200 07/31/17 Albuterol Aerosols [Ventolin Aerosols] 2.5 mg INHALATION Q2H PRN PRN vial.neb. 07/25/18 fluticasone furoate 100 mcg-vilanterol 25 mcg/dose inhalation powder 1 inh INHALATION DAILY 12/15/18 apixaban 5 mg tablet 5 mg PO BID tab 07/09/19 Cayenne 450 mg PO DAILY 04/08/20 Simvastatin 40 mg PO QHS 04/08/20 Digoxin [Lanoxin] 125 mcg PO DAILY #30 tab 04/13/20 Metoprolol(XL)Succ [Toprol Xl (Beta Jerry)] 25 mg PO BID #60 tab 04/13/20 The following prescriptions were given: Digoxin [Lanoxin] 125 mcg PO DAILY #30 tab Transmission Status: Pending to [facility] Metoprolol(XL)Succ [Toprol Xl (Beta Jerry)] 25 mg PO BID #60 tab Transmission Status: Pending to [facility] Primary Care Physician: Moise Babcock NP, PACKING FLOOR WORKER-C [Primary Care Provider] - Please follow up with your Primary Care Physician in: 1-2 weeks Test Results: Test results from this visit will be discussed in further detail at your follow- up appointment, if applicable. Please Follow Up With: Reymundo Howell MD When: 2-3 weeks Proposed Discharge Date: 04/13/20
--- NOTE | 2020-04-13 11:32 | CASEMGMT ---
Addendum entered by Leslie Da Silva 04/13/20 11:36: Pt denies having any other needs/questions and denies having any concerns w/going home. Original Note: VIVIENNE WALL NOTE: Home O2 testing has been completed and pt does not qualify for additional O2. (He currently has 3l/m @ HS thru [employer]). Scripts for new medications have been e-scribed to [facility] pharmacy. Pt requests they be transferred to [facility] retail pharmacy so he can gets his medications prior to discharge so he doesn't have to find someone to get them @ [facility]. Call placed to [facility] retail pharmacy and spoke w/Rebeka and she was made aware. Meds will be delivered to nurse on unit to send home with pt once they are ready. Kolby CLEANING RN, CM
--- NOTE | 2020-04-13 15:01 | PCM.PN.ID ---
Patient Problems: Active and Suspected Problems (Last Reviewed 07/09/19 @ 13:[address] Reymundo Howell MD) COVID-19 (Acute) Subjective: Feeling better, leaving today, no fever - Physical Exam Vitals/I&O's: Vital Signs Temp Pulse Resp BP Pulse Ox 98.3 F 97 16 128/70 H 92 04/13/20 09:07 04/13/20 09:59 04/13/20 09:07 04/13/20 09:07 04/13/20 11:23 Oxygen Flow Rate (L/min) [At 0 REST on Room Air] Oxygen Flow Rate (L/min) 1 Oxygen Delivery Method Nasal Cannula Weight: 77.4 kg Body Mass Index (BMI) 25.2 Intake and Output for Last 24 Hours 04/11/20 04/12/20 04/13/20 23:59 23:59 23:59 Intake Total 396.25 / 396.25 346.25 / 346.25 0 / 0 Balance 396.25 / 396.25 346.25 / 346.25 0 / 0 General: Alert, Cooperative, No apparent distress Lungs: Diminished Cardiovascular: Regular rate, Regular Rhythm Abdomen: Soft, Non Tender, Non-Distended Skin: No rashes Microbiology Past 72 Hours 04/08/20 11:08 Blood Culture (Wb) - Anticubital Left Blood Culture - Final No growth in 5 days. 04/08/20 11:13 Blood Culture (Wb) - Left Wrist Blood Culture - Final No growth in 5 days. Laboratory Results 04/13/20 06:02: WBC 10.9, RBC 3.97 L, Hgb 13.1, Hct 38.8 L, MCV 97.7 H, MCH 33.0 H, MCHC 33.8, RDW Std Deviation 48.4 H, RDW Coeff of Marjorie 13.3, Plt Count 179, MPV 12.3 H 04/13/20 06:02: Sodium 132 L, Potassium 4.5, Chloride 101, Carbon Dioxide 29.0, Anion Gap 2 L, BUN 18, Creatinine 0.83, Estim Creat Clear Calc 68.62, Est GFR (MDRD) Af Amer 115, Est GFR (MDRD) Non-Af 95, BUN/Creatinine Ratio 21.8 H, Glucose 105, Calcium 8.0 L, Total Bilirubin 0.50, AST 18, ALT 23, Alkaline Phosphatase 64, Total Protein 5.5 L, Albumin 2.4 L, Globulin 3.1, Albumin/Globulin Ratio 0.8 L Medical Necessity - Tobacco Use Smoking Status: Unknown if ever smoked Route of nutrition/ use of supplements: [] Nutritional Intake: [] IV Site: [] Fernández Catheter: [] - Assessment/Plan Antibiotics: [] Assessment/Plan: [] covid 19 with acute hypoxic resp failure - feeling better on dex; received plasma, remdesivir. O2 improved. Ok for d/c home with O2 per primary team. Complete 10 total days steroids. Quarantine for 14 days total from start of symptoms. Will follow as needed. D/c home today
--- NOTE | 2020-04-14 13:53 | CASEMGMT ---
VIVIENNE WALL DC PHONE CALL DC DATE: 04/13/2020 DC DISPOSITION: Home with home oxygen through [employer]. DC DIAGNOSIS: SARS COVID 2 Intro role of CM to patient. Patient states he is doing well, wears his oxygen, and no questions re: instructions, medications or f/u. Pt is able to quarantine. Briana CLEANING RN ACM
== END 2020-04-13 14:00 | disposition home or self-care (01) | DRG 177 ==
LOC: ED 12:00 → ICU 17:04 → MS2 04-11 07:29
PROVIDERS: Emergency Medicine; Internal Medicine Infectious Disease; Admitting Provider Hospitalist; Emergency Provider Physician Assistant; PCP Nurse Practitioner Family; Visit Provider Student in an Organized Health Care Education/Training Program
DX: U07.1 COVID-19 (principal); J96.21 Acute and chronic respiratory failure with hypoxia; J12.89 Other viral pneumonia; I50.42 Chronic combined systolic (congestive) and diastolic (congestive) heart failure; Q21.1 Atrial septal defect; E87.1 Hypo-osmolality and hyponatremia; J44.0 Chronic obstructive pulmonary disease with (acute) lower respiratory infection; N28.1 Cyst of kidney, acquired; I25.10 Atherosclerotic heart disease of native coronary artery without angina pectoris; I11.0 Hypertensive heart disease with heart failure; E78.5 Hyperlipidemia, unspecified; Z95.1 Presence of aortocoronary bypass graft; I25.5 Ischemic cardiomyopathy; I48.0 Paroxysmal atrial fibrillation; Z79.01 Long term (current) use of anticoagulants; Z79.899 Other long term (current) drug therapy; Z87.891 Personal history of nicotine dependence
CPT/HCPCS: 36415; 71045; 71275; 76770; 80053; 82550; 83605; 83615; 83880; 84145; 84484; 85025; 85027; 85379; 85384; 85610; 86140; 86900; 86901; 87040; 87633; 87635; 93005; 94640; 94760; 97110; 97116; 97162; 97166; 97530; 99251; 99283; 99285; J7030; J7050; Q9967; 90686; A4216; G0463; U0003

== ENCOUNTER 2020-07-07 10:59 | Emergency (ER) | payer OTHER, SELFPAY ==
[2020-04-08 17:58] VITALS: BMI 25.2
[2020-07-07 10:59] VITALS: BP 166/99; PULSE 99; RESP 18; TEMP 36.6; O2SAT 94; BMI 24.9
--- NOTE | 2020-07-07 11:27 | VDLE_ITS ---
Reason For Study: Pain RIGHT CFV is compressible, spontaneous, phasic, competent and demonstrates normal augmentation. FV is compressible, spontaneous, phasic, competent and demonstrates normal augmentation. POP V is compressible, spontaneous, phasic, competent and demonstrates normal augmentation. T/P Trunk is compressible. PTV is compressible. RT PerV is compressible. Acute superficial vein thrombosis is noted in the right distal thigh GSV. Thrombus filled varicose vein noted in the right distal thigh to prox calf. Procedure This is a venous duplex using B-mode, color flow and spectral Doppler. Exam performed portable in ED. A preliminary report was called and/or faxed to [facility]. Interpretation Summary No evidence for acute deep venous thrombosis right lower extremity Superficial thrombophlebitis right distal thigh great saphenous vein Superficial thrombophlebitis varicosities right distal thigh and proximal calf Ordering Physician: Nhan Pal Referring Physician: Moise Babcock Performed By: Brittney Sibley RVT
[2020-07-07] MEDS: APIXABAN 5 MG TABLET PO (12:01)
--- NOTE | 2020-07-07 12:07 | ED.VIS.LOWEX ---
History of Present Illness Chief Complaint: Lower Extremity Injury Narrative: Patient presenting for evaluation secondary to concern for DVT in the right leg. Patient has a underlying history of atrial fibrillation, he is supposed to be on Eliquis, although he has been out of this for around a week. Patient states that he had coronavirus in March and has not had much physical activity since then. Patient states that over the course of the last week he has been developing some pain and swelling over the medial portion of his right leg. He denies chest pain. He denies any increased shortness of breath. Denies any fevers. He denies that there is any sort of injuries associated with this. Pain is mild worse with palpation and movement. View of systems otherwise negative. Past Medical History - Allergies and Home Meds Allergies/Adverse Reactions: Allergies No Known Allergies Allergy (Verified 07/07/20 11:02) Primary Care Physician: Moise Babcock POCKET MARKER, POCKET MARKER-C [Primary Care Provider] - Prior records reviewed: Yes Past Medical History: - - Atrial fibrillation, ischemic cardiomyopathy, coronary artery disease Surgical History: coronary bypass surgery Lives: With Family Smoking Status: Never smoker Alcohol: None Drugs: None - Family History Maternal Family History: Family History (Last Reviewed 04/08/20 @ 16:[address] Ernesto Lopez MD) Brother CAD (coronary artery disease) Sister CAD (coronary artery disease) Father CAD (coronary artery disease) Family History: Reports: No pertinent history Paternal Family History: Family History (Last Reviewed 04/08/20 @ 16:[address] Ernesto Lopez MD) Brother CAD (coronary artery disease) Sister CAD (coronary artery disease) Father CAD (coronary artery disease) Family History: Reports: No pertinent history Review of Systems All systems negative except as indicated General: Denies: Chills, Fever, Sweats Eyes: Denies: Visual changes - bilaterally, Diplopia ENT: Denies: Rhinorrhea, Sore throat Cardiovascular: Denies: Chest pain, Palpitations Respiratory: Denies: Dyspnea, Cough, Dyspnea on exertion Gastrointestinal: Denies: Abdominal pain, Nausea, Vomiting, Diarrhea, Melena, Hematochezia Genitourinary: Denies: Dysuria, Hematuria, Frequency Musculoskeletal: Reports: Swelling, Extremity Pain Skin: Denies: Rash, Wounds Neurological: Denies: Headache, Weakness, Numbness Physical Exam Vital Signs/Narrative: Vital Signs Temp Pulse Resp BP Pulse Ox 07/07/20 10:59 97.9 F 99 18 166/99 H 94 - Extremity Exam Right Femur: - - Examination the patient's right leg shows pain and swelling over the medial portion of the leg with palpable cord and minimal erythema just proximal to the patient's knee. No evidence of subcutaneous emphysema. No lymphangitic streaking. Normal distal pulses and sensation. General: Well nourished, Well developed Head: Normocephalic, Atraumatic Eyes: Perrl, EOMI ENT: No Trauma, Moist Mucous Membranes Neck: Nontender, Full ROM Cardiovascular: Regular rate, Irregular Respiratory: No distress, CTA bilaterally, Chest nontender Abdomen: Soft, Nontender, Nondistended, Normal bowel sounds Back: Nontender Skin: Normal color, No rash Neurological: Alert, Oriented x3, Cranial nerves II-XII grossly intact, Normal Strength, Normal Sensation Psychological: Normal affect Diagnostic/Tx/Re-eval - Medical Decision Making Duplex ultrasound of the patient was performed and shows superficial thrombophlebitis. Patient is already supposed to be on Eliquis, although there is some difficulty with obtaining this for the patient. Patient will work with social work to obtain his prescription. Patient was given reassurance he was educated on conservative management of superficial thrombophlebitis. ED Disposition - Plan for ED Patient: Disposition: Home or Assisted Living Diagnosis: Superficial thrombophlebitis of leg Instructions: ED Thrombophlebitis, Superficial Prescriptions: Apixaban [Eliquis] 5 mg PO BID #28 tab Prescription Printed Referrals: Moise Babcock POCKET MARKER, POCKET MARKER-C [Primary Care Provider] - As Needed
--- NOTE | 2020-07-07 12:15 | CM.ED ---
SOCIAL WORK Informant: Dr. Pal Reason for Consult: Resources Dr. Pal consulted this worker due to prescription assistance. Per Dr. Pal, patient is on Eliquis and receives medication from [facility]. Patient states mail is weeks behind. Met with patient in room. Patient in agreement to have prescription to be filled with [facility]. Requesting physician write script for 2 weeks as patient is hopeful will receive medication from [facility] soon. Call to [facility] to mack check cost of Eliquis for patient, spoke with Key. Per Key cost is $206.69. Patient updated and in agreement with mack. Script sent to [facility] per patient's request. Plan: Home Michael Jones MSW, [employer]
== END 2020-07-07 12:29 | disposition home or self-care (01) ==
PROVIDERS: Emergency Provider Emergency Medicine; PCP Nurse Practitioner Family
DX: I80.01 Phlebitis and thrombophlebitis of superficial vessels of right lower extremity (principal); I25.5 Ischemic cardiomyopathy; I25.10 Atherosclerotic heart disease of native coronary artery without angina pectoris; I48.91 Unspecified atrial fibrillation; Z95.1 Presence of aortocoronary bypass graft; Z79.01 Long term (current) use of anticoagulants; Z79.899 Other long term (current) drug therapy
CPT/HCPCS: 93971; 99283

== ENCOUNTER → 2020-09-15 15:04 | Outpatient (CLI) | payer OTHER, SELFPAY ==
[2020-09-15 14:25] VITALS: BMI 25.2
[2020-09-15 17:31] LABS: Absolute Lymphocyte Count 1.94 X10^3/uL (0.83-4.51); Absolute Neutrophil Count 4.4 X10^3/uL (2.0-7.7); Basophil# 0.03 X10^3/uL; Basophil% 0.4 % (0-1); Eosinophil# 0.28 X10^3/uL; Eosinophils% 3.8 % (0-5); Hematocrit 45.1 % (40-54); Hemoglobin 14.7 g/dL (13.0-16.5); Lymphocyte # 1.94 X10^3/ul (4.0); Lymphocyte % 26.3 % (19-41); Mean Corp Hgb Conc 32.6 g/dL (32-36); Mean Corpuscular Hgb 32.7 pg (27.0-32.0); Mean Corpuscular Volume 100.4 fL (80-94); Mean Platelet Vol. 13.6 fl (6.2-12.0); Monocyte# 0.75 X10^3/uL; Monocyte% 10.1 % (0-10); NRBC Flagged by Analyzer 0 % (0-5); Neutrophil # 4.37 X10^3/uL (2.7-7.7); Neutrophil % 59.1 % (47-70); Platelet Count 162 K/mm3 (150-450); RBC Distribution Width CV 15.1 % (11.6-14.6); RBC Distribution Width SD 56.1 fl (35.1-43.9); Red Blood Count 4.49 M/mm3 (4.6-6.2); White Blood Count 7.4 K/mm3 (4.4-11.0)
[2020-09-15 18:08] LABS: Anion Gap 4 (5-15); BUN 20 mg/dL (7-18); Chloride 102 mmol/L (98-107); Creatinine, Serum 1.11 mg/dL (0.70-1.30); EST Glomerular Filtration Rate 67 mL/min (>60); Est Glom Filt Rate - Afr Amer 81 mL/min (>60); Glucose 103 mg/dL (74-106); Potassium 4.3 mmol/L (3.5-5.1); Sodium Level 137 mmol/L (136-145)
[2020-09-15 18:09] LABS: BNP,B-Type NATRIURETIC PEPTIDE 499.9 pg/mL (0-100)
== END ==
PROVIDERS: PCP Nurse Practitioner Family; Referring Provider Nurse Practitioner Family; Visit Provider Nurse Practitioner Family
DX: E78.5 Hyperlipidemia, unspecified (principal); I25.10 Atherosclerotic heart disease of native coronary artery without angina pectoris; I25.5 Ischemic cardiomyopathy; I48.0 Paroxysmal atrial fibrillation; Q21.1 Atrial septal defect; R06.00 Dyspnea, unspecified; Z95.1 Presence of aortocoronary bypass graft
CPT/HCPCS: 36415; 80048; 83880; 85025

== ENCOUNTER 2021-03-27 13:51 | Emergency (ER) | payer OTHER, SELFPAY ==
[2021-03-27] VITALS (7 sets, daily range): BP systolic 124–146; BP diastolic 80–96; PULSE 69–114; RESP 16–93; TEMP 37.3; O2SAT 87–98; BMI 25.2
--- NOTE | 2021-03-27 14:00 | RAD_ITS ---
rScriptor Unformatted Report Format: Options: n 2f 2i act cap dr crockett wm wcta sl lj Gender: Male Age: 85 years Exam: XR Chest 1 View Comparison: 04.08.20 History: SOB Contrast: The lung rea are hyperexpanded. Multiple median sternotomy wires are noted consistent for cardiac surgery. Electronically Signed: Glynn Cobos MD at 14:51 EDT , Service support , RAD/Chest 1 View (Portable)
[2021-03-27 15:15] LABS: Absolute Lymphocyte Count 1.26 X10^3/uL (0.83-4.51); Absolute Neutrophil Count 5.3 X10^3/uL (2.0-7.7); Basophil# 0.03 X10^3/uL; Basophil% 0.4 % (0-1); Eosinophil# 0.14 X10^3/uL; Eosinophils% 1.8 % (0-5); Hematocrit 43.7 % (40-54); Hemoglobin 14.2 g/dL (13.0-16.5); Lymphocyte # 1.26 X10^3/ul (0.83-4.51); Lymphocyte % 16.2 % (19-41); Mean Corp Hgb Conc 32.5 g/dL (32-36); Mean Corpuscular Hgb 33.2 pg (27.0-32.0); Mean Corpuscular Volume 102.1 fL (80-94); Mean Platelet Vol. 12.4 fl (6.2-12.0); Monocyte# 1.05 X10^3/uL; Monocyte% 13.5 % (0-10); NRBC Flagged by Analyzer 0 % (0-5); Neutrophil # 5.29 X10^3/uL (2.7-7.7); Neutrophil % 67.8 % (47-70); Platelet Count 171 K/mm3 (150-450); RBC Distribution Width SD 53.1 fl (35.1-43.9); Red Blood Count 4.28 M/mm3 (4.6-6.2); White Blood Count 7.8 K/mm3 (4.4-11.0)
--- NOTE | 2021-03-27 15:25 | EKG12_ITS ---
Test Reason : SOB Blood Pressure : / mmHG Vent. Rate : 109 BPM Atrial Rate : 098 BPM P-R Int : 000 ms QRS Dur : 106 ms QT Int : 356 ms P-R-T Axes : 000 036 015 degrees QTc Int : 479 ms Atrial fibrillation with premature ventricular or aberrantly conducted complexes Nonspecific ST abnormality Abnormal ECG Confirmed by TRISTAN SANDOVAL, KATHIA ([id number]), acquisition editor ELA LORA ([id number]) on 03/28/2021 7:50:00 AM Referred By: KAT Confirmed By:KATHIA HUDSON MD
--- NOTE | 2021-03-27 15:26 | EDS_ITS ---
HPI History of Present Illness Chief Complaint: Shortness of Breath Informant: patient Narrative Narrative: Presents worsening cough and dyspnea since yesterday. 4 days ago started with rhinorrhea and congestion after being out in the cold. He does have history of CHF COPD coronary disease along with atrial fibrillation, states were 2 L oxygen at night. Denies chest or abdominal pain. Denies fevers headache sore throat vomiting or diarrhea. Denies urinary symptoms. Diagnosed with Covid infection a year ago in March. No vaccinations since. Denies myalgias. Patient is on Eliquis with no missed doses. Prior similar symptoms: Yes PFSH PFSH Medical History Atherosclerosis of coronary artery of [place] heart without angina pectoris Atrial fibrillation with RVR Cardiomyopathy Chronic combined systolic and diastolic CHF (congestive heart failure) COPD (chronic obstructive pulmonary disease) COVID-19 Hyperlipidemia Ischemic cardiomyopathy Old inferior wall myocardial infarction Paroxysmal atrial fibrillation Patent foramen ovale Home Medications garlic 1,500 mg capsule 1,500 mg PO DAILY@1200 07/31/17 [History Last Taken 11/04/18] albuterol sulfate 2.5 mg INHALATION Q2H PRN PRN vial.neb. 07/25/18 [Rx Last Taken 11/04/18] capsicum (cayenne) 450 mg PO DAILY 04/08/20 [History Last Taken Unknown] simvastatin 40 mg PO QHS 04/08/20 [History Last Taken Unknown] metoprolol succinate 25 mg tablet,extended release 24 hr 25 mg PO BID #180 tab 04/22/20 [Rx Last Taken Unknown] apixaban 5 mg PO BID #28 tab 07/07/20 [Rx Last Taken Unknown] furosemide 40 mg tablet 40 mg PO DAILY #30 tablet 09/16/20 [Rx Last Taken Unknown] azithromycin 250 mg PO DAILY #4 tab 03/27/21 [Rx Last Taken Unknown] prednisone 60 mg PO DAILY #12 tab 03/27/21 [Rx Last Taken Unknown] Allergy/AdvReac Type Severity Reaction Status Date / Time No Known Allergies Allergy Verified 03/27/21 13:54 Family History Brother CAD (coronary artery disease) Sister CAD (coronary artery disease) Father CAD (coronary artery disease) Surgical History H/O coronary artery bypass surgery (04/2006) Ventral incisional hernia without obstruction or gangrene Social History Smoking Status: Never smoker alcohol intake: never caffeine: Yes Type: coffee Number of servings: 1 ROS ROS ED Constitutional Constitutional ED: Denies chills, fever(s) or sweats Eyes Eyes: Denies change in vision ENT ENT ED: Denies dysphagia or sore throat Cardiovascular Cardiovascular: Denies chest pain, leg edema, palpitations or racing heartbeat Respiratory/Chest Respiratory/Chest: Reports cough and dyspnea; Denies dyspnea on exertion Gastrointestinal Gastrointestinal: Denies abdominal pain, diarrhea, nausea or vomiting Genitourinary Genitourinary ED: Denies dysuria, hematuria or urinary frequency Musculoskeletal Musculoskeletal: Denies back pain, extremity pain or neck pain Integumentary Denies rash or wounds Neurologic Neurologic: Denies headache(s), paresthesias or weakness EXAM Physical Exam Const Vital Signs: 03/27/21 13:52 03/27/21 13:54 03/27/21 15:04 Temperature 99.1 F Temperature Source Temporal Pulse Rate 69 114 H Respiratory Rate 23 H 16 Blood Pressure 128/92 H Blood Pressure Mean 104 Pulse Ox 87 97 98 Oxygen Delivery Method Room Air Nasal Cannula Nasal Cannula Oxygen Flow Rate (L/min) 2 2 03/27/21 16:44 03/27/21 17:08 03/27/21 17:35 Temperature Temperature Source Pulse Rate 87 97 97 Respiratory Rate 16 93 H 18 Blood Pressure 146/80 H 141/96 H 124/89 H Blood Pressure Mean 102 111 100 Pulse Ox 97 93 Oxygen Delivery Method Room Air Room Air Oxygen Flow Rate (L/min) Positive well nourished and well developed Constitutional Narrative: On 2 L nasal cannula. General Appearance ED: well developed and NAD HEENT Reports moist mucous membranes normocephalic and atraumatic Eyes PERRL, EOMs intact bilaterally and conjunctivae normal General Eye ED: Yes normal appearance of both eyes Neck no lymphadenopathy and supple General: Negative for tenderness Chest Wall Chest: Negative for tenderness Resp normal respiratory effort and normal air movement Effort and Inspection: symmetric chest movement; Negative for respiratory distr ess Cardio no murmurs Rate: tachycardic Rhythm: abnormal rhythm Peripheral Pulses: pulses 2+ throughout GI normal to inspection, nondistended, normoactive bowel sounds and non-tender Palpation: Negative for guarding or rebound tenderness present Back/Spine no CVA tenderness and no thoracic nor lumbar tenderness Extremity normal to inspection Extremity Narrative: 1+ lower extremity edema bilaterally. Pulses intact x4. General Extremety ED: Yes edema; Negative for tenderness General Extremity: edema Neuro oriented x3 and no sensory deficits noted Sensorium / Orientation: awake and alert Skin no rashes or lesions noted and no wounds MDM MDM MDM Narrative Medical decision making narrative: Patient noted to be 87% room air on arrival. He is placed on oxygen. He is in no respiratory distress. Covid testing negative chest x-ray negative labs are all stable. He is on Eliquis twice a day with no missed doses lower suspicion for PE. Reported cough with wheezing at home. Discussed likely COPD exacerbation. Oxygen turned off at rest he was 91% he ambulated with down to 87% clinically was not short of breath. Patient states he would like to go home, I do feel this is appropriate since he has oxygen at home. He is started on Zithromax and prednisone for COPD. EKG notes chronic A. fib rate of 109 however heart rate in the 90s on reevaluation. He is on metoprolol at home. Return precautions discussed. All questions were answered. Patient is being discharged under pandemic conditions under declared global, national and state disaster activation, with limited medical resources. Patient and community understands this. Results discussed in layman's terms to the patient satisfaction. All questions answered in layman's terms. Patient understands importance of follow-up care as directed. Patient has been instructed to return to the ED immediately if new symptoms, problems, or questions occur. We mutually agree with the plan of disposition. The patient understand that they may call or return with any questions or concerns at any time. Lab Data Attestation: I reviewed the patient's lab results. Labs: Laboratory Results - last 24 hr 03/27/21 03/27/21 15:00 15:00 WBC 7.8 RBC 4.28 L Hgb 14.2 Hct 43.7 MCV 102.1 H MCH 33.2 H MCHC 32.5 RDW Std Deviation 53.1 H RDW Coeff of Marjorie 14.0 Plt Count 171 MPV 12.4 H Immature Gran % (Auto) 0.300 Neut % (Auto) 67.8 Lymph % (Auto) 16.2 L [place] % (Auto) 13.5 H Eos % (Auto) 1.8 Baso % (Auto) 0.4 Absolute Neuts (auto) 5.3 Absolute Lymphs (auto) 1.26 Nucleated RBC % 0 Sodium 138 Potassium 4.3 Chloride 104 Carbon Dioxide 29.0 Anion Gap 5 BUN 16 Creatinine 0.99 Estim Creat Clear Calc 58.38 Est GFR (MDRD) Af Amer 93 Est GFR (MDRD) Non-Af 77 BUN/Creatinine Ratio 16.2 Glucose 93 Calcium 9.0 Radiography Chest X-Ray - ED: 1 View, Read by ED Physician and Read by Radiologist Diagnostic Testing: Radiology Impression Chest X-Ray 03/27/21 14:00 EKG Initial EKG: Attestation: I personally reviewed and interpreted this EKG as follows: Comments: Atrial fibrillation rate of 109, no ST or T wave changes. Discharge Plan Triage Chief Complaint: Shortness of Breath ED Provider: Ildefonso Santos Dx/Rx/DC Orders Clinical Impression: COPD exacerbation, Hypoxia, Atrial fibrillation, chronic Instructions: Chronic Lung Disease ... Prescriptions: New azithromycin [azithromycin] 250 MG tablet 250 mg PO DAILY Qty: 4 RF: 0 prednisone 20 MG tablet 60 mg PO DAILY Qty: 12 RF: 0 No Action garlic 1,500 mg capsule 1,500 mg PO DAILY@1200 RF: 0 albuterol sulfate 2.5 MG/3 ML solution for nebulization 2.5 mg INHALATION Q2H PRN PRN (Reason: Shortness Of Breath) RF: 0 capsicum (cayenne) 450 MG capsule 450 mg PO DAILY RF: 0 simvastatin 40 MG tablet 40 mg PO QHS RF: 0 apixaban 5 MG tablet 5 mg PO BID Qty: 28 RF: 0 metoprolol succinate 25 mg tablet extended release 24 hr 25 mg PO BID Qty: 180 RF: 3 furosemide [Lasix] 40 mg tablet 40 mg PO DAILY Qty: 30 RF: 12 Primary Care Provider: Moise Babcock NP Referrals: Dominick Shepard MD [STAFF PHYSICIAN] - 3-5 Days Moise Babcock DRIVER MATERIAL HANDLER, DRIVER MATERIAL HANDLER-C [Primary Care Provider] - Activity Restrictions/Additional Instructions: Take your medications as prescribed. Use your home oxygen as needed. Return if any worsening symptoms. Disposition Disposition: Home, Self Care Discharge Date/Time: 03/27/21 17:43
[2021-03-27 15:27] LABS: Anion Gap 5 (5-15); BUN 16 mg/dL (7-18); BUN/Creat Ratio 16.2 RATIO (10-20); Chloride 104 mmol/L (98-107); Creatinine, Serum 0.99 mg/dL (0.70-1.30); EST Glomerular Filtration Rate 77 mL/min (>60); Est Glom Filt Rate - Afr Amer 93 mL/min (>60); Estimated Creatinine Clearance 58.38 ml/min; Glucose 93 mg/dL (74-106); Potassium 4.3 mmol/L (3.5-5.1); Sodium Level 138 mmol/L (136-145)
[2021-03-27] MEDS: predniSONE 20 MG Tablet 60 MG PO (17:39)
[2021-03-27] MEDS: Azithromycin 250 MG Tablet 500 MG PO (17:39)
== END 2021-03-27 17:43 | disposition home or self-care (01) ==
PROVIDERS: Emergency Provider Emergency Medicine; PCP Nurse Practitioner Family
DX: J44.1 Chronic obstructive pulmonary disease with (acute) exacerbation (principal); R09.02 Hypoxemia; I48.20 Chronic atrial fibrillation, unspecified; E78.5 Hyperlipidemia, unspecified; I25.10 Atherosclerotic heart disease of native coronary artery without angina pectoris; I25.2 Old myocardial infarction; I25.5 Ischemic cardiomyopathy; I42.9 Cardiomyopathy, unspecified; Q21.1 Atrial septal defect; I50.42 Chronic combined systolic (congestive) and diastolic (congestive) heart failure; Z86.16 Personal history of COVID-19; Z95.1 Presence of aortocoronary bypass graft; Z79.01 Long term (current) use of anticoagulants; Z79.899 Other long term (current) drug therapy
CPT/HCPCS: 71045; 80048; 85025; 87426; 93005; 94760; 99284; A4216

== ENCOUNTER 2022-06-14 13:16 | Emergency (ER) | payer OTHER, SELFPAY ==
[2022-06-14 13:17] VITALS: BP 146/91; PULSE 110; RESP 23; TEMP 36.6; O2SAT 96; BMI 26.4
[2022-06-14 13:20] VITALS: O2SAT 96
[2022-06-14 13:57] VITALS: BP 146/91; PULSE 110; RESP 20; TEMP 36.6; O2SAT 96
[2022-06-14] MEDS: Ipratropium/Albuterol Sulfate 3 ML AMPUL.NEB INHALATION (14:36)
[2022-06-14 14:37] VITALS: PULSE 100; RESP 18
--- NOTE | 2022-06-14 14:58 | RAD_ITS ---
STUDY: X-RAY CHEST REASON FOR EXAM: Male, 86 years old. Cough sob copd TECHNIQUE: PA and lateral views of the chest. COMPARISON: Comparison is made with prior study dated 03/27/2021. FINDINGS: EKG electrodes are seen. There is hyperinflation of the lungs consistent with chronic obstructive lung disease (COPD). There is no demonstrated pleural abnormality. Sternal cerclage wires and vascular clips are present from a prior sternotomy and coronary artery bypass graft procedure (CABG). Normal mediastinum and junior. Normal visualized pulmonary arteries. Normal visualized aortic arch and descending thoracic aorta. There are diffuse degenerative changes of the visualized thoracic spine. Normal visualized ribs, clavicles, and shoulders. There is no demonstrated abnormality of the visualized soft tissue structures of the upper abdomen. RAD/Chest PA and Lateral IMPRESSION: Hyperinflation. Decreased bronchovascular markings bilaterally in keeping with a emphysematous changes. Electronically Signed: Mehul Calderon MD at 15:13 EST ,
--- NOTE | 2022-06-14 16:00 | ED.VIS.DYS ---
HPI History of Present Illness Chief Complaint: Shortness of Breath Informant: patient Onset/Context/Timing Onset: Days (2-3) Context: gradual and onset Timing: Continuous Quality: Positive for Wheezing Current Severity: Mild Maximum Severity: Moderate Worsened by: Coughing Relieved by: Albuterol Associated Symptoms cough Chest Pain: Positive for Tightness Narrative Narrative: Last few days patient has had a cough, chest tightness gradually worsening along with dyspnea/wheezing it feels like his COPD. He has been doing nebulizer treatments at home with albuterol, it has been improving transiently with that. He is on oxygen every night but in the last 3 days since he has been ill he has been using it during the day as well. He denies any systemic symptoms or fevers/chills. No known sick contacts. Unvaccinated against COVID and influenza. [facility] Medical History Atherosclerosis of coronary artery of [place] heart without angina pectoris Atrial fibrillation with RVR Chronic combined systolic and diastolic CHF (congestive heart failure) COPD (chronic obstructive pulmonary disease) COVID-19 (04/08/20) Hyperlipidemia Ischemic cardiomyopathy Longstanding persistent atrial fibrillation Old inferior wall myocardial infarction Paroxysmal atrial fibrillation Patent foramen ovale Home Medications garlic 1,500 mg capsule 1,500 mg PO DAILY@1200 supplement 07/31/17 [History Last Taken 11/04/18] albuterol sulfate 2.5 mg/3 mL (0.083 %) solution for nebulization 2.5 mg (3 mL) inhalation Q2H PRN PRN Shortness Of Breath 07/25/18 [Rx Last Taken 11/04/18] capsicum (cayenne) 450 mg capsule 450 mg PO DAILY 04/08/20 [History Last Taken Unknown] simvastatin 40 mg tablet 40 mg PO QHS CHOLESTEROL 04/08/20 [History Last Taken Unknown] apixaban 5 mg tablet 5 mg PO BID #28 tabs 07/07/20 [Rx Last Taken Unknown] azithromycin 250 mg tablet 250 mg PO DAILY #4 tabs 03/27/21 [Rx Last Taken Unknown] prednisone 20 mg tablet 60 mg PO DAILY #12 tabs 03/27/21 [Rx Last Taken Unknown] metoprolol succinate 25 mg tablet,extended release 24 hr 25 mg PO DAILY 03/31/21 [History Last Taken Unknown] furosemide 40 mg tablet (Lasix) 40 mg PO DAILY #90 tabs 11/22/21 [Rx Last Taken Unknown] doxycycline monohydrate 100 mg capsule 100 mg PO BID #20 CAPSULES 06/14/22 [Rx Last Taken Unknown] prednisone 20 mg tablet 40 mg PO DAILY #15 TABLETS 06/14/22 [Rx Last Taken Unknown] Allergy/AdvReac Type Severity Reaction Status Date / Time No Known Allergies Allergy Verified 06/14/22 13:16 Family History Brother CAD (coronary artery disease) Sister CAD (coronary artery disease) Father CAD (coronary artery disease) Surgical History H/O coronary artery bypass surgery (04/2006) Ventral incisional hernia without obstruction or gangrene Social History Smoking Status: Former smoker quit date: 06/22/17 alcohol intake: never caffeine: Yes Type: coffee Number of servings: 1 ROS ROS ED Constitutional Constitutional ED: Denies chills or fever(s) Eyes Eyes: Denies change in vision or diplopia ENT ENT ED: Denies rhinorrhea or sore throat Cardiovascular Cardiovascular: Reports other Details: Chest tightness ; Denies palpitations Respiratory/Chest Respiratory/Chest: Reports cough, dyspnea and wheezing; Denies sputum Gastrointestinal Gastrointestinal: Denies abdominal pain, diarrhea, nausea or vomiting Genitourinary Genitourinary ED: Denies dysuria or hematuria Musculoskeletal Musculoskeletal: Denies back pain or neck pain Integumentary Denies abscess or rash Neurologic Neurologic: Denies headache(s), paresthesias or weakness Psychiatric Psychiatric: Denies anxiety or suicidal thoughts EXAM Physical Exam Const Vital Signs: 06/14/22 13:17 06/14/22 13:20 06/14/22 13:57 Temperature 97.9 F 97.9 F Temperature Source Oral Oral Pulse Rate 110 H 110 H Respiratory Rate 23 H 20 H Respiratory Effort Short of Breath Labored Respiratory Depth Normal Respiratory Pattern Normal Blood Pressure 146/91 H 146/91 H Blood Pressure Mean 109 109 Pulse Ox 96 96 Oxygen Delivery Method Nasal Cannula Nasal Cannula Nasal Cannula Oxygen Flow Rate (L/min) 2 2 2 06/14/22 14:37 Temperature Temperature Source Pulse Rate 100 Respiratory Rate 18 Respiratory Effort Respiratory Depth Respiratory Pattern Normal Blood Pressure Blood Pressure Mean Pulse Ox Oxygen Delivery Method Oxygen Flow Rate (L/min) Positive well nourished and well developed General Appearance ED: well developed and NAD HEENT Reports moist mucous membranes normocephalic and atraumatic Eyes PERRL and EOMs intact bilaterally Neck full ROM and supple Resp normal respiratory effort and clear to auscultation bilaterally Cardio regular rate, regular rhythm and no murmurs GI non-tender and non-distended Auscultation: normoactive bowel sounds Palpation: soft Back/Spine no CVA tenderness General Back: other FROM Extremity normal to inspection General Extremety ED: Negative for edema, pulses abnormal or tenderness General Extremity: Negative for edema or pulses abnormal Neuro oriented x3, CN's II-XII intact bilaterally and no sensory deficits noted Sensorium / Orientation: awake and alert Motor Exam: strength 5/5 throughout Skin no rashes or lesions noted and no wounds MDM MDM MDM Narrative Medical decision making narrative: Patient feeling much better after single duo nebulizer treatment. Just mild wheezes prior to that and clear afterwards. Resolution of his chest tightness. I do not think this is cardiac in etiology. Started him on steroids and antibiotics, his chest x-ray 2 views of my interpretation negative for any acute infiltrates radiology in agreement consistent with hyperinflation/COPD, his COVID and influenza are negative. He is calling for family to bring his oxygen so he can be transported home, I offered an ambulance if he needs it. Radiography Diagnostic Testing: Clinical Impression(s) from Imaging Studies Chest X-Ray 06/14/22 14:58 IMPRESSION: Hyperinflation. Decreased bronchovascular markings bilaterally in keeping with a emphysematous changes. Electronically Signed: Mehul Calderon MD at 15:13 EST , Rhythm Strip Rhythm Strip: Sinus Tach Rate: 105 Ectopy: None Discharge Plan Triage Chief Complaint: Shortness of Breath ED Provider: Shelton Pandya Dx/Rx/DC Orders Clinical Impression: Acute exacerbation of chronic obstructive pulmonary disease, Acute bronchitis Instructions: ED COPD Flare Prescriptions: New prednisone 20 mg tablet 40 mg PO DAILY Qty: 15 0RF doxycycline monohydrate 100 mg capsule 100 mg PO BID Qty: 20 0RF No Action garlic 1,500 mg capsule 1,500 mg PO DAILY@1200 metoprolol succinate 25 mg tablet extended release 24 hr 25 mg PO DAILY albuterol sulfate 2.5 MG/3 ML solution for nebulization 2.5 mg INHALATION Q2H PRN PRN (Reason: Shortness Of Breath) 0RF capsicum (cayenne) 450 MG capsule 450 mg PO DAILY simvastatin 40 MG tablet 40 mg PO QHS apixaban 5 MG tablet 5 mg PO BID Qty: 28 0RF azithromycin [azithromycin] 250 MG tablet 250 mg PO DAILY Qty: 4 0RF prednisone 20 MG tablet 60 mg PO DAILY Qty: 12 0RF furosemide [Lasix] 40 mg tablet 40 mg PO DAILY Qty: 90 3RF Primary Care Provider: Moise Babcock NP Referrals: Moise Babcock NP, ENGINEERING DOCUMENTATION SPECIALIST-C [Primary Care Provider] - 1 Week if not improving Activity Restrictions/Additional Instructions: Start your prednisone prescription tomorrow since we gave you the first dose today and it is only once daily. Use your albuterol treatments as needed, in addition to your oxygen, which is okay to use 2 L during the day as well if you need it. If you have a monitor to check your pulse ox at home, you want to make sure you stay in the 90s. Disposition Disposition: Home, Self Care
[2022-06-14] MEDS: MethylPREDNISolone 125 MG/2 ML Vial IV (16:13)
[2022-06-14] MEDS: Doxycycline 100 MG CAPSULE PO (16:13)
[2022-06-14 16:18] VITALS: BP 109/81; PULSE 105; RESP 20; O2SAT 96
== END 2022-06-14 16:20 | disposition home or self-care (01) ==
PROVIDERS: Emergency Provider Emergency Medicine; PCP Nurse Practitioner Family; Visit Provider Emergency Medicine
DX: J44.1 Chronic obstructive pulmonary disease with (acute) exacerbation (principal); J20.9 Acute bronchitis, unspecified; I25.10 Atherosclerotic heart disease of native coronary artery without angina pectoris; I25.2 Old myocardial infarction; Z86.16 Personal history of COVID-19; Z95.1 Presence of aortocoronary bypass graft; Z87.891 Personal history of nicotine dependence
CPT/HCPCS: 71046; 87428; 94640; 96374; 99284; A4216

== ENCOUNTER 2022-09-17 12:51 | Emergency (ER) | payer OTHER, SELFPAY ==
[2022-09-17] VITALS (12 sets, daily range): BP systolic 136–168; BP diastolic 86–108; PULSE 98–120; RESP 17–26; TEMP 36.8–36.9; O2SAT 85–99; BMI 27.4
--- NOTE | 2022-09-17 13:17 | EKG12_ITS ---
Test Reason : Blood Pressure : / mmHG Vent. Rate : 094 BPM Atrial Rate : 000 BPM P-R Int : 000 ms QRS Dur : 106 ms QT Int : 368 ms P-R-T Axes : 000 -01 -29 degrees QTc Int : 460 ms Atrial fibrillation with premature ventricular or aberrantly conducted complexes Nonspecific T wave abnormality Abnormal ECG Confirmed by TRISTAN SANDOVAL, KATHIA ([id number]), editor managing newspaper ELA LORA ([id number]) on 09/19/2022 9:51:15 AM Referred By: PRISCILA/SANG Confirmed By:KATHIA HUDSON MD
--- NOTE | 2022-09-17 13:17 | RAD_ITS ---
STUDY: X-RAY CHEST REASON FOR EXAM: Male, 87 years old. sob TECHNIQUE: Single AP portable view of the chest. COMPARISON: Comparison is made with prior study dated June 14, 2022. FINDINGS: EKG electrodes are seen. Hyperinflation. Since prior study, there are increased linear markings at the left lung base suggestive of a linear atelectasis and/or early infiltrate. Follow-up is recommended. There is no demonstrated pleural abnormality. Sternal cerclage wires and vascular clips are present from a prior sternotomy and coronary artery bypass graft procedure (CABG). Normal mediastinum and junior. Normal visualized pulmonary arteries. There is atherosclerotic calcification of the aortic arch with tortuosity. There are diffuse degenerative changes of the visualized thoracic spine. There is degenerative osteoarthritis of the bilateral shoulders. There is no demonstrated abnormality of the visualized soft tissue structures of the upper abdomen. RAD/Chest 1 View (Portable) IMPRESSION: Hyperinflation. Increased linear markings at the left lung base suggestive of atelectasis and/or early infiltrate. Electronically Signed: Mehul Calderon MD at 14:01 EDT ,
[2022-09-17 14:04] LABS: Absolute Lymphocyte Count 0.96 X10^3/uL (0.83-4.51); Absolute Neutrophil Count 4.9 X10^3/uL (2.0-7.7); Basophil# 0.03 X10^3/uL; Basophil% 0.4 % (0-1); Eosinophil# 0.22 X10^3/uL; Eosinophils% 3.2 % (0-5); Hemoglobin 14.1 g/dL (13.0-16.5); Lymphocyte # 0.96 X10^3/ul (0.83-4.51); Lymphocyte % 14.2 % (19-41); Mean Corp Hgb Conc 32.8 g/dL (32-36); Mean Corpuscular Hgb 33.9 pg (27.0-32.0); Mean Corpuscular Volume 103.4 fL (80-94); Mean Platelet Vol. 11.4 fl (6.2-12.0); Monocyte# 0.61 X10^3/uL; NRBC Flagged by Analyzer 0 % (0-5); Neutrophil # 4.93 X10^3/uL (2.7-7.7); Neutrophil % 72.9 % (47-70); Platelet Count 199 K/mm3 (150-450); RBC Distribution Width CV 13.8 % (11.6-14.6); RBC Distribution Width SD 53.1 fl (35.1-43.9); Red Blood Count 4.16 M/mm3 (4.6-6.2); White Blood Count 6.8 K/mm3 (4.4-11.0)
[2022-09-17 14:22] LABS: Anion Gap 2 (5-15); BNP,B-Type NATRIURETIC PEPTIDE 554.7 pg/mL (0-100); BUN 23 mg/dL (7-18); Calcium,Total 8.8 mg/dL (8.5-10.1); Chloride 104 mmol/L (98-107); Creatinine, Serum 1.15 mg/dL (0.70-1.30); EST Glomerular Filtration Rate 64 mL/min (>60); Est Glom Filt Rate - Afr Amer 78 mL/min (>60); Estimated Creatinine Clearance 48.49 ml/min; Glucose 121 mg/dL (74-106); Potassium 4.9 mmol/L (3.5-5.1); Sodium Level 137 mmol/L (136-145); Troponin-I HS 21 pg/mL (3.0-78.0)
--- NOTE | 2022-09-17 15:26 | EX.ED.DYSGE1 ---
HPI History of Present Illness Chief Complaint: Shortness of Breath Informant: patient Onset/Context/Timing Onset: Days Context: Gradual Onset (5 to 6 days) Current Severity: Mild Maximum Severity: Moderate Narrative Narrative: Patient presents secondary to shortness of breath with cough and runny nose. He states he thinks he has bronchitis or pneumonia. EMS notes patient was hypoxic in the 80s on room air. He was given breathing treatment in route and placed on oxygen. He does feel that he is improved after his breathing treatment. On arrival to the emergency room he is taken off oxygen and is satting 85% on room air. Patient denies chest pain. He has not noted increased swelling. He does have a history of COPD but denies wheezing. He is on Eliquis secondary to a history of atrial fibrillation. [facility] Medical History Atherosclerosis of coronary artery of [place] heart without angina pectoris Atrial fibrillation with RVR Chronic combined systolic and diastolic CHF (congestive heart failure) COPD (chronic obstructive pulmonary disease) COVID-19 (04/08/20) Hyperlipidemia Ischemic cardiomyopathy Longstanding persistent atrial fibrillation Old inferior wall myocardial infarction Paroxysmal atrial fibrillation Patent foramen ovale Home Medications simvastatin 40 mg tablet 40 mg PO QHS CHOLESTEROL 04/08/20 [History Last Taken 09/16/22] metoprolol succinate 25 mg tablet,extended release 24 hr 25 mg PO DAILY HEART 03/31/21 [History Last Taken Unknown] furosemide 40 mg tablet (Lasix) 40 mg PO DAILY #90 tabs 11/22/21 [Rx Last Taken 09/16/22] apixaban 2.5 mg tablet (Eliquis) 2.5 mg PO BID 09/17/22 [History Last Taken 09/16/22] doxycycline monohydrate 100 mg capsule 100 mg PO BID #20 CAPSULES 09/17/22 [Rx Last Taken Unknown] Allergy/AdvReac Type Severity Reaction Status Date / Time No Known Allergies Allergy Verified 09/17/22 12:52 Family History Brother CAD (coronary artery disease) Sister CAD (coronary artery disease) Father CAD (coronary artery disease) Surgical History H/O coronary artery bypass surgery (04/2006) Ventral incisional hernia without obstruction or gangrene Social History Smoking Status: Former smoker quit date: 06/22/17 alcohol intake: never caffeine: Yes Type: coffee Number of servings: 1 ROS ROS ED Constitutional Constitutional ED: Denies chills or fever(s) Eyes Eyes: Denies change in vision or discharge from eye(s) ENT ENT ED: Reports rhinorrhea; Denies discharge from eye(s) or sore throat Cardiovascular Cardiovascular: Denies chest pain or palpitations Respiratory/Chest Respiratory/Chest: Reports cough, dyspnea and sputum Gastrointestinal Gastrointestinal: Denies abdominal pain, diarrhea, nausea or vomiting Genitourinary Genitourinary ED: Denies dysuria Musculoskeletal Musculoskeletal: Denies back pain or extremity pain Integumentary Denies Abrasions or rash Neurologic Neurologic: Denies headache(s) or weakness Psychiatric Psychiatric: Denies anxiety or depression Allergic/Immunologic Allergic/Immunologic ED: Denies lip swelling or urticaria EXAM Physical Exam Const Vital Signs: 09/17/22 12:52 09/17/22 12:56 09/17/22 12:56 Temperature 98.2 F 98.2 F Temperature Source Temporal Temporal Pulse Rate 102 H 108 H Respiratory Rate 26 H 18 Respiratory Effort Respiratory Depth Respiratory Pattern Blood Pressure 168/108 H 168/108 H Blood Pressure Mean 128 128 Pulse Ox 85 98 98 Oxygen Delivery Method Room Air Nasal Cannula Nasal Cannula Oxygen Flow Rate (L/min) 4 4 09/17/22 13:52 09/17/22 14:52 09/17/22 15:52 Temperature Temperature Source Pulse Rate 102 H 111 H 108 H Respiratory Rate 24 H 26 H 24 H Respiratory Effort Respiratory Depth Respiratory Pattern Blood Pressure 151/86 H 136/91 H 147/86 H Blood Pressure Mean 107 106 106 Pulse Ox 98 98 99 Oxygen Delivery Method Nasal Cannula Nasal Cannula Nasal Cannula Oxygen Flow Rate (L/min) 4 4 4 09/17/22 13:56 09/17/22 14:56 09/17/22 15:56 Temperature 98.3 F 98.2 F 98.4 F Temperature Source Temporal Temporal Temporal Pulse Rate 113 H 108 H 120 H Respiratory Rate 24 H 26 H 18 Respiratory Effort Respiratory Depth Respiratory Pattern Blood Pressure 151/86 H 136/91 H 147/86 H Blood Pressure Mean 107 106 106 Pulse Ox 98 98 99 Oxygen Delivery Method Nasal Cannula Nasal Cannula Nasal Cannula Oxygen Flow Rate (L/min) 4 4 4 09/17/22 16:00 09/17/22 14:00 Temperature 98.3 F Temperature Source Temporal Pulse Rate 111 H Respiratory Rate 22 H Respiratory Effort Short of Breath Labored Respiratory Depth Normal Respiratory Pattern Tachypnea Blood Pressure 149/92 H Blood Pressure Mean 111 Pulse Ox 99 Oxygen Delivery Method Nasal Cannula Nasal Cannula Oxygen Flow Rate (L/min) 4 4 Positive well nourished and well developed General Appearance ED: well developed HEENT Reports normocephalic and head/scalp atraumatic Eyes PERRL and EOMs intact bilaterally Neck supple Chest Wall inspection of chest normal and palpation of chest normal Resp Resp Narrative: Mild tachypnea with diminished breath sounds at the bilateral bases. No appreciable wheezing. Cardio Rhythm: abnormal rhythm irregularly irregular GI normal to inspection, nondistended, normoactive bowel sounds Palpation: soft Extremity Extremity Narrative: 1+ bilateral lower extremity edema, symmetric. 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 EKG obtained to evaluate for cardiac arrhythmia/ischemia. Chest x-ray obtained to evaluate for acute lung pathology, cardiac size, or mediastinal abnormality. Labwork obtained to evaluate for leukocytosis, anemia, and electrolyte derangement. History & Record Review Discussion w/independent historian: EMS personnel and Patient Lab Data Attestation: I reviewed the patient's lab results. Labs: Laboratory Results - last 24 hr 09/17/22 09/17/22 09/17/22 13:40 13:40 13:40 WBC 6.8 RBC 4.16 L Hgb 14.1 Hct 43.0 MCV 103.4 H MCH 33.9 H MCHC 32.8 RDW Std Deviation 53.1 H RDW Coeff of Marjorie 13.8 Plt Count 199 MPV 11.4 Immature Gran % (Auto) 0.300 Neut % (Auto) 72.9 H Lymph % (Auto) 14.2 L [place] % (Auto) 9.0 Eos % (Auto) 3.2 Baso % (Auto) 0.4 Absolute Neuts (auto) 4.9 Absolute Lymphs (auto) 0.96 Nucleated RBC % 0 Sodium 137 Potassium 4.9 Chloride 104 Carbon Dioxide 31.0 Anion Gap 2 L BUN 23 H Creatinine 1.15 Estim Creat Clear Calc 48.49 Est GFR (MDRD) Af Amer 78 Est GFR (MDRD) Non-Af 64 BUN/Creatinine Ratio 20.0 Glucose 121 H Calcium 8.8 Troponin I High Sens 21 B-Natriuretic Peptide 554.7 H Radiography Chest X-Ray - ED: 1 View, Read by ED Physician and Chronic Changes (Mild increased fluid.) Diagnostic Testing: Clinical Impression(s) from Imaging Studies Chest X-Ray 09/17/22 13:17 IMPRESSION: Hyperinflation. Increased linear markings at the left lung base suggestive of atelectasis and/or early infiltrate. Electronically Signed: Mehul Calderon MD at 14:01 EDT , EKG Initial EKG: Attestation: I personally reviewed and interpreted this EKG as follows: Interpretation: Atrial Fibrillation (Atrial fibrillation 94 bpm. Single PVC noted. 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 No left shift appreciated. Chemistry studies are unremarkable. Troponin is normal at 21. BNP is elevated at 554. Chest x-ray per my interpretation reveals mild fluid overload. Radiology interpretation is reviewed. They feel that there is atelectasis versus possible early infiltrate at the left base. Swab for COVID and influenza is negative. Patient is given 40 mg of IV Lasix here. He does state that he did not take his Lasix today. He states that he has oxygen at home as well as a pulse ox meter and feels that he can take care of himself at home. He will increase his Lasix to 40 mg twice a day for the next 4 days. Given that he has had infectious symptoms with a possible infiltrate on his x-ray he will be covered with a course of doxycycline as well. Discharge Plan Triage Chief Complaint: Shortness of Breath ED Provider: Otilia Stanton Dx/Rx/DC Orders Clinical Impression: CHF (congestive heart failure), Pneumonia Instructions: ED Heart Failure, Congestive (CHF), ED Pneumonia (Adult) Prescriptions: New doxycycline monohydrate 100 mg capsule 100 mg PO BID Qty: 20 0RF No Action metoprolol succinate 25 mg tablet extended release 24 hr 25 mg PO DAILY simvastatin 40 MG tablet 40 mg PO QHS Eliquis 2.5 mg Tablet 2.5 mg PO BID furosemide [Lasix] 40 mg tablet 40 mg PO DAILY Qty: 90 3RF Primary Care Provider: Moise Babcock NP Referrals: Moise Babcock NP, RESEARCH EXECUTIVE-C [Primary Care Provider] - Activity Restrictions/Additional Instructions: As discussed, please take your Lasix twice a day for the next 4 days. Disposition Disposition: Home, Self Care
[2022-09-17] MEDS: Furosemide 40 MG/4 ML Vial IV (15:58)
[2022-09-17] MEDS: Doxycycline 100 MG CAPSULE PO (17:08)
[2022-09-17] MEDS: Metoprolol Tartrate 5 MG/5 ML Vial IV (17:08)
== END 2022-09-17 17:21 | disposition home or self-care (01) ==
PROVIDERS: Emergency Provider Emergency Medicine; PCP Nurse Practitioner Family; Visit Provider Emergency Medicine
DX: J18.9 Pneumonia, unspecified organism (principal); J44.0 Chronic obstructive pulmonary disease with (acute) lower respiratory infection; I50.42 Chronic combined systolic (congestive) and diastolic (congestive) heart failure; I48.11 Longstanding persistent atrial fibrillation; I25.10 Atherosclerotic heart disease of native coronary artery without angina pectoris; I25.2 Old myocardial infarction; E78.5 Hyperlipidemia, unspecified; Z95.1 Presence of aortocoronary bypass graft; Z79.01 Long term (current) use of anticoagulants; Z79.899 Other long term (current) drug therapy; Z86.16 Personal history of COVID-19; Z87.891 Personal history of nicotine dependence
CPT/HCPCS: 71045; 80048; 83880; 84484; 85025; 87040; 87428; 93005; 96374; 96375; 99285; A4216; J1940

== ENCOUNTER 2023-07-29 14:42 | Emergency (ER) | payer OTHER, SELFPAY ==
[2023-07-29] VITALS (7 sets, daily range): BP systolic 119–134; BP diastolic 74–92; PULSE 103–127; RESP 16–29; TEMP 36.3–37.4; O2SAT 95–97; BMI 26.6
--- NOTE | 2023-07-29 15:36 | ED.VIS.DYS ---
HPI History of Present Illness Chief Complaint: Palpitations Informant: patient Narrative Narrative: Patient presents with concern of having pneumonia. Patient states he has been coughing for about 3 days. He states everybody in his neighborhood is coughing right now. He has had pneumonia before and this seems similar. He is coughing up some light vora sputum. No blood. No chest pain. He has occasionally felt warm but no measured fevers. He states he always has some dyspnea but it has increased slightly. Although it is not on his med list or diagnosis list he does list his COPD. He does evidently have inhalers at home. He is not a smoker anymore. [facility] Medical History Atherosclerosis of coronary artery of [place] heart without angina pectoris Atrial fibrillation with RVR Chronic combined systolic and diastolic CHF (congestive heart failure) COPD (chronic obstructive pulmonary disease) COVID-19 (04/08/20) Hyperlipidemia Ischemic cardiomyopathy Longstanding persistent atrial fibrillation Old inferior wall myocardial infarction Paroxysmal atrial fibrillation Patent foramen ovale Home Medications simvastatin 40 mg tablet 40 mg PO QHS CHOLESTEROL 04/08/20 [History Last Taken 09/16/22] metoprolol succinate 25 mg tablet,extended release 24 hr 25 mg PO DAILY HEART 03/31/21 [History Last Taken Unknown] furosemide 40 mg tablet (Lasix) 40 mg PO DAILY #90 tabs 11/22/21 [Rx Last Taken 09/16/22] apixaban 2.5 mg tablet (Eliquis) 2.5 mg PO BID 09/17/22 [History Last Taken 09/16/22] doxycycline monohydrate 100 mg capsule 100 mg PO BID #20 CAPSULES 09/17/22 [Rx Last Taken Unknown] levofloxacin 750 mg tablet 750 mg PO DAILY #6 tabs 07/29/23 [Rx Last Taken Unknown] Allergy/AdvReac Type Severity Reaction Status Date / Time No Known Allergies Allergy Verified 07/29/23 14:44 Family History Brother CAD (coronary artery disease) Sister CAD (coronary artery disease) Father CAD (coronary artery disease) Surgical History H/O coronary artery bypass surgery (04/2006) Ventral incisional hernia without obstruction or gangrene Social History Smoking Status: Former smoker quit date: 06/22/17 alcohol intake: never caffeine: Yes Type: coffee Number of servings: 1 ROS ROS ED ROS Narrative A complete review of systems was performed and is negative except as documented in the history of present illness. Some specific details below. Constitutional: No recent fevers or chills. But he has felt warm. EYE: No discharge, visual complaints, or pain. ENT: No difficulty swallowing. No swelling. No pain. No reflux symptoms. CV: See history of present illness. He does have a history of chronic A-fib. He is on and taking his Eliquis. He is pretty sure he took his metoprolol this morning also. He does not have chest pain and does not feel his heart rate going quickly even though it is approximately 120 on the monitor while I am in the room. Respiratory: See history of present illness. GI: No abdominal pain. No nausea vomiting diarrhea. No blood in stool. : No frequency dysuria or hematuria. Musculoskeletal: No recent trauma. No pains. No swelling. Skin: No rash. Nondiaphoretic. Neuro: No weakness or numbness. Endocrine: No polyuria or polydipsia. EXAM Physical Exam Narrative Exam Narrative: CONSTITUTIONAL: Patient is nontoxic in appearance. The patient looks comfortable. Work of breathing looks normal. HEENT: No notable trauma. Mucous membranes mildly dry. No sinus tenderness. No indication of pain with swallowing. EYES: No conjunctival injection. No proptosis. NECK:No JVD. No stridor. CARDIOVASCULAR: Tachycardic rate. Irregular rhythm. No notable murmur. No JVD. RESPIRATORY: No respiratory distress. Breathing is unlabored. Trace expiratory wheezes. No rhonchi. No rales. No pain with a deep breath. No chest wall tenderness. Mild dry cough while I am in the room. Saturations normal on 3 L oxygen. GASTROINTESTINAL: Not distended. Bowel sounds are normal. No tenderness. No guarding. No rebound. No palpable mass. No bruit is heard. GENITOURINARY: No tenderness over the bladder. No CVA tenderness. MUSCULOSKELETAL: Atraumatic. Trace peripheral edema. No cord. No tenderness along the deep venous system. No asymmetry. No distended veins. NEUROLOGICAL: Patient is alert and appropriate. No focal deficit noted. SKIN: No noted rashes. No diaphoresis. PSYCHIATRIC: Patient is calm. Mood is appropriate. Const Vital Signs: 07/29/23 14:44 07/29/23 14:47 07/29/23 14:48 Temperature 99.3 F H Temperature Source Oral Pulse Rate 117 H Respiratory Rate 29 H Respiratory Effort Normal Non-Labored Respiratory Pattern Tachypnea Tachypnea Blood Pressure 119/74 Blood Pressure Mean 89 Pulse Ox 95 Oxygen Delivery Method Nasal Cannula Nasal Cannula Oxygen Flow Rate (L/min) 3 3 07/29/23 15:45 07/29/23 15:54 07/29/23 16:39 Temperature 97.4 F L Temperature Source Temporal Pulse Rate 126 H 112 H Respiratory Rate 28 H 16 Respiratory Effort Respiratory Pattern Blood Pressure 124/91 H Blood Pressure Mean 102 Pulse Ox 97 Oxygen Delivery Method Nasal Cannula Oxygen Flow Rate (L/min) 3 07/29/23 16:39 07/29/23 17:00 07/29/23 18:00 Temperature 97.4 F L Temperature Source Temporal Pulse Rate 103 H 118 H 127 H Respiratory Rate 18 26 H 22 H Respiratory Effort Respiratory Pattern Blood Pressure 124/91 H 134/92 H Blood Pressure Mean 102 101 Pulse Ox 97 96 Oxygen Delivery Method Oxygen Flow Rate (L/min) MDM MDM MDM Narrative Medical decision making narrative: Patient CBC shows minimal anemia but normal white count. Patient's electrolytes do show some mild elevation in his creatinine. But he is eating and drinking. He is given a little bit of fluids here. Glucose is minimally elevated and can be rechecked. Patient's lactic acid is normal. My independent interpretation of his x-ray is concerning for right basilar pneumonia. Final reading is similar. They also note small effusion. This patient uses 2 to 3 L at night but normally does not have oxygen on during the day. He states he has been off and on the last couple days. He was walked in the emergency department. He did not desaturate but while walking. After he got in the bed he got a little winded and his sats at 88% but they have come up now. He is back on 2 L. His heart rate is varying anywhere from 95 to about 120. My plan originally was to likely admit him with his age and overall illness pneumonia and atrial fibrillation. But he states he does not feel that sick. He came in because he thought he has pneumonia and he just wants to be treated for it. He has oxygen at home. He is eating and drinking. He has family members at home. I do not think it is unreasonable that he did not try his outpatient therapy. We will use Levaquin. It is also once a day and has a very high absorption. We discussed reasons to return. Lab Data Attestation: I reviewed the patient's lab results. Labs: Laboratory Results - last 24 hr 07/29/23 07/29/23 15:44 15:45 WBC 8.4 RBC 3.82 L Hgb 12.8 L Hct 38.3 L MCV 100.3 H MCH 33.5 H MCHC 33.4 RDW Std Deviation 49.5 H RDW Coeff of Marjorie 13.5 Plt Count 203 MPV 12.5 H Immature Gran % (Auto) 0.500 Neut % (Auto) 75.9 H Lymph % (Auto) 9.0 L [place] % (Auto) 13.0 H Eos % (Auto) 1.0 Baso % (Auto) 0.6 Absolute Neuts (auto) 6.4 Absolute Lymphs (auto) 0.75 L Nucleated RBC % 0 Sodium 136 Potassium 4.0 Chloride 103 Carbon Dioxide 25.0 Anion Gap 8 BUN 33 H Creatinine 1.78 H Estim Creat Clear Calc 30.76 Est GFR (MDRD) Af Amer 47 L Est GFR (MDRD) Non-Af 39 L BUN/Creatinine Ratio 18.5 Glucose 131 H Lactic Acid 1.6 Calcium 9.3 Radiography Diagnostic Testing: Clinical Impression(s) from Imaging Studies Chest X-Ray 07/29/23 16:00 IMPRESSION: COPD and probable bibasilar interstitial infiltrate possibly pneumonia with tiny right pleural effusion Electronically Signed: Roshan Briones MD at 16:41 EST , EKG Initial EKG: Comments: My independent interpretation of the patient's EKG shows atrial fibrillation with increased rate of 122. Occasional PVCs. No acute ST elevation or depression. QRS duration is normal. QTc is just slightly longer at 470 ms. Overall this is an EKG that is similar to his 17 September 2022 EKG Discharge Plan Triage Chief Complaint: Palpitations Other Complaint: Cough ED Provider: Nelson Pisano Dx/Rx/DC Orders Clinical Impression: Atrial fibrillation, Community acquired pneumonia Instructions: ED Pneumonia (Adult) Prescriptions: New levofloxacin 750 mg tablet 750 mg PO DAILY Qty: 6 0RF No Action metoprolol succinate 25 mg tablet extended release 24 hr 25 mg PO DAILY simvastatin 40 MG tablet 40 mg PO QHS Eliquis 2.5 mg Tablet 2.5 mg PO BID doxycycline monohydrate 100 mg capsule 100 mg PO BID Qty: 20 0RF furosemide [Lasix] 40 mg tablet 40 mg PO DAILY Qty: 90 3RF Primary Care Provider: Moise Babcock NP Referrals: Moise Babcock NP, SENIOR ENGINEERING TECHNICIAN-C [Primary Care Provider] - 3-5 Days if not improving Disposition Disposition: Home, Self Care
[2023-07-29] MEDS: Ipratropium/Albuterol Sulfate 3 ML AMPUL.NEB INHALATION (15:44)
[2023-07-29] MEDS: Metoprolol Tartrate 5 MG/5 ML Vial IV ×2 (15:54→18:53)
[2023-07-29] MEDS: 0.9% Normal Saline (500mL Bag) 500 ML 999 ML IV (15:54)
--- NOTE | 2023-07-29 16:00 | RAD_ITS ---
STUDY: X-RAY CHEST REASON FOR EXAM: Male, 88 years old. cough TECHNIQUE: PA and lateral COMPARISON: September 17, 2022. FINDINGS: Lungs are hyperinflated. There is new interstitial thickening in both lower lobes more severe on the right with associated tiny right pleural effusion.. Postsurgical change status post median sternotomy and CABG. Normal size heart. Normal mediastinum and junior. Normal visualized pulmonary arteries. Mildly calcified aortic arch and descending thoracic aorta. Dorsal spine demonstrates degenerative changes. Normal visualized ribs, clavicles, and shoulders. There is no demonstrated abnormality of the visualized soft tissue structures of the upper abdomen. RAD/Chest PA and Lateral IMPRESSION: COPD and probable bibasilar interstitial infiltrate possibly pneumonia with tiny right pleural effusion Electronically Signed: Roshan Briones MD at 16:41 EST ,
[2023-07-29 16:02] LABS: Absolute Lymphocyte Count 0.75 X10^3/uL (0.83-4.51); Absolute Neutrophil Count 6.4 X10^3/uL (2.0-7.7); Basophil# 0.05 X10^3/uL; Basophil% 0.6 % (0-1); Eosinophil# 0.08 X10^3/uL; Hematocrit 38.3 % (40-54); Hemoglobin 12.8 g/dL (13.0-16.5); Lymphocyte # 0.75 X10^3/ul (0.83-4.51); Mean Corp Hgb Conc 33.4 g/dL (32-36); Mean Corpuscular Hgb 33.5 pg (27.0-32.0); Mean Corpuscular Volume 100.3 fL (80-94); Mean Platelet Vol. 12.5 fl (6.2-12.0); Monocyte# 1.09 X10^3/uL; NRBC Flagged by Analyzer 0 % (0-5); Neutrophil # 6.35 X10^3/uL (2.7-7.7); Neutrophil % 75.9 % (47-70); Platelet Count 203 K/mm3 (150-450); RBC Distribution Width CV 13.5 % (11.6-14.6); RBC Distribution Width SD 49.5 fl (35.1-43.9); Red Blood Count 3.82 M/mm3 (4.6-6.2); White Blood Count 8.4 K/mm3 (4.4-11.0)
[2023-07-29 16:20] LABS: Anion Gap 8 (5-15); BUN 33 mg/dL (7-18); BUN/Creat Ratio 18.5 RATIO (10-20); Calcium,Total 9.3 mg/dL (8.5-10.1); Chloride 103 mmol/L (98-107); Creatinine, Serum 1.78 mg/dL (0.70-1.30); EST Glomerular Filtration Rate 39 mL/min (>60); Est Glom Filt Rate - Afr Amer 47 mL/min (>60); Estimated Creatinine Clearance 30.76 ml/min; Glucose 131 mg/dL (74-106); Sodium Level 136 mmol/L (136-145)
[2023-07-29 16:24] LABS: Lactic Acid 1.6 mmol/L (0.4-1.9)
[2023-07-29] MEDS: levoFLOXacin 750 MG Tablet PO (18:53)
== END 2023-07-29 19:35 | disposition home or self-care (01) ==
PROVIDERS: Emergency Provider Emergency Medicine; PCP Nurse Practitioner Family; Visit Provider Emergency Medicine
DX: R00.2 Palpitations (principal); J44.0 Chronic obstructive pulmonary disease with (acute) lower respiratory infection; I50.40 Unspecified combined systolic (congestive) and diastolic (congestive) heart failure; I48.0 Paroxysmal atrial fibrillation; J18.9 Pneumonia, unspecified organism; Z87.891 Personal history of nicotine dependence; I25.10 Atherosclerotic heart disease of native coronary artery without angina pectoris; I25.2 Old myocardial infarction; E78.5 Hyperlipidemia, unspecified; Z79.899 Other long term (current) drug therapy; Z79.01 Long term (current) use of anticoagulants
CPT/HCPCS: 71046; 80048; 83605; 85025; 87040; 87631; 93005; 94640; 96361; 96374; 96376; 99284; J7040; A4216